=== PATIENT | male | born 1955 | race Hispanic/Latino ===

== ENCOUNTER 2018-01-11 09:45 | Inpatient (IN) | payer BC, OTHER ==
[2018-01-11] MEDS ORDERED: Levalbuterol 1.25 MG/3 ML Inhal Soln UD IH STA (10:12)
--- NOTE | 2018-01-11 10:17 | ED PDOC ---
Arrival/HPI - General Chief Complaint: Cough, Cold, Congestion Time Seen by Provider: 01/11/18 09:49 Historian: Patient - History of Present Illness Narrative History of Present Illness (Text): 01/11/18 10:13 62yo malw with pmhx of hypertension, hypercholestrol and COPD referred to ED by the PMD for 3weeks history of mild clear productive cough. The patient's by the bedside states patient was on biaxcin and Zpack and recently put back on biaxin without relieve. States that pt was also on prednisone an d then medro dose pack. He is on the second to the last tab of the medro dose. He reports SOB with exertion. Denies fever, chills, diaphoresis, abdominal pain, nausea, vomiting, chest pain, sick contact, recent travel, LE edema, calf pain. Past Medical History - Provider Review Nursing Documentation Reviewed: Yes - Infectious Disease Hx of Infectious Diseases: None - Tetanus Immunization Tetanus Immunization: Unknown - Cardiac Hx Hypertension: Yes Hx Pacemaker: No - Pulmonary Hx Asthma: Yes - Neurological Hx Paralysis: No - Hematological/Oncological Hx Blood Transfusions: No - Musculoskeletal/Rheumatological Hx Musculoskeletal Disorders: No - Psychiatric Hx Emotional Abuse: No Hx Physical Abuse: No Hx Substance Use: No - Surgical History Hx Orthopedic Surgery: Yes - Anesthesia Hx Anesthesia Reactions: No Hx Malignant Hyperthermia: No - Suicidal Assessment Feels Threatened In Home Enviroment: No Family/Social History - Physician Review Nursing Documentation Reviewed: Yes Family/Social History: Unknown Family HX Smoking Status: Unknown If Ever Smoked Hx Alcohol Use: No Hx Substance Use: No Allergies/Home Meds Allergies/Adverse Reactions: Allergies No Known Allergies Allergy (Verified 03/18/13 08:09) Home Medications: Home Meds Medication Instructions Recorded Confirmed Omeprazole [PrilOSEC] 20 mg PO DAILY 03/18/13 01/11/18 Montelukast [Singulair] 10 mg PO DAILY 10/18/14 01/11/18 Benzonatate [Tessalon Perles] 200 mg PO TID 01/11/18 01/11/18 Clarithromycin [Biaxin Filmtab] 500 mg PO BID 01/11/18 01/11/18 Glucosamn/Condroitn/C/Mn/Webb 1 each PO BID 01/11/18 01/11/18 [[facility] Glucosamine Chondroitin Tb] Methylprednisolone [Medrol Dose 4 mg PO DAILY 01/11/18 01/11/18 Pack (21 tabs)] [place] Xl 1 tab PO BID 01/11/18 01/11/18 Simvastatin [Zocor] 40 mg PO DAILY 01/11/18 01/11/18 Super Beta Prostate 1 tab PO DAILY 01/11/18 01/11/18 Valsartan [Diovan] 80 mg PO DAILY 01/11/18 01/11/18 Vit B Complex &C 1 tab PO DAILY 01/11/18 01/11/18 Vit B Dailycomplex 1 tab PO DAILY 01/11/18 01/11/18 Vit D3 1000 1 tab PO DAILY 01/11/18 01/11/18 Review of Systems - Physician Review All systems were reviewed & negative as marked: Yes - Review of Systems Constitutional: Normal Eyes: Normal ENT: Normal Respiratory: SOB, Cough, Sputum. absent: Wheezing Cardiovascular: Normal Gastrointestinal: Normal Genitourinary Male: Normal Musculoskeletal: Normal Skin: Normal Neurological: Normal Endocrine: Normal Hemo/Lymphatic: Normal Psychiatric: Normal Physical Exam Vital Signs Reviewed: Yes Vital Signs Temp Pulse Resp BP Pulse Ox 01/11/18 11:30 105 H 16 143/84 94 L 01/11/18 09:52 98.8 F 126 H 20 123/79 96 Temperature: Afebrile Blood Pressure: Normal Pulse: Tachycardic Respiratory Rate: Normal Appearance: Positive for: Well-Appearing, Non-Toxic, Comfortable Pain Distress: None Mental Status: Positive for: Alert and Oriented X 3 - Systems Exam Head: Present: Atraumatic, Normocephalic Pupils: Present: PERRL Extroacular Muscles: Present: EOMI Conjunctiva: Present: Normal Mouth: Present: Moist Mucous Membranes Neck: Present: Normal Range of Motion Respiratory/Chest: Present: Clear to Auscultation, Good Air Exchange, Other ( Coarse BS). No: Respiratory Distress, Accessory Muscle Use, Wheezes, Decreased Breath Sounds, Rales, Retracting, Rhonchi Cardiovascular: Present: Regular Rate and Rhythm, Normal S1, S2. No: Murmurs Abdomen: No: Tenderness, Distention, Peritoneal Signs Back: Present: Normal Inspection Upper Extremity: Present: Normal Inspection. No: Cyanosis, Edema Lower Extremity: Present: Normal Inspection. No: Edema Neurological: Present: GCS=15, CN II-XII Intact, Speech Normal Skin: Present: Warm, Dry, Normal Color. No: Rashes Psychiatric: Present: Alert, Oriented x 3, Normal Insight, Normal Concentration Medical Decision Making ED Course and Treatment: 01/11/18 20:17 62yo male who present with 3weeks history of clear productive cough. He was tachy on arrival but not in any respiratory distress. He had a coarse BS on exam. Otherwise he appeared comfortable in ED. His lactate was elevated, he had leukocytosis and was tachy, meeting the sepsis criteria and code sepsis was called. He was started on broad spectrum antibiotics. He was hydrated in ED. CXR ? RLL infiltrate, although it was read as pulmonary congestion EKG Sinus tachy with RBBB @108bpm Case was DW Dr. velazco and patient was admitted to his service. Case was also DW Dr. Lopez and he was placed on consult. - Lab Interpretations Lab Results: 01/11/18 10:15 01/11/18 10:15 Lab Results 01/11/18 10:15: Salicylates < 1 L, Acetaminophen < 10.0 L 01/11/18 10:15: Hepatitis A IgM Ab Negative, Hep Bs Antigen Negative, Hep B Core IgM Ab Negative, Hepatitis C Antibody Negative 01/11/18 10:15: Direct Bilirubin 2.1 H 01/11/18 10:15: Sodium 141, Chloride 105, Potassium 4.4, Carbon Dioxide 25, Anion Gap 16, BUN 25 H, Creatinine 1.0, Est GFR ( Amer) > 60, Est GFR ( Non-Af Amer) > 60, Random Glucose 93, Calcium 9.3, Magnesium 2.2, Total Bilirubin 3.0 H, AST 637 H, ALT 606 H, Alkaline Phosphatase 362 H, Lactate Dehydrogenase 98781 H, Total Creatine Kinase 796 H, CK-MB (CK-2) 2.7, CK-MB (CK- 2) % Cancelled, Troponin I < 0.01, NT-Pro-B Natriuret Pep 322, Total Protein 6.6 , Albumin 3.8, Globulin 2.8, Albumin/Globulin Ratio 1.3 01/11/18 10:15: pO2 93 H, VBG pH 7.40, VBG pCO2 41.0, VBG HCO3 25.4, VBG Total CO2 26.7, VBG O2 Sat (Calc) 99.4 H, VBG Base Excess 0.5, VBG Potassium 4.4, Sodium 139.0, Chloride 104.0, Glucose 93, Lactate 2.8 H, FiO2 21.0, Venous Blood Potassium 4.4 01/11/18 10:15: PT 12.2, INR 1.06, APTT 34.7 01/11/18 10:15: WBC 18.8 H, RBC 5.22, Hgb 14.8, Hct 43.3, MCV 83.0, MCH 28.4, MCHC 34.2, RDW 15.0 H, Plt Count 202, MPV 9.2, Gran % 78.4 H, Lymph % (Auto) 14.9 L, [place] % (Auto) 6.2 H, Eos % (Auto) 0.3 L, Baso % (Auto) 0.2, Gran # 14.77 H, Lymph # (Auto) 2.8, [place] # (Auto) 1.2 H, Eos # (Auto) 0.1, Baso # (Auto ) 0.04 - RAD Interpretation Radiology Orders: 01/11/18 10:08 CHEST TWO VIEWS (PA/LAT) [RAD] Stat - Medication Orders Current Medication Orders: Albuterol/Ipratropium (Duoneb 3 Mg/0.5 Mg (3 Ml) Ud) 3 ml IH [id number] [facility] Last Admin: 01/11/18 19:58 Dose: 3 ml Albuterol/Ipratropium (Duoneb 3 Mg/0.5 Mg (3 Ml) Ud) 3 ml IH Q2H PRN PRN Reason: Shortness of Breath Arformoterol Tartrate (Brovana) 15 mcg IH [id number] [facility] Last Admin: 01/11/18 20:06 Dose: 15 mcg Budesonide (Pulmicort Respules) 0.5 mg IH [id number] [facility] Last Admin: 01/11/18 20:06 Dose: 0.5 mg Guaifenesin/Codeine Phosphate (Robitussin W/Codeine) 5 ml PO Q6H PRN PRN Reason: Cough and congestion Losartan Potassium (Cozaar) 50 mg PO DAILY [facility] Montelukast Sodium (Singulair) 10 mg PO HS [facility] Pantoprazole Sodium (Protonix Inj) 40 mg IVP Q12 [facility] Discontinued Medications Arformoterol Tartrate (Brovana) 15 mcg IH [id number] STA Stop: 01/11/18 11:41 Last Admin: 01/11/18 12:05 Dose: 15 mcg Budesonide (Pulmicort Respules) 0.5 mg IH STAT STA Stop: 01/11/18 11:41 Last Admin: 01/11/18 12:05 Dose: 0.5 mg Sodium Chloride (Sodium Chloride 0.9%) 1,000 mls @ 999 mls/hr IV .Q1H1M STA Stop: 01/11/18 12:05 Last Admin: 01/11/18 11:22 Dose: 999 mls/hr eMAR Start Stop Document 01/11/18 11:22 LINDA (Rec: 01/11/18 11:23 LINDA [id number]) Intravenous Solution Start Date 01/11/18 Start Time 11:23 End Date 01/11/18 End time 12:23 Total Infusion Time 60 Vancomycin HCl (Vancomycin 1gm) 1 gm in 250 mls @ 167 mls/hr IVPB STAT STA PRN Reason: Protocol Stop: 01/11/18 12:34 Last Admin: 01/11/18 11:50 Dose: 167 mls/hr eMAR Start Stop Document 01/11/18 11:50 LINDA (Rec: 01/11/18 11:51 LINDA [id number]) Intravenous Solution Start Date 01/11/18 Start Time 11:51 End Date 01/11/18 End time 13:21 Total Infusion Time 90 Piperacillin Sod/Tazobactam Sod (Zosyn 3.375 In Ns 100ml) 100 mls @ 200 mls/hr IVPB STAT STA PRN Reason: Protocol Stop: 01/11/18 11:34 Last Admin: 01/11/18 11:20 Dose: 200 mls/hr eMAR Start Stop Document 01/11/18 11:20 LINDA (Rec: 01/11/18 11:21 LINDA [id number]) Intravenous Solution Start Date 01/11/18 Start Time 11:21 End Date 01/11/18 End time 11:51 Total Infusion Time 30 Levalbuterol HCl (Xopenex) 1.25 mg IH STAT STA Stop: 01/11/18 10:13 Last Admin: 01/11/18 10:26 Dose: 1.25 mg Lorazepam (Ativan) 2 mg IVP ONCE ONE PRN Reason: Protocol Stop: 01/11/18 17:15 Methylprednisolone (Solu-Medrol) 125 mg IVP STAT STA Stop: 01/11/18 10:13 Last Admin: 01/11/18 10:27 Dose: 125 mg IVP Administration Document 01/11/18 10:27 LINDA (Rec: 01/11/18 10:27 LINDA [id number]) Charges for Administration # of IVP Administrations 1 Pneumococcal Polyvalent Vaccine (Pneumovax 23 Vaccine) 0.5 ml IM .ONCE ONE Stop: 01/11/18 18:20 Tiotropium [place] (Spiriva) 18 mcg IH DAILY STA Stop: 01/11/18 11:41 Last Admin: 01/11/18 12:03 Dose: 18 mcg Disposition/Present on Arrival - Present on Arrival Any Indicators Present on Arrival: No History of DVT/PE: No History of Uncontrolled Diabetes: No Urinary Catheter: No History of Decub. Ulcer: No History Surgical Site Infection Following: None - Disposition Have Diagnosis and Disposition been Completed?: Yes Diagnosis: Sepsis, Pneumonia, Leukocytosis Disposition: HOSPITALIZED Disposition Time: 14:20 Patient Plan: Admission Condition: FAIR
[2018-01-11 10:33] LABS: BASO # 0.04 K/mm3 (0.0-2.0); BASO % 0.2 % (0.0-3.0); EOS # 0.1 (0.0-0.7); EOS % 0.3 % (1.5-5.0); GRAN # 14.77 (1.4-6.5); GRAN % 78.4 % (50.0-68.0); HEMOGLOBIN 14.8 g/dL (14.0-18.0); LYMPH # 2.8 (1.2-3.4); LYMPH % 14.9 % (22.0-35.0); MEAN CORPUSCULAR HEMOGLOBIN 28.4 pg (25.0-35.0); MEAN CORPUSCULAR HGB CONC 34.2 g/dl (31.0-37.0); MEAN PLATELET VOLUME 9.2 fl (7.0-11.0); MONO # 1.2 (0.1-0.6); MONO % 6.2 % (1.0-6.0); RBC 5.22 10^6/uL (3.5-6.1); VENOUS BLOOD GAS BASE EXCESS 0.5 mmol/L (0.0-2.0); VENOUS BLOOD GAS PO2 93 mm/Hg (30-55); WHITE BLOOD COUNT 18.8 10^3/ul (4.5-11.0)
[2018-01-11 10:44] LABS: ALB/GLOB RATIO 1.3 (1.1-1.8); ALBUMIN 3.8 g/dL (3.0-4.8); ALT/SGPT 606 U/L (7-56); AST/SGOT 637 U/L (17-59); BLOOD UREA NITROGEN 25 mg/dL (7-21); CALCIUM 9.3 mg/dL (8.4-10.5); GFR AFRICAN-AMERICAN > 60; GFR NON-AFRICAN AMERICAN > 60
[2018-01-11 10:56] LABS: B-TYPE NATRIURETIC PEPTIDE 322 pg/mL (0-450); TROPONIN I < 0.01 ng/mL
[2018-01-11 11:01] LABS: CK-MB 2.7 ng/mL (0.0-3.6)
[2018-01-11] MEDS ORDERED: Vancomycin 1gm in NS 250ml 1 GM/250 ML BAG IVPB STA (11:05)
[2018-01-11] MEDS ORDERED: Sodium Chloride 0.9% 1,000 ML IV STA (11:05)
[2018-01-11] MEDS ORDERED: Piperacillin/Tazobact 3.375 gm 100 ML IVPB STA (11:05)
[2018-01-11 11:11] LABS: INR 1.06 (0.93-1.08); PARTIAL THROMBOPLASTIN TIME 34.7 Seconds (25.1-36.5); PROTHROMBIN TIME 12.2 SECONDS (9.4-12.5)
--- NOTE | 2018-01-11 11:22 | RAD ---
Date of service: 01/11/2018 HISTORY: cough COMPARISON: 07/01/2017 TECHNIQUE: Chest PA and lateral FINDINGS: LUNGS: No active pulmonary disease. PLEURA: No significant pleural effusion identified. No pneumothorax apparent. CARDIOVASCULAR: Mild vascular congestion OSSEOUS STRUCTURES: No significant abnormalities. VISUALIZED UPPER ABDOMEN: Normal. OTHER FINDINGS: None. IMPRESSION: Mild vascular congestion
[2018-01-11] MEDS ORDERED: Tiotropium 18 mcg Cap For Inhalation IH STA (11:40)
[2018-01-11] MEDS ORDERED: Arformoterol 15 mcg/2 ml Inh Sol IH STA (11:40)
[2018-01-11] MEDS ORDERED: Budesonide 0.5 mg/2 ml Inhal Susp UD IH STA (11:40)
--- NOTE | 2018-01-11 12:00 | CP.PCM.HP ---
<RashidaZina - Last Filed: 01/11/18 13:58> History of Present Illness - History of Present Illness History of Present Illness: H&P for Lisandro Mckinney PGY3 This is a 62yo male with past medical history of HTN, dyslipidemia, asthma who came to ED for cough and shortness of breath for several weeks. Patient reports last month he was doing a lot of work in his attic and there was a lot of dust. He use a mask, but took it off at times. Since then, he has seen Dr. Churchill and Dr. Sanchez. They have given him antibiotics such as Clarithromycin and steroids, but the cough has not gotten better. He denies chest pain, fever/ chills, sick contacts or recent travel. He has never been intubated before for asthma exacerbation. He has been coughing up clear sputum, but has been having pain from coughing. In the ED, patient was noted to have transaminitis. He denies any change in diet, abdominal pain, nausea/vomiting/diarrhea, dysuria/ hematuria, changes in weight or weakness. Patient reports he has a liver cyst and fatty liver, but has not followed up in it in several years. He sees Dr. Churchill regularly has his liver enzymes have been OK. He denies taking any tylenol at home. Past medical history: HTN, dyslipidemia, asthma, fatty liver, liver cyst Past surgical history: R ankle surgery, L rotator cuff Home meds: Simvastatin, Valsartan, Singulair, Nebulizer Allergies: NKDA Social history: Denies EtOH, drug or tobacco use. 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 Independent in all ADLs Family history: Father: from possible lymphoma age 49 Present on Admission - Present on Admission Any Indicators Present on Admission: No Review of Systems - Review of Systems All systems: reviewed and no additional remarkable complaints except Review of Systems: 12 point ROS reviewed and is otherwise negative Past Patient History - Infectious Disease Hx of Infectious Diseases: None - Tetanus Immunizations Tetanus Immunization: Unknown - Past Social History Smoking Status: Unknown If Ever Smoked - CARDIAC Hx Hypertension: Yes Hx Pacemaker: No - PULMONARY Hx Asthma: Yes - NEUROLOGICAL Hx Paralysis: No - HEMATOLOGICAL/ONCOLOGICAL Hx Blood Transfusions: No - MUSCULOSKELETAL/RHEUMATOLOGICAL Hx Musculoskeletal Disorders: No - PSYCHIATRIC Hx Emotional Abuse: No Hx Physical Abuse: No Hx Substance Use: No - SURGICAL HISTORY Hx Orthopedic Surgery: Yes - ANESTHESIA Hx Anesthesia Reactions: No Hx Malignant Hyperthermia: No Meds Allergies/Adverse Reactions: Allergies Allergy/AdvReac Type Severity Reaction Status Date / Time No Known Allergies Allergy Verified 03/18/13 08:09 Physical Exam - Constitutional Appears: No Acute Distress - Head Exam Head Exam: ATRAUMATIC, NORMAL INSPECTION, NORMOCEPHALIC - Eye Exam Eye Exam: Normal appearance, PERRL Pupil Exam: NORMAL ACCOMODATION - ENT Exam ENT Exam: Mucous Membranes Moist - Respiratory Exam Respiratory Exam: Clear to Auscultation Bilateral, NORMAL BREATHING PATTERN. absent: Rales, Rhonchi, Wheezes, Respiratory Distress - Cardiovascular Exam Cardiovascular Exam: REGULAR RHYTHM, +S1, +S2. absent: Gallop, Rubs, Systolic Murmur - GI/Abdominal Exam GI & Abdominal Exam: Distended, Normal Bowel Sounds, Soft. absent: Mass, Rebound, Rigid, Tenderness - Extremities Exam Extremities exam: Positive for: normal inspection. Negative for: calf tenderness, pedal edema - Neurological Exam Neurological exam: Alert, CN II-XII Intact, Oriented x3 - Psychiatric Exam Psychiatric exam: Normal Affect, Normal Mood - Skin Skin Exam: Dry, Normal Color, Warm Results - Vital Signs Recent Vital Signs: Last Vital Signs Temp 98.8 F 01/11/18 09:52 Pulse 105 H 01/11/18 11:30 Resp 16 01/11/18 11:30 BP 143/84 01/11/18 11:30 Pulse Ox 94 L 01/11/18 11:30 - Labs Result Diagrams: 01/11/18 10:15 01/11/18 10:15 Assessment & Plan - Assessment and Plan (Free Text) Assessment: This is a 62yo male with past medical history of HTN, dyslipidemia, asthma who is admitted for 1. Shortness of breath - secondary to acute bronchitis from asthma exacerbation - leukocytosis can be secondary to steroids patient was on at home and was given solumedrol in ED - Patient is afebrile 2. Transaminitis - can be secondary to medication such as clarithromycin - will rule out choledocolithiasis v. autoimmune causes 3. HTN 4. Dyslipidemia Plan: Will place patient on nebulizer treatment as well as cough suppressant. Continue singulair. Pulm is consulted. For transaminitis, will obtain abdominal ultrasound. Hep panel pending as well as alpha 1 trypsin and autoimmune work up. Avoid hepatotoxic agents. GI is on consult. Patient will be on heart healthy diet. He is on his home BP medication and GI and DVT prophylaxis. Case seen, discussed and reviewed with Dr. Rubalcava. Lisandro Field PGY3 - Date & Time Date: 01/11/18 Time: 14:12 <Mack Rubalcava - Last Filed: 01/12/18 17:12> Results - Vital Signs Recent Vital Signs: Last Vital Signs Temp 98 F 01/12/18 14:26 Pulse 101 H 01/12/18 14:26 Resp 15 01/12/18 14:26 BP 129/73 01/12/18 14:26 Pulse Ox 93 L 01/12/18 14:26 - Labs Result Diagrams: 01/12/18 07:10 01/12/18 06:45 Labs: Laboratory Results - last 24 hr 01/12/18 01/12/18 01/12/18 06:45 06:45 06:45 WBC RBC Hgb Hct MCV MCH MCHC RDW Plt Count MPV Gran % Lymph % (Auto) [place] % (Auto) Eos % (Auto) Baso % (Auto) Gran # Lymph # (Auto) [place] # (Auto) Eos # (Auto) Baso # (Auto) Neutrophils % (Manual) Lymphocytes % (Manual) Atypical Lymphs % Monocytes % (Manual) Platelet Evaluation PT INR APTT Sodium 142 Potassium 4.5 Chloride 104 Carbon Dioxide 22 Anion Gap 21 H BUN 25 H Creatinine 0.9 Est GFR ( Amer) > 60 Est GFR (Non-Af Amer) > 60 Random Glucose 131 H Calcium 9.2 Total Bilirubin 2.4 H AST 530 H ALT 560 H Alkaline Phosphatase 343 H Total Protein 6.6 Albumin 3.8 Globulin 2.8 Albumin/Globulin Ratio 1.3 Alpha Fetoprotein 2.5 Carcinoembryonic Ag 20.6 H CA 19-9 Antigen 385 H 01/12/18 01/12/18 07:10 10:03 WBC 20.9 H RBC 5.11 Hgb 14.4 Hct 42.9 MCV 84.0 MCH 28.2 MCHC 33.6 RDW 15.3 H Plt Count 187 MPV 9.1 Gran % 86.5 H Lymph % (Auto) 4.2 L [place] % (Auto) 9.2 H Eos % (Auto) 0.0 L Baso % (Auto) 0.1 Gran # 18.04 H Lymph # (Auto) 0.9 L [place] # (Auto) 1.9 H Eos # (Auto) 0.0 Baso # (Auto) 0.03 Neutrophils % (Manual) 89 H Lymphocytes % (Manual) 2 L Atypical Lymphs % 2 H Monocytes % (Manual) 7 H Platelet Evaluation Normal PT 13.1 H INR 1.14 H APTT 27.8 Sodium Potassium Chloride Carbon Dioxide Anion Gap BUN Creatinine Est GFR ( Amer) Est GFR (Non-Af Amer) Random Glucose Calcium Total Bilirubin AST ALT Alkaline Phosphatase Total Protein Albumin Globulin Albumin/Globulin Ratio Alpha Fetoprotein Carcinoembryonic Ag CA 19-9 Antigen Assessment & Plan - Assessment and Plan (Free Text) Plan: Pt seen and examined. I have reviewed the note of the medical director and agree with it. I have discussed the assessment and plan with the resident. I have reviewed the patient's labs and medications. The pt was having cough and congestion and was not improving as an out-pt. He was sent to the ER by pulmonary. The pt was found to have high LFT's and an US was done showing multiple lesions that were concerned for cancer. Will need GI evaluation. 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
[2018-01-11 13:10] LABS: ACETAMINOPHEN < 10.0 ug/ml (10.0-20.0); SALICYLATE < 1 mg/dL (2.0-20.0)
--- NOTE | 2018-01-11 13:29 | CP.PCM.CON ---
<Johnny Freitas - Last Filed: 01/11/18 19:22> History of Present Illness - History of Present Illness History of Present Illness: GI Consult Note for Dr. Yolanda Freitas, PGY-3 IM This is a 62 yo M with PMH of HTN, hypercholesterolemia, COPD, and asthma (not tobacco user) who presented to [facility] with complaint of cough productive for clear sputum for 3 weeks. GI was consulted due to incidentally discovered elevated transaminases, concerning for transaminitis. 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 Adamantly denies any smoking hx, no clear etiology to his COPD as per pt. Has LFTs monitored every 3 months by PMD (Dr. Churchill) due to being on Zocor for cholesterol (dosing increased at last visit from 20mg to 40mg daily), was normal at last check as per pt and . Pt denies any symptoms consistent with rhabdomyolysis, including diffuse body aches, weakness, or darkened urine. Denies nausea, emesis, diarrhea, constipation, abdominal bloating/swelling/distension, melena, fevers, chills, hemoptysis, chest pain, shortness of breath at rest, unintentional weight loss, night sweats. All other ROS in 12-system review negative. PMH: as above PSH: R ankle surgery, L rotator cuff Soc Hx: sparse social EtOH (< 5 times yearly), denies drug or tobacco use. 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 Lives with family. Independent in all ADLs Fam Hx: Father from possible lymphoma age 49 PMD: Dr. Churchill Review of Systems - Review of Systems All systems: reviewed and no additional remarkable complaints except (as per HPI ) Past Patient History - Infectious Disease Hx of Infectious Diseases: None - Tetanus Immunizations Tetanus Immunization: Unknown - Past Social History Smoking Status: Unknown If Ever Smoked - CARDIAC Hx Hypertension: Yes Hx Pacemaker: No - PULMONARY Hx Asthma: Yes - NEUROLOGICAL Hx Paralysis: No - HEMATOLOGICAL/ONCOLOGICAL Hx Blood Transfusions: No - MUSCULOSKELETAL/RHEUMATOLOGICAL Hx Musculoskeletal Disorders: No - PSYCHIATRIC Hx Emotional Abuse: No Hx Physical Abuse: No Hx Substance Use: No - SURGICAL HISTORY Hx Orthopedic Surgery: Yes - ANESTHESIA Hx Anesthesia Reactions: No Hx Malignant Hyperthermia: No Meds Allergies/Adverse Reactions: Allergies Allergy/AdvReac Type Severity Reaction Status Date / Time No Known Allergies Allergy Verified 03/18/13 08:09 - Medications Medications: Current Medications Pantoprazole Sodium (Protonix Inj) 40 mg IVP Q12 [facility] Physical Exam - Constitutional Appears: Well, Non-toxic, No Acute Distress - Head Exam Head Exam: ATRAUMATIC, NORMAL INSPECTION, NORMOCEPHALIC - Eye Exam Eye Exam: EOMI, Normal appearance. absent: Conjunctival injection, Scleral icterus Pupil Exam: absent: Fixed, Irregular - ENT Exam ENT Exam: Mucous Membranes Moist. absent: Mucous Membranes Dry - Neck Exam Neck exam: Positive for: Normal Inspection. Negative for: Lymphadenopathy, Thyromegaly - Respiratory Exam Respiratory Exam: Clear to Auscultation Bilateral, NORMAL BREATHING PATTERN. absent: Accessory Muscle Use, Chest Wall Tenderness, Decreased Breath Sounds, Rales, Rhonchi, Wheezes - Cardiovascular Exam Cardiovascular Exam: REGULAR RHYTHM, RRR, +S1, +S2. absent: Bradycardia, Tachycardia, Irregular Rhythm, JVD, +S4 - GI/Abdominal Exam GI & Abdominal Exam: Firm (firm feeling abdomen that feels slightly distended, but this is baseline abd for months as per patient and , no acute changes), Normal Bowel Sounds. absent: Diminished Bowel Sounds, Guarding, Hyperactive Bowel Sounds, Hypoactive Bowel Sounds, Rigid, Soft, Tenderness - Extremities Exam Extremities exam: Positive for: normal capillary refill, normal inspection, pedal pulses present. Negative for: calf tenderness, pedal edema, tenderness - Neurological Exam Neurological exam: Alert, Oriented x3 Additional comments: awake and alert, following all commands appropriately, moving all extremities spontaneously, gait observed from bathroom to bed and appears normal - Psychiatric Exam Psychiatric exam: Normal Affect, Normal Mood - Skin Skin Exam: Dry, Intact, Normal Color, Warm Additional comments: no appreciable gross jaundice Results - Vital Signs Recent Vital Signs: Last Vital Signs Temp 98.8 F 01/11/18 09:52 Pulse 103 H 01/11/18 12:20 Resp 18 01/11/18 12:20 BP 148/89 01/11/18 12:20 Pulse Ox 94 L 01/11/18 11:30 - Labs Result Diagrams: 01/11/18 10:15 01/11/18 10:15 Assessment & Plan - Assessment and Plan (Free Text) Assessment: This is a 62 yo M with PMH of HTN, hypercholesterolemia, COPD, and asthma (not tobacco user) who presented to [facility] with complaint of cough productive for clear sputum for 3 weeks. GI was consulted due to incidentally discovered elevated transaminases, concerning for transaminitis. However, his abdominal ultrasound is acutely concerning for possible liver metastases (unknown primary). Plan: HTN Hypercholesterolemia COPD/Asthma of unclear etiology Acutely elevated transaminases, concerning for transaminitis Ddx: medication induced transaminitis vs autoimmune hepatitis vs viral hepatitis vs alpha-1 antitrypsin deficiency vs new onset liver metastases -Unlikely rhabdomyolysis given lack of characteristic symptoms, but will obtain UA to assess if positive for blood, if so will order urine microscopy -Abd US highly concerning for liver mets, primary unknown, no prior imaging for comparison -Acutely elevated LFTs not present on quarterly labs by PMD (last labs approx 2 months ago as per family), no obstruction of hepatic or pancreatic ducts observed on Abd US -Chest/Abd/Pelvis CT with IV and PO contrast ordered, given pt's reported claustrophobia and stable BP ordered Ativan 2mg IV x1 for [address] scan -want to confirm possibility of liver mets from Abd US and assess for possible primary; high suspicion for lung given unclear COPD etiology and chronic cough x3 weeks -Workup for autoimmune hepatitis and alpha-1 antitrypsin already ordered by primary team, but less likely given Abd US findings -Continue to trend LFTs and Coags daily -AFP, CA 19-9, and CEA ordered, f/u Discussed, reviewed, and seen with attending, Dr Guerrero. <Louis Guerrero V - Last Filed: 01/11/18 23:11> Meds - Medications Medications: Current Medications Albuterol/Ipratropium (Duoneb 3 Mg/0.5 Mg (3 Ml) Ud) 3 ml [id number] Last Admin: 01/11/18 19:58 Dose: 3 ml Albuterol/Ipratropium (Duoneb 3 Mg/0.5 Mg (3 Ml) Ud) 3 ml IH Q2H PRN PRN Reason: Shortness of Breath Arformoterol Tartrate (Brovana) 15 mcg IH [id number] [facility] Last Admin: 01/11/18 20:06 Dose: 15 mcg Budesonide (Pulmicort Respules) 0.5 mg IH [id number] [facility] Last Admin: 01/11/18 20:06 Dose: 0.5 mg Guaifenesin/Codeine Phosphate (Robitussin W/Codeine) 5 ml PO Q6H PRN PRN Reason: Cough and congestion Last Admin: 01/11/18 20:27 Dose: 5 ml Losartan Potassium (Cozaar) 50 mg PO DAILY [facility] Montelukast Sodium (Singulair) 10 mg PO HS [facility] Last Admin: 01/11/18 21:48 Dose: 10 mg Pantoprazole Sodium (Protonix Inj) 40 mg IVP Q12 [facility] Last Admin: 01/11/18 21:48 Dose: 40 mg Results - Vital Signs Recent Vital Signs: Last Vital Signs Temp 98.2 F 01/11/18 21:45 Pulse 104 H 01/11/18 21:45 Resp 18 01/11/18 21:45 BP 129/79 01/11/18 21:45 Pulse Ox 94 L 01/11/18 21:45 - Labs Result Diagrams: 01/11/18 10:15 01/11/18 10:15 Labs: Laboratory Results - last 24 hr 01/11/18 13:52 pO2 42 VBG pH 7.33 VBG pCO2 49.0 VBG HCO3 25.8 VBG Total CO2 27.3 VBG O2 Sat (Calc) 78.8 H VBG Base Excess -0.7 L VBG Potassium 4.8 Sodium 139.0 Chloride 105.0 Glucose 112 H Lactate 2.8 H FiO2 21.0 Venous Blood Potassium 4.8 Attending/Attestation - Attestation I have personally seen and examined this patient.: Yes I have fully participated in the care of the patient.: Yes I have reviewed all pertinent clinical information: Yes Notes (Text): This is an addendum to GI consult report dictated by the [employer].The patient was seen and examined earlier. Medical records, lab studies, imagings were reviewed. Last 24 hours events reviewed. Agreed with the above treatment plan as outlined in [employer] 's notes the with the addition of the following o/e patient is jaunced ,abdomen soft no mass Sono was reviewed and dw with DR Moss and patients and patients requested CT chest,abd and pelvis ,tumor markers 01/11/18 23:08
[2018-01-11 13:56] LABS: VENOUS BLOOD GAS BASE EXCESS -0.7 mmol/L (0.0-2.0); VENOUS BLOOD GAS PO2 42 mm/Hg (30-55); VENOUS BLOOD PH 7.33 (7.32-7.43)
[2018-01-11] MEDS ORDERED: Albuterol-Ipratrop 3 mg / 0.5 (3 ml) UD IH PRN (13:57)
[2018-01-11] MEDS: Albuterol-Ipratrop 3 mg / 0.5 (3 ml) UD IH SCH ×2 (14:30→19:58)
--- NOTE | 2018-01-11 14:35 | CP.PCM.PN ---
Subjective - Date & Time of Evaluation Date of Evaluation: 01/11/18 Time of Evaluation: 02:20 Objective - Vital Signs/Intake and Output Vital Signs (last 24 hours): Temp Pulse Resp BP Pulse Ox 98.8 F 103 H 18 148/89 94 L 01/11/18 09:52 01/11/18 12:20 01/11/18 12:20 01/11/18 12:20 01/11/18 11:30 - Medications Medications: Current Medications Albuterol/Ipratropium (Duoneb 3 Mg/0.5 Mg (3 Ml) Ud) 3 ml IH [id number] PACHECO Albuterol/Ipratropium (Duoneb 3 Mg/0.5 Mg (3 Ml) Ud) 3 ml IH Q2H PRN PRN Reason: Shortness of Breath Guaifenesin/Codeine Phosphate (Robitussin W/Codeine) 5 ml PO Q6H PRN PRN Reason: Cough and congestion Losartan Potassium (Cozaar) 50 mg PO DAILY [facility] Montelukast Sodium (Singulair) 10 mg PO HS [facility] Pantoprazole Sodium (Protonix Inj) 40 mg IVP Q12 PACHECO - Labs Labs: PT 12.2 SECONDS (9.4-12.5) 01/11/18 10:15 INR 1.06 (0.93-1.08) 01/11/18 10:15 APTT 34.7 Seconds (25.1-36.5) 01/11/18 10:15
--- NOTE | 2018-01-11 14:45 | PCM.SEPTIC ---
Sepsis Progress Note - Reassessment Type Date of Evaluation: 01/11/18 Time of Evaluation: 14:00 Reassessment Type: Non-invasive reassessment - Non Invasive Reassessment Were the most recent vital sign reviewed: Yes Vital Sign (Latest): Temp Pulse Resp BP Pulse Ox 98.8 F 103 H 18 148/89 94 L 01/11/18 09:52 01/11/18 12:20 01/11/18 12:20 01/11/18 12:20 01/11/18 11:30 Cardiovascular: Yes: Regular Rate, Rhythm, Chest Non Tender Respiratory: Yes: Normal Breath Sounds Capillary Refill: Normal (Less than 2 sec) Skin: Normal Color, Warm, Dry Addendum Addendum: 01/11/18 14:46 CODE SEPSIS NOTE Toni Echeverria DO, PGY-1, [place] Code Sepsis was called at time 11:10 to evaluate pt due to leukocytosis and tachycardia on initial presentation to ED. This is a 62 y o male PMHx of HTN, dyslipidemia, asthma who came to ED for cough and shortness of breath for several weeks. Patient reports last month he was doing a lot of work in his attic and there was a lot of dust. Pt had f/u with Dr. Churchill and Dr. Sanchez and received Clarithromycin and steroids, but the cough had not improved. Denied chest pain, fever/chills, sick contacts or recent travel. Denied intubation in past for asthma exacerbation. Had been coughing up clear sputum and had pleuritic chest pain. In the ED, patient was noted to have transaminitis. Pt denied any change in diet, abdominal pain, nausea/vomiting/ diarrhea, dysuria/hematuria, changes in weight or weakness. Patient reported that he has a liver cyst and fatty liver, but has not followed up in it in several years. Denied taking any tylenol at home. Pt had CXR done in ED which demonstrated no lung consolidation. Per ED, pt's shortness of breath was likely 2/2 to asthma exacerbation, and leukocytosis 2/2 to steroid administration at home and in the ED. Pt was placed on nebulizer tx and pulm was consulted. On reevaluation, pt overall improved. repeat VBG shows unchanged lactate, tachycardia improved, no changes in blood pressure.
--- NOTE | 2018-01-11 15:47 | US ---
Date of service: 01/11/2018 HISTORY: transaminitis COMPARISON: None. TECHNIQUE: Sonographic evaluation of the abdomen. FINDINGS: LIVER: Measures 25 cm. Increased echogenicity of the liver parenchyma. Multiple masses are seen throughout the liver consistent with metastatic disease GALLBLADDER: Unremarkable. No gallstones. COMMON BILE DUCT: Measures 3.5 mm. No stones. No dilatation. PANCREAS: Unremarkable as visualized. No mass. No ductal dilatation. RIGHT KIDNEY: Measures 11.86 x 4.91 x 4.17cm. Normal echogenicity. No calculus, mass, or hydronephrosis. LEFT KIDNEY: Measures 12.36 x 6.67 x 4.16cm. Normal echogenicity. No calculus, mass, or hydronephrosis. SPLEEN: Normal in size and contour. No mass. 10.08 x 4.53 x 5.98 cm AORTA: No aneurysmal dilatation. IVC: Unremarkable. OTHER FINDINGS: None. IMPRESSION: Diffuse hepatic metastatic disease
[2018-01-11 16:17] LABS: HEPATITIS B SURFACE AG Negative (NEGATIVE)
[2018-01-11 16:22] LABS: HEPATITIS A IGM NEGATIVE (NEGATIVE)
[2018-01-11 16:34] LABS: HEPATITIS C ANTIBODY NEGATIVE (NEGATIVE)
[2018-01-11 17:12] LABS: HEPATITIS B CORE AB NEGATIVE (NEGATIVE)
[2018-01-11 18:19] VITALS: BMI 33.0
[2018-01-11] MEDS ORDERED: Pneumococcal 23-Valent Vaccine IM ONE (18:19)
--- NOTE | 2018-01-11 19:08 | CARD ---
APPROVED REPORT Date of service: 01/11/2018 EKG Measurement Heart [id number] <Conclusion> Sinus tachycardia Right bundle branch block Abnormal ECG
[2018-01-11] MEDS: Budesonide 0.5 mg/2 ml Inhal Susp UD IH SCH (20:06)
[2018-01-11] MEDS: Arformoterol 15 mcg/2 ml Inh Sol IH SCH (20:06)
[2018-01-11] MEDS: guaiFENesin-Codeine 100-10mg/5ml Syrup (5 ml) UD PO PRN (20:27)
[2018-01-12] MEDS: Albuterol-Ipratrop 3 mg / 0.5 (3 ml) UD IH SCH ×2 (02:38→07:25)
[2018-01-12] MEDS: guaiFENesin-Codeine 100-10mg/5ml Syrup (5 ml) UD PO PRN ×3 (02:42→19:59)
[2018-01-12] MEDS ORDERED: Barium Sulfate Susp 2.1% w/v, 2.0% w/w 450 mL Bottle PO ONE (06:40)
[2018-01-12 07:20] LABS: BASO # 0.03 K/mm3 (0.0-2.0); BASO % 0.1 % (0.0-3.0); GRAN # 18.04 (1.4-6.5); GRAN % 86.5 % (50.0-68.0); HEMOGLOBIN 14.4 g/dL (14.0-18.0); LYMPH # 0.9 (1.2-3.4); LYMPH % 4.2 % (22.0-35.0); MEAN CORPUSCULAR HEMOGLOBIN 28.2 pg (25.0-35.0); MEAN CORPUSCULAR HGB CONC 33.6 g/dl (31.0-37.0); MEAN PLATELET VOLUME 9.1 fl (7.0-11.0); MONO # 1.9 (0.1-0.6); MONO % 9.2 % (1.0-6.0); PLATELET COUNT 187 10^3/uL (120.0-450.0); RBC 5.11 10^6/uL (3.5-6.1); RED CELL DISTRIBUTION WIDTH 15.3 % (11.5-14.5); WHITE BLOOD COUNT 20.9 10^3/ul (4.5-11.0)
[2018-01-12 07:25] LABS: ALB/GLOB RATIO 1.3 (1.1-1.8); ALBUMIN 3.8 g/dL (3.0-4.8); ALT/SGPT 560 U/L (7-56); AST/SGOT 530 U/L (17-59); BLOOD UREA NITROGEN 25 mg/dL (7-21); CALCIUM 9.2 mg/dL (8.4-10.5); GFR AFRICAN-AMERICAN > 60; GFR NON-AFRICAN AMERICAN > 60
[2018-01-12] MEDS: Budesonide 0.5 mg/2 ml Inhal Susp UD IH SCH ×2 (07:25→20:04)
[2018-01-12] MEDS: Arformoterol 15 mcg/2 ml Inh Sol IH SCH ×2 (07:25→20:04)
--- NOTE | 2018-01-12 07:47 | CP.PCM.PN ---
<Johnny Freitas - Last Filed: 01/12/18 12:56> Subjective - Date & Time of Evaluation Date of Evaluation: 01/12/18 Time of Evaluation: 08:00 - Subjective Subjective: GI Progress Note for Dr. Yolanda Freitas, PGY-3 IM Patient seen and examined at bedside, present during exam. Reports no acute events overnight, no acute complaints at time of exam, just persistence of his cough. Aware of results from the Ultrasound and what they may mean. Pending CT chest/abd/pelvis with IV and PO contrast to assess for possible malignancy and identify possibly primary. Objective - Vital Signs/Intake and Output Vital Signs (last 24 hours): Temp Pulse Resp BP Pulse Ox 98.2 F 104 H 18 129/79 94 L 01/11/18 21:45 01/11/18 21:45 01/11/18 21:45 01/11/18 21:45 01/11/18 21:45 Intake and Output: 01/12/18 01/12/18 06:59 18:59 Intake Total 660 Balance 660 - Medications Medications: Current Medications Albuterol/Ipratropium (Duoneb 3 Mg/0.5 Mg (3 Ml) Ud) 3 ml IH [id number] [facility] Last Admin: 01/12/18 07:25 Dose: 3 ml Albuterol/Ipratropium (Duoneb 3 Mg/0.5 Mg (3 Ml) Ud) 3 ml IH Q2H PRN PRN Reason: Shortness of Breath Arformoterol Tartrate (Brovana) 15 mcg IH [id number] [facility] Last Admin: 01/12/18 07:25 Dose: 15 mcg Budesonide (Pulmicort Respules) 0.5 mg IH [id number] [facility] Last Admin: 01/12/18 07:25 Dose: 0.5 mg Guaifenesin/Codeine Phosphate (Robitussin W/Codeine) 5 ml PO Q6H PRN PRN Reason: Cough and congestion Last Admin: 01/12/18 02:42 Dose: 5 ml Losartan Potassium (Cozaar) 50 mg PO DAILY [facility] Montelukast Sodium (Singulair) 10 mg PO HS [facility] Last Admin: 01/11/18 21:48 Dose: 10 mg Pantoprazole Sodium (Protonix Inj) 40 mg IVP Q12 [facility] Last Admin: 01/11/18 21:48 Dose: 40 mg - Labs Labs: 01/12/18 07:10 01/12/18 06:45 PT 12.2 SECONDS (9.4-12.5) 01/11/18 10:15 INR 1.06 (0.93-1.08) 01/11/18 10:15 APTT 34.7 Seconds (25.1-36.5) 01/11/18 10:15 - Eye Exam Pupil Exam: absent: Fixed, Irregular - Additional Findings Additional findings: - Constitutional Appears: Well, Non-toxic, No Acute Distress - Head Exam Head Exam: ATRAUMATIC, NORMAL INSPECTION, NORMOCEPHALIC - Eye Exam Eye Exam: EOMI, Normal appearance. absent: Conjunctival injection, Scleral icterus Pupil Exam: absent: Fixed, Irregular - ENT Exam ENT Exam: Mucous Membranes Moist. absent: Mucous Membranes Dry - Neck Exam Neck exam: Positive for: Normal Inspection. Negative for: Lymphadenopathy, Thyromegaly - Respiratory Exam Respiratory Exam: Clear to Auscultation Bilateral, NORMAL BREATHING PATTERN. absent: Accessory Muscle Use, Chest Wall Tenderness, Decreased Breath Sounds, Rales, Rhonchi, Wheezes - Cardiovascular Exam Cardiovascular Exam: REGULAR RHYTHM, RRR, +S1, +S2. absent: Bradycardia, Tachycardia, Irregular Rhythm, JVD, +S4 - GI/Abdominal Exam GI & Abdominal Exam: Firm (firm feeling abdomen that feels slightly distended, but this is baseline abd for months as per patient and , no acute changes), Normal Bowel Sounds. absent: Diminished Bowel Sounds, Guarding, Hyperactive Bowel Sounds, Hypoactive Bowel Sounds, Rigid, Soft, Tenderness - Extremities Exam Extremities exam: Positive for: normal capillary refill, normal inspection, pedal pulses present. Negative for: calf tenderness, pedal edema, tenderness - Neurological Exam awake and alert, following all commands appropriately, moving all extremities spontaneously - Psychiatric Exam Psychiatric exam: Normal Affect, Normal Mood - Skin Skin Exam: Dry, Intact, Normal Color, Warm, No appreciable gross jaundice Assessment and Plan - Assessment and Plan (Free Text) Assessment: This is a 62 yo M with PMH of HTN, hypercholesterolemia, COPD, and asthma (not tobacco user) who presented to [facility] with complaint of cough productive for clear sputum for 3 weeks. GI was consulted due to incidentally discovered elevated transaminases, concerning for transaminitis. However, his abdominal ultrasound is acutely concerning for possible liver metastases (unknown primary). Plan: HTN Hypercholesterolemia COPD/Asthma of unclear etiology Acutely elevated transaminases, concerning for transaminitis Ddx: new onset liver mets, unclear if transaminitis 2/2 mets or 2/2 medication use with mets discovery incidental -Abd US highly concerning for liver mets, primary unknown, no prior imaging for comparison -Acutely elevated LFTs on presentation, not present on quarterly labs by PMD ( last labs approx 2 months ago as per family), no obstruction of hepatic or pancreatic ducts observed on Abd US -Chest/Abd/Pelvis CT with IV and PO contrast obtained, highly concerning for extensive liver mets and multiple pulmonary nodules + hilar and mediastinal adenopathy consistent with lung metastatic disease -Pt to undergo IR biopsy of liver to assess mets, try to determine primary Ca -Workup for autoimmune hepatitis and alpha-1 antitrypsin already ordered by primary team, but much less likely given imaging findings -Continue to trend LFTs and Coags daily; LFTs slightly improved today, TBili down to 2.4 -AFP wnl, CA 19-9 elevated at 325, CEA elevated at 20.6 -Recommend Oncology consult, primary team agrees and consulted Dr. Cash, GI attending discussed case with Dr. Cash and Dr. Rubalcava -Pt's also made aware of CT findings and need for IR biopsy, agrees Discussed, reviewed, and seen with attending, Dr Guerrero. <Louis Guerrero V - Last Filed: 01/12/18 22:38> Objective - Vital Signs/Intake and Output Vital Signs (last 24 hours): Temp Pulse Resp BP Pulse Ox 98 F 101 H 15 129/73 93 L 01/12/18 14:26 01/12/18 14:26 01/12/18 14:26 01/12/18 14:26 01/12/18 14:26 Intake and Output: 01/12/18 01/13/18 18:59 06:59 Intake Total 150 660 Balance 150 660 - Medications Medications: Current Medications Acetaminophen (Tylenol 325mg Tab) 650 mg PO Q4 PRN PRN Reason: Pain, Mild (1-3) Arformoterol Tartrate (Brovana) 15 mcg IH [id number] [facility] Last Admin: 01/12/18 20:04 Dose: 15 mcg Budesonide (Pulmicort Respules) 0.5 mg IH [id number] [facility] Last Admin: 01/12/18 20:04 Dose: 0.5 mg Guaifenesin/Codeine Phosphate (Robitussin W/Codeine) 5 ml PO Q6H PRN PRN Reason: Cough and congestion Last Admin: 01/12/18 19:59 Dose: 5 ml Sodium Chloride (Sodium Chloride 0.45%) 1,000 mls @ 80 mls/hr IV .[id number] [facility] Stop: 01/13/18 08:00 Last Admin: 01/12/18 11:20 Dose: 80 mls/hr Sodium Chloride (Sodium Chloride 0.9%) 1,000 mls @ 100 mls/hr IV .Q10H [facility] Lorazepam (Ativan) 2 mg IVP ONCE ONE PRN Reason: Protocol Stop: 01/13/18 06:46 Losartan Potassium (Cozaar) 50 mg PO DAILY [facility] Last Admin: 01/12/18 11:19 Dose: 50 mg Montelukast Sodium (Singulair) 10 mg PO HS [facility] Last Admin: 01/12/18 21:03 Dose: 10 mg Ondansetron HCl (Zofran Inj) 4 mg IVP Q6H PRN PRN Reason: Nausea/Vomiting Oxycodone/Acetaminophen (Percocet 5/325 Mg Tab) 1 tab PO Q4H PRN PRN Reason: Pain, moderate (4-7) Stop: 01/15/18 14:04 Pantoprazole Sodium (Protonix Ec Tab) 40 mg PO Q12 [facility] Last Admin: 01/12/18 21:03 Dose: 40 mg Tiotropium [place] (Spiriva) 18 mcg IH DAILY [facility] Last Admin: 01/12/18 11:19 Dose: 18 mcg - Labs Labs: 01/12/18 07:10 01/12/18 06:45 PT 13.1 SECONDS (9.4-12.5) H 01/12/18 10:03 INR 1.14 (0.93-1.08) H 01/12/18 10:03 APTT 27.8 Seconds (25.1-36.5) 01/12/18 10:03 Attending/Attestation - Attestation I have personally seen and examined this patient.: Yes I have fully participated in the care of the patient.: Yes I have reviewed all pertinent clinical information, including history, physical exam and plan: Yes Notes (Text): This is an addendum to GI progrss report dictated by the [employer].The patient was seen and examined earlier. Medical records, lab studies, imagings were reviewed. Last 24 hours events reviewed. Agreed with the above treatment plan as outlined in [employer] 's notes the with the addition of the following discussed with the patient's and the patient CT scan was reviewed Discussed with the oncologist Status post liver biopsy Patient had IV contrast CT and also IV contrast for liver biopsy Scheduled to have a CT of brain with contrast patient was advised to discuss with Dr. Cash regarding rescheduling for IV contrast CT of brain in view of multiple coronary artery disease today PET scan was scheduled as an outpatient 01/12/18 22:34
[2018-01-12 08:09] LABS: LYMPHOCYTE 2 % (22.0-35.0); NEUTROPHIL 89 % (50.0-70.0)
[2018-01-12 08:10] LABS: ATYPICAL LYMPHOCYTE 2 % (0.0-0.0); MONOCYTE 7 % (1.0-6.0); PLATELET ESTIMATE NORMAL (NORMAL)
[2018-01-12] MEDS ORDERED: Iohexol 350 MG/100 ML VIAL ONE (09:28)
--- NOTE | 2018-01-12 09:46 | CP.PCM.PN ---
<Zina Field - Last Filed: 01/12/18 12:49> Subjective - Date & Time of Evaluation Date of Evaluation: 01/12/18 Time of Evaluation: 07:00 - Subjective Subjective: Medicine Progress Note for Lisandro Mckinney PGY 3 Patient seen and examined at bedside. There were no acute overnight events as per nursing staff. Patient reports having cough and pain with coughing. He denies chest pain, abdominal pain, nausea/vomiting/diarrhea, fever/chills, numbness/tingling, dysuria/hematuria, or shortness of breath. Objective - Vital Signs/Intake and Output Vital Signs (last 24 hours): Temp Pulse Resp BP Pulse Ox 98 F 77 20 134/79 96 01/12/18 06:00 01/12/18 06:00 01/12/18 06:00 01/12/18 06:00 01/12/18 06:00 Intake and Output: 01/12/18 01/12/18 06:59 18:59 Intake Total 660 Balance 660 - Medications Medications: Current Medications Arformoterol Tartrate (Brovana) 15 mcg IH [id number] [facility] Last Admin: 01/12/18 07:25 Dose: 15 mcg Budesonide (Pulmicort Respules) 0.5 mg IH [id number] [facility] Last Admin: 01/12/18 07:25 Dose: 0.5 mg Guaifenesin/Codeine Phosphate (Robitussin W/Codeine) 5 ml PO Q6H PRN PRN Reason: Cough and congestion Last Admin: 01/12/18 02:42 Dose: 5 ml Losartan Potassium (Cozaar) 50 mg PO DAILY [facility] Montelukast Sodium (Singulair) 10 mg PO HS [facility] Last Admin: 01/11/18 21:48 Dose: 10 mg Pantoprazole Sodium (Protonix Inj) 40 mg IVP Q12 [facility] Last Admin: 01/11/18 21:48 Dose: 40 mg Tiotropium [place] (Spiriva) 18 mcg IH DAILY [facility] - Labs Labs: 01/12/18 07:10 01/12/18 06:45 PT 12.2 SECONDS (9.4-12.5) 01/11/18 10:15 INR 1.06 (0.93-1.08) 07/16/18 10:15 APTT 34.7 Seconds (25.1-36.5) 01/11/18 10:15 - Constitutional Appears: No Acute Distress - Head Exam Head Exam: ATRAUMATIC, NORMAL INSPECTION, NORMOCEPHALIC - Eye Exam Eye Exam: Normal appearance, PERRL Pupil Exam: NORMAL ACCOMODATION, PERRL - ENT Exam ENT Exam: Mucous Membranes Moist - Neck Exam Neck Exam: Full ROM - Respiratory Exam Respiratory Exam: Decreased Breath Sounds (on LLL), NORMAL BREATHING PATTERN. absent: Rales, Rhonchi, Wheezes, Respiratory Distress - Cardiovascular Exam Cardiovascular Exam: REGULAR RHYTHM, +S1, +S2. absent: Gallop, Rubs, Murmur - GI/Abdominal Exam GI & Abdominal Exam: Distended, Soft, Normal Bowel Sounds, Organomegaly ( hepatomegaly). absent: Rigid, Tenderness, Rebound - Extremities Exam Extremities Exam: Normal Inspection. absent: Calf Tenderness, Pedal Edema - Neurological Exam Neurological Exam: Alert, Awake, CN II-XII Intact, Oriented x3 - Psychiatric Exam Psychiatric exam: Normal Affect, Normal Mood - Skin Skin Exam: Dry, Warm Assessment and Plan - Assessment and Plan (Free Text) Assessment: This is a 62yo male with past medical history of HTN, dyslipidemia, asthma who is admitted for 1. Shortness of breath - secondary to acute bronchitis failed antibiotic therapy v. pneumonitis - leukocytosis, afebrile - lung mass 12mm seen on CT as well hilar adenopathy 2. Transaminitis - secondary to liver metastasis seen on CT 3. HTN 4. Dyslipidemia 5. Hx of asthma Plan: CT chest/A/P reviewed. Labs reviewed. Discussed case with Dr. Guerrero. ID and Oncology on consult. Patient plan with liver biopsy tomorrow. Pulm on consult. Continue Spiriva, Pulmicort, Brovana and cough syrup. Countine IV fluids and home medications. Hold nephrotoxic agents. Discussed plan of care at length with family. Patient is on GI and DVT prophylaxis. Case seen, discussed and reviewed with Dr. Rubalcava. Lisandro Field PGY3 <Mack Rubalcava - Last Filed: 01/12/18 17:25> Objective - Vital Signs/Intake and Output Vital Signs (last 24 hours): Temp Pulse Resp BP Pulse Ox 98 F 101 H 15 129/73 93 L 01/12/18 14:26 01/12/18 14:26 01/12/18 14:26 01/12/18 14:26 01/12/18 14:26 Intake and Output: 01/12/18 01/12/18 06:59 18:59 Intake Total 660 150 Balance 660 150 - Medications Medications: Current Medications Acetaminophen (Tylenol 325mg Tab) 650 mg PO Q4 PRN PRN Reason: Pain, Mild (1-3) Arformoterol Tartrate (Brovana) 15 mcg IH [id number] [facility] Last Admin: 01/12/18 07:25 Dose: 15 mcg Budesonide (Pulmicort Respules) 0.5 mg IH [id number] [facility] Last Admin: 01/12/18 07:25 Dose: 0.5 mg Guaifenesin/Codeine Phosphate (Robitussin W/Codeine) 5 ml PO Q6H PRN PRN Reason: Cough and congestion Last Admin: 01/12/18 11:47 Dose: 5 ml Sodium Chloride (Sodium Chloride 0.45%) 1,000 mls @ 80 mls/hr IV .[id number] [facility] Stop: 01/13/18 08:00 Last Admin: 01/12/18 11:20 Dose: 80 mls/hr Sodium Chloride (Sodium Chloride 0.9%) 1,000 mls @ 100 mls/hr IV .Q10H [facility] Lorazepam (Ativan) 2 mg IVP ONCE ONE PRN Reason: Protocol Stop: 01/13/18 06:46 Losartan Potassium (Cozaar) 50 mg PO DAILY [facility] Last Admin: 01/12/18 11:19 Dose: 50 mg Montelukast Sodium (Singulair) 10 mg PO HS [facility] Last Admin: 01/11/18 21:48 Dose: 10 mg Ondansetron HCl (Zofran Inj) 4 mg IVP Q6H PRN PRN Reason: Nausea/Vomiting Oxycodone/Acetaminophen (Percocet 5/325 Mg Tab) 1 tab PO Q4H PRN PRN Reason: Pain, moderate (4-7) Stop: 01/15/18 14:04 Pantoprazole Sodium (Protonix Ec Tab) 40 mg PO Q12 [facility] Tiotropium [place] (Spiriva) 18 mcg IH DAILY [facility] Last Admin: 07/17/18 11:19 Dose: 18 mcg - Labs Labs: 01/12/18 07:10 01/12/18 06:45 PT 13.1 SECONDS (9.4-12.5) H 01/12/18 10:03 INR 1.14 (0.93-1.08) H 01/12/18 10:03 APTT 27.8 Seconds (25.1-36.5) 01/12/18 10:03 Assessment and Plan - Assessment and Plan (Free Text) Plan: Pt seen and examined. I have reviewed the note of the medical art therapist and agree with it. I have discussed the assessment and plan with the resident. I have reviewed the patient's labs and medications. Pt has a CT of the chest pending to looking for primary cancer. He has lesions on his lungs and may have lung ca. Spoke to IR about liver bx, as this is the easiest to bx. Spoke to at bedside. Oncology consult ordered. ID evaluation ordered.
--- NOTE | 2018-01-12 11:00 | CT ---
Date of service: 01/12/2018 PROCEDURE: CT Chest, Abdomen and Pelvis with intravenous contrast HISTORY: multiple liver mets on US, assess for primary COMPARISON: None. TECHNIQUE: IV dose administered: 100 cc of Omni 350 Radiation dose: Total exam DLP = 1603 mGy-cm. This CT exam was performed using one or more of the following dose reduction techniques: Automated exposure control, adjustment of the mA and/or kV according to patient size, and/or use of iterative reconstruction technique. FINDINGS: CT CHEST WITH CONTRAST: LUNGS: Multiple pulmonary nodules are seen the largest measuring 12 mm in the left lower lobe. There is extensive mediastinal and hilar adenopathy bilaterally. MEDIASTINUM: Unremarkable. Normal caliber aorta and pulmonary arterial trunk. No aortic dissection. Normal size heart. LYMPH NODES: Extensive mediastinal and hilar adenopathy. The largest node is seen in the anterior mediastinum measuring 2 x 3 cm PLEURA: Unremarkable. No pneumothorax. No pleural fluid. BONES: Unremarkable. OTHER FINDINGS: Diffusely enlarged thyroid CT ABDOMEN AND PELVIS: LIVER: Diffuse metastatic disease is seen in the liver. GALLBLADDER AND BILE DUCTS: Unremarkable. PANCREAS: Unremarkable. No gross lesion or ductal dilatation. SPLEEN: Unremarkable. ADRENALS: Unremarkable. No mass. KIDNEYS AND URETERS: Unremarkable. No hydronephrosis. No solid mass. VASCULATURE: Unremarkable. No aortic aneurysm. BOWEL: Unremarkable. No obstruction. No gross mural thickening. APPENDIX: Normal appendix. PERITONEUM: Unremarkable. No free fluid. No free air. LYMPH NODES: Unremarkable. No enlarged lymph nodes. BLADDER: Unremarkable. REPRODUCTIVE: Unremarkable. BONES: No acute fracture. OTHER FINDINGS: None. IMPRESSION: Multiple lung nodules. Extensive mediastinal and hilar adenopathy consistent with pulmonary malignancy. Diffuse metastatic disease to the liver
[2018-01-12] MEDS ORDERED: Sodium Chloride 0.45% 1,000 ML IV SCH (11:15)
[2018-01-12 11:18] LABS: INR 1.14 (0.93-1.08); PARTIAL THROMBOPLASTIN TIME 27.8 Seconds (25.1-36.5); PROTHROMBIN TIME 13.1 SECONDS (9.4-12.5)
[2018-01-12] MEDS: Tiotropium 18 mcg Cap For Inhalation IH SCH (11:19)
--- NOTE | 2018-01-12 11:19 | CP.PCM.CON ---
History of Present Illness - History of Present Illness History of Present Illness: 62-year-old male with past medical history of hypertension dyslipidemia and asthma who presents to the emergency room after failing outpatient therapy for an acute bronchitis. The patient reports that in June of this year he had a similar episode of a frequent cough with clear sputum production that resolved after 3 to 4 weeks of oral antibiotics and supportive measures. He denies any relieving factors in relation to his cough. He reports that [employer] used to to work for his cough in the past. 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 He reports that his cough seems to worsen with positional changes and with walking. His cough is with clear sputum production, associated with shortness of breath and, low-grade fever (99.1 F) noted in the past the week. He also reports having drenching sweats for the past week requiring him to change his garments three times a day. The patient denies any hemoptysis, nausea, vomiting, diarrhea, nausea, vomiting, chest pain, orthopnea, diarrhea, weight-loss, recent travel, exposure to tuberculosis. 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 He does report sun-bathing in good weather 2 times a week. He reports using sun-screen precautions. PMH: hypertension, dyslipidemia, asthma, fatty liver disease Past Surgical History: right and left rotator cuff repair, right ankle surgery Allergies: Denies Family History: mother had heart problems, father of lymphoma at age 49 Social: Worked as a police office for [employer] from [id number], currently works as a truancy officer, denies alcohol, tobacco, or illicit drug use. PMD: Dr. Churchill Review of Systems - Review of Systems All systems: reviewed and no additional remarkable complaints except (as per HPI ) Past Patient History - Infectious Disease Hx of Infectious Diseases: None - Tetanus Immunizations Tetanus Immunization: Unknown - Past Social History Smoking Status: Unknown If Ever Smoked - CARDIAC Hx Hypertension: Yes Hx Pacemaker: No - PULMONARY Hx Asthma: Yes - NEUROLOGICAL Hx Paralysis: No - HEENT Hx HEENT Problems: Yes (eyeglasses) - RENAL Hx Chronic Kidney Disease: No - ENDOCRINE/METABOLIC Hx Endocrine Disorders: No - HEMATOLOGICAL/ONCOLOGICAL Hx Blood Transfusions: No - INTEGUMENTARY Hx Dermatological Problems: Yes Other/Comment: healed surgical scar inner right foot from tendon repair to straighten foot sx 2011 - MUSCULOSKELETAL/RHEUMATOLOGICAL Hx Musculoskeletal Disorders: No - GASTROINTESTINAL Hx Gastrointestinal Disorders: Yes (fatty liver "yrs ago") Hx Gastroesophageal Reflux: Yes Other/Comment: hemorrhoids, gastritis, gastric polyps, polypectomy and bx - GENITOURINARY/GYNECOLOGICAL Hx Genitourinary Disorders: Yes (vasectomy) - PSYCHIATRIC Hx Emotional Abuse: No Hx Physical Abuse: No Hx Substance Use: No - SURGICAL HISTORY Hx Orthopedic Surgery: Yes - ANESTHESIA Hx Anesthesia Reactions: No Hx Malignant Hyperthermia: No Meds Allergies/Adverse Reactions: Allergies Allergy/AdvReac Type Severity Reaction Status Date / Time No Known Allergies Allergy Verified 03/18/13 08:09 - Medications Medications: Current Medications Arformoterol Tartrate (Brovana) 15 mcg IH [id number] [facility] Last Admin: 01/12/18 07:25 Dose: 15 mcg Budesonide (Pulmicort Respules) 0.5 mg IH [id number] [facility] Last Admin: 01/12/18 07:25 Dose: 0.5 mg Guaifenesin/Codeine Phosphate (Robitussin W/Codeine) 5 ml PO Q6H PRN PRN Reason: Cough and congestion Last Admin: 01/12/18 02:42 Dose: 5 ml Sodium Chloride (Sodium Chloride 0.45%) 1,000 mls @ 80 mls/hr IV .[id number] [facility] Stop: 01/13/18 08:00 Losartan Potassium (Cozaar) 50 mg PO DAILY [facility] Montelukast Sodium (Singulair) 10 mg PO HS [facility] Last Admin: 01/11/18 21:48 Dose: 10 mg Pantoprazole Sodium (Protonix Inj) 40 mg IVP Q12 [facility] Last Admin: 01/11/18 21:48 Dose: 40 mg Tiotropium [place] (Spiriva) 18 mcg IH DAILY [facility] Physical Exam - Constitutional Appears: No Acute Distress - Head Exam Head Exam: ATRAUMATIC, NORMOCEPHALIC - Eye Exam Eye Exam: EOMI, Normal appearance - ENT Exam ENT Exam: Mucous Membranes Moist, Normal Oropharynx - Neck Exam Neck exam: Positive for: Lymphadenopathy (submandibular) - Respiratory Exam Respiratory Exam: Rhonchi (right lung field), NORMAL BREATHING PATTERN. absent : Accessory Muscle Use - Cardiovascular Exam Cardiovascular Exam: Tachycardia, +S1, +S2 - GI/Abdominal Exam GI & Abdominal Exam: Normal Bowel Sounds, Soft. absent: Guarding, Rebound - Extremities Exam Extremities exam: Positive for: normal inspection. Negative for: calf tenderness - Back Exam Back exam: NORMAL INSPECTION - Neurological Exam Neurological exam: Alert, CN II-XII Intact, Oriented x3 - Psychiatric Exam Psychiatric exam: Normal Affect, Normal Mood - Skin Skin Exam: Dry, Intact Additional comments: tanned with multiple macules on chest, abdomen, and back - Additional Findings Additional findings: no axillary lymphadenopathy appreciated Results - Vital Signs Recent Vital Signs: Last Vital Signs Temp 98 F 01/12/18 06:00 Pulse 77 01/12/18 06:00 Resp 20 01/12/18 06:00 BP 134/79 01/12/18 06:00 Pulse Ox 96 01/12/18 06:00 - Labs Result Diagrams: 01/12/18 07:10 01/12/18 06:45 Labs: Laboratory Results - last 24 hr 01/11/18 01/12/18 01/12/18 13:52 06:45 06:45 WBC RBC Hgb Hct MCV MCH MCHC RDW Plt Count MPV Gran % Lymph % (Auto) Woodruff % (Auto) Eos % (Auto) Baso % (Auto) Gran # Lymph # (Auto) Woodruff # (Auto) Eos # (Auto) Baso # (Auto) Neutrophils % (Manual) Lymphocytes % (Manual) Atypical Lymphs % Monocytes % (Manual) Platelet Evaluation pO2 42 VBG pH 7.33 VBG pCO2 49.0 VBG HCO3 25.8 VBG Total CO2 27.3 VBG O2 Sat (Calc) 78.8 H VBG Base Excess -0.7 L VBG Potassium 4.8 Sodium 139.0 142 Chloride 105.0 104 Glucose 112 H Lactate 2.8 H FiO2 21.0 Potassium 4.5 Carbon Dioxide 22 Anion Gap 21 H BUN 25 H Creatinine 0.9 Est GFR ( Amer) > 60 Est GFR (Non-Af Amer) > 60 Random Glucose 131 H Calcium 9.2 Total Bilirubin 2.4 H AST 530 H ALT 560 H Alkaline Phosphatase 343 H Total Protein 6.6 Albumin 3.8 Globulin 2.8 Albumin/Globulin Ratio 1.3 Carcinoembryonic Ag 20.6 H Venous Blood Potassium 4.8 01/12/18 07:10 WBC 20.9 H RBC 5.11 Hgb 14.4 Hct 42.9 MCV 84.0 MCH 28.2 MCHC 33.6 RDW 15.3 H Plt Count 187 MPV 9.1 Gran % 86.5 H Lymph % (Auto) 4.2 L Woodruff % (Auto) 9.2 H Eos % (Auto) 0.0 L Baso % (Auto) 0.1 Gran # 18.04 H Lymph # (Auto) 0.9 L Woodruff # (Auto) 1.9 H Eos # (Auto) 0.0 Baso # (Auto) 0.03 Neutrophils % (Manual) 89 H Lymphocytes % (Manual) 2 L Atypical Lymphs % 2 H Monocytes % (Manual) 7 H Platelet Evaluation Normal pO2 VBG pH VBG pCO2 VBG HCO3 VBG Total CO2 VBG O2 Sat (Calc) VBG Base Excess VBG Potassium Sodium Chloride Glucose Lactate FiO2 Potassium Carbon Dioxide Anion Gap BUN Creatinine Est GFR ( Amer) Est GFR (Non-Af Amer) Random Glucose Calcium Total Bilirubin AST ALT Alkaline Phosphatase Total Protein Albumin Globulin Albumin/Globulin Ratio Carcinoembryonic Ag Venous Blood Potassium Assessment & Plan - Assessment and Plan (Free Text) Assessment: 62 year old male with a past medical history of hypertension, hyperlipidemia, asthma who was referred to [facility] by his PMD for 3 weeks of cough, clear sputum, not responding to oral steroids and antibiotics. On admission, the patient was found to have a elevated WBC and elevated liver function tests prompting and abdominal US that showed liver lesions, possibly consistent with metastatic disease. GI was consulted who ordered a computed tomography of the chest, abdomen, and pelvis that showed, multiple lung nodules, extensive mediastinal and hilar adenopathy along with diffuse (metastatic) disease to the liver. Hematology and ONcology was consulted as well for the imaging findings. We will perform a PPD to assess for anergy and serum protein electrophoresis to assess for possible lymphoma given the patient also has some B-cell symptoms and mediastinal disease. Current plan is to perform biopsy of the liver and/or lung lesion to determine the etiology of the patients signs and symptoms. Case reviewed and discussed at length with attending physician, Dr. Cash - Date & Time Date: 01/12/18 Time: 13:45
[2018-01-12] MEDS ORDERED: Tuberculin 5 Units/0.1 ml Inj ID ONE (13:17)
[2018-01-12] MEDS ORDERED: Lidocaine 1% Inj (20ml) ONE (13:42)
[2018-01-12] MEDS ORDERED: Midazolam 2 MG/2 ML VIAL ONE (13:43)
--- NOTE | 2018-01-12 14:27 | CON ---
DATE: 01/12/2018 PULMONARY CONSULTATION CHIEF COMPLAINT: The patient is a 62-year-old gentleman with no smoking history who has had asthma and emphysema for quite sometime. He had cough progressive over the last few weeks. He was given antibiotics, antitussives, corticosteroids to no avail. When his cough became worse, he was asked to go to the Emergency Room for further evaluation. PAST MEDICAL HISTORY: Includes hypertension, asthma, emphysema, dyslipidemia, fatty liver and a liver cyst. HOME MEDICATIONS: Include Brovana, budesonide, tiotropium, Singulair, valsartan, simvastatin. FAMILY HISTORY: CAD, HTN ALLERGIES: NONE. SOCIAL HISTORY Nonsmoker. No travel history. No previous history of smoking. No occupational exposure. REVIEW OF SYSTEMS: Other than as described above, negative. No signs of weight loss, night sweats or fever or fever or chills. There are no significant additional abnormalities. The patient is coughing, but not acutely short of breath. All other systems negative. PHYSICAL EXAMINATION: VITAL SIGNS: Show blood pressure of 120/80, heart rate 80, respiratory rate 16-18, afebrile. NECK: Supple. No jugular venous distention. No lymphadenopathy. No bruit. COR: Regular rhythm. S1, S2 without murmur, gallop or rub. CHEST: Coughing continuously, but normal breathing. No rales or rhonchi. Occasional wheezes are still heard. ABDOMEN: Soft. Bowel sounds normoactive without mass, guarding, rebound or organomegaly. EXTREMITIES: Reveal no clubbing, cyanosis or edema. There is no CVA tenderness. NEUROLOGIC: Exam intact. No focal findings noted. LYMPH NODES: No lymphadenopathy in the supraclavicular notch nor in the cervical, inguinal or axillary areas are palpated. SKIN: No rash or excoriation. NEUROLOGIC: Exam awake, alert, oriented. No focal findings. LABORATORY DATA: White count 18,800, hemoglobin 14, hematocrit 43, platelet count 202,000. Sodium 141, potassium 4.4, chloride 105, CO2 25, BUN 25, creatinine 1, glucose 93. EKG: Sinus rhythm, nonspecific ST-T wave changes. Chest x-ray: Questionable mid right hilar fullness, etiology unclear, pneumonia (?), mass (?). ASSESSMENT: 1. Chronic obstructive pulmonary disease. 2. Persistent cough. 3. Acute bronchospasm. 4. Underlying emphysema. 5. Air trapping. 6. Abnormal x-ray, rule out pneumonia. PLAN: CT scan of the chest is in order to look for additional etiology. The patient was already started on IV antibiotic. The case was discussed with the patient's primary attending who will continue antibiotic therapy. It has been noted that ultrasound of the liver was abnormal with questionable metastatic disease. GI workup is in progress. The patient is being evaluated by Dr. Guerrero. CT of the chest is pending and will be done later today. We will review as soon as possible. Case discussed with the patient's and the patient himself. He appears comfortable, but depressed over the findings in the liver. We will extubate this workup and see if further intervention is required. In the meantime, we will continue Brovana, budesonide, tiotropium. He is given corticosteroids and we will follow closely with you during the course of hospitalization. Thank you for the opportunity to follow Mr. Gallegos. We will follow closely with you. Michel Sanchez MD MTDAnt
[2018-01-12] MEDS ORDERED: Midazolam 2 MG/2 ML VIAL IVP ONE (14:35)
--- NOTE | 2018-01-12 20:25 | CT ---
PROCEDURE: CT guided liver biopsy. HISTORY: Bilateral liver metastasis. No history of CA. Needs liver biopsy. PHYSICIAN(S): Stefan Madison MD. TECHNIQUE: The relative risks and indications of the procedure were explained to the patient and consent obtained. The patient was placed supine on the CT scanner and preliminary images through the liver obtained. Conscious sedation and monitoring were provided throughout the procedure by a nurse. There are not numerous confluent low-attenuation lesions in both lobes liver.. A subxyphoid approach was selected and the area prepped and draped in the usual sterile fashion. 1% Xylocaine was used to anesthetize the skin and soft tissues. A 17-gauge guiding needle was advanced into the left lobe laterally.. Its position was confirmed with CT. Using coaxial technique, multiple core biopsies were obtained. The postprocedure images show no evidence of significant hemorrhage. IMPRESSION: 1. CT-guided liver biopsy as described above.
[2018-01-12] MEDS: Pantoprazole 40 mg EC Tab PO SCH (21:03)
[2018-01-13] MEDS: Oxycodone/Acetaminophen 5/325 mg Tab PO PRN ×4 (02:54→22:19)
[2018-01-13] MEDS: guaiFENesin-Codeine 100-10mg/5ml Syrup (5 ml) UD PO PRN ×2 (02:54→09:54)
[2018-01-13] MEDS: Sodium Chloride 0.9% 1,000 ML IV SCH ×2 (04:29→19:04)
--- NOTE | 2018-01-13 07:00 | CP.PCM.PN ---
Subjective - Date & Time of Evaluation Date of Evaluation: 01/13/18 Time of Evaluation: 06:57 - Subjective Subjective: Dave Miranda DO PGY-2: Hematology/Oncology Progress Note for Dr. Cash Patient was seen and examined at bedside. Patient reports some abdominal pain at the biopsy site. He reports his cough is the same. Nurse reports no events overnight. Objective - Vital Signs/Intake and Output Vital Signs (last 24 hours): Temp Pulse Resp BP Pulse Ox 97.5 F L 101 H 18 132/77 93 L 01/12/18 22:55 01/12/18 22:55 01/12/18 22:55 01/12/18 22:55 01/12/18 22:55 Intake and Output: 01/12/18 01/13/18 18:59 06:59 Intake Total 150 1020 Balance 150 1020 - Medications Medications: Current Medications Acetaminophen (Tylenol 325mg Tab) 650 mg PO Q4 PRN PRN Reason: Pain, Mild (1-3) Arformoterol Tartrate (Brovana) 15 mcg IH [id number] [facility] Last Admin: 01/12/18 20:04 Dose: 15 mcg Budesonide (Pulmicort Respules) 0.5 mg IH [id number] [facility] Last Admin: 01/12/18 20:04 Dose: 0.5 mg Guaifenesin/Codeine Phosphate (Robitussin W/Codeine) 5 ml PO Q6H PRN PRN Reason: Cough and congestion Last Admin: 01/13/18 02:54 Dose: 5 ml Sodium Chloride (Sodium Chloride 0.45%) 1,000 mls @ 80 mls/hr IV .[id number] [facility] Stop: 01/13/18 08:00 Last Admin: 01/12/18 11:20 Dose: 80 mls/hr Sodium Chloride (Sodium Chloride 0.9%) 1,000 mls @ 100 mls/hr IV .Q10H [facility] Last Admin: 01/13/18 04:29 Dose: Not Given Losartan Potassium (Cozaar) 50 mg PO DAILY [facility] Last Admin: 01/12/18 11:19 Dose: 50 mg Montelukast Sodium (Singulair) 10 mg PO HS [facility] Last Admin: 01/12/18 21:03 Dose: 10 mg Ondansetron HCl (Zofran Inj) 4 mg IVP Q6H PRN PRN Reason: Nausea/Vomiting Oxycodone/Acetaminophen (Percocet 5/325 Mg Tab) 1 tab PO Q4H PRN PRN Reason: Pain, moderate (4-7) Stop: 01/15/18 14:04 Last Admin: 01/13/18 06:38 Dose: 1 tab Pantoprazole Sodium (Protonix Ec Tab) 40 mg PO Q12 [facility] Last Admin: 01/12/18 21:03 Dose: 40 mg Tiotropium [place] (Spiriva) 18 mcg IH DAILY [facility] Last Admin: 01/12/18 11:19 Dose: 18 mcg - Labs Labs: 01/12/18 07:10 01/12/18 06:45 PT 13.1 SECONDS (9.4-12.5) H 01/12/18 10:03 INR 1.14 (0.93-1.08) H 01/12/18 10:03 APTT 27.8 Seconds (25.1-36.5) 01/12/18 10:03 - Constitutional Appears: Non-toxic - Head Exam Head Exam: ATRAUMATIC, NORMOCEPHALIC - Eye Exam Eye Exam: EOMI, Normal appearance - Respiratory Exam Respiratory Exam: Rhonchi (right side). absent: Accessory Muscle Use - Cardiovascular Exam Cardiovascular Exam: Tachycardia, +S1, +S2 - GI/Abdominal Exam GI & Abdominal Exam: Soft, Organomegaly (liver palpated 5 cm below right costal margin) - Extremities Exam Extremities Exam: Normal Inspection. absent: Calf Tenderness - Neurological Exam Neurological Exam: Alert, Awake, Oriented x3 - Psychiatric Exam Psychiatric exam: Normal Affect, Normal Mood - Skin Skin Exam: Dry, Intact, Normal Color, Warm Assessment and Plan - Assessment and Plan (Free Text) Assessment: 62 year old male with 3 weeks of cough that did not respond to oral antibiotics , steroids, or Tussinex. He presented to [facility] given that he failed outpatient treatment for bronchitis. Upon admission he was found to have elevated liver functions tests and abdominal US showed liver lesions consistent with metastatic disease. CT of the chest, abdomen, and pelvis with PO and IV contrast showed right pulmonary mass, mediastinal and hilar adenopathy, and redemonstrated metastatic lesions in the liver. The patient underwent CT guided core-biopsy of the liver lesion, pathology is pending. GI is consulted and following. Liver function tests are slowly trending down, as is the serum LDH. The patient will undergo CT of the head and neck with IV contrast tomorrow. The patient will need an outpatient PET CT and a prescription was provided to the of the patient. Case reviewed and discussed with attending physician, Dr. Cash
[2018-01-13] MEDS: Budesonide 0.5 mg/2 ml Inhal Susp UD IH SCH ×2 (07:11→20:17)
[2018-01-13] MEDS: Arformoterol 15 mcg/2 ml Inh Sol IH SCH ×2 (07:11→20:17)
[2018-01-13 07:39] LABS: BASO # 0.03 K/mm3 (0.0-2.0); BASO % 0.2 % (0.0-3.0); EOS % 0.1 % (1.5-5.0); GRAN # 14.54 (1.4-6.5); GRAN % 81.5 % (50.0-68.0); HEMOGLOBIN 13.4 g/dL (14.0-18.0); LYMPH % 5.8 % (22.0-35.0); MEAN CELL VOLUME 83.3 fl (80.0-105.0); MEAN CORPUSCULAR HGB CONC 33.7 g/dl (31.0-37.0); MEAN PLATELET VOLUME 9.2 fl (7.0-11.0); MONO # 2.2 (0.1-0.6); MONO % 12.4 % (1.0-6.0); RBC 4.78 10^6/uL (3.5-6.1); RED CELL DISTRIBUTION WIDTH 15.5 % (11.5-14.5); WHITE BLOOD COUNT 17.8 10^3/ul (4.5-11.0)
[2018-01-13 07:45] LABS: INR 1.13 (0.93-1.08)
[2018-01-13 08:06] LABS: ALB/GLOB RATIO 1.2 (1.1-1.8); ALBUMIN 3.3 g/dL (3.0-4.8); ALT/SGPT 460 U/L (7-56); AST/SGOT 497 U/L (17-59); BLOOD UREA NITROGEN 33 mg/dL (7-21); CALCIUM 8.7 mg/dL (8.4-10.5); GAMMA GLUTAMYL TRANSPEPTIDASE 2385 U/L (8-78); GFR AFRICAN-AMERICAN > 60; GFR NON-AFRICAN AMERICAN > 60
[2018-01-13] MEDS: Pantoprazole 40 mg EC Tab PO SCH ×2 (09:54→21:13)
--- NOTE | 2018-01-13 10:29 | CP.PCM.PN ---
<Zina Field - Last Filed: 01/13/18 11:42> Subjective - Date & Time of Evaluation Date of Evaluation: 01/13/18 Time of Evaluation: 07:00 - Subjective Subjective: Medicine Progress Note for Lisandro Mckinney PGY3 Patient seen and examined at bedside. There were no acute overnight events as per nursing staff. Patient reports having some abdominal pain at his liver biopsy site and dry cough. Otherwise he denies chest pain, shortness of breath, nausea/vomiting/diarrhea, fever/chills, numbness/tingling, dysuria/hematuria. Objective - Vital Signs/Intake and Output Vital Signs (last 24 hours): Temp Pulse Resp BP Pulse Ox 98.3 F 98 H 20 117/72 94 L 01/13/18 06:00 01/13/18 06:00 01/13/18 06:00 01/13/18 06:00 01/13/18 06:00 Intake and Output: 01/13/18 01/13/18 06:59 18:59 Intake Total 1020 Balance 1020 - Medications Medications: Current Medications Acetaminophen (Tylenol 325mg Tab) 650 mg PO Q4 PRN PRN Reason: Pain, Mild (1-3) Arformoterol Tartrate (Brovana) 15 mcg IH [id number] [facility] Last Admin: 01/13/18 07:11 Dose: 15 mcg Budesonide (Pulmicort Respules) 0.5 mg IH [id number] [facility] Last Admin: 01/13/18 07:11 Dose: 0.5 mg Guaifenesin/Codeine Phosphate (Robitussin W/Codeine) 5 ml PO Q6H PRN PRN Reason: Cough and congestion Last Admin: 01/13/18 09:54 Dose: 5 ml Sodium Chloride (Sodium Chloride 0.9%) 1,000 mls @ 100 mls/hr IV .Q10H [facility] Last Admin: 01/13/18 04:29 Dose: Not Given Losartan Potassium (Cozaar) 50 mg PO DAILY [facility] Last Admin: 01/13/18 09:54 Dose: 50 mg Montelukast Sodium (Singulair) 10 mg PO HS [facility] Last Admin: 01/12/18 21:03 Dose: 10 mg Ondansetron HCl (Zofran Inj) 4 mg IVP Q6H PRN PRN Reason: Nausea/Vomiting Oxycodone/Acetaminophen (Percocet 5/325 Mg Tab) 1 tab PO Q4H PRN PRN Reason: Pain, moderate (4-7) Stop: 01/15/18 14:04 Last Admin: 01/13/18 06:38 Dose: 1 tab Pantoprazole Sodium (Protonix Ec Tab) 40 mg PO Q12 [facility] Last Admin: 01/13/18 09:54 Dose: 40 mg Tiotropium [place] (Spiriva) 18 mcg IH DAILY [facility] Last Admin: 01/12/18 11:19 Dose: 18 mcg - Labs Labs: 01/13/18 07:00 01/13/18 07:00 PT 13.0 SECONDS (9.4-12.5) H 01/13/18 07:00 INR 1.13 (0.93-1.08) H 01/13/18 07:00 APTT 26.0 Seconds (25.1-36.5) 01/13/18 07:00 - Constitutional Appears: No Acute Distress - Head Exam Head Exam: ATRAUMATIC, NORMAL INSPECTION, NORMOCEPHALIC - Eye Exam Eye Exam: Normal appearance, PERRL Pupil Exam: NORMAL ACCOMODATION, PERRL - ENT Exam ENT Exam: Mucous Membranes Moist - Respiratory Exam Respiratory Exam: Clear to Ausculation Bilateral, NORMAL BREATHING PATTERN. absent: Decreased Breath Sounds, Rales, Rhonchi, Wheezes - Cardiovascular Exam Cardiovascular Exam: REGULAR RHYTHM, +S1, +S2. absent: Gallop, Rubs, Murmur - GI/Abdominal Exam GI & Abdominal Exam: Soft, Normal Bowel Sounds, Organomegaly (hepatomegaly ). absent: Tenderness Additional comments: dressing in place- clean and dry - Extremities Exam Extremities Exam: Normal Inspection. absent: Calf Tenderness, Pedal Edema - Neurological Exam Neurological Exam: Alert, Awake, CN II-XII Intact, Oriented x3 - Psychiatric Exam Psychiatric exam: Normal Affect, Normal Mood - Skin Skin Exam: Dry, Intact, Warm Assessment and Plan - Assessment and Plan (Free Text) Assessment: This is a 62yo male with past medical history of HTN, dyslipidemia, asthma who is admitted for 1. Shortness of breath - secondary to acute bronchitis failed antibiotic therapy v. pneumonitis with underlying suspected lung ca - leukocytosis, afebrile - lung mass 12mm seen on CT as well hilar adenopathy 2. Transaminitis - secondary to liver metastasis seen on CT as well as medications - s/p liver biopsy POD #1 3. HTN 4. Dyslipidemia 5. Hx of asthma Plan: Patient is s/p liver biopsy awaiting pathology results. Oncology on consult. Recommend CT head and neck with contrast tomorrow. Will complete tomorrow. Continue IV fluids since patient had IV contrast yesterday with liver biopsy and CT scan. Hold nephrotoxic agents. Continue pain control. PCT elevated. ID consulted. Continue respiratory treatments and cough syrup. Patient will need PET scan as outpatient. Discussed plan of care at length with family. Patient is on GI and DVT prophylaxis. Case seen, discussed and reviewed with Dr. Rubalcava. Lisandro Field PGY3 <Mack Rubalcava S - Last Filed: 01/13/18 21:35> Objective - Vital Signs/Intake and Output Vital Signs (last 24 hours): Temp Pulse Resp BP Pulse Ox 97.9 F 96 H 20 113/64 93 L 01/13/18 14:00 01/13/18 14:00 01/13/18 14:00 01/13/18 14:00 01/13/18 14:00 - Medications Medications: Current Medications Acetaminophen (Tylenol 325mg Tab) 650 mg PO Q4 PRN PRN Reason: Pain, Mild (1-3) Arformoterol Tartrate (Brovana) 15 mcg IH [id number] [facility] Last Admin: 01/13/18 20:17 Dose: 15 mcg Budesonide (Pulmicort Respules) 0.5 mg IH [id number] [facility] Last Admin: 01/13/18 20:17 Dose: 0.5 mg Guaifenesin/Codeine Phosphate (Robitussin W/Codeine) 5 ml PO Q6H PRN PRN Reason: Cough and congestion Last Admin: 01/13/18 09:54 Dose: 5 ml Sodium Chloride (Sodium Chloride 0.9%) 1,000 mls @ 100 mls/hr IV .Q10H [facility] Last Admin: 01/13/18 19:04 Dose: 100 mls/hr Lidocaine (Lidoderm) 1 ea TD DAILY [facility] Last Admin: 01/13/18 16:45 Dose: 1 ea Lorazepam (Ativan) 2 mg IVP ONCE ONE PRN Reason: Protocol Stop: 01/14/18 06:46 Losartan Potassium (Cozaar) 50 mg PO DAILY [facility] Last Admin: 01/13/18 09:54 Dose: 50 mg Montelukast Sodium (Singulair) 10 mg PO HS [facility] Last Admin: 01/13/18 21:13 Dose: 10 mg Morphine Sulfate (Morphine) 2 mg IVP Q6H PRN PRN Reason: Pain, severe (8-10) Last Admin: 01/13/18 20:27 Dose: 2 mg Ondansetron HCl (Zofran Inj) 4 mg IVP Q6H PRN PRN Reason: Nausea/Vomiting Oxycodone/Acetaminophen (Percocet 5/325 Mg Tab) 1 tab PO Q4H PRN PRN Reason: Pain, moderate (4-7) Stop: 01/15/18 14:04 Last Admin: 01/13/18 16:53 Dose: 1 tab Pantoprazole Sodium (Protonix Ec Tab) 40 mg PO Q12 [facility] Last Admin: 01/13/18 21:13 Dose: 40 mg Tiotropium [place] (Spiriva) 18 mcg IH DAILY [facility] Last Admin: 01/13/18 11:00 Dose: 18 mcg - Labs Labs: 01/13/18 07:00 01/13/18 07:00 PT 13.0 SECONDS (9.4-12.5) H 01/13/18 07:00 INR 1.13 (0.93-1.08) H 01/13/18 07:00 APTT 26.0 Seconds (25.1-36.5) 01/13/18 07:00 Assessment and Plan - Assessment and Plan (Free Text) Plan: Pt seen and examined. I have reviewed the note of the medical planner and agree with it. I have discussed the assessment and plan with the resident. I have reviewed the patient's labs and medications. Pt had a liver bx for multiple lesions. CT has been reviewed. Spoke to at the bedside. Spoke to Dr Maciel today. Pt is able to ambulate. Pain is controlled.
[2018-01-13] MEDS ORDERED: Morphine 2 mg/ml ISec IVP PRN (10:42)
[2018-01-13] MEDS: Tiotropium 18 mcg Cap For Inhalation IH SCH (11:00)
--- NOTE | 2018-01-13 12:33 | CP.PCM.PN ---
<Johnny Freitas - Last Filed: 01/13/18 16:19> Subjective - Date & Time of Evaluation Date of Evaluation: 01/13/18 Time of Evaluation: 08:50 - Subjective Subjective: GI Progress Note for Dr. Yolanda Freitas, PGY-3 IM Patient seen and examined at bedside, present during exam. Reports no acute events overnight, no acute complaints at time of exam, just persistence of his cough. CT chest/abd/pelvis concerning for hepatic and possible lung malignancy, CEA and Ca19-9 both elevated on labs. S/p IR guided Liver biopsy of lesion yesterday, pathology pending. Awaiting improvement in LFTs, pending outpatient PET CT and additional follow-up/workup by Heme-onc. Objective - Vital Signs/Intake and Output Vital Signs (last 24 hours): Temp Pulse Resp BP Pulse Ox 98.3 F 98 H 20 117/72 94 L 01/13/18 06:00 01/13/18 06:00 01/13/18 06:00 01/13/18 06:00 01/13/18 06:00 Intake and Output: 01/13/18 01/13/18 06:59 18:59 Intake Total 1020 Balance 1020 - Medications Medications: Current Medications Acetaminophen (Tylenol 325mg Tab) 650 mg PO Q4 PRN PRN Reason: Pain, Mild (1-3) Arformoterol Tartrate (Brovana) 15 mcg IH [id number] [facility] Last Admin: 01/13/18 07:11 Dose: 15 mcg Budesonide (Pulmicort Respules) 0.5 mg IH [id number] [facility] Last Admin: 01/13/18 07:11 Dose: 0.5 mg Guaifenesin/Codeine Phosphate (Robitussin W/Codeine) 5 ml PO Q6H PRN PRN Reason: Cough and congestion Last Admin: 01/13/18 09:54 Dose: 5 ml Sodium Chloride (Sodium Chloride 0.9%) 1,000 mls @ 100 mls/hr IV .Q10H [facility] Last Admin: 01/13/18 04:29 Dose: Not Given Losartan Potassium (Cozaar) 50 mg PO DAILY [facility] Last Admin: 01/13/18 09:54 Dose: 50 mg Montelukast Sodium (Singulair) 10 mg PO HS [facility] Last Admin: 01/12/18 21:03 Dose: 10 mg Morphine Sulfate (Morphine) 2 mg IVP Q6H PRN PRN Reason: Pain, severe (8-10) Last Admin: 01/13/18 12:09 Dose: 2 mg Ondansetron HCl (Zofran Inj) 4 mg IVP Q6H PRN PRN Reason: Nausea/Vomiting Oxycodone/Acetaminophen (Percocet 5/325 Mg Tab) 1 tab PO Q4H PRN PRN Reason: Pain, moderate (4-7) Stop: 01/15/18 14:04 Last Admin: 01/13/18 06:38 Dose: 1 tab Pantoprazole Sodium (Protonix Ec Tab) 40 mg PO Q12 [facility] Last Admin: 01/13/18 09:54 Dose: 40 mg Tiotropium [place] (Spiriva) 18 mcg IH DAILY [facility] Last Admin: 01/12/18 11:19 Dose: 18 mcg - Labs Labs: 01/13/18 07:00 01/13/18 07:00 PT 13.0 SECONDS (9.4-12.5) H 01/13/18 07:00 INR 1.13 (0.93-1.08) H 01/13/18 07:00 APTT 26.0 Seconds (25.1-36.5) 01/13/18 07:00 - Additional Findings Additional findings: - Constitutional Appears: Well, Non-toxic, No Acute Distress - Head Exam Head Exam: ATRAUMATIC, NORMAL INSPECTION, NORMOCEPHALIC - Eye Exam Eye Exam: EOMI, Normal appearance. absent: Conjunctival injection, Scleral icterus Pupil Exam: absent: Fixed, Irregular - ENT Exam ENT Exam: Mucous Membranes Moist. absent: Mucous Membranes Dry - Neck Exam Neck exam: Positive for: Normal Inspection. Negative for: Lymphadenopathy, Thyromegaly - Respiratory Exam Respiratory Exam: Clear to Auscultation Bilateral, NORMAL BREATHING PATTERN. absent: Accessory Muscle Use, Chest Wall Tenderness, Decreased Breath Sounds, Rales, Rhonchi, Wheezes - Cardiovascular Exam Cardiovascular Exam: REGULAR RHYTHM, RRR, +S1, +S2. absent: Bradycardia, Tachycardia, Irregular Rhythm, JVD, +S4 - GI/Abdominal Exam GI & Abdominal Exam: Normal Bowel Sounds. absent: Diminished Bowel Sounds, Guarding, Hyperactive Bowel Sounds, Hypoactive Bowel Sounds - Extremities Exam Extremities exam: Positive for: normal inspection. Negative for: calf tenderness, pedal edema, tenderness - Neurological Exam awake and alert, following all commands appropriately, moving all extremities spontaneously - Psychiatric Exam Psychiatric exam: Normal Affect, Normal Mood - Skin Skin Exam: Dry, Intact, Normal Color, Warm, No appreciable gross jaundice Assessment and Plan - Assessment and Plan (Free Text) Assessment: This is a 62 yo M with PMH of HTN, hypercholesterolemia, COPD, and asthma (not tobacco user) who presented to [facility] [place] [facility] with complaint of cough productive for clear sputum for 3 weeks. GI was consulted due to incidentally discovered elevated transaminases, concerning for transaminitis. However, his abdominal ultrasound and CT scans are concerning for liver and possible lung metastases (possibly lung primary). S/p IR guided biopsy, pending pathology and improvement of transaminases. Plan: HTN Hypercholesterolemia COPD/Asthma of unclear etiology Acutely elevated transaminases, concerning for transaminitis Ddx: new onset liver mets, unclear if transaminitis 2/2 mets or 2/2 medication use with mets discovery incidental -Abd US highly concerning for liver mets, primary unknown, no prior imaging for comparison -Acutely elevated LFTs on presentation, not present on quarterly labs by PMD ( last labs approx 2 months ago as per family), no obstruction of hepatic or pancreatic ducts observed on Abd US -Chest/Abd/Pelvis CT with IV and PO contrast obtained, highly concerning for extensive liver mets and multiple pulmonary nodules + hilar and mediastinal adenopathy consistent with lung metastatic disease -Pt to undergo IR biopsy of liver to assess mets, try to determine primary Ca -Workup for autoimmune hepatitis and alpha-1 antitrypsin already ordered by primary team, but much less likely given imaging findings -Continue to trend LFTs and Coags daily; LFTs improved today but TBili increased to 3.4; continue trending, continue hydration -AFP wnl, CA 19-9 elevated at 325, CEA elevated at 20.6 -S/p IR biopsy of liver lesion yesterday, pending pathology Discussed, reviewed, and seen with attending, Dr Guerrero. <Louis Guerrero V - Last Filed: 01/13/18 23:49> Objective - Vital Signs/Intake and Output Vital Signs (last 24 hours): Temp Pulse Resp BP Pulse Ox 97.8 F 87 20 117/59 L 92 L 01/13/18 22:00 01/13/18 22:00 07/18/18 22:00 01/13/18 22:00 01/13/18 22:00 Intake and Output: 01/13/18 01/14/18 18:59 06:59 Intake Total 980 Balance 980 - Medications Medications: Current Medications Acetaminophen (Tylenol 325mg Tab) 650 mg PO Q4 PRN PRN Reason: Pain, Mild (1-3) Arformoterol Tartrate (Brovana) 15 mcg IH [id number] [facility] Last Admin: 01/13/18 20:17 Dose: 15 mcg Budesonide (Pulmicort Respules) 0.5 mg IH [id number] [facility] Last Admin: 01/13/18 20:17 Dose: 0.5 mg Guaifenesin/Codeine Phosphate (Robitussin W/Codeine) 5 ml PO Q6H PRN PRN Reason: Cough and congestion Last Admin: 01/13/18 09:54 Dose: 5 ml Sodium Chloride (Sodium Chloride 0.9%) 1,000 mls @ 100 mls/hr IV .Q10H [facility] Last Admin: 01/13/18 19:04 Dose: 100 mls/hr Lidocaine (Lidoderm) 1 ea TD DAILY [facility] Last Admin: 01/13/18 16:45 Dose: 1 ea Lorazepam (Ativan) 2 mg IVP ONCE ONE PRN Reason: Protocol Stop: 01/14/18 06:46 Losartan Potassium (Cozaar) 50 mg PO DAILY [facility] Last Admin: 01/13/18 09:54 Dose: 50 mg Montelukast Sodium (Singulair) 10 mg PO HS [facility] Last Admin: 01/13/18 21:13 Dose: 10 mg Morphine Sulfate (Morphine) 2 mg IVP Q6H PRN PRN Reason: Pain, severe (8-10) Last Admin: 01/13/18 20:27 Dose: 2 mg Ondansetron HCl (Zofran Inj) 4 mg IVP Q6H PRN PRN Reason: Nausea/Vomiting Oxycodone/Acetaminophen (Percocet 5/325 Mg Tab) 1 tab PO Q4H PRN PRN Reason: Pain, moderate (4-7) Stop: 01/15/18 14:04 Last Admin: 01/13/18 22:19 Dose: 1 tab Pantoprazole Sodium (Protonix Ec Tab) 40 mg PO Q12 [facility] Last Admin: 01/13/18 21:13 Dose: 40 mg Tiotropium [place] (Spiriva) 18 mcg IH DAILY [facility] Last Admin: 01/13/18 11:00 Dose: 18 mcg - Labs Labs: 01/13/18 07:00 01/13/18 07:00 PT 13.0 SECONDS (9.4-12.5) H 01/13/18 07:00 INR 1.13 (0.93-1.08) H 01/13/18 07:00 APTT 26.0 Seconds (25.1-36.5) 01/13/18 07:00 Attending/Attestation - Attestation I have personally seen and examined this patient.: Yes I have fully participated in the care of the patient.: Yes I have reviewed all pertinent clinical information, including history, physical exam and plan: Yes Notes (Text): This is an addendum to GI progress report dictated by the [employer] Executive Director.The patient was seen and examined earlier. Medical records, lab studies, imagings were reviewed. Last 24 hours events reviewed. Agreed with the above treatment plan as outlined in [employer] 's notes the with the addition of the following 23:49
[2018-01-13 15:29] LABS: URINE APPEARANCE SLIGHT-CLOUDY (CLEAR); URINE BILIRUBIN SMALL (NEGATIVE); URINE BLOOD TRACE-LYSED (NEGATIVE); URINE COLOR DARK YELLOW (YELLOW); URINE GLUCOSE (UA) NEGATIVE (NEGATIVE); URINE LEUKOCYTE ESTERASE TRACE Leu/uL (NEGATIVE); URINE PROTEIN 30 mg/dL (<30 mg/dL); URINE UROBILINOGEN 0.2 E.U./dL (<1 E.U./dL)
[2018-01-13 15:34] LABS: URINE BACTERIA TRACE (NEG); URINE RBC 0 - 2 /hpf (0-2); URINE WBC 0 - 2 /hpf (0-6)
[2018-01-13] MEDS ORDERED: Lidocaine 5% Patch TD SCH (15:45)
--- NOTE | 2018-01-13 15:52 | PN ---
DATE: 01/13/2018 PULMONARY PROGRESS NOTE SUBJECTIVE: Patient was seen and examined at the bedside with his present at bedside. Patient is complaining of lower chest discomfort while coughing. He is status post liver biopsy. Pathology results are pending. PHYSICAL EXAMINATION: VITAL SIGNS: His temperature is 98, pulse 98, respirations 20, pulse oximetry is 94% on room air, blood pressure is 117/72. HEENT: Head normocephalic and atraumatic. NECK: Supple with no jugular vein distentions. CARDIOVASCULAR: S1, S2. No S3. Regular. PULMONARY: The lungs are actually clear. There are no rhonchi, rales or wheezing. GASTROINTESTINAL: Soft, diffusely tender. Bowel sounds are hyperactive. EXTREMITIES: No pedal edema. No cyanosis. SKIN: No acute skin rash. NEUROLOGIC: Limited at the present time. LABORATORY DATA: Review of blood work, his electrolytes are normal. Total bilirubin is 3.4, elevated. SGOT is markedly elevated to 2385. AST and ALT are also elevated and LDH is elevated at 8208. His WBC is 17.8 and hemoglobin of 13.4. His CEA is slightly elevated at 20.6 and CA 19-9 is markedly elevated at 385. ASSESSMENT: 1. Diffuse metastatic disease, unknown source. 2. Liver metastasis. 3. Markedly elevated liver enzymes. 4. Elevated cancer markers. 5. Bronchial asthma. PLAN: We will await results of liver biopsy; however, when reviewing radiology results, his chest x-ray still appears normal. The lesions in the lungs especially mediastinal and hilar adenopathy are visible on the CT scan. This is not a usual pattern for lung cancer unless it is a very aggressive small cell carcinoma. Other sources have to be excluded. We will await results of liver biopsy and discussed with Dr. Sanchez as well as Oncology and primary. Zac Haley MD MTDAnt
--- NOTE | 2018-01-13 16:21 | CP.PCM.CON ---
History of Present Illness - History of Present Illness History of Present Illness: 62 year old male with PMH of HTN, dyslipidemia, asthma, fatty liver disease, S/ P right ankle surgery, S/P left rotator cuff surgery came in to [facility] [place] because of cough and SOB which has been ongoing for the past month. He states he was exposed to dust while he was on the attic. He saw his PMD and Pulmonary doctor who prescribed him inhalers and Clarithromycin which did not improve his symptoms. He denies fever or chills, no nausea or vomiting, no chest pain, no headache or dizziness, no abdominal pain, no diarrhea, on dysuria, no bleeding. 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 CT C/A/P has been done showing multiple pulmonary nodules, hilar and mediastinal lymphadenopathy and liver lesions. CT-guided liver biopsy has been done. He is noted to have leukocytosis and Infectious Diseases consult is requested to further evaluate and manage. Review of Systems - Review of Systems All systems: reviewed and no additional remarkable complaints except (as per HPI ) Past Patient History - Infectious Disease Hx of Infectious Diseases: None - Tetanus Immunizations Tetanus Immunization: Unknown - Past Social History Smoking Status: Unknown If Ever Smoked - CARDIAC Hx Hypertension: Yes Hx Pacemaker: No - PULMONARY Hx Asthma: Yes - NEUROLOGICAL Hx Paralysis: No - HEENT Hx HEENT Problems: Yes (eyeglasses) - RENAL Hx Chronic Kidney Disease: No - ENDOCRINE/METABOLIC Hx Endocrine Disorders: No - HEMATOLOGICAL/ONCOLOGICAL Hx Blood Transfusions: No - INTEGUMENTARY Hx Dermatological Problems: Yes Other/Comment: healed surgical scar inner right foot from tendon repair to straighten foot sx 2010 - MUSCULOSKELETAL/RHEUMATOLOGICAL Hx Musculoskeletal Disorders: No - GASTROINTESTINAL Hx Gastrointestinal Disorders: Yes (fatty liver "yrs ago") Hx Gastroesophageal Reflux: Yes Other/Comment: hemorrhoids, gastritis, gastric polyps, polypectomy and bx - GENITOURINARY/GYNECOLOGICAL Hx Genitourinary Disorders: Yes (vasectomy) - PSYCHIATRIC Hx Emotional Abuse: No Hx Physical Abuse: No Hx Substance Use: No - SURGICAL HISTORY Hx Orthopedic Surgery: Yes - ANESTHESIA Hx Anesthesia Reactions: No Hx Malignant Hyperthermia: No Meds Allergies/Adverse Reactions: Allergies Allergy/AdvReac Type Severity Reaction Status Date / Time No Known Allergies Allergy Verified 03/18/13 08:09 - Medications Medications: Current Medications Acetaminophen (Tylenol 325mg Tab) 650 mg PO Q4 PRN PRN Reason: Pain, Mild (1-3) Arformoterol Tartrate (Brovana) 15 mcg IH [id number] [facility] Last Admin: 01/12/18 20:04 Dose: 15 mcg Budesonide (Pulmicort Respules) 0.5 mg IH [id number] [facility] Last Admin: 01/12/18 20:04 Dose: 0.5 mg Guaifenesin/Codeine Phosphate (Robitussin W/Codeine) 5 ml PO Q6H PRN PRN Reason: Cough and congestion Last Admin: 01/13/18 02:54 Dose: 5 ml Sodium Chloride (Sodium Chloride 0.45%) 1,000 mls @ 80 mls/hr IV .[id number] [facility] Stop: 01/13/18 08:00 Last Admin: 01/12/18 11:20 Dose: 80 mls/hr Sodium Chloride (Sodium Chloride 0.9%) 1,000 mls @ 100 mls/hr IV .Q10H [facility] Last Admin: 01/13/18 04:29 Dose: Not Given Lorazepam (Ativan) 2 mg IVP ONCE ONE PRN Reason: Protocol Stop: 01/13/18 06:46 Losartan Potassium (Cozaar) 50 mg PO DAILY [facility] Last Admin: 01/12/18 11:19 Dose: 50 mg Montelukast Sodium (Singulair) 10 mg PO HS [facility] Last Admin: 01/12/18 21:03 Dose: 10 mg Ondansetron HCl (Zofran Inj) 4 mg IVP Q6H PRN PRN Reason: Nausea/Vomiting Oxycodone/Acetaminophen (Percocet 5/325 Mg Tab) 1 tab PO Q4H PRN PRN Reason: Pain, moderate (4-7) Stop: 01/15/18 14:04 Last Admin: 01/13/18 02:54 Dose: 1 tab Pantoprazole Sodium (Protonix Ec Tab) 40 mg PO Q12 [facility] Last Admin: 01/12/18 21:03 Dose: 40 mg Tiotropium [place] (Spiriva) 18 mcg IH DAILY [facility] Last Admin: 01/12/18 11:19 Dose: 18 mcg Physical Exam - Constitutional Appears: Chronically Ill - Head Exam Head Exam: NORMAL INSPECTION - Respiratory Exam Respiratory Exam: Decreased Breath Sounds - Cardiovascular Exam Cardiovascular Exam: +S1, +S2 - GI/Abdominal Exam GI & Abdominal Exam: Soft. absent: Tenderness Results - Vital Signs Recent Vital Signs: Last Vital Signs Temp 97.5 F L 01/12/18 22:55 Pulse 101 H 01/12/18 22:55 Resp 18 01/12/18 22:55 BP 132/77 01/12/18 22:55 Pulse Ox 93 L 01/12/18 22:55 - Labs Result Diagrams: 01/13/18 07:00 01/13/18 07:00 Labs: Laboratory Results - last 24 hr 01/12/18 01/12/18 01/12/18 06:45 06:45 06:45 WBC RBC Hgb Hct MCV MCH MCHC RDW Plt Count MPV Gran % Lymph % (Auto) [place] % (Auto) Eos % (Auto) Baso % (Auto) Gran # Lymph # (Auto) [place] # (Auto) Eos # (Auto) Baso # (Auto) Neutrophils % (Manual) Lymphocytes % (Manual) Atypical Lymphs % Monocytes % (Manual) Platelet Evaluation PT INR APTT Sodium 142 Potassium 4.5 Chloride 104 Carbon Dioxide 22 Anion Gap 21 H BUN 25 H Creatinine 0.9 Est GFR ( Amer) > 60 Est GFR (Non-Af Amer) > 60 Random Glucose 131 H Calcium 9.2 Total Bilirubin 2.4 H AST 530 H ALT 560 H Alkaline Phosphatase 343 H Total Protein 6.6 Albumin 3.8 Globulin 2.8 Albumin/Globulin Ratio 1.3 Alpha Fetoprotein 2.5 Carcinoembryonic Ag 20.6 H CA 19-9 Antigen 385 H Procalcitonin 01/12/18 01/12/18 01/12/18 07:10 07:30 10:03 WBC 20.9 H RBC 5.11 Hgb 14.4 Hct 42.9 MCV 84.0 MCH 28.2 MCHC 33.6 RDW 15.3 H Plt Count 187 MPV 9.1 Gran % 86.5 H Lymph % (Auto) 4.2 L [place] % (Auto) 9.2 H Eos % (Auto) 0.0 L Baso % (Auto) 0.1 Gran # 18.04 H Lymph # (Auto) 0.9 L [place] # (Auto) 1.9 H Eos # (Auto) 0.0 Baso # (Auto) 0.03 Neutrophils % (Manual) 89 H Lymphocytes % (Manual) 2 L Atypical Lymphs % 2 H Monocytes % (Manual) 7 H Platelet Evaluation Normal PT 13.1 H INR 1.14 H APTT 27.8 Sodium Potassium Chloride Carbon Dioxide Anion Gap BUN Creatinine Est GFR ( Amer) Est GFR (Non-Af Amer) Random Glucose Calcium Total Bilirubin AST ALT Alkaline Phosphatase Total Protein Albumin Globulin Albumin/Globulin Ratio Alpha Fetoprotein Carcinoembryonic Ag CA 19-9 Antigen Procalcitonin 0.57 H Assessment & Plan - Assessment and Plan (Free Text) Plan: Assessment Leukocytosis probably due to malignancy associated with pulmonary nodules and liver lesions S/P CT-guided liver biopsy HTN dyslipidemia asthma fatty liver disease S/P right ankle surgery S/P left rotator cuff surgery Plan Will follow up final blood cx results; reviewed CT C/A/P - no pneumonia noted; PCT is mildly elevated, which may also be elevated with malignancy - will monitor off antibiotics follow up results of liver biopsy
[2018-01-13] MEDS: Lidocaine 5% Patch TD SCH (16:45)
[2018-01-13] MEDS: Morphine 2 mg/2 mL syringe IVP PRN (20:27)
[2018-01-14] MEDS: Morphine 2 mg/2 mL syringe IVP PRN (06:48)
[2018-01-14] MEDS ORDERED: HYDROmorphone 1 mg/ml ISec IVP STA (06:58)
[2018-01-14] MEDS ORDERED: HYDROmorphone 0.5 mg/0.5 ml ISec IVP STA (07:14)
[2018-01-14 07:18] LABS: BASO # 0.02 K/mm3 (0.0-2.0); BASO % 0.1 % (0.0-3.0); EOS % 0.1 % (1.5-5.0); GRAN # 15.05 (1.4-6.5); GRAN % 86.9 % (50.0-68.0); HEMOGLOBIN 13.9 g/dL (14.0-18.0); LYMPH # 0.8 (1.2-3.4); LYMPH % 4.4 % (22.0-35.0); MEAN CORPUSCULAR HEMOGLOBIN 28.1 pg (25.0-35.0); MEAN CORPUSCULAR HGB CONC 33.9 g/dl (31.0-37.0); MEAN PLATELET VOLUME 9.4 fl (7.0-11.0); MONO # 1.5 (0.1-0.6); MONO % 8.5 % (1.0-6.0); RBC 4.94 10^6/uL (3.5-6.1); RED CELL DISTRIBUTION WIDTH 15.7 % (11.5-14.5); WHITE BLOOD COUNT 17.3 10^3/ul (4.5-11.0)
[2018-01-14 07:34] LABS: PROTHROMBIN TIME 13.7 SECONDS (9.4-12.5)
[2018-01-14 07:35] LABS: INR 1.19 (0.93-1.08); PARTIAL THROMBOPLASTIN TIME 36.9 Seconds (25.1-36.5)
[2018-01-14 07:44] LABS: ALB/GLOB RATIO 1.2 (1.1-1.8); ALBUMIN 3.7 g/dL (3.0-4.8); CALCIUM 8.6 mg/dL (8.4-10.5)
[2018-01-14] MEDS ORDERED: oxyCODONE 10 mg Immediate Release Tab PO PRN (07:58)
--- NOTE | 2018-01-14 08:05 | CON ---
DATE: 01/13/2018 This is an Oncology note LOCATION: The patient is in room 573, bed 3. HISTORY OF PRESENT ILLNESS: The patient was seen by me yesterday with my resident Dr. Davila, who has also dictated a note on dated 01/11/2018. We have gone over the films, reviewed preliminarily with the pathologist regarding the availability of the path slides, and I spoke to the family in great detail today, and this dictation is of those discussion. This is a 62-year-old male with a past medical history of hypertension, dyslipidemia and asthma, who had presented to the emergency room after obtaining maximal outpatient therapy for what appeared to be acute on chronic bronchitis. The patient says that since 06/2017, he has had episodic frequent coughing with clear phlegm production that resolved after 3 to 4 weeks of oral antibiotics and supportive measures. He denies any relieving factors in relation to his cough. The patient tells me that the best cough medicine that helps him of late is Tussionex, which has helped him in the past as well. He does report that he has a lifetime history of bronchitis since childhood, and he reports that the cough seems to get worse with positional changes and with walking. His cough is clear and is not associated with any significant hemoptysis. The patient has been complaining of shortness of breath as well, and has been having low grade temperature, especially in the last 10 days, and he and his have been noticing gentle sweats for the last week requiring him to change his garments 2 to 3 times a day. As mentioned, he denies any hemoptysis, nausea, vomiting, diarrhea, any intestinal complaints. The patient has been complaining of increasing pain in the upper quadrant of the abdomen, probably related to coughing involving the abdomen muscles. The patient denies any orthopnea, diarrhea or weight loss. The patient has no recent history of any travel abroad. No history of exposure to TB. 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 The patient also reports that he does go for sunbathing in good weather 2 times a week, but uses adequate sunscreen precaution. PAST MEDICAL HISTORY: Significant for hypertension, dyslipidemia, asthma, fatty liver disease. The patient recently has seen his PMD and then seen his bending press operator Dr. Sanchez. The patient has been on about 14 days of antibiotics with Biaxin, and he had continued his Lipitor during the same time and stopped just prior to admission. PAST SURGICAL HISTORY: Significant for right and left rotator cuff repair, right ankle injury, all traumatic. ALLERGIES: THE PATIENT HAS NO KNOWN ALLERGIES. FAMILY HISTORY: Significant for the fact that his mother had heart problems, father at the age of 49 of lymphoma. He has one sister who smokes, but alive. 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 He denies any alcohol, tobacco or other illicit drug abuse. The patient has no history of prior transfusions or any other major surgical procedures besides what is mentioned. Family medical doctor is Dr. Churchill, who I spoke with as well, and apparently the patient has been seeing him every 3 months to monitor his blood work and his prior blood works have been normal. Last chest x-ray was also reported as normal. REVIEW OF SYSTEMS: A 12-system review of system was done and they were all negative except for what is mentioned in the HPI. The patient does not have any history of blood transfusions in the past. The patient has had no significant anesthesia reactions, and yes, he has had a history of orthopedic surgery on the ankle and both the shoulders. The patient, as I mentioned, was on Biaxin and Lipitor prior to the this admission to the hospital. He was also taking Diovan for his blood pressure and he was taking inhalers for his pulmonary issues from his bending press operator Dr. Sanchez. MEDICATIONS: Past medications are reviewed. He is on Brovana 15 mcg every 12 hours and Pulmicort 0.5 mg inhaled every 12 hours. He is on Robitussin with Codeine 5 mL every 6 hours p.r.n. He is on IV fluids at 80 mL an hour. He is on Cozaar 50 mg daily. He is on Singular 10 mg p.o. at bedtime, Protonix 40 mg IV daily, and Spiriva 18 mcg inhaled daily. PHYSICAL EXAMINATION VITAL SIGNS: The patient's vital signs are stable. T-max is 98.4, pulse is 77, respirations 20, blood pressure is 134/79, pulse ox is 96%. GENERAL: The patient is awake, alert and oriented. The patient is on the overweight side. HEENT: Head is normocephalic and atraumatic. Examination of the eyes reveals conjunctivae are slightly icteric. Pupils are equally reactive to light and accommodation. Examination of the oropharynx reveals no oropharyngeal lesions. Tongue is moist. No ulcerations are noted. NECK: Supple, there is no adenopathy, jugular venous distention noted. LUNGS: Reveals breath sounds on the right side posteriorly. Expiratory phase is prolonged. No other adventitious sounds are heard. Air entry is noted on both sides of the lungs. There is absence of any accessory muscle use. CARDIOVASCULAR: Reveals PMI to be in the fifth intercostal space, inside the midclavicular line. S1 and S2 are normal. No gallop or murmur is heard. ABDOMEN: Soft. Recent biopsy site is noted over the epigastric area at the site of left lobe of the liver. The patient's liver is enlarged and mildly tender, measured at least 8 to 10 cm below the right costal margin; both the right and the left lobe of the liver appeared to be enlarged. The patient's abdomen is protuberant. No other masses are felt. Bowel sounds are present. No rebound, rigidity or guarding is noted. EXTREMITIES: Reveal no cyanosis, clubbing or edema. Negative for Homans sign. BACK: Exam of the back reveals it to be normal to inspection. NEUROLOGIC: Revealed his higher functions to be normal. No focal deficits are noted. SKIN: Patient is tanned and multiple macules in the chest, abdomen and back. The patient appears to be slightly icteric at least to my naked eye. Skin is dry. No other skin disease are noted. LYMPH NODES: There is no evidence of adenopathy in the neck, axilla or groin. GENITOURINARY AND RECTAL: Deferred. LABORATORY DATA: Reviewed, white count of 20.9, with a hemoglobin of 14.4, hematocrit 42.9, platelet count 187,000. Sodium is 142, potassium is 4.4, chloride is 104, CO2 is 22, BUN is 25, creatinine 0.9, blood sugar of 131. Please make a note that his AST and ALT were very high, they are tending down. AST is 530, ALT is 560. Alkaline phosphatase is 343. Total protein is 6.6, with a normal albumin of 3.8. His total bilirubin is elevated at 3.4, most of it appears to be direct at this time, was 2.4 yesterday. The patient's x-rays were reviewed, both the CAT scan of the chest, abdomen and pelvis, along with the ultrasound of the abdomen; the CAT scan of the chest, abdomen and pelvis reveals multiple areas of abnormalities. The patient has significant mediastinal adenopathy. In addition to the multiple pulmonary nodules that are seen, the largest measuring 12 mm in the left lower lobe, as I mentioned there is extensive mediastinal hilar adenopathy bilaterally. The largest node in the mediastinum measures 2 x 3 cm, which may be a causative factor unremarkable without any pneumothorax or any pleural fluid. CAT scan of the abdomen and pelvis reveals diffuse metastatic lesion in the liver, up to 3 lesions are easily discernable. Pancreas is normal. Gallbladder and bile duct appeared to be unremarkable. Kidneys are unremarkable without any hydronephrosis or any solid masses. Spleen is unremarkable as well. Examination of the bowels reveals no evidence of any obstruction or gross mural thickening at this time. Examination of the peritoneum reveals no peritoneal thickening or any omental caking at this time. There is no free air under the diaphragm. The bladder appears to be unremarkable. X-rays and the CAT scan involving the bones shows no evidence of any sclerotic lesions in the bone. Ultrasound confirms the liver lesions, there are several of them, at least I could count up to 20. ASSESSMENT, NOTES AND PLAN: This is a 62-year-old male who presents with a new onset of intractable cough and associated with that patient has been having drenching sweats, low-grade temperature, with the findings on CAT scan of bilateral lung nodules with significant mediastinal adenopathy; along with this, the patient has also had liver multiple lesions noted. Fortunately in the a CAT of the abdomen, there is no extrahepatic disease that is discernable at this point in time, nor is there any evidence of significant bone involvement as well. My clinical impression after reviewing the scans and examining the patient, is that differential diagnosis would be a primary neoplastic process of the lung itself. Even though he is not a smoker, the patient has a long history of having chronic bronchitis, so in a patient like him would be of concern to me, presenting in this fashion even without a smoking history. The patient does have a history passive exposure to smoking and that is also of concern to me. The second differential would be de alda presentation with probably a high grade lymphoma. As the symptoms appears to be of a very short time, this tells me that the disease might be a biologically aggressive. Small cell carcinoma of lung origin is another possibility and has to be included in the differential diagnosis. We will await for the CT guided biopsy which was done yesterday to further delineate the management of this patient. I tried to reassure the patient and his , who knows me very well for the last 30 years, she is a prior Oncology nurse. I tried to reassure her that whatever it is, we will try to help him, that we have to get the histology first before I can steer them in the right direction. The patient and the family are eager to get an another opinion as well once the diagnosis is established. I told them I will be happy to do so, and would try to set up the appointments with any of the tertiary centers depending on what the histology shows. Time spent with the patient is greater than 90 minutes in coordinating all the information, talking with various consultants including the primary doctors, and discussing with the radiologist as well. Please make a note this is a complex patient with multiple comorbid issues. I have tried to set up a PET CT scan as an outpatient to expedite the whole process for treatment management. This may be crucial, as the patient is quite symptomatic from at this point in time. I told the patient that we have to monitor his liver function, they seems to be trending down at this time, and the concern is that the liver function is a combination of interaction with medications of his own such as Biaxin and Lipitor or it is intrahepatic cholestatic disease that is manifesting itself in this way. Fortunately his coags do not show very much significant abnormalities at this time. Urine is dark and that is of concern too. We will follow the patient very closely and make appropriate recommendations for the patient. I have spoken with Dr. Rubalcava, BULMARO, in great detail as well. Rochelle Cash MD [facility] # [id number]
[2018-01-14 08:06] LABS: AMYLASE 70 U/L (35-125); LIPASE 130 U/L (23-300)
--- NOTE | 2018-01-14 08:43 | CP.PCM.PN ---
<Zina Field - Last Filed: 01/14/18 12:06> Subjective - Date & Time of Evaluation Date of Evaluation: 01/14/18 Time of Evaluation: 07:00 - Subjective Subjective: Medicine Progress Note for Lisandro Mckinney PGY3 Patient seen and examined at bedside. There were no acute overnight events as per nursing staff. This morning patient is complaining of RUQ pain that radiates to this R side and back that is constant and not relieved by Morphine. He had a liver biopsy yesterday and his liver enzymes were notes to have tripled this AM. He denies chest pain, shortness of breath, nausea/vomiting/ diarrhea, numbness/tingling, fever/chills, dysuria/hematuria. Objective - Vital Signs/Intake and Output Vital Signs (last 24 hours): Temp Pulse Resp BP Pulse Ox 97.8 F 87 20 117/59 L 92 L 01/13/18 22:00 01/13/18 22:00 01/13/18 22:00 01/13/18 22:00 01/13/18 22:00 Intake and Output: 01/14/18 01/14/18 06:59 18:59 Intake Total 1460 Balance 1460 - Medications Medications: Current Medications Arformoterol Tartrate (Brovana) 15 mcg IH [id number] [facility] Last Admin: 01/13/18 20:17 Dose: 15 mcg Budesonide (Pulmicort Respules) 0.5 mg IH [id number] [facility] Last Admin: 01/13/18 20:17 Dose: 0.5 mg Guaifenesin/Codeine Phosphate (Robitussin W/Codeine) 5 ml PO Q6H PRN PRN Reason: Cough and congestion Last Admin: 01/13/18 09:54 Dose: 5 ml Hydromorphone HCl (Dilaudid) 1 mg IVP Q4H PRN PRN Reason: Pain, severe (8-10) Sodium Chloride (Sodium Chloride 0.9%) 1,000 mls @ 100 mls/hr IV .Q10H [facility] Last Admin: 01/13/18 19:04 Dose: 100 mls/hr Lidocaine (Lidoderm) 1 ea TD DAILY [facility] Last Admin: 01/13/18 16:45 Dose: 1 ea Losartan Potassium (Cozaar) 50 mg PO DAILY [facility] Last Admin: 01/13/18 09:54 Dose: 50 mg Montelukast Sodium (Singulair) 10 mg PO HS [facility] Last Admin: 01/13/18 21:13 Dose: 10 mg Morphine Sulfate (Morphine) 2 mg IVP Q6H PRN PRN Reason: Pain, severe (8-10) Last Admin: 01/14/18 06:48 Dose: 2 mg Ondansetron HCl (Zofran Inj) 4 mg IVP Q6H PRN PRN Reason: Nausea/Vomiting Last Admin: 01/14/18 06:43 Dose: 4 mg Oxycodone HCl (Oxycodone Immediate Release Tab) 10 mg PO Q6H PRN PRN Reason: Pain, moderate (4-7) Pantoprazole Sodium (Protonix Ec Tab) 40 mg PO Q12 [facility] Last Admin: 01/13/18 21:13 Dose: 40 mg Tiotropium [place] (Spiriva) 18 mcg IH DAILY [facility] Last Admin: 01/13/18 11:00 Dose: 18 mcg - Labs Labs: 01/14/18 06:30 01/14/18 06:30 PT 13.7 SECONDS (9.4-12.5) H 01/14/18 06:30 INR 1.19 (0.93-1.08) H 01/14/18 06:30 APTT 36.9 Seconds (25.1-36.5) H 01/14/18 06:30 - Constitutional Appears: No Acute Distress - Head Exam Head Exam: ATRAUMATIC, NORMAL INSPECTION, NORMOCEPHALIC - Eye Exam Eye Exam: EOMI, Normal appearance, PERRL Pupil Exam: NORMAL ACCOMODATION, PERRL - ENT Exam ENT Exam: Mucous Membranes Moist - Neck Exam Neck Exam: Full ROM - Respiratory Exam Respiratory Exam: Clear to Ausculation Bilateral, NORMAL BREATHING PATTERN. absent: Rales, Rhonchi, Wheezes - Cardiovascular Exam Cardiovascular Exam: REGULAR RHYTHM, +S1, +S2. absent: Gallop, Rubs, Murmur - GI/Abdominal Exam GI & Abdominal Exam: Distended, Soft, Tenderness (RUQ ), Normal Bowel Sounds, Organomegaly (hepatomegaly ). absent: Rigid, Rebound - Extremities Exam Extremities Exam: Normal Inspection. absent: Calf Tenderness, Pedal Edema - Neurological Exam Neurological Exam: Alert, Awake, CN II-XII Intact, Oriented x3 - Psychiatric Exam Psychiatric exam: Normal Affect, Normal Mood - Skin Skin Exam: Dry, Normal Color, Warm Assessment and Plan - Assessment and Plan (Free Text) Assessment: This is a 62yo male with past medical history of HTN, dyslipidemia, asthma who is admitted for 1. Transaminitis (worsening) - secondary to liver metastasis s/p liver biopsy - Repeat abd US did not show thrombus (prelim) or acute changes 2. Shortness of breath - secondary to acute on chronic bronchitis with history of asthma - underlying suspected lung ca and possible lymphoma (hilar adenopathy) 3. FRAN - most likely secondary to IV contrast 4. HTN 5. Dyslipidemia 6. Hx of asthma Plan: GI and Oncology on consult. Recommendations appreciated. Labs and imaging reviewed. Continue IV hydration. CT A/P without contrast ordered. Head CT ordered without contrast to rule out metastasis. Continue to monitor LFTs. Coags are increasing. Continue pain control. Patient is tolerating diet. Patient was offered MRCP, but it clausterphobic. Will hold off at this time. Will await CT results. Patient encouraged to ambulate. Continue nebulizer treatment and cough suppressant. As per ID, leukocytosis and PCT can be elevated due to inflammatory state. Will monitor off of antibiotics. Discussed case at length with family and patient. Case seen, discussed and reviewed with Dr. Rubalcava. Lisandro Field PGY3 <Mack Rubalcava S - Last Filed: 01/14/18 21:47> Objective - Vital Signs/Intake and Output Vital Signs (last 24 hours): Temp Pulse Resp BP Pulse Ox 97.6 F 111 H 16 116/72 97 01/14/18 14:00 01/14/18 14:00 01/14/18 14:00 01/14/18 14:00 01/14/18 14:00 - Medications Medications: Current Medications Arformoterol Tartrate (Brovana) 15 mcg IH [id number] [facility] Last Admin: 01/14/18 19:38 Dose: 15 mcg Budesonide (Pulmicort Respules) 0.5 mg IH [id number] [facility] Last Admin: 01/14/18 19:38 Dose: 0.5 mg Docusate Sodium (Colace) 100 mg PO DAILY [facility] Guaifenesin/Codeine Phosphate (Robitussin W/Codeine) 5 ml PO Q6H PRN PRN Reason: Cough and congestion Last Admin: 01/13/18 09:54 Dose: 5 ml Hydromorphone HCl (Dilaudid) 1 mg IVP Q4H PRN PRN Reason: Pain, severe (8-10) Last Admin: 01/14/18 20:40 Dose: 1 mg Sodium Chloride (Sodium Chloride 0.9%) 1,000 mls @ 100 mls/hr IV .Q10H [facility] Last Admin: 01/13/18 19:04 Dose: 100 mls/hr Lidocaine (Lidoderm) 1 ea TD DAILY [facility] Last Admin: 01/14/18 17:22 Dose: Not Given Losartan Potassium (Cozaar) 50 mg PO DAILY [facility] Last Admin: 01/14/18 09:10 Dose: Not Given Montelukast Sodium (Singulair) 10 mg PO HS [facility] Last Admin: 01/13/18 21:13 Dose: 10 mg Ondansetron HCl (Zofran Inj) 4 mg IVP Q6H PRN PRN Reason: Nausea/Vomiting Last Admin: 01/14/18 16:31 Dose: 4 mg Oxycodone HCl (Oxycodone Immediate Release Tab) 10 mg PO Q6H PRN PRN Reason: Pain, moderate (4-7) Pantoprazole Sodium (Protonix Ec Tab) 40 mg PO Q12 [facility] Last Admin: 01/14/18 09:10 Dose: Not Given Polyethylene Glycol (Miralax) 17 gm PO BID [facility] Last Admin: 01/14/18 17:22 Dose: Not Given Tiotropium [place] (Spiriva) 18 mcg IH DAILY [facility] Last Admin: 01/14/18 09:10 Dose: Not Given - Labs Labs: 01/14/18 06:30 01/14/18 06:30 PT 13.7 SECONDS (9.4-12.5) H 01/14/18 06:30 INR 1.19 (0.93-1.08) H 01/14/18 06:30 APTT 36.9 Seconds (25.1-36.5) H 01/14/18 06:30 Assessment and Plan - Assessment and Plan (Free Text) Plan: Pt seen and examined. I have reviewed the note of the medical photographer and agree with it. I have discussed the assessment and plan with the resident. I have reviewed the patient's labs and medications. Pt with elevated LFTs and FRAN. CT of Abd ordered due to pain after his bx. Concern for possible bleeding. FRAN may be from contrast vs hepatorenal. Spoke to Dr Maciel. Prognosis is guarded. Spoke to at bedside. Pt placed on Dilaudid for pain.
--- NOTE | 2018-01-14 08:55 | CP.PCM.PN ---
<Yolanda,Kovil V - Last Filed: 01/14/18 23:46> Objective - Vital Signs/Intake and Output Vital Signs (last 24 hours): Temp Pulse Resp BP Pulse Ox 99.5 F 117 H 18 117/74 92 L 01/14/18 21:55 01/14/18 21:55 01/14/18 21:55 01/14/18 21:55 01/14/18 21:55 Intake and Output: 01/14/18 01/15/18 18:59 06:59 Intake Total 480 Balance 480 - Medications Medications: Current Medications Arformoterol Tartrate (Brovana) 15 mcg IH [id number] [facility] Last Admin: 01/14/18 19:38 Dose: 15 mcg Budesonide (Pulmicort Respules) 0.5 mg IH [id number] [facility] Last Admin: 01/14/18 19:38 Dose: 0.5 mg Docusate Sodium (Colace) 100 mg PO DAILY [facility] Guaifenesin/Codeine Phosphate (Robitussin W/Codeine) 5 ml PO Q6H PRN PRN Reason: Cough and congestion Last Admin: 01/13/18 09:54 Dose: 5 ml Hydromorphone HCl (Dilaudid) 1 mg IVP Q4H PRN PRN Reason: Pain, severe (8-10) Last Admin: 01/14/18 20:40 Dose: 1 mg Sodium Chloride (Sodium Chloride 0.9%) 1,000 mls @ 100 mls/hr IV .Q10H [facility] Last Admin: 01/13/18 19:04 Dose: 100 mls/hr Lidocaine (Lidoderm) 1 ea TD DAILY [facility] Last Admin: 01/14/18 17:22 Dose: Not Given Losartan Potassium (Cozaar) 50 mg PO DAILY [facility] Last Admin: 01/14/18 09:10 Dose: Not Given Montelukast Sodium (Singulair) 10 mg PO HS [facility] Last Admin: 01/13/18 21:13 Dose: 10 mg Ondansetron HCl (Zofran Inj) 4 mg IVP Q6H PRN PRN Reason: Nausea/Vomiting Last Admin: 01/14/18 16:31 Dose: 4 mg Oxycodone HCl (Oxycodone Immediate Release Tab) 10 mg PO Q6H PRN PRN Reason: Pain, moderate (4-7) Pantoprazole Sodium (Protonix Ec Tab) 40 mg PO Q12 [facility] Last Admin: 01/14/18 09:10 Dose: Not Given Polyethylene Glycol (Miralax) 17 gm PO BID [facility] Last Admin: 01/14/18 17:22 Dose: Not Given Tiotropium [place] (Spiriva) 18 mcg IH DAILY [facility] Last Admin: 01/14/18 09:10 Dose: Not Given - Labs Labs: 01/14/18 06:30 01/14/18 06:30 PT 13.7 SECONDS (9.4-12.5) H 01/14/18 06:30 INR 1.19 (0.93-1.08) H 01/14/18 06:30 APTT 36.9 Seconds (25.1-36.5) H 01/14/18 06:30 Attending/Attestation - Attestation I have personally seen and examined this patient.: Yes I have fully participated in the care of the patient.: Yes I have reviewed all pertinent clinical information, including history, physical exam and plan: Yes Notes (Text): This is an addendum to GI progress report dictated by the Time Study Engineer.The patient was seen and examined earlier. Medical records, lab studies, imagings were reviewed. Last 24 hours events reviewed. Agreed with the above treatment plan as outlined in Time Study Engineer 's notes the with the addition of the following 01/14/18 23:46 <Johnny Freitas - Last Filed: 01/15/18 12:51> Subjective - Date & Time of Evaluation Date of Evaluation: 01/14/18 Time of Evaluation: 07:30 - Subjective Subjective: GI Progress Note for Dr. Guerrero Service Johnny Freitas, PGY-3 IM Patient seen and examined at outside of Ultrasound suite. Was originally pending CTA head and neck, but scan cancelled due to acute elevation in creatinine from 1.0 yesterday to 1.6 today. AST/ALT also abruptly increased from 497/460 to 1412/1053, Tbili increased to 4.7 and primary team resident reports patient complaining of acute RUQ pain/tenderness (not present on exam yesterday). Abd US and duplex ordered stat to r/o acute ductal obstruction ( biliary or pancreatic) and/or thrombosis. Objective - Vital Signs/Intake and Output Vital Signs (last 24 hours): Temp Pulse Resp BP Pulse Ox 97.8 F 87 20 117/59 L 92 L 01/13/18 22:00 01/13/18 22:00 01/13/18 22:00 01/13/18 22:00 01/13/18 22:00 Intake and Output: 01/14/18 01/14/18 06:59 18:59 Intake Total 1460 Balance 1460 - Medications Medications: Current Medications Arformoterol Tartrate (Brovana) 15 mcg IH [id number] [facility] Last Admin: 01/13/18 20:17 Dose: 15 mcg Budesonide (Pulmicort Respules) 0.5 mg IH [id number] [facility] Last Admin: 01/13/18 20:17 Dose: 0.5 mg Guaifenesin/Codeine Phosphate (Robitussin W/Codeine) 5 ml PO Q6H PRN PRN Reason: Cough and congestion Last Admin: 01/13/18 09:54 Dose: 5 ml Hydromorphone HCl (Dilaudid) 1 mg IVP Q4H PRN PRN Reason: Pain, severe (8-10) Sodium Chloride (Sodium Chloride 0.9%) 1,000 mls @ 100 mls/hr IV .Q10H [facility] Last Admin: 01/13/18 19:04 Dose: 100 mls/hr Lidocaine (Lidoderm) 1 ea TD DAILY [facility] Last Admin: 01/13/18 16:45 Dose: 1 ea Losartan Potassium (Cozaar) 50 mg PO DAILY [facility] Last Admin: 01/13/18 09:54 Dose: 50 mg Montelukast Sodium (Singulair) 10 mg PO HS [facility] Last Admin: 01/13/18 21:13 Dose: 10 mg Morphine Sulfate (Morphine) 2 mg IVP Q6H PRN PRN Reason: Pain, severe (8-10) Last Admin: 01/14/18 06:48 Dose: 2 mg Ondansetron HCl (Zofran Inj) 4 mg IVP Q6H PRN PRN Reason: Nausea/Vomiting Last Admin: 01/14/18 06:43 Dose: 4 mg Oxycodone HCl (Oxycodone Immediate Release Tab) 10 mg PO Q6H PRN PRN Reason: Pain, moderate (4-7) Pantoprazole Sodium (Protonix Ec Tab) 40 mg PO Q12 [facility] Last Admin: 01/13/18 21:13 Dose: 40 mg Tiotropium [place] (Spiriva) 18 mcg IH DAILY [facility] Last Admin: 01/13/18 11:00 Dose: 18 mcg - Labs Labs: 01/14/18 06:30 01/14/18 06:30 PT 13.7 SECONDS (9.4-12.5) H 01/14/18 06:30 INR 1.19 (0.93-1.08) H 01/14/18 06:30 APTT 36.9 Seconds (25.1-36.5) H 01/14/18 06:30 - Additional Findings Additional findings: - Constitutional Appears: Well, Non-toxic, No Acute Distress - Head Exam Head Exam: ATRAUMATIC, NORMAL INSPECTION, NORMOCEPHALIC - Eye Exam Eye Exam: EOMI, Normal appearance. absent: Conjunctival injection, Scleral icterus Pupil Exam: absent: Fixed, Irregular - ENT Exam ENT Exam: Mucous Membranes Moist. absent: Mucous Membranes Dry - Neck Exam Neck exam: Positive for: Normal Inspection. Negative for: Lymphadenopathy, Thyromegaly - Respiratory Exam Respiratory Exam: Clear to Auscultation Bilateral, NORMAL BREATHING PATTERN. absent: Accessory Muscle Use, Chest Wall Tenderness, Decreased Breath Sounds, Rales, Rhonchi, Wheezes - Cardiovascular Exam Cardiovascular Exam: REGULAR RHYTHM, RRR, +S1, +S2. absent: Bradycardia, Tachycardia, Irregular Rhythm, JVD, +S4 - GI/Abdominal Exam GI & Abdominal Exam: Normal Bowel Sounds. absent: Diminished Bowel Sounds, Guarding, Hyperactive Bowel Sounds, Hypoactive Bowel Sounds - Extremities Exam Extremities exam: Positive for: normal inspection. Negative for: calf tenderness, pedal edema, tenderness - Neurological Exam awake and alert, following all commands appropriately, moving all extremities spontaneously - Psychiatric Exam Psychiatric exam: Normal Affect, Normal Mood - Skin Skin Exam: Dry, Intact, Normal Color, Warm, No appreciable gross jaundice Assessment and Plan - Assessment and Plan (Free Text) Assessment: This is a 62 yo M with PMH of HTN, hypercholesterolemia, COPD, and asthma (not tobacco user) who [place] [facility] [place] of [place] productive for clear sputum for 3 weeks. GI was consulted due to incidentally discovered elevated transaminases, concerning for transaminitis. However, his abdominal ultrasound and CT scans are concerning for liver and possible lung metastases (possibly lung primary). S/p IR guided biopsy, pending pathology. Now with acute onset of abdominal pain and increased LFTs and creatinine, pending Abd US and Duplex to rule out acute ductal obstruction/dilation and/or portal vein thrombosis. Plan: HTN Hypercholesterolemia COPD/Asthma of unclear etiology Elevated transaminases; acutely worsened today and co-presenting with acutely elevated Cr FRAN with acute Cr increase from 1.0 to 1.6 Ddx: new onset liver mets, unclear if transaminitis 2/2 mets or 2/2 medication use with mets discovery incidental -Abd US highly concerning for liver mets, primary unknown, no prior imaging for comparison -Stat US abd with duplex to assess for new onset obstruction, possible thrombosis; f/u -Acutely elevated LFTs on presentation, not present on quarterly labs by PMD ( last labs approx 2 months ago as per family), no obstruction of hepatic or pancreatic ducts observed on Abd US; with acutely elevated LFTs and Cr today, concern for new onset obstruction vs hematoma -Chest/Abd/Pelvis CT with IV and PO contrast obtained, highly concerning for extensive liver mets and multiple pulmonary nodules + hilar and mediastinal adenopathy consistent with lung metastatic disease -CT abd/pelvis w/o contrast also ordered to assess for possible hematoma at biospy site -Pt s/p IR bx of liver lesion, pending path -Workup for autoimmune hepatitis and alpha-1 antitrypsin already ordered by primary team, but much less likely given imaging findings -Continue to trend LFTs and Coags daily; AST/ALT, TBili, and Cr acutely worsening today -Degree of elevation of LFTs concerning for ischemic insult vs 2/2 drugs vs acute viral heptatitis; viral panel negative, acetaminophen level < 10, and current drug regimen unlikely to be causative, so primary concern is ischemic insult -AFP wnl, CA 19-9 elevated at 325, CEA elevated at 20.6 -Given new onset of abdominal pain in setting of acutely worsening LFTs and creatinine, concern for new obstructive process (mass vs hematoma 2/2 bx) vs portal vein thrombosis; STAT Abd US and Duplex ordered to assess, Lipase/ Amylase ordered, f/u -Pt's CTA head and neck canceled due to acutely elevated Cr (1.0 yesterday, 1.6 today), Heme-onc resident informed Discussed, reviewed, and seen with attending, Dr Guerrero.
[2018-01-14] MEDS: Pantoprazole 40 mg EC Tab PO SCH ×2 (09:10→21:00)
[2018-01-14] MEDS: Tiotropium 18 mcg Cap For Inhalation IH SCH (09:10)
--- NOTE | 2018-01-14 10:33 | US ---
Date of service: 01/14/2018 HISTORY: acute incr LFTs, mets, r/o acute ductal dilation COMPARISON: None. TECHNIQUE: Sonographic evaluation of the abdomen. FINDINGS: LIVER: Measures 25.4 cm. Hepatopedal blood flow. Fatty infiltration manifest ultrasonographically as increased echogenicity of the liver parenchyma. Stable appearance multiple masses within the liver consistent with metastatic disease GALLBLADDER: Unremarkable. No gallstones. COMMON BILE DUCT: Measures 2.6 mm. No stones. No dilatation. PANCREAS: Unremarkable as visualized. No mass. No ductal dilatation. RIGHT KIDNEY: Measures 5 x 11.9cm. Normal echogenicity. No calculus, mass, or hydronephrosis. LEFT KIDNEY: Measures 6.7 x 12.4cm. Normal echogenicity. No calculus, mass, or hydronephrosis. SPLEEN: Normal in size and contour. No mass. AORTA: No aneurysmal dilatation. IVC: Unremarkable. OTHER FINDINGS: None. IMPRESSION: No acute findings related to/accounting for the clinical presentation. Hepatomegaly, hepatic metastatic disease again identified. No significant interval change compared to the prior examination(s).
[2018-01-14] MEDS: Budesonide 0.5 mg/2 ml Inhal Susp UD IH SCH ×2 (11:03→19:38)
[2018-01-14] MEDS: Arformoterol 15 mcg/2 ml Inh Sol IH SCH ×2 (11:03→19:38)
[2018-01-14] MEDS ORDERED: Midazolam 2 MG/2 ML VIAL ONE (11:56)
--- NOTE | 2018-01-14 13:03 | CT ---
Date of service: 01/14/2018 PROCEDURE: CT HEAD WITHOUT CONTRAST. HISTORY: assess for brain mass COMPARISON: 03/26/2013 TECHNIQUE: Axial computed tomography images were obtained through the head/brain without intravenous contrast. Coronal and sagittal reconstructed images. Radiation dose: Total exam DLP = 1014.17. MGy-cm. This CT exam was performed using one or more of the following dose reduction techniques: Automated exposure control, adjustment of the mA and/or kV according to patient size, and/or use of iterative reconstruction technique. FINDINGS: HEMORRHAGE: No intracranial hemorrhage. BRAIN: No mass effect or edema. No atrophy or chronic microvascular ischemic changes. VENTRICLES: Unremarkable. No hydrocephalus. CALVARIUM: Unremarkable. PARANASAL SINUSES: Unremarkable as visualized. No significant inflammatory changes. MASTOID AIR CELLS: Unremarkable as visualized. No inflammatory changes. OTHER FINDINGS: None. IMPRESSION: No acute intracranial abnormalities. No significant findings to account for the clinical presentation. No significant interval change compared to the prior examination(s).
--- NOTE | 2018-01-14 13:17 | PN ---
DATE: 01/14/2018 PULMONARY PROGRESS NOTE SUBJECTIVE: The patient has had exceptional abdominal pain since having his liver biopsy, the results of which are not yet available. The patient has no acute respiratory distress at this time focusing mainly on his abdominal pain. I have had a long talk with the patient's who is desirous of having her transferred to a larger oncologic facility after the results of the biopsy are obtained. We will discuss this with primary medical doctor and Oncology. PHYSICAL EXAMINATION: GENERAL: Kirit is complaining of abdominal pain, undergoing an ultrasound of the abdomen at this time. He complains of significant abdominal distress, but respiratory status remains somewhat stable on medication. VITAL SIGNS: Stable. Vital signs have been reviewed. He is afebrile at 98.6, pulse of 90, respiratory rate of 18, pulse ox 94% on room air and 98% on supplemental oxygen, blood pressure 130/70. HEENT: Head normocephalic, atraumatic. NECK: Supple. No JVD. No lymphadenopathy. HEART: Regular rhythm. S1, S2. No gallop. CHEST: Global decrease in breath sounds throughout. No wheezing or rales noted today. No rhonchi are appreciated as well. ABDOMEN: Soft. Bowel sounds normoactive without mass, guarding, rebound or organomegaly. EXTREMITIES: Reveal no clubbing, cyanosis or edema. SKIN: No rash or excoriation. NEUROLOGIC: Awake and alert, oriented. No focal findings. LYMPH NOTES: No lymphadenopathy is noted in the supraclavicular notch nor in the cervical, inguinal or axillary areas. LABORATORY DATA: Liver enzymes and laboratory data shows elevation in both liver functions and kidney function. CA 19-9 is very high. Ultrasound of the liver is pending at this time. ASSESSMENT: 1. Diffuse abdominal pain secondary to liver biopsy, etiology unclear. 2. Diffuse metastatic disease, abnormalities in the lung and liver. 3. Elevated liver enzymes and CA 19-9. 4. Bronchial asthma, chronic with cough, bronchospasm, relatively stable at this time. PLAN: Continue inhaled bronchodilators and corticosteroids. Await liver biopsy. We will need to manage this metastatic disease based on tissue biopsy pending. Thank you for the opportunity to continue to follow Kirit Gallegos. We will follow closely with you. In my absence, Dr. Ulysses Haley will be following along from a pulmonary point of view. Michel Sanchez MD [facility] # [id number] JESSENIA
--- NOTE | 2018-01-14 14:26 | CT ---
Date of service: 01/14/2018 PROCEDURE: CT Abdomen and Pelvis without intravenous contrast HISTORY: acutely worsening LFTs, s/p bx, assess for hematom COMPARISON: CT 01/12/2018. The study shows the biopsy needle in the left lobe of the liver. TECHNIQUE: Without contrast.. Contrast dose: Radiation dose: Total exam DLP = 1507 mGy-cm. This CT exam was performed using one or more of the following dose reduction techniques: Automated exposure control, adjustment of the mA and/or kV according to patient size, and/or use of iterative reconstruction technique. FINDINGS: LOWER THORAX: Unremarkable. LIVER: There is no evidence of subcapsular or intraparenchymal hemorrhage related to the recent biopsy. Diffuse metastatic disease is seen. GALLBLADDER AND BILE DUCTS: Unremarkable. PANCREAS: Unremarkable. No gross lesion or ductal dilatation. SPLEEN: Unremarkable. ADRENALS: Unremarkable. No mass. KIDNEYS AND URETERS: Unremarkable. No hydronephrosis. No solid mass. VASCULATURE: Unremarkable. No aortic aneurysm. BOWEL: Unremarkable. No obstruction. No gross mural thickening. APPENDIX: Unremarkable. Normal appendix. PERITONEUM: Unremarkable. No free fluid. No free air. LYMPH NODES: Unremarkable. No enlarged lymph nodes. BLADDER: Unremarkable. REPRODUCTIVE: Unremarkable. BONES: No acute fracture. OTHER FINDINGS: None. IMPRESSION: There is no evidence of subcapsular or intraparenchymal hemorrhage related to the recent biopsy. Diffuse metastatic disease is seen.
[2018-01-14] MEDS: HYDROmorphone 1 mg/ml ISec IVP PRN ×2 (16:27→20:40)
--- NOTE | 2018-01-14 16:48 | US ---
PROCEDURE: Portal vein duplex ultrasound. CLINICAL HISTORY: Liver metastasis. Deteriorating liver function. Evaluate for portal vein thrombosis. PHYSICIAN(S): Stefan Madison M.D. FINDINGS: There are numerous confluent masses noted in both lobes of the liver. Hepatomegaly is present The extrahepatic portal vein is patent with hepatopetal flow. Limited imaging of the central patent veins is patent. The spleen is not enlarged. No ascites is appreciated in the upper abdomen. IMPRESSION: 1. Patent portal vein with hepatopetal flow.
--- NOTE | 2018-01-14 16:48 | CP.PCM.PN ---
Subjective - Date & Time of Evaluation Date of Evaluation: 01/14/18 Time of Evaluation: 12:15 - Subjective Subjective: Still with cough but no fevers, no SOB at rest but feels a little weak. Objective - Vital Signs/Intake and Output Vital Signs (last 24 hours): Temp Pulse Resp BP Pulse Ox 97.6 F 111 H 16 116/72 97 01/14/18 14:00 01/14/18 14:00 01/14/18 14:00 01/14/18 14:00 01/14/18 14:00 Intake and Output: 01/14/18 01/14/18 06:59 18:59 Intake Total 1460 Balance 1460 - Medications Medications: Current Medications Arformoterol Tartrate (Brovana) 15 mcg IH [id number] [facility] Last Admin: 01/14/18 11:03 Dose: 15 mcg Budesonide (Pulmicort Respules) 0.5 mg IH [id number] [facility] Last Admin: 01/14/18 11:03 Dose: 0.5 mg Docusate Sodium (Colace) 100 mg PO DAILY [facility] Guaifenesin/Codeine Phosphate (Robitussin W/Codeine) 5 ml PO Q6H PRN PRN Reason: Cough and congestion Last Admin: 01/13/18 09:54 Dose: 5 ml Hydromorphone HCl (Dilaudid) 1 mg IVP Q4H PRN PRN Reason: Pain, severe (8-10) Last Admin: 01/14/18 16:27 Dose: 1 mg Sodium Chloride (Sodium Chloride 0.9%) 1,000 mls @ 100 mls/hr IV .Q10H [facility] Last Admin: 01/13/18 19:04 Dose: 100 mls/hr Lidocaine (Lidoderm) 1 ea TD DAILY [facility] Last Admin: 01/13/18 16:45 Dose: 1 ea Losartan Potassium (Cozaar) 50 mg PO DAILY [facility] Last Admin: 01/14/18 09:10 Dose: Not Given Montelukast Sodium (Singulair) 10 mg PO HS [facility] Last Admin: 01/13/18 21:13 Dose: 10 mg Ondansetron HCl (Zofran Inj) 4 mg IVP Q6H PRN PRN Reason: Nausea/Vomiting Last Admin: 01/14/18 16:31 Dose: 4 mg Oxycodone HCl (Oxycodone Immediate Release Tab) 10 mg PO Q6H PRN PRN Reason: Pain, moderate (4-7) Pantoprazole Sodium (Protonix Ec Tab) 40 mg PO Q12 [facility] Last Admin: 01/14/18 09:10 Dose: Not Given Polyethylene Glycol (Miralax) 17 gm PO BID [facility] Tiotropium Murray (Spiriva) 18 mcg IH DAILY [facility] Last Admin: 01/13/18 11:00 Dose: 18 mcg - Labs Labs: 01/14/18 06:30 01/14/18 06:30 PT 13.7 SECONDS (9.4-12.5) H 01/14/18 06:30 INR 1.19 (0.93-1.08) H 01/14/18 06:30 APTT 36.9 Seconds (25.1-36.5) H 01/14/18 06:30 - Constitutional Appears: Chronically Ill - Head Exam Head Exam: NORMAL INSPECTION - Neck Exam Neck Exam: absent: Meningismus - Respiratory Exam Respiratory Exam: Decreased Breath Sounds - Cardiovascular Exam Cardiovascular Exam: +S1, +S2 - GI/Abdominal Exam GI & Abdominal Exam: Soft. absent: Tenderness Assessment and Plan - Assessment and Plan (Free Text) Plan: Assessment Leukocytosis probably due to malignancy associated with pulmonary nodules and liver lesions S/P CT-guided liver biopsy HTN dyslipidemia asthma fatty liver disease S/P right ankle surgery S/P left rotator cuff surgery Plan blood cx are negative; reviewed CT C/A/P - no pneumonia noted; PCT is mildly elevated, which may also be elevated with malignancy - will continue to monitor off antibiotics follow up results of liver biopsy
[2018-01-14] MEDS: POLYETHYLENE GLYCOL 3350 17 GM/Dose PACKET PO SCH (17:22)
[2018-01-14] MEDS: Lidocaine 5% Patch TD SCH (17:22)
[2018-01-15] MEDS: HYDROmorphone 1 mg/ml ISec IVP PRN ×3 (01:37→22:23)
[2018-01-15 07:12] LABS: BASO # 0.02 K/mm3 (0.0-2.0); BASO % 0.1 % (0.0-3.0); EOS % 0.1 % (1.5-5.0); GRAN # 14.44 (1.4-6.5); GRAN % 83.3 % (50.0-68.0); HEMOGLOBIN 12.8 g/dL (14.0-18.0); LYMPH # 1.4 (1.2-3.4); LYMPH % 7.8 % (22.0-35.0); MEAN CELL VOLUME 82.6 fl (80.0-105.0); MEAN CORPUSCULAR HEMOGLOBIN 28.1 pg (25.0-35.0); MEAN PLATELET VOLUME 9.3 fl (7.0-11.0); MONO # 1.5 (0.1-0.6); MONO % 8.7 % (1.0-6.0); RBC 4.55 10^6/uL (3.5-6.1); RED CELL DISTRIBUTION WIDTH 15.8 % (11.5-14.5); WHITE BLOOD COUNT 17.3 10^3/ul (4.5-11.0)
[2018-01-15 07:29] LABS: INR 1.22 (0.93-1.08); PARTIAL THROMBOPLASTIN TIME 32.5 Seconds (25.1-36.5); PROTHROMBIN TIME 14.1 SECONDS (9.4-12.5)
[2018-01-15] MEDS: Budesonide 0.5 mg/2 ml Inhal Susp UD IH SCH ×2 (07:40→20:47)
[2018-01-15] MEDS: Arformoterol 15 mcg/2 ml Inh Sol IH SCH ×2 (07:40→20:47)
[2018-01-15 07:56] LABS: ALB/GLOB RATIO 1.1 (1.1-1.8); ALBUMIN 3.3 g/dL (3.0-4.8); CALCIUM 8.2 mg/dL (8.4-10.5)
[2018-01-15] MEDS ORDERED: Sod Polystyrene Sulf 15 gm/60 ml Susp PO ONE (07:57)
[2018-01-15] MEDS ORDERED: Morphine 2 mg/ml ISec IVP PRN (08:10)
[2018-01-15] MEDS: POLYETHYLENE GLYCOL 3350 17 GM/Dose PACKET PO SCH ×2 (09:08→17:54)
[2018-01-15] MEDS: Lidocaine 5% Patch TD SCH (09:08)
[2018-01-15] MEDS: Pantoprazole 40 mg EC Tab PO SCH ×2 (09:12→22:25)
--- NOTE | 2018-01-15 09:55 | PN ---
DATE: 01/15/2018 PULMONARY PROGRESS NOTE SUBJECTIVE: The patient was seen and examined at the bedside. The is present at the bedside. He is uncomfortable with abdominal pain and he is not in respiratory distress. PHYSICAL EXAMINATION: VITAL SIGNS: His temperature is 97.8, pulse 86, respirations 20, pulse oximetry is 95% on room air, blood pressure is 101/65. NECK: Supple. There is no jugular vein distention. CARDIOVASCULAR: Symmetrical. S1, S2. No S3, regular. PULMONARY: Diminished breath sounds bilaterally. There is no rhonchi, rales or wheezing. ABDOMEN: Deferred due to current abdominal pain. EXTREMITIES: No pedal edema. No cyanosis. NEUROLOGIC: No focal deficits. SKIN: Dry; intact LABORATORY DATA: Today's laboratory data was reviewed. His sodium is 136, potassium elevated at 5.9, BUN is 74, creatinine is markedly up to 3.3 from 1.6, suspect large prerenal component. His liver function test doubled from yesterday. WBC is 17.3, hemoglobin of 12.8. ASSESSMENT AND PLAN: 1. Small cell lung cancer by liver biopsy. 2. Diffuse metastatic disease to liver. 3. Lung adenopathy. 4. Abdominal pain following liver biopsy, results of repeat CT is pending. According to the , there are plans to transfer the patient to [facility]. We will follow closely. Continue with Pulmonary medications. Zac Haley MD MTDD
--- NOTE | 2018-01-15 10:04 | CP.PCM.DIS ---
Addendum entered and electronically signed by Zina Field DO 01/15/18 11: 07: Patient signed a POLST and is DNR/DNI Original Note: <Zina Field - Last Filed: 01/15/18 10:21> Provider - Provider Date of Admission: 01/11/18 11:36 Attending physician: Mack Rubalcava MD Primary care physician: Vince Churchill MD Consults: GI: Yolanda Oncology: Shreya IR: Los ID: [email or web address] Time Spent in preparation of Discharge (in minutes): 55 Hospital Course - Lab Results Lab Results: Most Recent Lab Values WBC 17.3 10^3/ul (4.5-11.0) H 01/15/18 06:45 RBC 4.55 10^6/uL (3.5-6.1) 01/15/18 06:45 Hgb 12.8 g/dL (14.0-18.0) L 01/15/18 06:45 Hct 37.6 % (42.0-52.0) L 01/15/18 06:45 MCV 82.6 fl (80.0-105.0) 01/15/18 06:45 MCH 28.1 pg (25.0-35.0) 01/15/18 06:45 MCHC 34.0 g/dl (31.0-37.0) 01/15/18 06:45 RDW 15.8 % (11.5-14.5) H 01/15/18 06:45 Plt Count 115 10^3/uL (120.0-450.0) L 01/15/18 06:45 MPV 9.3 fl (7.0-11.0) 01/15/18 06:45 Gran % 83.3 % (50.0-68.0) H 01/15/18 06:45 Lymph % (Auto) 7.8 % (22.0-35.0) L 01/15/18 06:45 [place] % (Auto) 8.7 % (1.0-6.0) H 01/15/18 06:45 Eos % (Auto) 0.1 % (1.5-5.0) L 01/15/18 06:45 Baso % (Auto) 0.1 % (0.0-3.0) 01/15/18 06:45 Gran # 14.44 (1.4-6.5) H 01/15/18 06:45 Lymph # (Auto) 1.4 (1.2-3.4) 01/15/18 06:45 [place] # (Auto) 1.5 (0.1-0.6) H 01/15/18 06:45 Eos # (Auto) 0.0 (0.0-0.7) 01/15/18 06:45 Baso # (Auto) 0.02 K/mm3 (0.0-2.0) 01/15/18 06:45 Neutrophils % (Manual) 89 % (50.0-70.0) H 01/12/18 07:10 Lymphocytes % (Manual) 2 % (22.0-35.0) L 01/12/18 07:10 Atypical Lymphs % 2 % (0.0-0.0) H 01/12/18 07:10 Monocytes % (Manual) 7 % (1.0-6.0) H 01/12/18 07:10 Platelet Evaluation Normal (NORMAL) 01/12/18 07:10 PT 14.1 SECONDS (9.4-12.5) H 01/15/18 06:45 INR 1.22 (0.93-1.08) H 01/15/18 06:45 APTT 32.5 Seconds (25.1-36.5) 01/15/18 06:45 pO2 42 mm/Hg (30-55) 01/11/18 13:52 VBG pH 7.33 (7.32-7.43) 01/11/18 13:52 VBG pCO2 49.0 (40-60) 01/11/18 13:52 VBG HCO3 25.8 mmol/l (21-28) 01/11/18 13:52 VBG Total CO2 27.3 mmol.L (22-28) 01/11/18 13:52 VBG O2 Sat (Calc) 78.8 % (40-65) H 01/11/18 13:52 VBG Base Excess -0.7 mmol/L (0.0-2.0) L 01/11/18 13:52 VBG Potassium 4.8 mmol/L (3.6-5.2) 01/11/18 13:52 Sodium 139.0 mmol/L (132-148) 01/11/18 13:52 Chloride 105.0 mmol/L (98-107) 01/11/18 13:52 Glucose 112 mg/dl (75-110) H 01/11/18 13:52 Lactate 2.8 mmol/L (0.7-2.1) H 01/11/18 13:52 FiO2 21.0 % 01/11/18 13:52 Sodium 136 mmol/L (132-148) 01/15/18 06:45 Potassium 5.9 mmol/L (3.6-5.0) H* 01/15/18 06:45 Chloride 102 mmol/L (98-107) 01/15/18 06:45 Carbon Dioxide 20 mmol/L (21-33) L 01/15/18 06:45 Anion Gap 19 (10-20) 01/15/18 06:45 BUN 74 mg/dL (7-21) H 01/15/18 06:45 Creatinine 3.3 mg/dl (0.8-1.5) H 01/15/18 06:45 Est GFR ( Amer) 23 01/15/18 06:45 Est GFR (Non-Af Amer) 19 01/15/18 06:45 Random Glucose 124 mg/dL (70-110) H 01/15/18 06:45 Calcium 8.2 mg/dL (8.4-10.5) L 01/15/18 06:45 Magnesium 2.2 mg/dL (1.7-2.2) 01/11/18 10:15 Total Bilirubin 5.6 mg/dL (0.2-1.3) H 01/15/18 06:45 Direct Bilirubin 2.1 mg/dL (0.0-0.4) H 01/11/18 10:15 GGT 1893 U/L (8-78) H 01/15/18 06:45 AST 2201 U/L (17-59) H 01/15/18 06:45 ALT 1799 U/L (7-56) H 01/15/18 06:45 Alkaline Phosphatase 428 U/L (38-126) H D 01/15/18 06:45 Lactate Dehydrogenase 8208 U/L (333-699) H 01/13/18 07:00 Total Creatine Kinase 796 U/L (35-230) H 01/11/18 10:15 CK-MB (CK-2) 2.7 ng/mL (0.0-3.6) 01/11/18 10:15 CK-MB (CK-2) % Cancelled 01/11/18 10:15 Troponin I < 0.01 ng/mL 01/11/18 10:15 NT-Pro-B Natriuret Pep 322 pg/mL (0-450) 01/11/18 10:15 Total Protein 6.3 g/dL (5.8-8.3) 01/15/18 06:45 Total Protein (PEP) 5.2 g/dL (6.1-8.1) L 01/13/18 07:00 Albumin 3.3 g/dL (3.0-4.8) 01/15/18 06:45 Globulin 3.0 gm/dL 01/15/18 06:45 Albumin/Globulin Ratio 1.1 (1.1-1.8) 01/15/18 06:45 Etabs-6-Qvhbcpowqck 225 mg/dL (83-199) H 01/11/18 13:55 Amylase 70 U/L (35-125) 01/14/18 07:56 Lipase 130 U/L (23-300) 01/14/18 07:56 Alpha Fetoprotein 2.5 ng/mL (0.0-7.5) 01/12/18 06:45 Carcinoembryonic Ag 20.6 ng/mL (0.0-3.0) H 01/12/18 06:45 CA 19-9 Antigen 385 U/mL (0-37) H 01/12/18 06:45 Procalcitonin 0.57 NG/ML (0.19-0.49) H 01/12/18 07:30 Venous Blood Potassium 4.8 mmol/L (3.6-5.2) 01/11/18 13:52 Urine Color Dark yellow (YELLOW) 01/13/18 15:15 Urine Appearance Slight-cloudy (CLEAR) 01/13/18 15:15 Urine pH 6.0 (4.7-8.0) 01/13/18 15:15 Ur Specific [place] 1.015 (1.005-1.035) 01/13/18 15:15 Urine Protein 30 mg/dL (<30 mg/dL) H 01/13/18 15:15 Urine Glucose (UA) Negative mg/dL (NEGATIVE) 01/13/18 15:15 Urine Ketones Negative mg/dL (NEGATIVE) 01/13/18 15:15 Urine Blood Trace-lysed (NEGATIVE) H 01/13/18 15:15 Urine Nitrate Negative (NEGATIVE) 01/13/18 15:15 Urine Bilirubin Small (NEGATIVE) H 01/13/18 15:15 Urine Urobilinogen 0.2 E.U./dL (<1 E.U./dL) 01/13/18 15:15 Ur Leukocyte Esterase Trace Mary Kate/uL (NEGATIVE) H 01/13/18 15:15 Urine RBC 0 - 2 /hpf (0-2) 01/13/18 15:15 Urine WBC 0 - 2 /hpf (0-6) 01/13/18 15:15 Ur Epithelial Cells None /hpf (0-5) 01/13/18 15:15 Urine Bacteria Trace (NEG) 01/13/18 15:15 Salicylates < 1 mg/dL (2.0-20.0) L 01/11/18 10:15 Acetaminophen < 10.0 ug/ml (10.0-20.0) L 01/11/18 10:15 Serum Immunofixation Not detected (Not Detected) 01/13/18 07:00 CLARE Screen Negative (Negative) 01/11/18 13:55 CLARE Titer TEST NOT PERFORMED 01/11/18 13:55 CLARE Titer 2 TEST NOT PERFORMED 01/11/18 13:55 CLARE Pattern TEST NOT PERFORMED 01/11/18 13:55 CLARE Pattern 2 TEST NOT PERFORMED 01/11/18 13:55 Anti-Mitochondrial Ab Negative (Negative) 01/11/18 13:55 Anti-Smooth Muscle Ab Negative (Negative) 01/11/18 13:55 Hepatitis A IgM Ab Negative (NEGATIVE) 01/11/18 10:15 Hep Bs Antigen Negative (NEGATIVE) 01/11/18 10:15 Hep B Core IgM Ab Negative (NEGATIVE) 01/11/18 10:15 Hepatitis C Antibody Negative (NEGATIVE) 01/11/18 10:15 HIV 1&2 Ag/Ab, 4th Gen Nonreactive (Nonreactive) 01/13/18 07:00 - Hospital Course Hospital Course: This is a 62yo male with past medical history of HTN, dyslipidemia, asthma who is admitted for shortness of breath thought to be secondary to acute on chronic bronchitis that failed outpatient steroids and antibiotic therapy. CT of chest showed suspected lung ca with hilar adenopathy. ID was consulted and did not recommend to place patient on antibiotics at this time and believe the cough and leukocytosis is due to acute inflammation from cancer. He was placed on nebulizer treatment and cough suppressants. Patient was found to have transaminitis. Labs and imaging were reviewed. Patient's transaminitis found to be secondary to liver metastasis. He is s/p liver biopsy. Preliminary pathology showed high grade metastasis suspicious for neuroendocrine tumor- final pathology is pending. Patient was having increased pain after biopsy. He had more imaging done which did not show any hematoma or acute thrombus. Patient's LFTs are worsening and going into hepatic failure. GI is on consult and recommendations were appreciated. Patient has worsening kidney function which can be multifactorial secondary to IV contrast and hepatorenal syndrome. Patient may need hemodialysis in the future. I spoke with Dr. Dos Santos, executor of estate from [facility] who will accept the patient into his care. Dr. Dos Santos phone number: [phone] Fax number: [phone] - Date & Time of H&P Date of H&P: 01/11/18 Time of H&P: 15:00 Discharge Exam - Head Exam Head Exam: NORMAL INSPECTION - Eye Exam Eye Exam: Normal appearance, PERRL, Scleral icterus Pupil Exam: NORMAL ACCOMODATION - ENT Exam ENT Exam: Mucous Membranes Moist - Respiratory Exam Respiratory Exam: Clear to PA & Lateral, NORMAL BREATHING PATTERN, UNREMARKABLE. absent: Rales, Rhonchi - Cardiovascular Exam Cardiovascular Exam: REGULAR RHYTHM, +S1, +S2. absent: Gallop, Rubs, Systolic Murmur - GI/Abdominal Exam GI & Abdominal Exam: Distended, Normal Bowel Sounds, Organomegaly (hepatomegaly ), Tenderness (RUQ ). absent: Rebound, Rigid - Neurological Exam Neurological exam: Alert, CN II-XII Intact, Oriented x3 - Psychiatric Exam Psychiatric exam: Normal Affect, Normal Mood - Skin Skin Exam: Dry, Intact, Warm Discharge Plan - Follow Up Plan Condition: FAIR Disposition: OTHER INSTITUTION Referrals: Vince Churchill MD [Primary Care Provider] - <Mack Rubalcava - Last Filed: 01/17/18 15:49> Provider - Provider Date of Admission: 01/11/18 11:36 Attending physician: Mack Rubalcava MD Primary care physician: Vince Churchill MD Hospital Course - Lab Results Lab Results: Micro Results 01/15/18 18:00 Naris MRSA Culture (Admit) - Final MRSA NOT DETECTED 01/13/18 15:15 Urine,Clean Catch Urine Culture - Final No Growth (<1,000 CFU/ML) Most Recent Lab Values WBC 10.2 10^3/ul (4.5-11.0) 01/17/18 06:45 RBC 4.03 10^6/uL (3.5-6.1) 01/17/18 06:45 Hgb 11.1 g/dL (14.0-18.0) L 01/17/18 06:45 Hct 32.2 % (42.0-52.0) L 01/17/18 06:45 MCV 79.9 fl (80.0-105.0) L 01/17/18 06:45 MCH 27.5 pg (25.0-35.0) 01/17/18 06:45 MCHC 34.5 g/dl (31.0-37.0) 01/17/18 06:45 RDW 16.1 % (11.5-14.5) H 01/17/18 06:45 Plt Count 140 10^3/uL (120.0-450.0) 01/17/18 06:45 MPV 9.9 fl (7.0-11.0) 01/17/18 06:45 Gran % 95.1 % (50.0-68.0) H 01/17/18 06:45 Lymph % (Auto) 1.8 % (22.0-35.0) L 01/17/18 06:45 [place] % (Auto) 3.1 % (1.0-6.0) 01/17/18 06:45 Eos % (Auto) 0.0 % (1.5-5.0) L 01/17/18 06:45 Baso % (Auto) 0.0 % (0.0-3.0) 01/17/18 06:45 Gran # 9.68 (1.4-6.5) H 01/17/18 06:45 Lymph # (Auto) 0.2 (1.2-3.4) L 01/17/18 06:45 [place] # (Auto) 0.3 (0.1-0.6) 01/17/18 06:45 Eos # (Auto) 0.0 (0.0-0.7) 01/17/18 06:45 Baso # (Auto) 0.00 K/mm3 (0.0-2.0) 01/17/18 06:45 Neutrophils % (Manual) 89 % (50.0-70.0) H 01/17/18 06:45 Band Neutrophils % 2 % (0-2) 01/17/18 06:45 Lymphocytes % (Manual) 4 % (22.0-35.0) L 01/17/18 06:45 Atypical Lymphs % 2 % (0.0-0.0) H 01/12/18 07:10 Monocytes % (Manual) 5 % (1.0-6.0) 01/17/18 06:45 Platelet Evaluation Normal (NORMAL) 01/17/18 06:45 PT 15.1 SECONDS (9.4-12.5) H 01/17/18 06:45 INR 1.31 (0.93-1.08) H 01/17/18 06:45 APTT 34.2 Seconds (25.1-36.5) 01/17/18 06:45 pO2 42 mm/Hg (30-55) 01/11/18 13:52 VBG pH 7.33 (7.32-7.43) 01/11/18 13:52 VBG pCO2 49.0 (40-60) 01/11/18 13:52 VBG HCO3 25.8 mmol/l (21-28) 01/11/18 13:52 VBG Total CO2 27.3 mmol.L (22-28) 01/11/18 13:52 VBG O2 Sat (Calc) 78.8 % (40-65) H 01/11/18 13:52 VBG Base Excess -0.7 mmol/L (0.0-2.0) L 01/11/18 13:52 VBG Potassium 4.8 mmol/L (3.6-5.2) 01/11/18 13:52 Sodium 139.0 mmol/L (132-148) 01/11/18 13:52 Chloride 105.0 mmol/L (98-107) 01/11/18 13:52 Glucose 112 mg/dl (75-110) H 01/11/18 13:52 Lactate 2.8 mmol/L (0.7-2.1) H 01/11/18 13:52 FiO2 21.0 % 01/11/18 13:52 Sodium 135 mmol/L (132-148) 01/17/18 06:45 Potassium 5.6 mmol/L (3.6-5.0) H* 01/17/18 06:45 Chloride 106 mmol/L (98-107) 01/17/18 06:45 Carbon Dioxide 15 mmol/L (21-33) L 01/17/18 06:45 Anion Gap 20 (10-20) 01/17/18 06:45 BUN 113 mg/dL (7-21) H 01/17/18 06:45 Creatinine 3.8 mg/dl (0.8-1.5) H 01/17/18 06:45 Est GFR ( Amer) 20 01/17/18 06:45 Est GFR (Non-Af Amer) 16 01/17/18 06:45 Random Glucose 109 mg/dL (70-110) 01/17/18 06:45 Calcium 7.3 mg/dL (8.4-10.5) L 01/17/18 06:45 Phosphorus 10.6 mg/dL (2.5-4.5) H 01/17/18 06:45 Magnesium 2.8 mg/dL (1.7-2.2) H 01/17/18 06:45 Total Bilirubin 5.5 mg/dL (0.2-1.3) H 01/17/18 06:45 Direct Bilirubin 2.1 mg/dL (0.0-0.4) H 01/11/18 10:15 GGT 1171 U/L (8-78) H 01/17/18 06:45 AST 693 U/L (17-59) H D 01/17/18 06:45 ALT 893 U/L (7-56) H 01/17/18 06:45 Alkaline Phosphatase 383 U/L (38-126) H 01/17/18 06:45 Lactate Dehydrogenase 8208 U/L (333-699) H 01/13/18 07:00 LD Isoenzymes 2483 U/L (120-250) H 01/13/18 07:00 Fraction LD 1 6 % (19-38) L 01/13/18 07:00 Fraction LD 2 20 % (30-43) L 01/13/18 07:00 Fraction LD 3 25 % (16-26) 01/13/18 07:00 Fraction LD 4 24 % (3-12) H 01/13/18 07:00 Fraction LD 5 26 % (3-14) H 01/13/18 07:00 Total Creatine Kinase 796 U/L (35-230) H 01/11/18 10:15 CK-MB (CK-2) 2.7 ng/mL (0.0-3.6) 01/11/18 10:15 CK-MB (CK-2) % Cancelled 01/11/18 10:15 Troponin I < 0.01 ng/mL 01/11/18 10:15 NT-Pro-B Natriuret Pep 322 pg/mL (0-450) 01/11/18 10:15 Total Protein 5.6 g/dL (5.8-8.3) L 01/17/18 06:45 Total Protein (PEP) 5.2 g/dL (6.1-8.1) L 01/13/18 07:00 Albumin 2.7 g/dL (3.0-4.8) L 01/17/18 06:45 Albumin (PEP) 3.1 g/dL (3.8-4.8) L 01/13/18 07:00 Globulin 2.9 gm/dL 01/17/18 06:45 Albumin/Globulin Ratio 0.9 (1.1-1.8) L 01/17/18 06:45 Rtcyp-4-Ugnpypfoh 0.3 g/dL (0.2-0.3) 01/13/18 07:00 Urkwv-3-Wtuhhfoqv 0.9 g/dL (0.5-0.9) 01/13/18 07:00 Gxmg-7-Rdheyvqt 0.3 g/dL (0.4-0.6) L 01/13/18 07:00 Ynty-1-Ypwqwbsc 0.2 g/dL (0.2-0.5) 01/13/18 07:00 Gamma Globulins 0.3 g/dL (0.8-1.7) L 01/13/18 07:00 Abnorm Protein Band 1 TEST NOT PERFORMED 01/13/18 07:00 Abnorm Protein Band 2 TEST NOT PERFORMED 01/13/18 07:00 Abnorm Protein Band 3 TEST NOT PERFORMED 01/13/18 07:00 Mubco-3-Yrxtopytolp 225 mg/dL (83-199) H 01/11/18 13:55 Amylase 70 U/L (35-125) 01/14/18 07:56 Lipase 130 U/L (23-300) 01/14/18 07:56 Alpha Fetoprotein 2.5 ng/mL (0.0-7.5) 01/12/18 06:45 Carcinoembryonic Ag 20.6 ng/mL (0.0-3.0) H 01/12/18 06:45 CA 19-9 Antigen 385 U/mL (0-37) H 01/12/18 06:45 Procalcitonin 0.57 NG/ML (0.19-0.49) H 01/12/18 07:30 Venous Blood Potassium 4.8 mmol/L (3.6-5.2) 01/11/18 13:52 Urine Color Dark yellow (YELLOW) 01/13/18 15:15 Urine Appearance Slight-cloudy (CLEAR) 01/13/18 15:15 Urine pH 6.0 (4.7-8.0) 01/13/18 15:15 Ur Specific [place] 1.015 (1.005-1.035) 01/13/18 15:15 Urine Protein 30 mg/dL (<30 mg/dL) H 01/13/18 15:15 Urine Glucose (UA) Negative mg/dL (NEGATIVE) 01/13/18 15:15 Urine Ketones Negative mg/dL (NEGATIVE) 01/13/18 15:15 Urine Blood Trace-lysed (NEGATIVE) H 01/13/18 15:15 Urine Nitrate Negative (NEGATIVE) 01/13/18 15:15 Urine Bilirubin Small (NEGATIVE) H 01/13/18 15:15 Urine Urobilinogen 0.2 E.U./dL (<1 E.U./dL) 01/13/18 15:15 Ur Leukocyte Esterase Trace Mary Kate/uL (NEGATIVE) H 01/13/18 15:15 Urine RBC 0 - 2 /hpf (0-2) 01/13/18 15:15 Urine WBC 0 - 2 /hpf (0-6) 01/13/18 15:15 Ur Epithelial Cells None /hpf (0-5) 01/13/18 15:15 Urine Bacteria Trace (NEG) 01/13/18 15:15 Salicylates < 1 mg/dL (2.0-20.0) L 01/11/18 10:15 Acetaminophen < 10.0 ug/ml (10.0-20.0) L 01/11/18 10:15 GONSALO & SPEP Interp See note 01/13/18 07:00 Serum Immunofixation Not detected (Not Detected) 01/13/18 07:00 CLARE Screen Negative (Negative) 01/11/18 13:55 CLARE Titer TEST NOT PERFORMED 01/11/18 13:55 CLARE Titer 2 TEST NOT PERFORMED 01/11/18 13:55 CLARE Pattern TEST NOT PERFORMED 01/11/18 13:55 CLARE Pattern 2 TEST NOT PERFORMED 01/11/18 13:55 Anti-Mitochondrial Ab Negative (Negative) 01/11/18 13:55 Anti-Smooth Muscle Ab Negative (Negative) 01/11/18 13:55 Liver/Kid Microsomes Ab <=20.0 U (<=20.0) 01/11/18 13:55 Hepatitis A IgM Ab Negative (NEGATIVE) 01/11/18 10:15 Hep Bs Antigen Negative (NEGATIVE) 01/11/18 10:15 Hep B Core IgM Ab Negative (NEGATIVE) 01/11/18 10:15 Hepatitis C Antibody Negative (NEGATIVE) 01/11/18 10:15 HIV 1&2 Ag/Ab, 4th Gen Nonreactive (Nonreactive) 01/13/18 07:00 - Hospital Course Hospital Course: Pt seen and examined. This is a late entry. I have reviewed the note of the medical unit secretary and agree with it. I have discussed the assessment and plan with the resident. I have reviewed the patient's labs and medications. Pt will be sent to the ICU for emergent palliative chemo. He is going into hepatorenal syndrome. He does not require HD but given the rise of his Cr and hyperkalemia, I am afraid that he may need HD very soon. He is going to be getting chemo that may also be nephrotoxic. A HD catheter was placed in anticipation of HD. He has an elevation of his INR and it may become difficult to place a catheter. He need treatment for his cancer to allow for his kidney function to improve.
--- NOTE | 2018-01-15 10:08 | CP.PCM.PN ---
Subjective - Date & Time of Evaluation Date of Evaluation: 01/14/18 Time of Evaluation: 14:00 - Subjective Subjective: Samuel Schaefer DO IM Resident PGY-1: Hematology/Oncology Progress Note for Dr. Cash Patient was seen and examined at bedside. Reports some abdominal pain at the biopsy site. Objective - Vital Signs/Intake and Output Vital Signs (last 24 hours): Temp Pulse Resp BP Pulse Ox 97.8 F 86 21 101/65 95 01/15/18 06:00 01/15/18 06:00 01/15/18 06:00 01/15/18 06:00 01/15/18 06:00 Intake and Output: 01/15/18 01/15/18 06:59 18:59 Intake Total 840 Balance 840 - Medications Medications: Current Medications Arformoterol Tartrate (Brovana) 15 mcg IH [id number] [facility] Last Admin: 01/15/18 07:40 Dose: 15 mcg Budesonide (Pulmicort Respules) 0.5 mg IH [id number] [facility] Last Admin: 01/15/18 07:40 Dose: 0.5 mg Docusate Sodium (Colace) 100 mg PO DAILY [facility] Last Admin: 01/15/18 09:06 Dose: 100 mg Guaifenesin/Codeine Phosphate (Robitussin W/Codeine) 5 ml PO Q6H PRN PRN Reason: Cough and congestion Last Admin: 01/13/18 09:54 Dose: 5 ml Sodium Chloride (Sodium Chloride 0.9%) 1,000 mls @ 100 mls/hr IV .Q10H [facility] Last Admin: 01/13/18 19:04 Dose: 100 mls/hr Lidocaine (Lidoderm) 1 ea TD DAILY [facility] Last Admin: 01/15/18 09:08 Dose: Not Given Losartan Potassium (Cozaar) 50 mg PO DAILY [facility] Last Admin: 01/14/18 09:10 Dose: Not Given Montelukast Sodium (Singulair) 10 mg PO HS [facility] Last Admin: 01/14/18 21:00 Dose: 10 mg Morphine Sulfate (Morphine) 2 mg IVP Q4H PRN PRN Reason: Pain, severe (8-10) Ondansetron HCl (Zofran Inj) 4 mg IVP Q6H PRN PRN Reason: Nausea/Vomiting Last Admin: 01/15/18 09:13 Dose: 4 mg Oxycodone HCl (Oxycodone Immediate Release Tab) 10 mg PO Q6H PRN PRN Reason: Pain, moderate (4-7) Last Admin: 01/15/18 09:05 Dose: 10 mg Pantoprazole Sodium (Protonix Ec Tab) 40 mg PO Q12 [facility] Last Admin: 01/15/18 09:12 Dose: 40 mg Polyethylene Glycol (Miralax) 17 gm PO BID [facility] Last Admin: 01/15/18 09:08 Dose: Not Given Tiotropium [place] (Spiriva) 18 mcg IH DAILY [facility] Last Admin: 01/14/18 09:10 Dose: Not Given - Labs Labs: 01/15/18 06:45 01/15/18 06:45 PT 14.1 SECONDS (9.4-12.5) H 01/15/18 06:45 INR 1.22 (0.93-1.08) H 01/15/18 06:45 APTT 32.5 Seconds (25.1-36.5) 01/15/18 06:45 - Constitutional Appears: No Acute Distress - Head Exam Head Exam: ATRAUMATIC, NORMAL INSPECTION, NORMOCEPHALIC - Eye Exam Eye Exam: Normal appearance, PERRL - ENT Exam ENT Exam: Mucous Membranes Moist - Respiratory Exam Respiratory Exam: Clear to Ausculation Bilateral - Cardiovascular Exam Cardiovascular Exam: REGULAR RHYTHM. absent: Gallop, Rubs, Murmur - GI/Abdominal Exam GI & Abdominal Exam: Distended. absent: Organomegaly - Extremities Exam Extremities Exam: Normal Inspection. absent: Calf Tenderness, Pedal Edema - Neurological Exam Neurological Exam: Alert, Awake, Oriented x3 - Skin Skin Exam: Dry, Intact, Warm Assessment and Plan - Assessment and Plan (Free Text) Assessment: 62 year old male with 3 weeks of cough that did not respond to oral antibiotics , steroids, or Tussinex. He presented [place] [facility] [place] that he failed outpatient treatment for bronchitis. Upon admission he was found to have elevated liver functions tests and abdominal US showed liver lesions consistent with metastatic disease. CT of the chest, abdomen, and pelvis with PO and IV contrast showed right pulmonary mass, mediastinal and hilar adenopathy, and redemonstrated metastatic lesions in the liver. The patient underwent CT guided core-biopsy of the liver lesion, pathology is pending. LFTs are rising. GI is consulted. Case reviewed and discussed with attending physician, Dr. Cash
[2018-01-15] MEDS ORDERED: Dextrose 5%/0.9% NS 1,000 ML IV SCH (10:15)
--- NOTE | 2018-01-15 10:17 | CARD ---
APPROVED REPORT Date of service: 01/15/2018 EKG Measurement Heart [id number] <Conclusion> Normal sinus rhythm Right bundle branch block Abnormal ECG
--- NOTE | 2018-01-15 12:06 | CP.PCM.PN ---
<Johnny Freitas - Last Filed: 01/15/18 18:12> Subjective - Date & Time of Evaluation Date of Evaluation: 01/15/18 Time of Evaluation: 08:10 - Subjective Subjective: GI Progress Note for Dr. Yolanda Freitas, PGY-3 IM Patient seen and examined at bedside. Reports worsening of abdominal pain, and overall feels poorly. LFTs this morning acutely worsening, AST 2201 and ALT 1799 (from 1412/1053 yesterday), TBili increased to 5.6, and Cr acutely worsening from 1.6 to 3.1 with new hyperkalemia of 5.9. now requesting transfer, and has reached out to [facility] for possible transfer. Kayexelate ordered by PMD for hyperkalemia. Objective - Vital Signs/Intake and Output Vital Signs (last 24 hours): Temp Pulse Resp BP Pulse Ox 97.8 F 86 21 100/62 95 01/15/18 06:00 01/15/18 06:00 01/15/18 06:00 01/15/18 10:43 01/15/18 06:00 Intake and Output: 01/15/18 01/15/18 06:59 18:59 Intake Total 840 Balance 840 - Medications Medications: Current Medications Arformoterol Tartrate (Brovana) 15 mcg IH [id number] [facility] Last Admin: 01/15/18 07:40 Dose: 15 mcg Budesonide (Pulmicort Respules) 0.5 mg IH [id number] [facility] Last Admin: 01/15/18 07:40 Dose: 0.5 mg Docusate Sodium (Colace) 100 mg PO DAILY [facility] Last Admin: 01/15/18 09:06 Dose: 100 mg Guaifenesin/Codeine Phosphate (Robitussin W/Codeine) 5 ml PO Q6H PRN PRN Reason: Cough and congestion Last Admin: 01/13/18 09:54 Dose: 5 ml Heparin Sodium (Porcine) (Heparin) 5,000 units SC Q8 [facility] PRN Reason: Protocol Hydromorphone HCl (Dilaudid) 1 mg IVP Q4H PRN PRN Reason: Pain, severe (8-10) Dextrose/Sodium Chloride (Dextrose 5%/0.9% Ns 1000 Ml) 1,000 mls @ 100 mls/hr IV .Q10H [facility] Last Admin: 01/15/18 10:30 Dose: 100 mls/hr Lidocaine (Lidoderm) 1 ea TD DAILY [facility] Last Admin: 01/15/18 09:08 Dose: Not Given Losartan Potassium (Cozaar) 50 mg PO DAILY [facility] Last Admin: 01/15/18 10:43 Dose: Not Given Montelukast Sodium (Singulair) 10 mg PO HS [facility] Last Admin: 01/14/18 21:00 Dose: 10 mg Ondansetron HCl (Zofran Inj) 4 mg IVP Q6H PRN PRN Reason: Nausea/Vomiting Last Admin: 01/15/18 09:13 Dose: 4 mg Oxycodone HCl (Oxycodone Immediate Release Tab) 10 mg PO Q6H PRN PRN Reason: Pain, moderate (4-7) Last Admin: 01/15/18 09:05 Dose: 10 mg Pantoprazole Sodium (Protonix Ec Tab) 40 mg PO Q12 [facility] Last Admin: 01/15/18 09:12 Dose: 40 mg Polyethylene Glycol (Miralax) 17 gm PO BID [facility] Last Admin: 01/15/18 09:08 Dose: Not Given Tiotropium [place] (Spiriva) 18 mcg IH DAILY [facility] Last Admin: 01/14/18 09:10 Dose: Not Given - Labs Labs: 01/15/18 06:45 01/15/18 06:45 PT 14.1 SECONDS (9.4-12.5) H 01/15/18 06:45 INR 1.22 (0.93-1.08) H 01/15/18 06:45 APTT 32.5 Seconds (25.1-36.5) 01/15/18 06:45 - Additional Findings Additional findings: - Constitutional Appears: No acute distress but appears unwell, uncomfortable, ill-appearing - Head Exam Head Exam: ATRAUMATIC, NORMAL INSPECTION, NORMOCEPHALIC - Eye Exam Eye Exam: Mild scleral icterus appreciated. absent: Conjunctival injection Pupil Exam: absent: Fixed, Irregular - ENT Exam ENT Exam: Mucous Membranes Moist. absent: Mucous Membranes Dry - Neck Exam Neck exam: Positive for: Normal Inspection - Respiratory Exam Respiratory Exam: Clear to Auscultation Bilateral, NORMAL BREATHING PATTERN, Mild intermittent dry coughing during exam. absent: Accessory Muscle Use, Chest Wall Tenderness, Decreased Breath Sounds, Rales, Rhonchi, Wheezes - Cardiovascular Exam Cardiovascular Exam: REGULAR RHYTHM, RRR, +S1, +S2. absent: Bradycardia, Tachycardia, Irregular Rhythm, JVD, +S4 - GI/Abdominal Exam GI & Abdominal Exam: Worsening distension, Firm and almost rigid to palpation, unable to compress more than 2-3cm with firm palpation in non-tender regions, acutely tender to all palpation at RUQ/R flank region, distant-sounding bowel sounds, unable to palpate discrete loops of bowel due to distension/firmness of abdomen - Extremities Exam Extremities exam: Positive for: trace pedal edema from ankles to mid-eaton. Negative for: calf tenderness, tenderness - Neurological Exam awake and alert, following all commands appropriately, some spontaneous extremity movement but minimal due to reported fatigue, unable to elicit asterixis - Psychiatric Exam Psychiatric exam: Normal Affect, Normal Mood - Skin Skin Exam: Dry, Intact, Normal Color, Warm, Mild gross jaundice Assessment and Plan - Assessment and Plan (Free Text) Assessment: This is a 62 yo M with PMH of HTN, hypercholesterolemia, COPD, and asthma (not tobacco user) who presented to [facility] [place] with complaint of cough productive for clear sputum for 3 weeks. GI was consulted due to incidentally discovered elevated transaminases, concerning for transaminitis. However, his abdominal ultrasound and CT scans are concerning for liver and possible lung metastases (possibly lung primary). S/p IR guided biopsy, pending pathology. Now with acutely worsening LFTs and Cr x2 days, acutely concerning for ischemic hepatic event, possible fulminant hepatic failure. Plan: HTN Hypercholesterolemia COPD/Asthma of unclear etiology Acutely worsening LFTs and Cr, concerning for hepatorenal syndrome, likely to soon require hemodialysis Severely worsening LFTs concerning for fulminant hepatic failure -Abd US highly concerning for liver mets, primary unknown, no prior imaging for comparison -Repeat Abd US: no obstruction of hepatic or pancreatic ducts observed, no acute changes from prior Abd US -Chest/Abd/Pelvis CT with IV and PO contrast obtained, highly concerning for extensive liver mets and multiple pulmonary nodules + hilar and mediastinal adenopathy consistent with lung metastatic disease -Repeat CT abd/pelvis w/o contrast negative for subcapsular or intraparenchymal hemorrage from biopsy site -Pending bx pathology -AFP wnl, CA 19-9 elevated at 325, CEA elevated at 20.6 -AST 2201, ALT 1799, Alk Phos 428, Tbili 5.6, Cr 3.3, BUN 74, LDH (from 01/13) 8208 Pt and requesting transfer; as per Primary team, patient has been accepted for transfer to [place] under Dr. Dos Santos. Discussion held between GI attending (Dr. Guerrero) and IR attending (Dr. Stefan Madison) regarding possible hepatic vein obstruction, given GI concern for possible acute ischemic process causing rapid/severe LFT elevations. On review of CT scan with contrast obtained to confirm presence of metastatic disease, IR attending showed areas where hepatic veins run adjacent or through tumor- burdened areas, likely causing extra-luminal compression, likely congestive hepatopathy etiology. No acute thrombus in IVC or hepatic veins appreciated, patent hepatic artery visualized. As per IR, not a good candidate for stenting of the hepatic veins, as the compromise is extra-luminal in nature, and treatment of the cancer with shrinkage in tumor size could result in mobilization of the stents. IR and GI in agreement that patient may benefit from aggressively starting chemotherapy now to attempt to relieve hepatic congestion 2/2 tumor burden. In discussion between IR and Oncology (Dr. Cash ), Oncologist reports patient may be able to receive treatment with single agent , likely plantinum agent at this time, will discuss with patient's . IR reports able to place chest port to allow for chemotherapy admission today prior to transfer. Patient seen, reviewed, and discussed with attending, Dr. Guerrero. Addendum 1700 01/15/18: and patient consented, port placed by IR, to be started on chemotherapy, pending transfer to [place] for further management and care. As per Oncologist, another chemo agent selected after discussion with accepting physician at [place], to be administered starting today. <Louis Guerrero V - Last Filed: 01/16/18 02:27> Objective - Vital Signs/Intake and Output Vital Signs (last 24 hours): Temp Pulse Resp BP Pulse Ox 98.3 F 83 20 112/67 90 L 01/15/18 19:10 01/16/18 01:50 01/16/18 01:50 01/16/18 01:00 01/16/18 01:50 - Medications Medications: Current Medications Arformoterol Tartrate (Brovana) 15 mcg IH [id number] [facility] Last Admin: 01/15/18 20:47 Dose: 15 mcg Budesonide (Pulmicort Respules) 0.5 mg IH [id number] [facility] Last Admin: 01/15/18 20:47 Dose: 0.5 mg Docusate Sodium (Colace) 100 mg PO DAILY [facility] Last Admin: 01/15/18 09:06 Dose: 100 mg Guaifenesin/Codeine Phosphate (Robitussin W/Codeine) 5 ml PO Q6H PRN PRN Reason: Cough and congestion Last Admin: 01/13/18 09:54 Dose: 5 ml Heparin Sodium (Porcine) (Heparin) 5,000 units SC Q8 [facility] PRN Reason: Protocol Last Admin: 01/15/18 22:22 Dose: 5,000 units Hydromorphone HCl (Dilaudid) 1 mg IVP Q4H PRN PRN Reason: Pain, severe (8-10) Last Admin: 01/15/18 22:23 Dose: 1 mg Sodium Chloride (Sodium Chloride 0.9%) 1,000 mls @ 100 mls/hr IV .Q10H [facility] Lidocaine (Lidoderm) 1 ea TD DAILY [facility] Last Admin: 01/15/18 09:08 Dose: Not Given Losartan Potassium (Cozaar) 50 mg PO DAILY [facility] Last Admin: 01/15/18 10:43 Dose: Not Given Montelukast Sodium (Singulair) 10 mg PO HS [facility] Last Admin: 01/15/18 22:25 Dose: Not Given Ondansetron HCl (Zofran Inj) 4 mg IVP Q6H PRN PRN Reason: Nausea/Vomiting Last Admin: 01/15/18 09:13 Dose: 4 mg Oxycodone HCl (Oxycodone Immediate Release Tab) 10 mg PO Q6H PRN PRN Reason: Pain, moderate (4-7) Last Admin: 01/15/18 09:05 Dose: 10 mg Pantoprazole Sodium (Protonix Ec Tab) 40 mg PO Q12 [facility] Last Admin: 01/15/18 22:25 Dose: Not Given Polyethylene Glycol (Miralax) 17 gm PO BID [facility] Last Admin: 01/15/18 17:54 Dose: 17 gm Tiotropium [place] (Spiriva) 18 mcg IH DAILY [facility] Last Admin: 01/14/18 09:10 Dose: Not Given - Labs Labs: 01/15/18 06:45 01/15/18 12:40 PT 14.1 SECONDS (9.4-12.5) H 01/15/18 06:45 INR 1.22 (0.93-1.08) H 01/15/18 06:45 APTT 32.5 Seconds (25.1-36.5) 01/15/18 06:45 Attending/Attestation - Attestation I have personally seen and examined this patient.: Yes I have fully participated in the care of the patient.: Yes I have reviewed all pertinent clinical information, including history, physical exam and plan: Yes Notes (Text): This is an addendum to GI progress report dictated by the Residential Aide.The patient was seen and examined earlier. Medical records, lab studies, imagings were reviewed. Last 24 hours events reviewed. Agreed with the above treatment plan as outlined in Residential Aide 's notes the with the addition of the following 01/16/18 02:27
[2018-01-15 12:55] LABS: ALB/GLOB RATIO 1.1 (1.1-1.8); ALBUMIN 3.3 g/dL (3.0-4.8); CALCIUM 8.2 mg/dL (8.4-10.5)
[2018-01-15] MEDS ORDERED: Lidocaine PF 2% (5 ml) Inj (For Cardiac Arrhy) IV ONE ×3 (13:04→16:18)
[2018-01-15] MEDS ORDERED: Heparin 0 ML IV ONE (13:04)
[2018-01-15] MEDS ORDERED: Sodium Chloride 0.9% 1,000 ML IV SCH ×2 (13:15→14:30)
[2018-01-15] MEDS ORDERED: Dexamethasone 20 MG, DiphenhydrAMINE 25 MG, Famotidine 20 MG in Sodium Chloride 0.9% 50 ML IVPB ONE (14:30)
[2018-01-15] MEDS ORDERED: Palonosetron 0.25 mg/5 mL Inj IVP ONE (14:30)
[2018-01-15] MEDS ORDERED: OXALIPLATIN IV ONE ×2 (14:45)
[2018-01-15] MEDS ORDERED: DEXTROSE 5% IV ONE (14:45)
[2018-01-15] MEDS ORDERED: WATER IV ONE (14:45)
[2018-01-15] MEDS ORDERED: SODIUM CHLORIDE 0.9% IV ONE (14:45)
[2018-01-15] MEDS ORDERED: Midazolam 2 MG/2 ML VIAL ONE (15:50)
--- NOTE | 2018-01-15 16:06 | CP.CCUPN ---
<Zaid Jean - Last Filed: 01/15/18 15:23> CCU Subjective - Physician Review Subjective (Free Text): Zaid Jean, PGY1 Critical Care Consult Note for Dr. De Luna Patient is a 62 y/o M with PMHx of newly diagnosed diffuse liver and lung metastatic disease, HTN, HLD, COPD, and asthma (non-smoker) who presented to [facility] with cough productive of clear sputum for several weeks. During hospital course, patient was found to have acutely elevated transaminitis (AST 2000+/ALT 1798), GI consulted. Patient's CT scan was concerning for diffuse metastatic disease with extensive liver mets and multiple pulmonary nodules with hilar and mediastinal adenopathy, consistent with lung metastatic disease. Patient is s/p guided biopsy with pending pathology. In addition to fulminant hepatic failure, patient has worsening acute renal function. Patient may be a candidate for dialysis. Overall, patient prognosis is very poor. Patient is being followed by GI, Oncology, IR, and ID. As per oncology, patient has worsening of hepatic/ renal function and requires chemotherapy. ICU was consulted for management. Patient was examined at bedside. Patient was complaining of shortness of breath and mod-severe abdominal pain, particularly worse on the RUQ and radiating to the lower back. Denied chest pain, lightheadedness, dizziness, hemoptysis, melena, hematemesis, nausea, vomiting, and pain in the extremities. During interview, patient was hemodynamically stable and in no respiratory distress ( on nasal cannula). A Full 12 point ROS was conducted and unremarkable except as stated above. PMD: Dr. Churchill Code Status: DNR/DNI PMHx: Diffuse Liver and Lung Metastatic Disease, HTN, HLD, COPD, Asthma (non- smoker) PSHx: rotator cuff surgery, ankle surgery Allergies: NKDA SocialHx: non smoker, social drinker FamilyHx: lymphoma (father) CCU Objective - Vital Signs / Intake & Output Vital Signs (Last 4 hours): Vital Signs Temp Pulse Resp BP Pulse Ox 01/15/18 14:00 98.6 F 110 H 22 116/64 93 L Intake and Output (Last 8hrs): Intake & Output 01/15/18 01/15/18 01/15/18 06:59 14:59 22:59 Intake Total 360 Balance 360 Intake: Oral 360 - Physical Exam Head: Positive for: Atraumatic, Normocephalic Pupils: Positive for: PERRL Extroacular Muscles: Positive for: EOMI Conjunctiva: Positive for: Normal Mouth: Positive for: Moist Mucous Membranes Neck: Positive for: Normal Range of Motion Respiratory/Chest: Positive for: Other (Coarse breath sounds bilaterally). Negative for: Respiratory Distress, Accessory Muscle Use, Wheezes, Decreased Breath Sounds, Rales, Retracting, Rhonchi, Tender to Palpation Cardiovascular: Positive for: Regular Rate and Rhythm, Normal S1, S2. Negative for: Murmurs Abdomen: Positive for: Tenderness (RUQ tenderness with radiation to low back), Distention, Normal Bowel Sounds, Mass/Organomegaly. Negative for: Peritoneal Signs Back: Positive for: Normal Inspection Upper Extremity: Positive for: Normal Inspection, NORMAL PULSES. Negative for: Cyanosis, Edema Lower Extremity: Positive for: Normal Inspection, NORMAL PULSES. Negative for: Edema, Cyanosis Neurological: Positive for: GCS=15 Skin: Positive for: Warm, Normal Color, Diaphoretic. Negative for: Rashes Psychiatric: Positive for: Alert, Oriented x 3, Normal Insight, Normal Concentration - Medications Active Medications: Active Medications Generic Name Dose Route Start Last Admin Trade Name Freq PRN Reason Stop Dose Admin Arformoterol Tartrate 15 mcg 01/11/18 20:00 01/15/18 07:40 Brovana IH 15 mcg [id number] APCHECO Administration Budesonide 0.5 mg 01/11/18 20:00 01/15/18 07:40 Pulmicort Respules IH 0.5 mg [id number] PACHECO Administration Docusate Sodium 100 mg 01/15/18 10:00 01/15/18 09:06 Colace PO 100 mg DAILY PACHECO Administration Guaifenesin/Codeine Phosphate 5 ml 01/11/18 13:57 01/13/18 09:54 Robitussin W/Codeine PO 5 ml Q6H PRN Administration Cough and congestion Heparin Sodium (Porcine) 5,000 units 01/15/18 14:00 Heparin SC Q8 [facility] Protocol Hydromorphone HCl 1 mg 01/15/18 11:39 Dilaudid IVP Q4H PRN Pain, severe (8-10) Sodium Chloride 1,000 mls @ 100 mls/hr 01/15/18 13:15 Sodium Chloride 0.9% IV .Q10H PACHECO Sodium Chloride 1,000 mls @ 166.667 mls/hr 01/15/18 14:30 Sodium Chloride 0.9% IV 01/15/18 20:29 .Q6H PACHECO Oxaliplatin 150 mg/ Dextrose 530 mls @ 132.5 mls/hr 01/15/18 14:45 IV 01/15/18 18:44 ONCE ONE Lidocaine 1 ea 01/13/18 15:45 01/15/18 09:08 Lidoderm TD Not Given DAILY PACHECO Losartan Potassium 50 mg 01/12/18 10:00 01/15/18 10:43 Cozaar PO Not Given DAILY PACHECO Montelukast Sodium 10 mg 01/11/18 22:00 01/14/18 21:00 Singulair PO 10 mg HS PACHECO Administration Ondansetron HCl 4 mg 01/12/18 14:03 01/15/18 09:13 Zofran Inj IVP 4 mg Q6H PRN Administration Nausea/Vomiting Oxycodone HCl 10 mg 01/14/18 07:58 01/15/18 09:05 Oxycodone Immediate Release Tab PO 10 mg Q6H PRN Administration Pain, moderate (4-7) Pantoprazole Sodium 40 mg 01/12/18 22:00 01/15/18 09:12 Protonix Ec Tab PO 40 mg Q12 PACHECO Administration Polyethylene Glycol 17 gm 01/14/18 18:00 01/15/18 09:08 Miralax PO Not Given BID PACHECO Tiotropium Pritchett 18 mcg 01/12/18 10:00 01/14/18 09:10 Spiriva IH Not Given DAILY PACHECO - Patient Studies Lab Studies: Microbiology Studies 01/13/18 15:15 Urine Culture - Final Urine,Clean Catch No Growth (<1,000 CFU/ML) Lab Studies 01/15/18 01/15/18 01/15/18 Range/Units 12:40 06:45 06:45 WBC 17.3 H (4.5-11.0) 10^3/ul RBC 4.55 (3.5-6.1) 10^6/uL Hgb 12.8 L (14.0-18.0) g/dL Hct 37.6 L (42.0-52.0) % MCV 82.6 (80.0-105.0) fl MCH 28.1 (25.0-35.0) pg MCHC 34.0 (31.0-37.0) g/dl RDW 15.8 H (11.5-14.5) % Plt Count 115 L (120.0-450.0) 10^3/uL MPV 9.3 (7.0-11.0) fl Gran % 83.3 H (50.0-68.0) % Lymph % (Auto) 7.8 L (22.0-35.0) % [place] % (Auto) 8.7 H (1.0-6.0) % Eos % (Auto) 0.1 L (1.5-5.0) % Baso % (Auto) 0.1 (0.0-3.0) % Gran # 14.44 H (1.4-6.5) Lymph # (Auto) 1.4 (1.2-3.4) [place] # (Auto) 1.5 H (0.1-0.6) Eos # (Auto) 0.0 (0.0-0.7) Baso # (Auto) 0.02 (0.0-2.0) K/mm3 PT (9.4-12.5) SECONDS INR (0.93-1.08) APTT (25.1-36.5) Seconds Sodium 135 136 (132-148) mmol/L Potassium 5.5 H 5.9 H* (3.6-5.0) mmol/L Chloride 100 102 (98-107) mmol/L Carbon Dioxide 19 L 20 L (21-33) mmol/L Anion Gap 21 H 19 (10-20) BUN 78 H 74 H (7-21) mg/dL Creatinine 3.5 H 3.3 H (0.8-1.5) mg/dl Est GFR ( Amer) 22 23 Est GFR (Non-Af Amer) 18 19 Random Glucose 129 H 124 H (70-110) mg/dL Calcium 8.2 L 8.2 L (8.4-10.5) mg/dL Total Bilirubin 6.1 H 5.6 H (0.2-1.3) mg/dL GGT 1893 H (8-78) U/L AST 2128 H 2201 H (17-59) U/L ALT 1798 H 1799 H (7-56) U/L Alkaline Phosphatase 446 H 428 H D (38-126) U/L Total Protein 6.2 6.3 (5.8-8.3) g/dL Albumin 3.3 3.3 (3.0-4.8) g/dL Globulin 2.9 3.0 gm/dL Albumin/Globulin Ratio 1.1 1.1 (1.1-1.8) Serum Immunofixation (Not Detected) 01/15/18 01/13/18 Range/Units 06:45 07:00 WBC (4.5-11.0) 10^3/ul RBC (3.5-6.1) 10^6/uL Hgb (14.0-18.0) g/dL Hct (42.0-52.0) % MCV (80.0-105.0) fl MCH (25.0-35.0) pg MCHC (31.0-37.0) g/dl RDW (11.5-14.5) % Plt Count (120.0-450.0) 10^3/uL MPV (7.0-11.0) fl Gran % (50.0-68.0) % Lymph % (Auto) (22.0-35.0) % [place] % (Auto) (1.0-6.0) % Eos % (Auto) (1.5-5.0) % Baso % (Auto) (0.0-3.0) % Gran # (1.4-6.5) Lymph # (Auto) (1.2-3.4) [place] # (Auto) (0.1-0.6) Eos # (Auto) (0.0-0.7) Baso # (Auto) (0.0-2.0) K/mm3 PT 14.1 H (9.4-12.5) SECONDS INR 1.22 H (0.93-1.08) APTT 32.5 (25.1-36.5) Seconds Sodium (132-148) mmol/L Potassium (3.6-5.0) mmol/L Chloride (98-107) mmol/L Carbon Dioxide (21-33) mmol/L Anion Gap (10-20) BUN (7-21) mg/dL Creatinine (0.8-1.5) mg/dl Est GFR ( Amer) Est GFR (Non-Af Amer) Random Glucose (70-110) mg/dL Calcium (8.4-10.5) mg/dL Total Bilirubin (0.2-1.3) mg/dL GGT (8-78) U/L AST (17-59) U/L ALT (7-56) U/L Alkaline Phosphatase (38-126) U/L Total Protein (5.8-8.3) g/dL Albumin (3.0-4.8) g/dL Globulin gm/dL Albumin/Globulin Ratio (1.1-1.8) Serum Immunofixation Not detected (Not Detected) Laboratory Results - last 24 hr 01/13/18 01/15/18 01/15/18 07:00 06:45 06:45 WBC 17.3 H RBC 4.55 Hgb 12.8 L Hct 37.6 L MCV 82.6 MCH 28.1 MCHC 34.0 RDW 15.8 H Plt Count 115 L MPV 9.3 Gran % 83.3 H Lymph % (Auto) 7.8 L [place] % (Auto) 8.7 H Eos % (Auto) 0.1 L Baso % (Auto) 0.1 Gran # 14.44 H Lymph # (Auto) 1.4 [place] # (Auto) 1.5 H Eos # (Auto) 0.0 Baso # (Auto) 0.02 PT 14.1 H INR 1.22 H APTT 32.5 Sodium Potassium Chloride Carbon Dioxide Anion Gap BUN Creatinine Est GFR ( Amer) Est GFR (Non-Af Amer) Random Glucose Calcium Total Bilirubin GGT AST ALT Alkaline Phosphatase Total Protein Albumin Globulin Albumin/Globulin Ratio Serum Immunofixation Not detected 01/15/18 01/15/18 06:45 12:40 WBC RBC Hgb Hct MCV MCH MCHC RDW Plt Count MPV Gran % Lymph % (Auto) [place] % (Auto) Eos % (Auto) Baso % (Auto) Gran # Lymph # (Auto) [place] # (Auto) Eos # (Auto) Baso # (Auto) PT INR APTT Sodium 136 135 Potassium 5.9 H* 5.5 H Chloride 102 100 Carbon Dioxide 20 L 19 L Anion Gap 19 21 H BUN 74 H 78 H Creatinine 3.3 H 3.5 H Est GFR ( Amer) 23 22 Est GFR (Non-Af Amer) 19 18 Random Glucose 124 H 129 H Calcium 8.2 L 8.2 L Total Bilirubin 5.6 H 6.1 H GGT 1893 H AST 2201 H 2128 H ALT 1799 H 1798 H Alkaline Phosphatase 428 H D 446 H Total Protein 6.3 6.2 Albumin 3.3 3.3 Globulin 3.0 2.9 Albumin/Globulin Ratio 1.1 1.1 Serum Immunofixation EKG/Cardiology Studies: Cardiology / EKG Studies 01/15/18 08:09 EKG [ELECTROCARDIOGRAM] Stat Comment: Reason For Exam: hyperkalemia Review of Systems - Review of Systems All systems: reviewed and no additional remarkable complaints except (as per HPI.) Critical Care Progress Note - Extremities/Vascular Does the Patient have a Central Venous Catheter?: No Does the Patient need a Central Venous Catheter?: No Does the Patient have a Bills Catheter?: No Does the Patient need a Bills Catheter?: No - Prophylaxis GI Prophylaxis GI: PPI - Prophylaxis DVT Prophylaxis DVT: Heparin SQ - Nutrition Nutrition: Nutrition Category Date Time Status Heart Healthy Diet [DIET] Diets 01/11/18 Dinner Active Assessment/Plan - Assessment and Plan (Free Text) Assessment: Patient is a 62 y/o M with PMHx of newly diagnosed diffuse liver and lung metastatic disease, HTN, HLD, COPD, and asthma (non-smoker) who presented to [facility] with cough productive of clear sputum for several weeks. CT scan was concerning for diffuse metastatic disease with extensive liver mets and multiple pulmonary nodules with hilar and mediastinal adenopathy, consistent with lung metastatic disease. During hospital course, patient has worsening transaminitis with worsening renal function, likely hepatorenal syndrome. Overall, patient prognosis is very poor. ICU was consulted for care of the patient. Patient currently hemodynamically stable and in no respiratory distress. Plan: Diffuse Liver and Lung Metastatic Disease (newly diagnosed) - Patient requires chemotherapy - c/w pain control - Hepatorenal syndrome: worsening transaminitis/renal function - Heme/onc is following the case (Dr. Cash) - GI is following the case (Dr. Guerrero) - Possible dialysis - Chest CT: extensive liver mets and multiple pulmonary nodules and hilar and mediastinal adenopathy consistent with lung metastatic disease - Abdomen/Pelvis CT: diffuse metastatic disease. No evidence of hemorrhage. HTN - currently normotensive with MAP > 65 - Rec holding Losartan due to worsening renal function - maintain MAP > 65 COPD/Asthma (non-smoker) - c/w Budesonide, Brovana, Singulair, Tiotropium - maintain SaO2 > 92% HLD: - c/w home meds DVT ppx: Heparin SC GI ppx: PTX Code status: DNR/DNI Dispo: Patient has very poor prognoses. Will receive care in the ICU. Case was discussed and reviewed with Attending Physician Dr. De Luna. <Josse De Luna - Last Filed: 01/15/18 17:06> CCU Objective - Vital Signs / Intake & Output Vital Signs (Last 4 hours): Vital Signs Temp Pulse Resp BP Pulse Ox 01/15/18 14:00 98.6 F 110 H 22 116/64 93 L Intake and Output (Last 8hrs): Intake & Output 01/15/18 01/15/18 01/15/18 06:59 14:59 22:59 Intake Total 360 Balance 360 Intake: Oral 360 - Medications Active Medications: Active Medications Generic Name Dose Route Start Last Admin Trade Name Freq PRN Reason Stop Dose Admin Arformoterol Tartrate 15 mcg 01/11/18 20:00 01/15/18 07:40 Brovana IH 15 mcg [id number] PACHECO Administration Budesonide 0.5 mg 01/11/18 20:00 01/15/18 07:40 Pulmicort Respules IH 0.5 mg [id number] PACHECO Administration Docusate Sodium 100 mg 01/15/18 10:00 01/15/18 09:06 Colace PO 100 mg DAILY PACHECO Administration Guaifenesin/Codeine Phosphate 5 ml 01/11/18 13:57 01/13/18 09:54 Robitussin W/Codeine PO 5 ml Q6H PRN Administration Cough and congestion Heparin Sodium (Porcine) 5,000 units 01/15/18 14:00 Heparin SC Q8 [facility] Protocol Hydromorphone HCl 1 mg 01/15/18 11:39 Dilaudid IVP Q4H PRN Pain, severe (8-10) Sodium Chloride 1,000 mls @ 100 mls/hr 01/15/18 13:15 Sodium Chloride 0.9% IV .Q10H PACHECO Sodium Chloride 1,000 mls @ 166.667 mls/hr 01/15/18 14:30 Sodium Chloride 0.9% IV 01/15/18 20:29 .Q6H PACHECO Carboplatin 150 mg/ Sodium 265 mls @ 530 mls/hr 01/15/18 16:45 Chloride IV 01/15/18 17:14 ONCE ONE Etoposide 100 mg/ Sodium 505 mls @ 168.333 mls/hr 01/15/18 17:00 Chloride IV 01/15/18 19:59 ONCE ONE Lidocaine 1 ea 01/13/18 15:45 01/15/18 09:08 Lidoderm TD Not Given DAILY PACHECO Losartan Potassium 50 mg 01/12/18 10:00 01/15/18 10:43 Cozaar PO Not Given DAILY PACHECO Montelukast Sodium 10 mg 01/11/18 22:00 01/14/18 21:00 Singulair PO 10 mg HS PACHECO Administration Ondansetron HCl 4 mg 01/12/18 14:03 01/15/18 09:13 Zofran Inj IVP 4 mg Q6H PRN Administration Nausea/Vomiting Oxycodone HCl 10 mg 01/14/18 07:58 01/15/18 09:05 Oxycodone Immediate Release Tab PO 10 mg Q6H PRN Administration Pain, moderate (4-7) Pantoprazole Sodium 40 mg 01/12/18 22:00 01/15/18 09:12 Protonix Ec Tab PO 40 mg Q12 PACHECO Administration Polyethylene Glycol 17 gm 01/14/18 18:00 01/15/18 09:08 Miralax PO Not Given BID [facility] Tiotropium Pritchett 18 mcg 01/12/18 10:00 01/14/18 09:10 Spiriva IH Not Given DAILY PACHECO - Patient Studies Lab Studies: Microbiology Studies 01/13/18 15:15 Urine Culture - Final Urine,Clean Catch No Growth (<1,000 CFU/ML) Lab Studies 01/15/18 01/15/18 01/15/18 Range/Units 12:40 06:45 06:45 WBC 17.3 H (4.5-11.0) 10^3/ul RBC 4.55 (3.5-6.1) 10^6/uL Hgb 12.8 L (14.0-18.0) g/dL Hct 37.6 L (42.0-52.0) % MCV 82.6 (80.0-105.0) fl MCH 28.1 (25.0-35.0) pg MCHC 34.0 (31.0-37.0) g/dl RDW 15.8 H (11.5-14.5) % Plt Count 115 L (120.0-450.0) 10^3/uL MPV 9.3 (7.0-11.0) fl Gran % 83.3 H (50.0-68.0) % Lymph % (Auto) 7.8 L (22.0-35.0) % [place] % (Auto) 8.7 H (1.0-6.0) % Eos % (Auto) 0.1 L (1.5-5.0) % Baso % (Auto) 0.1 (0.0-3.0) % Gran # 14.44 H (1.4-6.5) Lymph # (Auto) 1.4 (1.2-3.4) [place] # (Auto) 1.5 H (0.1-0.6) Eos # (Auto) 0.0 (0.0-0.7) Baso # (Auto) 0.02 (0.0-2.0) K/mm3 PT (9.4-12.5) SECONDS INR (0.93-1.08) APTT (25.1-36.5) Seconds Sodium 135 136 (132-148) mmol/L Potassium 5.5 H 5.9 H* (3.6-5.0) mmol/L Chloride 100 102 (98-107) mmol/L Carbon Dioxide 19 L 20 L (21-33) mmol/L Anion Gap 21 H 19 (10-20) BUN 78 H 74 H (7-21) mg/dL Creatinine 3.5 H 3.3 H (0.8-1.5) mg/dl Est GFR ( Amer) 22 23 Est GFR (Non-Af Amer) 18 19 Random Glucose 129 H 124 H (70-110) mg/dL Calcium 8.2 L 8.2 L (8.4-10.5) mg/dL Total Bilirubin 6.1 H 5.6 H (0.2-1.3) mg/dL GGT 1893 H (8-78) U/L AST 2128 H 2201 H (17-59) U/L ALT 1798 H 1799 H (7-56) U/L Alkaline Phosphatase 446 H 428 H D (38-126) U/L Total Protein 6.2 6.3 (5.8-8.3) g/dL Albumin 3.3 3.3 (3.0-4.8) g/dL Globulin 2.9 3.0 gm/dL Albumin/Globulin Ratio 1.1 1.1 (1.1-1.8) Serum Immunofixation (Not Detected) 01/15/18 01/13/18 Range/Units 06:45 07:00 WBC (4.5-11.0) 10^3/ul RBC (3.5-6.1) 10^6/uL Hgb (14.0-18.0) g/dL Hct (42.0-52.0) % MCV (80.0-105.0) fl MCH (25.0-35.0) pg MCHC (31.0-37.0) g/dl RDW (11.5-14.5) % Plt Count (120.0-450.0) 10^3/uL MPV (7.0-11.0) fl Gran % (50.0-68.0) % Lymph % (Auto) (22.0-35.0) % [place] % (Auto) (1.0-6.0) % Eos % (Auto) (1.5-5.0) % Baso % (Auto) (0.0-3.0) % Gran # (1.4-6.5) Lymph # (Auto) (1.2-3.4) [place] # (Auto) (0.1-0.6) Eos # (Auto) (0.0-0.7) Baso # (Auto) (0.0-2.0) K/mm3 PT 14.1 H (9.4-12.5) SECONDS INR 1.22 H (0.93-1.08) APTT 32.5 (25.1-36.5) Seconds Sodium (132-148) mmol/L Potassium (3.6-5.0) mmol/L Chloride (98-107) mmol/L Carbon Dioxide (21-33) mmol/L Anion Gap (10-20) BUN (7-21) mg/dL Creatinine (0.8-1.5) mg/dl Est GFR ( Amer) Est GFR (Non-Af Amer) Random Glucose (70-110) mg/dL Calcium (8.4-10.5) mg/dL Total Bilirubin (0.2-1.3) mg/dL GGT (8-78) U/L AST (17-59) U/L ALT (7-56) U/L Alkaline Phosphatase (38-126) U/L Total Protein (5.8-8.3) g/dL Albumin (3.0-4.8) g/dL Globulin gm/dL Albumin/Globulin Ratio (1.1-1.8) Serum Immunofixation Not detected (Not Detected) Laboratory Results - last 24 hr 01/13/18 01/15/18 01/15/18 07:00 06:45 06:45 WBC 17.3 H RBC 4.55 Hgb 12.8 L Hct 37.6 L MCV 82.6 MCH 28.1 MCHC 34.0 RDW 15.8 H Plt Count 115 L MPV 9.3 Gran % 83.3 H Lymph % (Auto) 7.8 L [place] % (Auto) 8.7 H Eos % (Auto) 0.1 L Baso % (Auto) 0.1 Gran # 14.44 H Lymph # (Auto) 1.4 [place] # (Auto) 1.5 H Eos # (Auto) 0.0 Baso # (Auto) 0.02 PT 14.1 H INR 1.22 H APTT 32.5 Sodium Potassium Chloride Carbon Dioxide Anion Gap BUN Creatinine Est GFR ( Amer) Est GFR (Non-Af Amer) Random Glucose Calcium Total Bilirubin GGT AST ALT Alkaline Phosphatase Total Protein Albumin Globulin Albumin/Globulin Ratio Serum Immunofixation Not detected 01/15/18 01/15/18 06:45 12:40 WBC RBC Hgb Hct MCV MCH MCHC RDW Plt Count MPV Gran % Lymph % (Auto) [place] % (Auto) Eos % (Auto) Baso % (Auto) Gran # Lymph # (Auto) [place] # (Auto) Eos # (Auto) Baso # (Auto) PT INR APTT Sodium 136 135 Potassium 5.9 H* 5.5 H Chloride 102 100 Carbon Dioxide 20 L 19 L Anion Gap 19 21 H BUN 74 H 78 H Creatinine 3.3 H 3.5 H Est GFR ( Amer) 23 22 Est GFR (Non-Af Amer) 19 18 Random Glucose 124 H 129 H Calcium 8.2 L 8.2 L Total Bilirubin 5.6 H 6.1 H GGT 1893 H AST 2201 H 2128 H ALT 1799 H 1798 H Alkaline Phosphatase 428 H D 446 H Total Protein 6.3 6.2 Albumin 3.3 3.3 Globulin 3.0 2.9 Albumin/Globulin Ratio 1.1 1.1 Serum Immunofixation EKG/Cardiology Studies: Cardiology / EKG Studies 01/15/18 08:09 EKG [ELECTROCARDIOGRAM] Stat Comment: Reason For Exam: hyperkalemia Critical Care Progress Note - Nutrition Nutrition: Nutrition Category Date Time Status Heart Healthy Diet [DIET] Diets 01/11/18 Dinner Active Attending/Attestation - Attestation I have personally seen and examined this patient.: Yes I have fully participated in the care of the patient.: Yes I have reviewed all pertinent clinical information: Yes Notes (Text): 01/15/18 17:05 . The patient was seen and examined at the bedside. Patient care was discussed with resident Medical records, lab studies, and imaging were reviewed and management issues were discussed and formulated. Agree with above treatment plans as outlined in 's note with addition of the following: Metastatic Smal Cell CA \ Liver and Lung nodules \ COPD \ RFAN \ Elevated LFT -hemodynamic monitoring to maintain MAP>65 -o2 supplementation to maintain Spo2 >90 Pao2>60; comfortable on NC -continue nebs, pulmonary team f\u -continue to f\u cultures and fever curve; ID team following -f\u Bun\Cr and U\o; renal team considering initiation of renal replacement therapy if does not improve -hold losartan; continue hydration with IVF; repeat U\A -PO diet and aspiration precautions -f\u serial LFT; GI team f\u -IR team f\u -as per Heme\Onc team, pt is to start chemotherapy and will possibly be transferred to another facility -DVT \ PUD prophylaxis -Pt remains hemodynamically stable in no distress , speaking full sentences and able to protect his airway.
--- NOTE | 2018-01-15 17:28 | VASCULAR ---
PROCEDURE: Ultrasound and fluoroscopic tunneled right IJ dialysis catheter. CLINICAL HISTORY: Acute renal failure. Needs dialysis catheter. Recently diagnosed metastatic liver disease PHYSICIAN(S): Stefan Madison M.D. TECHNIQUE: The relative risks and indications for the procedure were explained to the patient and his and informed written consent obtained. The patient was placed supine on the arteriography table and the right neck/chest was prepped and draped in the usual sterile fashion. 1% Xylocaine was used to anesthetize the skin and soft tissues at the puncture site. Conscious sedation and monitoring were provided throughout the procedure by a nurse. Under direct ultrasound guidance, the rightinternal jugular vein was punctured with a micropuncture set. A 0.035 Glidewire was advanced into the IVC. Sequential dilatation was performed with subsequent placement of a 28cm Bazzi II catheter with its tip in the right atrium. A retrograde tunnel below the right clavicle was performed. The catheter was trimmed and the hub attached. Both ports aspirate and inject easily. The catheter was secured and a dressing applied. The patient tolerated the procedure well. IMPRESSION: 1. Ultrasound and fluoroscopically placed right IJ tunneled dialysis catheter.
--- NOTE | 2018-01-15 17:29 | VASCULAR ---
PROCEDURE: Ultrasound and fluoroscopic right subclavian venous access port. CLINICAL HISTORY: Metastatic liver disease. Budd-Chiari syndrome with acute hepatic failure. Venous port for chemotherapy. PHYSICIAN(S): Stefan Madison M.D. TECHNIQUE: The relative risks and indications of the procedure were explained to the patient and his and consent obtained. The patient was placed supine on the arteriogram table and the right chest prepped and draped in the usual sterile fashion. Conscious sedation monitoring was provided throughout the procedure by a nurse. Antibiotics were given prior to the procedure. Under direct ultrasound guidance, the right subclavian vein was punctured with a micro-puncture set. A 0.035 angled Glidewire was advanced into the IVC. A 4 cm incision was made on the right chest and the pocket blunted dissected. A 6 [place] single-lumen catheter, 22 cm long, was advanced to the SVC/RA junction. The catheter was trimmed and attached to the port. The port aspirates and injects easily. The port was placed in the pocket and closed in 2 layers. An access needle was placed. The patient tolerated the procedure well. IMPRESSION: Ultrasound and fluoroscopically placed right subclavian venous access port.
--- NOTE | 2018-01-15 18:08 | CP.PCM.PN ---
Subjective - Date & Time of Evaluation Date of Evaluation: 01/15/18 Time of Evaluation: 18:06 - Subjective Subjective: Dave Miranda DO, PGY-2: Hematology and Oncology Progress Note for Dr. Cash Patient was seen and examined at bedside. Patient was initially to be transferred to [facility]; however, due to his worsening condition he [place] [facility] [place]. He underwent port-a- cath placement and was transferred to the ICU and started on Carboplatinum and Etoposide, with dosing considerations. Objective - Vital Signs/Intake and Output Vital Signs (last 24 hours): Temp Pulse Resp BP Pulse Ox 98.6 F 110 H 22 116/64 93 L 01/15/18 14:00 01/15/18 14:00 01/15/18 14:00 01/15/18 14:00 01/15/18 14:00 Intake and Output: 01/15/18 01/15/18 06:59 18:59 Intake Total 840 Balance 840 - Medications Medications: Current Medications Arformoterol Tartrate (Brovana) 15 mcg IH [id number] [facility] Last Admin: 01/15/18 07:40 Dose: 15 mcg Budesonide (Pulmicort Respules) 0.5 mg IH [id number] [facility] Last Admin: 01/15/18 07:40 Dose: 0.5 mg Docusate Sodium (Colace) 100 mg PO DAILY [facility] Last Admin: 01/15/18 09:06 Dose: 100 mg Guaifenesin/Codeine Phosphate (Robitussin W/Codeine) 5 ml PO Q6H PRN PRN Reason: Cough and congestion Last Admin: 01/13/18 09:54 Dose: 5 ml Heparin Sodium (Porcine) (Heparin) 5,000 units SC Q8 [place] PRN Reason: Protocol Hydromorphone HCl (Dilaudid) 1 mg IVP Q4H PRN PRN Reason: Pain, severe (8-10) Sodium Chloride (Sodium Chloride 0.9%) 1,000 mls @ 100 mls/hr IV .Q10H [place] Sodium Chloride (Sodium Chloride 0.9%) 1,000 mls @ 166.667 mls/hr IV .Q6H [facility] Stop: 01/15/18 20:29 Last Admin: 01/15/18 17:39 Dose: 166.667 mls/hr Etoposide 100 mg/ Sodium (Chloride) 505 mls @ 168.333 mls/hr IV ONCE ONE Stop: 01/15/18 19:59 Lidocaine (Lidoderm) 1 ea TD DAILY [facility] Last Admin: 01/15/18 09:08 Dose: Not Given Losartan Potassium (Cozaar) 50 mg PO DAILY [facility] Last Admin: 01/15/18 10:43 Dose: Not Given Montelukast Sodium (Singulair) 10 mg PO HS [facility] Last Admin: 01/14/18 21:00 Dose: 10 mg Ondansetron HCl (Zofran Inj) 4 mg IVP Q6H PRN PRN Reason: Nausea/Vomiting Last Admin: 01/15/18 09:13 Dose: 4 mg Oxycodone HCl (Oxycodone Immediate Release Tab) 10 mg PO Q6H PRN PRN Reason: Pain, moderate (4-7) Last Admin: 01/15/18 09:05 Dose: 10 mg Pantoprazole Sodium (Protonix Ec Tab) 40 mg PO Q12 [facility] Last Admin: 01/15/18 09:12 Dose: 40 mg Polyethylene Glycol (Miralax) 17 gm PO BID [facility] Last Admin: 01/15/18 17:54 Dose: 17 gm Tiotropium [place] (Spiriva) 18 mcg IH DAILY [facility] Last Admin: 01/14/18 09:10 Dose: Not Given - Labs Labs: 01/15/18 06:45 01/15/18 12:40 PT 14.1 SECONDS (9.4-12.5) H 01/15/18 06:45 INR 1.22 (0.93-1.08) H 01/15/18 06:45 APTT 32.5 Seconds (25.1-36.5) 01/15/18 06:45 - Constitutional Appears: Toxic - Head Exam Head Exam: ATRAUMATIC, NORMOCEPHALIC - Eye Exam Eye Exam: Scleral icterus - ENT Exam ENT Exam: Mucous Membranes Dry - Neck Exam Neck Exam: Normal Inspection - Respiratory Exam Respiratory Exam: Clear to Ausculation Bilateral. absent: Accessory Muscle Use - Cardiovascular Exam Cardiovascular Exam: RRR, +S1, +S2 - GI/Abdominal Exam GI & Abdominal Exam: Organomegaly. absent: Rebound - Extremities Exam Extremities Exam: Normal Inspection. absent: Calf Tenderness - Back Exam Back Exam: NORMAL INSPECTION. absent: CVA tenderness (L), CVA tenderness (R) - Neurological Exam Neurological Exam: Alert, Awake, Oriented x3 - Psychiatric Exam Psychiatric exam: Normal Affect, Normal Mood - Skin Skin Exam: Dry, Intact, Normal Color, Warm Assessment and Plan - Assessment and Plan (Free Text) Assessment: 62 year old male with 3 weeks of cough that did not respond to oral antibiotics , steroids, or Tussinex. He [place] [facility] [place] given that he failed outpatient treatment for bronchitis. Upon admission he was found to have elevated liver functions tests and abdominal US showed liver lesions consistent with metastatic disease. CT of the chest, abdomen, and pelvis with PO and IV contrast showed right pulmonary mass, mediastinal and hilar adenopathy, and redemonstrated metastatic lesions in the liver. The patient underwent CT guided core-biopsy of the liver lesion with preliminary pathology showing a metastatic , high grade malignant tumor with the possibility of small cell neuroendocrine carcinoma being favored based on histomorphologically; however, the immunohistochemical studies are pending, and final diagnosis will be issued after confirmation by the immunohistochemical results. The patient's transaminitis worsened, with his bilirubin increasing, and his Creatinine rising. A repeat CT of the abdomen and pelvis (without contrast) showed no interval changes ordered. Initially, it was thought the patient may benefit from transfer to a tertiary care center; however, after a lengthy discussion with two different oncologist, it was determined, with the family's input, to treat the patient in [facility] [place] with carboplatinum and etoposide, with dosing based on his creatinine clearance and Body Surface Area. He underwent placement of a port-a-cath and was subsequently transferred to the ICU from the medical surgical floor. Dialysis may be initiated , depending on Nephrology's recommendation (Dr. Rubalcava). We will continue to treat the patient aggresively and monitor him closely. We remain optimistic in regards to the patient's prognosis. He is POLST: DNR/DNI. Case was reviewed and discussed with the attending physician, Dr. Cash.
[2018-01-15 19:30] LABS: ALBUMIN (PEP) 3.1 g/dL (3.8-4.8); ALPHA-1-GLOBULIN (PEP) 0.3 g/dL (0.2-0.3)
[2018-01-16 06:14] LABS: HEMOGLOBIN 11.3 g/dL (14.0-18.0); MEAN CELL VOLUME 80.5 fl (80.0-105.0); MEAN CORPUSCULAR HEMOGLOBIN 27.9 pg (25.0-35.0); MEAN CORPUSCULAR HGB CONC 34.7 g/dl (31.0-37.0); RBC 4.05 10^6/uL (3.5-6.1); RED CELL DISTRIBUTION WIDTH 15.7 % (11.5-14.5); WHITE BLOOD COUNT 10.2 10^3/ul (4.5-11.0)
[2018-01-16] MEDS: Budesonide 0.5 mg/2 ml Inhal Susp UD IH SCH ×2 (07:00→19:00)
[2018-01-16] MEDS: Arformoterol 15 mcg/2 ml Inh Sol IH SCH ×2 (07:00→19:00)
[2018-01-16 07:21] LABS: ALBUMIN 2.8 g/dL (3.0-4.8); CALCIUM 7.5 mg/dL (8.4-10.5)
[2018-01-16] MEDS: HYDROmorphone 1 mg/ml ISec IVP PRN ×2 (07:55→12:27)
[2018-01-16] MEDS: Sodium Chloride 0.9% 1,000 ML IV SCH (08:08)
--- NOTE | 2018-01-16 08:28 | PN ---
DATE: 01/16/2018 FINANCE EXECUTIVE NOTE LOCATION: [facility]. SUBJECTIVE: The patient is resting comfortably in bed, O2 via nasal cannula. No significant cough or congestion. The patient states that he has some right upper quadrant discomfort, but no chest pain. No wheezing. No fever, chills, nausea or vomiting. No diarrhea. He is on O2 via nasal cannula with O2 saturation of about 94%. PHYSICAL EXAMINATION: VITAL SIGNS: Physical exam note that his temperature is 98.1, pulse is 87, respirations of 14 and BP is 122/62. SKIN: Warm and dry. HEENT: Head atraumatic, normocephalic. Eyes reactive to light. Ears, nose and throat seemed to be within normal limits. NECK: Supple. No JVD. No thyroid enlargement. No lymph nodes. HEART: Has regular rate and rhythm. Normal S1, S2. LUNGS: Reveal bilateral rhonchi. ABDOMEN: Soft, but slightly tender in the right upper quadrant region. Decreased bowel sounds. GENITALIA AND RECTAL: Deferred. MUSCULOSKELETAL: No joint deformities. EXTREMITIES: Reveal 1+ lower extremity edema. NEUROLOGICAL: He seemed to be grossly intact. LABORATORY DATA: As far as his laboratories are concerned, the patient has a white count of 10.2, hemoglobin is 11.3, hematocrit 32.6 with platelets of 111,000. Sodium is 136, potassium 5.1, chloride 105, CO2 of with a BUN of 88, creatinine of 3.5 and glucose of 121. The patient has increased LFTs with an AST of 1452 and ALT is 398. 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 The patient carries a diagnosis of hypertension, hyperlipidemia, chronic obstructive pulmonary disease and renal failure. As far as other known diagnosis, the patient does have some respiratory insufficiency with hypoxia on room air. PLAN: As far as our plan, note that the patient is a DNR/DNI and we will continue with O2 via nasal cannula and aggressive pulmonary toilet. The patient is getting Brovana as well as Cozaar and Dilaudid for pain. He is getting subcu heparin and OxyContin p.r.n. We will continue with Spiriva, IV fluids of normal saline, Singulair, Robitussin with Codeine, Pulmicort via nebulizer and Protonix. We will continue with an aggressive treatment along with the other consultants and the primary care doctor. Alex Hernandez MD
[2018-01-16] MEDS: Pantoprazole 40 mg EC Tab PO SCH ×2 (09:37→22:06)
[2018-01-16] MEDS: POLYETHYLENE GLYCOL 3350 17 GM/Dose PACKET PO SCH (09:38)
[2018-01-16] MEDS: Tiotropium 18 mcg Cap For Inhalation IH SCH (09:42)
[2018-01-16] MEDS: Lidocaine 5% Patch TD SCH (12:47)
--- NOTE | 2018-01-16 14:05 | PN ---
DATE: 01/16/2018 PULMONARY PROGRESS NOTE SUBJECTIVE: Patient was seen and examined in the Intensive Care Unit. He is much less distressed. There is still some right upper quadrant pain; however, he is breathing comfortably. There is no shortness of breath at rest and oxygen saturation is stable. Patient is receiving inhalation with Brovana and budesonide. He is also on Singulair. He is also on Spiriva. PHYSICAL EXAMINATION: VITAL SIGNS: His temperature is 98, pulse 90, respirations 20, pulse oximetry is 94% on nasal cannula, blood pressure 115/66. HEENT: Head normocephalic and atraumatic. NECK: Supple with no jugular venous congestion. CARDIOVASCULAR: S1, S2. No S3, regular. PULMONARY: Good bilateral breath sounds. No wheezing. GASTROINTESTINAL: Abdomen is still distended and tender in the right upper quadrant. EXTREMITIES: 1+ pedal edema. No cyanosis. SKIN: No acute skin rash. NEUROLOGIC: Limited at present time. ASSESSMENT: 1. Small cell lung carcinoma. 2. Diffuse pulmonary metastasis. 3. Liver metastasis. 4. Acute renal failure. PLAN: I have reviewed today's blood workup. His sodium is 136, potassium 5.1, his BUN is 88, creatinine is 3.5. His total bilirubin is 5.7. His liver function tests have improved slightly. His kidney functions have improved slightly as well. His WBC is 10.2, hemoglobin of 11.3. Patient has received his first dose of chemotherapy yesterday with small cell carcinoma and rapid response can be expected. Patient will have to be followed very closely in the Intensive Care Unit. Most of his renal failure is prerenal because of intravascular depletion. He should continue with increased amount of intravenous fluids. His pulmonary status is stable on current medications. We will follow closely with private investigator surveillance and ICU team. Zac Haley MD
[2018-01-16] MEDS: Dexamethasone 20 MG, DiphenhydrAMINE 25 MG, Famotidine 20 MG in Sodium Chloride 0.9% 50 ML IVPB SCH (17:31)
--- NOTE | 2018-01-16 17:35 | PN ---
DATE: 01/16/2018 This is [facility]'s hospital visit in the Intensive Care Unit. For Dr. Cash. 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 The patient is now seen lying awake in bed in the Intensive Care Unit status post emergency treatment with chemotherapy as per Dr. 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 Guerrero, gastrointestinal collection systems consultant, causing compression of his hepatic vein with congestion and severe pain which has now been relieved by treatment began yesterday on the emergency basis, with carboplatin and Aloxi as per Dr. Cash's protocols, with dramatic improvement in the patient's symptoms and his lab testing. At the bedside, the patient and his are informed of the findings as per the testing done this morning. The patient appears to be in no acute distress this visit. The patient has newly diagnosed metastatic lung and diffuse liver disease with extensive liver metastasis with pulmonary nodules with hepatorenal syndrome developing with a suddenness in the past few days, now with improvement with treatment done as above. PHYSICAL EXAMINATION: VITAL SIGNS: Temperature 98.1, pulse 81, respirations 12, blood pressure 112/67 with a pulse ox of 94%. HEENT: Tongue is dry. NECK: Supple. HEART: Regular rate. LUNGS: Occasional rhonchi. ABDOMEN: Obese, soft. Minimal tenderness to the right upper quadrant. EXTREMITIES: No significant edema with coolness of the feet bilaterally. NEUROLOGIC: Awake, alert, and oriented. SKIN: Mild icteric tinge with his sclerae also have mild icteric tinge. LABORATORY DATA: The patient's labs were done. White blood cell count of 10.7, down from 17.3 yesterday; hemoglobin of 11.3; hematocrit 32.6; platelet count of 111,000. Chem metabolic panel showing a potassium today of 5.1, down from 5.9 yesterday with a BUN today of 88 increased from yesterday's BUN of 78, his creatinine remains at 3.5, no change from yesterday's. Calcium is now 7.5, down from 8.2 yesterday. Total bilirubin is down to 5.7 from a 6.1 value yesterday. His AST today is 1453, yesterday's was 2128. ALT of 1338 down from 1798 yesterday. Alkaline phosphatase down to 398 from 446. His other testing also included a CEA value of 20.6 from prior testing and a CA 19-9 of 385 from testing a few days prior. His INR was 1.22 today with a PTT of 32.5. The patient did have a dialysis catheter placed along with a port placed by Dr. Stefan Madison recently. A CT scan of the head was done two days prior, it was read as no acute intracranial abnormalities, no significant findings accounting for clinical presentation. His CT scan of the abdomen and pelvis done two days prior showed no evidence of subcapsular intraparenchymal hemorrhage related to recent biopsy, diffuse metastatic disease seen. Ultrasound of the abdomen done two days prior showing patent portal vein with hepatopetal flow. 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 with hypertension, hyperlipidemia, and chronic obstructive pulmonary disease. PLAN: The plan for this patient after conversation with Dr. Cash is to continue present medical regimen. We will monitor clinically with labs with renal issues addressed by Dr. Rubalcava, with gastrointestinal issues as per Dr. Guerrero, with further recommendations including consideration for transfer to a different facility to be considered. At present, the patient has showed significant improvement from yesterday's actions with continuation of present care. This is a complex patient with a comprehensive medically necessary and appropriate visit carried out in excess of 60 minutes in active participation of the patient's care with his records reviewed, discussion with his family members and nursing staff in addition to consultants including Dr. Guerrero. Prognosis for this patient is guarded. Elsi Jamison MD [facility] # [id number]
--- NOTE | 2018-01-17 00:33 | PN ---
DATE: 01/15/2018 The patient currently in room 574, has been transferred to ICU bed 4. This is for dictation dated 01/15/2018, dictation has already done by Dr. Davila. This dictation is in addition to his dictation for the same day, which is 01/15/2018. PROBLEM: A 62-year-old male was admitted with progressively worsening cough, increasing and worsening right upper quadrant pain, increasing and worsening transaminases, and abnormal LFTs, increasing and worsening azotemia with elevated BUN and creatinine, elevated LDH, warranting rapid decision making as far as treatment management is concerned. 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 The issue is here is path is still pending the immunohistochemistry studies that will be available to us by Thursday, specifically the further testing from [facility]. In the interim, the patient's CAT scan was reviewed and the concern that we had was patient's worsening liver function could be related to progressive permeation of tumor tissue throughout the liver; in addition to that, the hepatic vein at least on the CAT scan that was done with noncontrast, appeared to be compressed behaving in a fashion that this could almost like Budd-Chiari syndrome that have increasing chronic passive venous congestion in the liver making the transaminases go up into the thousands. After reviewing the films with Dr. Stefan Madison, Dr. Louis Guerrero and amongst ourselves, we discussed the case with Dr. Jameel Cutler, who is an oncologist at [facility]. We also discussed the case with Dr. Victor Hugo Florentino, the chief of Thoracic Oncology at [facility] The patient was initially slated to be transferred to [place] early in the morning, but as this condition worsened and we were concerned about the worsening renal dysfunction as well, our feeling was that by the time he got transferred, the patient could go into permanent hepatic failure, hepatorenal syndrome, and could succumb to the disease. Two articles were also produced by the GI service, both pointing to the fact that both the cases that were described in those articles were talking about postmortem analysis of patients with permanent liver failure with increasing hepatomegaly without any signs of any involvement of the vasculature, suggestive of based on the postmortem pathology that there was extensive permeation of tumor into the liver and both those cases were descriptive of small cell type of tumor, which this patient also is exhibiting. Based on these facts and after discussing with Dr. Dos Santos, he recommended that we start the patient on dose modified treatment with carboplatin and etoposide. Dr. Cutler thought that we could even give him trial with oxaliplatin as well. We decided to go with carboplatin and etoposide as this has a superior value at least as frontline therapy for neuroendocrine tumor, especially small cell variant of those tumors. The patient is currently in the unit status post placement of a port and U[place]all catheter in case the patient may need dialysis through the weekend. The patients T-max is 98.6, pulse is 110, respirations 22, blood pressure is 116/64, pulse ox is 93%. The patient's medications were reviewed as on the chart. The patients INR was 1.22, still not coagulopathic which is a positive sign. PHYSICAL EXAMINATION GENERAL: The patient is examined in bed, appears toxic. HEENT: Head is normocephalic and atraumatic. The patient's sclerae is icteric. Examination of the oropharynx reveals mouth to be dry. No oropharyngeal lesions are noted. No evidence of fungal infection. No ulceration. NECK: Supple. There is no adenopathy. LUNGS: Reveals it to be clear of percussion and auscultation, with decreased breath sounds at the bases. CARDIOVASCULAR: Reveals tachycardia. S1 and S2 are normal. No gallop or murmur is heard. ABDOMEN: Protuberant with the liver distended at least 7 to 8 fingerbreadths below the right costal margin. The patient is complaining of pain in the epigastric area that he has a biopsy and that is where the left lobe of the liver is enlarged as well. Bowel sounds are present. No significant evidence of rebound, rigidity or guarding is noted. EXTREMITIES: Reveals no cyanosis, clubbing or edema. BACK: Reveals no CVA tenderness. NEUROLOGIC: The patient appears to be little bit groggy post sedation with Ativan for the procedure, but otherwise is awake, alert and oriented, was asking me critical questions. SKIN: Dry. No skin lesions are noted at this time. GENITOURINARY AND RECTAL: Deferred. ASSESSMENT AND PLAN: A 62-year-old male with rapidly progressively worsening functions as far as both hepatic and kidney functions are concerned, in the background history of newly discovered extensive permeation of the liver with path is still pending but highly suggestive of small cell carcinoma of the lung or small neuroendocrine tumor that is high-grade that is probably coming either from the lung or from the gastrointestinal tract. CAT scan of the chest, abdomen and pelvis clearly shows the patient has significant mediastinal adenopathy. He has lesions in both lobes of the lung and he also has extensive metastatic disease in the liver, at least 20 lesions can be counted on the CAT scan of the abdomen and pelvis, and now there is evidence of mechanical compression on the hepatic veins that is causing a Budd-Chiari like syndrome. In view of all these, after discussion with primary attending Dr. Rubalcava as well, we had a detailed discussion with the patient's family, specifically his who is also an oncology nurse. We decided to proceed with the chemotherapy and orders were written, consent was obtained. The patient is going to start chemotherapy with carboplatin on dose modified based on his creatinine going up and creatinine clearance rapidly declining. We are going to give the carboplatin at AUC of 3 and carboplatin is going to be given with etoposide, given the mg daily for 3 days. Hopefully with this treatment, he should have a significant response, and the only way we will know that, we will see if the enzymes are coming down. The patient has posed that he is a do not resuscitate/do not intubate. He is still cautiously optimistic that he is going to respond to these treatments based on the histology that we have on hand. Family is aware of our plans and they are in sync with our treatment plan and we are hoping for the best at this time. Time spent with the patient was more than 2 hours, correlating all the information, talking to the various physicians, writing the orders, talking to the family and the , and then finally the patient himself. Please make a note this was a medically necessary appropriate visit. It took this long because of the complexity of the problems. Rochelle Cash MD [facility] # [id number]
--- NOTE | 2018-01-17 01:01 | PN ---
DATE: 01/16/2018 SUBJECTIVE: This patient was seen and evaluated earlier. Patient's was at bedside. Also discussed with drug counselor and nursing staff. Patient is feeling much better. The abdominal discomfort has significantly improved. Overall better day than yesterday. Patient did receive the Kayexalate for hyperkalemia. No bowel movements at the time of exam, so the patient did receive a dose of MiraLax. PHYSICAL EXAMINATION: VITAL SIGNS: Temperature afebrile, blood pressure 115/66, heart rate 85, respirations 19, O2 saturation 94%. HEENT: Jaundiced. NECK: Supple. HEART: S1 and S2 heard. LUNGS: Bilateral air entry present. ABDOMEN: Softly distended. Bowel sounds present. Mild tenderness present in the right upper quadrant on deep palpation. EXTREMITIES: Bilateral edema present, pneumatic compressions in place. NEUROLOGICAL: Alert, oriented. Moves all the extremities. LABORATORY DATA: Hemoglobin 11.3, hematocrit 32.6, WBC 10.2, platelets 111. Chemistry shows the AST has come down to 1453, ALT has also come down to 1338, alkaline phosphatase 398, total bilirubin 5.7, BUN 88, creatinine 3.5, potassium was 5.1. IMPRESSION AND PLAN: A 62-year-old patient with small cell carcinoma of the lung with extensive liver metastasis and possible compression of the hepatic veins due to the tumor burden causing Budd-Chiari like effect. Patient possibly had a hepatic congestion with capsular distension causing into significant abdominal pain. Patient did receive yesterday chemotherapy with carboplatin and Aloxi protocol. 1. The LFTs now shows slightly downward trend. 2. Patient has acute kidney injury, possibly hepatorenal. Patient has been also followed by Dr. Rubalcava for Renal. 3. Patient does have worsening of the liver function most likely related to the hepatic congestion, it should improve with the improvement of the tumor burden causing the extensive pressure on the hepatic veins. We will continue to closely follow up the patient and recommend further management based on the clinical course. Patient's INR remains 1.22. Thank you very much for allowing us to participate in the care of the patient. Louis Guerrero MD [facility] # [id number]
[2018-01-17] MEDS: HYDROmorphone 1 mg/ml ISec IVP PRN ×2 (01:03→10:19)
[2018-01-17] MEDS: guaiFENesin-Codeine 100-10mg/5ml Syrup (5 ml) UD PO PRN (01:40)
[2018-01-17] MEDS: Sodium Chloride 0.9% 1,000 ML IV SCH (04:00)
[2018-01-17] MEDS: Budesonide 0.5 mg/2 ml Inhal Susp UD IH SCH ×2 (07:05→19:55)
[2018-01-17] MEDS: Arformoterol 15 mcg/2 ml Inh Sol IH SCH ×2 (07:05→19:55)
[2018-01-17 07:11] LABS: GRAN # 9.68 (1.4-6.5); GRAN % 95.1 % (50.0-68.0); HEMOGLOBIN 11.1 g/dL (14.0-18.0); LYMPH # 0.2 (1.2-3.4); LYMPH % 1.8 % (22.0-35.0); MEAN CELL VOLUME 79.9 fl (80.0-105.0); MEAN CORPUSCULAR HEMOGLOBIN 27.5 pg (25.0-35.0); MEAN CORPUSCULAR HGB CONC 34.5 g/dl (31.0-37.0); MEAN PLATELET VOLUME 9.9 fl (7.0-11.0); MONO # 0.3 (0.1-0.6); MONO % 3.1 % (1.0-6.0); PLATELET COUNT 140 10^3/uL (120.0-450.0); RBC 4.03 10^6/uL (3.5-6.1); RED CELL DISTRIBUTION WIDTH 16.1 % (11.5-14.5); WHITE BLOOD COUNT 10.2 10^3/ul (4.5-11.0)
[2018-01-17 07:31] LABS: INR 1.31 (0.93-1.08); PARTIAL THROMBOPLASTIN TIME 34.2 Seconds (25.1-36.5); PROTHROMBIN TIME 15.1 SECONDS (9.4-12.5)
[2018-01-17 07:35] LABS: ALB/GLOB RATIO 0.9 (1.1-1.8); ALBUMIN 2.7 g/dL (3.0-4.8); CALCIUM 7.3 mg/dL (8.4-10.5)
[2018-01-17 07:50] LABS: LD-1 6 % (19-38); LD-2 20 % (30-43); LD-3 25 % (16-26); LD-4 24 % (3-12); LD-5 26 % (3-14)
[2018-01-17 08:19] LABS: BAND 2 % (0-2); LYMPHOCYTE 4 % (22.0-35.0); MONOCYTE 5 % (1.0-6.0); NEUTROPHIL 89 % (50.0-70.0)
[2018-01-17 08:20] LABS: PLATELET ESTIMATE NORMAL (NORMAL)
[2018-01-17] MEDS: Tiotropium 18 mcg Cap For Inhalation IH SCH (09:37)
[2018-01-17] MEDS: Pantoprazole 40 mg EC Tab PO SCH (09:37)
[2018-01-17] MEDS: Lidocaine 5% Patch TD SCH (09:37)
--- NOTE | 2018-01-17 10:21 | PN ---
DATE: 01/17/2018 PULMONARY PROGRESS NOTE SUBJECTIVE: Patient was seen and examined in Intensive Care Unit. He states he feels better overall. He is regaining his appetite. He still has right upper quadrant pain on deep inspiration and cough. PHYSICAL EXAMINATION: VITAL SIGNS: His temperature is 97.9, pulse 100, respirations 20, blood pressure is 110/70. HEAD: Normocephalic and atraumatic. NECK: Supple. There is no jugular vein distention. CARDIOVASCULAR: S1, S2. No S3, regular. PULMONARY: Diminished breath sounds at both bases. There is no rhonchi, rales or wheezing. GI: Soft, nontender. No organomegaly. EXTREMITIES: No pedal edema. No cyanosis. SKIN: No acute skin rash. NEUROLOGIC: No focal deficits. ASSESSMENT: 1. Small cell carcinoma of the lung. 2. Pulmonary metastasis. 3. Liver metastasis. 4. Abnormal liver function tests. 5. Acute renal failure. 6. Hyperphosphatemia. 7. Mild anemia. PLAN: I have reviewed today's laboratory data. His sodium is 135, potassium elevated at 5.6. His BUN increased to 113 and creatinine to 3.8. His phosphorus is markedly elevated at 10.6. Liver function tests have improved compared to yesterday. WBC is 10.2, hemoglobin is 11.1. I have discussed his laboratory data with ICU team as well as patient's . His liver functions are improving and kidney functions have worsened, probably as a result of tumor destruction from chemotherapy, temporary dialysis treatments will be necessary to clear that and keep him moving in right direction. His condition is extremely guarded to critical. We will follow closely. Zac Haley MD MTDD
[2018-01-17] MEDS: Morphine 15 mg SR Tab PO SCH (11:20)
--- NOTE | 2018-01-17 11:21 | PN ---
DATE: 01/17/2018 MEAT SERVICE TEAM MEMBER NOTE SUBJECTIVE: The patient is resting in the chair. Family at bedside. Very ease, very comfortable this morning. The patient had breakfast. His appetite seems to be coming back. No complaints of cough or congestion. No severe chest pain. No nausea, vomiting, fever, chills or diarrhea. The patient is getting nasal cannula and O2 saturation is 95%. PHYSICAL EXAMINATION: VITAL SIGNS: Temperature is 97.9, pulse is 96, respirations of 15 and BP is 97/51. SKIN: Warm and dry. HEENT: Head: Atraumatic, normocephalic. Eyes: Reactive to light. Ear, nose and throat: Seemed to be within normal limits. NECK: Supple. No JVD. No thyroid enlargement or lymph nodes. HEART: Regular rate and rhythm. Normal S1, S2. LUNGS: Reveal rare rhonchi at the bases. ABDOMEN: Soft. Decreased bowel sounds. GENITALIA: Deferred. RECTAL: Deferred. MUSCULOSKELETAL: No joint deformities. EXTREMITIES: Reveal trace lower extremity edema. NEUROLOGICAL: Seemed to be grossly intact. LABORATORY DATA: As far as his laboratories are concerned, his white count is 10.2, hemoglobin is 11.1, hematocrit 32.2 with platelets of 140,000. The patient's sodium is 135, potassium 5.6, chloride is 106, CO2 of 15 with a BUN of 113, creatinine of 3.8 and glucose of 109. The patient's liver enzymes are elevated as well. IMPRESSION: The patient has small cell cancer of the lung with metastatic lesions to the liver. He also carries a diagnosis of hypertension, hyperlipidemia, chronic obstructive pulmonary disease as well as renal failure. The patient carries a diagnosis of respiratory failure with hypoxia on room air. PLAN: We will continue with O2 via nasal cannula and aggressive pulmonary toilet. The patient is on Brovana as well as Cozaar and Dilaudid for pain. He is also on OxyContin p.r.n. and is on subcu heparin. We will continue with Spiriva, Singulair, Robitussin with codeine, Pulmicort and Protonix. The patient is a DNR/DNI. Alex Hernandez MD
[2018-01-17] MEDS: Nystatin 100,000 Units/ml Oral Susp 5 ml UD PO SCH ×2 (14:26→18:21)
[2018-01-17] MEDS ORDERED: Sod Polystyrene Sulf 15 gm/60 ml Susp PO ONE (14:47)
--- NOTE | 2018-01-17 15:30 | CP.PCM.PN ---
<Lucila Heredia - Last Filed: 01/17/18 15:26> Subjective - Date & Time of Evaluation Date of Evaluation: 01/17/18 Time of Evaluation: 12:00 - Subjective Subjective: GI Fellow PGY5 Progress Note Pt seen and evaluated at bedside, pts at bedside. Pt with worse abdominal pain today, getting pain medication. No BM on Miralax, plan for lactulose by primary team. Complaining of hiccups. ROS: A 12pt ROS was negative except as above Objective - Vital Signs/Intake and Output Vital Signs (last 24 hours): Temp Pulse Resp BP Pulse Ox 97.6 F 93 H 15 109/60 95 01/17/18 08:00 01/17/18 14:00 01/17/18 14:00 01/17/18 14:00 01/17/18 14:00 Intake and Output: 01/17/18 01/17/18 06:59 18:59 Intake Total 1765 Output Total 1100 Balance 665 - Medications Medications: Current Medications Arformoterol Tartrate (Brovana) 15 mcg IH [id number] [facility] Last Admin: 01/17/18 07:05 Dose: 15 mcg Budesonide (Pulmicort Respules) 0.5 mg IH [id number] [facility] Last Admin: 01/17/18 07:05 Dose: 0.5 mg Docusate Sodium (Colace) 100 mg PO DAILY [facility] Last Admin: 01/17/18 09:37 Dose: 100 mg Guaifenesin/Codeine Phosphate (Robitussin W/Codeine) 5 ml PO Q6H PRN PRN Reason: Cough and congestion Last Admin: 01/17/18 01:40 Dose: 5 ml Heparin Sodium (Porcine) (Heparin) 5,000 units SC Q8 [facility] PRN Reason: Protocol Last Admin: 01/17/18 14:26 Dose: 5,000 units Hydromorphone HCl (Dilaudid) 1 mg IVP Q4H PRN PRN Reason: Pain, severe (8-10) Last Admin: 01/17/18 10:19 Dose: 1 mg Sodium Chloride (Sodium Chloride 0.9%) 1,000 mls @ 50 mls/hr IV .Q20H [facility] Last Admin: 01/17/18 04:00 Dose: 50 mls/hr Etoposide 100 mg/ Sodium (Chloride) 505 mls @ 167 mls/hr IV 1700 [facility] Stop: 01/18/18 20:02 Last Admin: 01/16/18 18:14 Dose: 167 mls/hr Dexamethasone 20 mg/Diphenhydramine HCl 25 mg/Famotidine 20 mg/ Sodium Chloride 57.5 mls @ 156 mls/hr IVPB 1700 [facility] Stop: 01/17/18 17:23 Last Admin: 01/16/18 17:31 Dose: 156 mls/hr Lidocaine (Lidoderm) 1 ea TD DAILY [facility] Last Admin: 01/17/18 09:37 Dose: Not Given Montelukast Sodium (Singulair) 10 mg PO HS [facility] Last Admin: 01/16/18 22:05 Dose: 10 mg Morphine Sulfate (Morphine Extended Release Tab) 15 mg PO Q12 [facility] Last Admin: 01/17/18 11:20 Dose: 15 mg Nystatin (Nystatin Oral Susp) 5 ml PO QID [facility] Last Admin: 01/17/18 14:26 Dose: 5 ml Ondansetron HCl (Zofran Inj) 4 mg IVP Q6H [facility] Last Admin: 01/17/18 14:26 Dose: 4 mg Oxycodone HCl (Oxycodone Immediate Release Tab) 10 mg PO Q6H PRN PRN Reason: Pain, moderate (4-7) Last Admin: 01/15/18 09:05 Dose: 10 mg Pantoprazole Sodium (Protonix Ec Tab) 40 mg PO Q12 [facility] Last Admin: 01/17/18 09:37 Dose: 40 mg Sevelamer HCl (Renagel) 1,600 mg PO AC [facility] Last Admin: 01/17/18 11:29 Dose: 1,600 mg Tiotropium Thornton (Spiriva) 18 mcg IH DAILY [facility] Last Admin: 01/17/18 09:37 Dose: 18 mcg - Labs Labs: 01/17/18 06:45 01/17/18 06:45 PT 15.1 SECONDS (9.4-12.5) H 01/17/18 06:45 INR 1.31 (0.93-1.08) H 01/17/18 06:45 APTT 34.2 Seconds (25.1-36.5) 01/17/18 06:45 - Constitutional Appears: Non-toxic, No Acute Distress, Chronically Ill - Head Exam Head Exam: ATRAUMATIC, NORMAL INSPECTION, NORMOCEPHALIC - Eye Exam Eye Exam: EOMI, Normal appearance, PERRL Pupil Exam: PERRL - ENT Exam ENT Exam: Mucous Membranes Moist, Normal Exam - Neck Exam Neck Exam: Full ROM, Normal Inspection - Respiratory Exam Respiratory Exam: Clear to Ausculation Bilateral, NORMAL BREATHING PATTERN - Cardiovascular Exam Cardiovascular Exam: REGULAR RHYTHM, RRR, +S1, +S2 - GI/Abdominal Exam GI & Abdominal Exam: Distended, Soft, Tenderness, Normal Bowel Sounds. absent: Organomegaly - Rectal Exam Rectal Exam: Deferred - Extremities Exam Extremities Exam: Full ROM, Normal Inspection - Back Exam Back Exam: NORMAL INSPECTION - Neurological Exam Neurological Exam: Alert, Awake, Oriented x3 - Psychiatric Exam Psychiatric exam: Normal Affect, Normal Mood - Skin Skin Exam: Dry, Intact, Normal Color, Warm Assessment and Plan - Assessment and Plan (Free Text) Assessment: This is a 62yM with small cell carcinoma of lungs with metastatic disease to liver causing compression of hepatic veins due to tumor burden. This caused pt to have elevated LFTs and had a Budd Chiari like effect. The hepatic congestion led to caspuslar distention and abdominal pain Pt was started on chemotherapy with carboplatin and Aloxi protocol. 1. Elevated LFTs-trending down 2. SCC with liver mets 3. FRAN likely hepatorenal 4. Liver tumor burden with compression of hepatic veins causing a Budd Chiari like effect 5. Constipation Plan: -Continue supportive care -Pain control -Anti-emetics -Monitor LFTs and INR daily, trending down -Chemotherapy per Oncology -Bowel regimen with miralax, one time dose of lactulose -Monitor for ileus formation -Possible plan for transfer to [facility] -Will continue to follow pt closely <Louis Guerrero V - Last Filed: 01/17/18 23:02> Objective - Vital Signs/Intake and Output Vital Signs (last 24 hours): Temp Pulse Resp BP Pulse Ox 98.1 F 100 H 14 124/70 92 L 01/17/18 20:00 01/17/18 21:00 01/17/18 21:00 01/17/18 21:00 01/17/18 21:00 Intake and Output: 01/17/18 01/18/18 18:59 06:59 Intake Total 1990 Output Total 990 Balance 1000 - Medications Medications: Current Medications Arformoterol Tartrate (Brovana) 15 mcg IH [id number] [facility] Last Admin: 01/17/18 19:55 Dose: 15 mcg Budesonide (Pulmicort Respules) 0.5 mg IH [id number] [facility] Last Admin: 01/17/18 19:55 Dose: 0.5 mg Docusate Sodium (Colace) 100 mg PO DAILY [facility] Last Admin: 01/17/18 09:37 Dose: 100 mg Guaifenesin/Codeine Phosphate (Robitussin W/Codeine) 5 ml PO Q6H PRN PRN Reason: Cough and congestion Last Admin: 01/17/18 01:40 Dose: 5 ml Heparin Sodium (Porcine) (Heparin) 5,000 units SC Q8 [facility] PRN Reason: Protocol Last Admin: 01/17/18 14:26 Dose: 5,000 units Hydromorphone HCl (Dilaudid) 1 mg IVP Q4H PRN PRN Reason: Pain, severe (8-10) Last Admin: 01/17/18 10:19 Dose: 1 mg Sodium Chloride (Sodium Chloride 0.9%) 1,000 mls @ 50 mls/hr IV .Q20H [facility] Last Admin: 01/17/18 04:00 Dose: 50 mls/hr Etoposide 100 mg/ Sodium (Chloride) 505 mls @ 167 mls/hr IV 1700 [facility] Stop: 01/18/18 20:02 Last Admin: 01/16/18 18:14 Dose: 167 mls/hr Lidocaine (Lidoderm) 1 ea TD DAILY [facility] Last Admin: 01/17/18 09:37 Dose: Not Given Montelukast Sodium (Singulair) 10 mg PO HS [facility] Last Admin: 01/16/18 22:05 Dose: 10 mg Morphine Sulfate (Morphine Extended Release Tab) 15 mg PO Q12 [facility] Last Admin: 01/17/18 11:20 Dose: 15 mg Nystatin (Nystatin Oral Susp) 5 ml PO QID [facility] Last Admin: 01/17/18 18:21 Dose: 5 ml Ondansetron HCl (Zofran Inj) 4 mg IVP Q6H [facility] Last Admin: 01/17/18 20:03 Dose: 4 mg Oxycodone HCl (Oxycodone Immediate Release Tab) 10 mg PO Q6H PRN PRN Reason: Pain, moderate (4-7) Last Admin: 01/15/18 09:05 Dose: 10 mg Pantoprazole Sodium (Protonix Ec Tab) 40 mg PO Q12 [facility] Last Admin: 01/17/18 09:37 Dose: 40 mg Sevelamer HCl (Renagel) 1,600 mg PO AC [facility] Last Admin: 01/17/18 16:37 Dose: 1,600 mg Tiotropium Thornton (Spiriva) 18 mcg IH DAILY [facility] Last Admin: 01/17/18 09:37 Dose: 18 mcg - Labs Labs: 01/17/18 06:45 01/17/18 06:45 PT 15.1 SECONDS (9.4-12.5) H 01/17/18 06:45 INR 1.31 (0.93-1.08) H 01/17/18 06:45 APTT 34.2 Seconds (25.1-36.5) 01/17/18 06:45 Attending/Attestation - Attestation I have personally seen and examined this patient.: Yes I have fully participated in the care of the patient.: Yes I have reviewed all pertinent clinical information, including history, physical exam and plan: Yes Notes (Text): This is an addendum to GI progress report dictated by the GI Fellow.The patient was seen and examined earlier. Medical records, lab studies, imagings were reviewed. Last 24 hours events reviewed. Agreed with the above treatment plan as outlined in GI Fellow 's notes the with the addition of the following overall patient was feeling better Transaminases probably related rhabdomylysis Follow-up LFT 01/17/18 23:00
--- NOTE | 2018-01-17 18:07 | PN ---
DATE: 01/17/2018 SUBJECTIVE: The patient was seen early this morning in the CCU 129, bed 4. No fevers. No chills. Uneventful night. PHYSICAL EXAMINATION: VITAL SIGNS: Temperature is 97, blood pressure is 104/50, respiratory rate 21, and heart rate of 95. HEENT: Unremarkable. NECK: Supple. LUNGS: Decreased breath sounds. HEART: Normal S1, S2. ABDOMEN: Soft, nontender. LABORATORY EXAMINATION: Reveals a white count of 10,000, hemoglobin of 11. BUN of 113, creatinine of 3.8. LFTs are elevated. Microbiology is noted. Cultures are negative. MRSA is negative. Urine cultures are no growth. Blood cultures are no growth. Urinalysis is noted and HIV is negative. Dr. Hernandez's progress note is reviewed. 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 The histochemical studies are pending with lung and liver involvement. Currently afebrile, normal white count, off antibiotics. The patient is at risk for developing nosocomial infections. We will follow with you. Victor Manuel Rocha MD
[2018-01-17] MEDS: Dexamethasone 20 MG, DiphenhydrAMINE 25 MG, Famotidine 20 MG in Sodium Chloride 0.9% 50 ML IVPB SCH (20:01)
--- NOTE | 2018-01-17 20:19 | PN ---
DATE: 01/17/[address] [facility]'s [facility] visit in the Intensive Care Unit. For Dr. Cash. SUBJECTIVE: The patient is a 62-year-old male, seen lying, awake in bed with his at the bedside, feeling modestly improved, status post emergency chemotherapy begun yesterday with a chemo to continue later on this afternoon. 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 Guerrero causing a pressure on his hepatic vein with severe congestion and pain in the liver. He was treated with carboplatin and Aloxi with recommendation to continue the protocol with etoposide as per Dr. Cash's protocol later on this afternoon. He is also now on heparin 5000 units subcutaneously every 8 hours; however, a Doppler ultrasound will be done of his right lower extremity to rule out DVT. The patient is also recently diagnosed with a neuroendocrine tumor, high-grade anaplastic lesion, but with probably a small cell lung origin with immunohistochemical stain still pending. His kidney function has been followed by Dr. Rubalcava, renal specialist and his attending with his liver functions being monitored by Dr. Guerrero, which had modestly improved with the original treatment being given. The patient is otherwise resting comfortably in no acute distress this visit. OBJECTIVE/PHYSICAL EXAMINATION: VITAL SIGNS: Temperature of 97.6, pulse 93, respirations 15, blood pressure 109/60, pulse ox 95%. HEENT: Tongue is moist. NECK: Supple. HEART: Regular rate. LUNGS: Decreased breath sound at the bases. ABDOMEN: Soft. Minimal tenderness to right upper quadrant. EXTREMITIES: No edema. Negative Homans sign. SKIN: Warm and dry. Minimal icteric tinge. NEUROLOGIC: Awake, alert, and oriented with an icteric tinge also to his sclerae. LABORATORY DATA: The patient's labs were done. White blood cell count of 10.2, hemoglobin 11.1, hematocrit of 32.2, platelet count of 140,000. Chem metabolic panel done earlier today showing a potassium of 5.6. BUN of 113, creatinine of 3.8. Magnesium of 2.8. Total bilirubin of 5.5 down from 5.7 yesterday, AST of 693 down from 1453 yesterday, ALT of 893 down from 1338 yesterday. His GGT is 1171 down from 1893 two days prior. The patient also had an INR done today. It was read as 1.3 up from 1.2 yesterday. We will repeat this in the morning. The patient did have a Doppler ultrasound of the lower extremities done earlier today has not been read yet. 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 PLAN: The plan for this patient after conversation with Dr. Cash is to get Kayexalate 15 g to correct his potassium. We will repeat labs in the morning. Continue with his chemotherapy protocol as per Dr. Cash's recommendation. We will ask Dr. Rubalcava to monitor his clinical function with consideration for dialysis as indicated with monitoring also of his PT, PTT, INR, and liver function testing with eventual treatment of his underlying disease process once the patient is stable. This is a complex patient with a comprehensive medically necessary and appropriate visit carried out in excess of 60 minutes [id number] time and also conversations held with the Intensive Care Unit nurses, the patient's family members and Dr. Guerrero. Prognosis for this patient is guarded. We will also do a serum and plasma potassium in the morning. Félix Jamison MD
--- NOTE | 2018-01-17 20:23 | CP.PCM.PN ---
Subjective - Date & Time of Evaluation Date of Evaluation: 01/16/18 Time of Evaluation: 10:00 - Subjective Subjective: He is mild respiratory distress. he is recently diagnosed with small cell lung cancer with metastatic lesions in liver. he received chemotherapy yesterday with carboplatin Etoposide. renal functions deteriorated. creatinine elevated to 3.3. mild hyperkalemia. he has 600 ml of urine out put. Pain not controlled with dilaudid. Objective - Vital Signs/Intake and Output Vital Signs (last 24 hours): Temp Pulse Resp BP Pulse Ox 97.6 F 102 H 19 131/71 93 L 01/17/18 08:00 01/17/18 18:06 01/17/18 18:06 01/17/18 18:06 01/17/18 18:06 Intake and Output: 01/17/18 01/18/18 18:59 06:59 Intake Total 1990 Output Total 990 Balance 1000 - Medications Medications: Current Medications Arformoterol Tartrate (Brovana) 15 mcg IH [id number] [facility] Last Admin: 01/17/18 19:55 Dose: 15 mcg Budesonide (Pulmicort Respules) 0.5 mg IH [id number] [facility] Last Admin: 01/17/18 19:55 Dose: 0.5 mg Docusate Sodium (Colace) 100 mg PO DAILY [facility] Last Admin: 01/17/18 09:37 Dose: 100 mg Guaifenesin/Codeine Phosphate (Robitussin W/Codeine) 5 ml PO Q6H PRN PRN Reason: Cough and congestion Last Admin: 01/17/18 01:40 Dose: 5 ml Heparin Sodium (Porcine) (Heparin) 5,000 units SC Q8 [facility] PRN Reason: Protocol Last Admin: 01/17/18 14:26 Dose: 5,000 units Hydromorphone HCl (Dilaudid) 1 mg IVP Q4H PRN PRN Reason: Pain, severe (8-10) Last Admin: 01/17/18 10:19 Dose: 1 mg Sodium Chloride (Sodium Chloride 0.9%) 1,000 mls @ 50 mls/hr IV .Q20H [facility] Last Admin: 01/17/18 04:00 Dose: 50 mls/hr Etoposide 100 mg/ Sodium (Chloride) 505 mls @ 167 mls/hr IV 1700 [facility] Stop: 01/18/18 20:02 Last Admin: 01/16/18 18:14 Dose: 167 mls/hr Lidocaine (Lidoderm) 1 ea TD DAILY [facility] Last Admin: 01/17/18 09:37 Dose: Not Given Montelukast Sodium (Singulair) 10 mg PO HS [facility] Last Admin: 01/16/18 22:05 Dose: 10 mg Morphine Sulfate (Morphine Extended Release Tab) 15 mg PO Q12 [facility] Last Admin: 01/17/18 11:20 Dose: 15 mg Nystatin (Nystatin Oral Susp) 5 ml PO QID [facility] Last Admin: 01/17/18 18:21 Dose: 5 ml Ondansetron HCl (Zofran Inj) 4 mg IVP Q6H [facility] Last Admin: 01/17/18 20:03 Dose: 4 mg Oxycodone HCl (Oxycodone Immediate Release Tab) 10 mg PO Q6H PRN PRN Reason: Pain, moderate (4-7) Last Admin: 01/15/18 09:05 Dose: 10 mg Pantoprazole Sodium (Protonix Ec Tab) 40 mg PO Q12 [facility] Last Admin: 01/17/18 09:37 Dose: 40 mg Sevelamer HCl (Renagel) 1,600 mg PO AC [facility] Last Admin: 01/17/18 16:37 Dose: 1,600 mg Tiotropium Fults (Spiriva) 18 mcg IH DAILY [facility] Last Admin: 01/17/18 09:37 Dose: 18 mcg - Labs Labs: 01/17/18 06:45 01/17/18 06:45 PT 15.1 SECONDS (9.4-12.5) H 01/17/18 06:45 INR 1.31 (0.93-1.08) H 01/17/18 06:45 APTT 34.2 Seconds (25.1-36.5) 01/17/18 06:45 - Constitutional Appears: Chronically Ill - Head Exam Head Exam: ATRAUMATIC, NORMAL INSPECTION, NORMOCEPHALIC - Eye Exam Eye Exam: Normal appearance - ENT Exam ENT Exam: Mucous Membranes Moist - Neck Exam Neck Exam: Normal Inspection - Respiratory Exam Respiratory Exam: Accessory Muscle Use, NORMAL BREATHING PATTERN - Cardiovascular Exam Cardiovascular Exam: REGULAR RHYTHM, +S1, +S2 - GI/Abdominal Exam GI & Abdominal Exam: Soft, Normal Bowel Sounds - Back Exam Back Exam: NORMAL INSPECTION - Neurological Exam Neurological Exam: Alert, Awake, Oriented x3 - Skin Skin Exam: Normal Color, Warm Assessment and Plan - Assessment and Plan (Free Text) Assessment: 1. stage IV lung cancer, small cell type. mets in liver. chemotherapy started yesterday with carbo/etoposide. 2. Renal functions deteriorated. Discussed with Dr. Rubalcava. he will hold dialysis for now as he has adequate urine output. will closely monitor renal functions. Slight hyperkalemia, kayexalate given today. No BM yet. 3. On dialudid prn for pain . 4. Blood counts stable. 5. nutrition ; poor PO intake.
--- NOTE | 2018-01-17 20:37 | CP.PCM.PN ---
Subjective - Date & Time of Evaluation Date of Evaluation: 01/17/18 Time of Evaluation: 11:00 - Subjective Subjective: he is in mild respiratory distress. complaining of constipation. NO BM for past few days. renal functions worse, creatinine elevated at 3.8. Complaining of leg edema B/ L. No mouth sores. poor PO intake. Objective - Vital Signs/Intake and Output Vital Signs (last 24 hours): Temp Pulse Resp BP Pulse Ox 97.6 F 102 H 19 131/71 93 L 01/17/18 08:00 01/17/18 18:06 01/17/18 18:06 01/17/18 18:06 01/17/18 18:06 Intake and Output: 01/17/18 01/18/18 18:59 06:59 Intake Total 1990 Output Total 990 Balance 1000 - Medications Medications: Current Medications Arformoterol Tartrate (Brovana) 15 mcg IH [id number] [facility] Last Admin: 01/17/18 19:55 Dose: 15 mcg Budesonide (Pulmicort Respules) 0.5 mg IH [id number] [facility] Last Admin: 01/17/18 19:55 Dose: 0.5 mg Docusate Sodium (Colace) 100 mg PO DAILY [facility] Last Admin: 01/17/18 09:37 Dose: 100 mg Guaifenesin/Codeine Phosphate (Robitussin W/Codeine) 5 ml PO Q6H PRN PRN Reason: Cough and congestion Last Admin: 01/17/18 01:40 Dose: 5 ml Heparin Sodium (Porcine) (Heparin) 5,000 units SC Q8 [facility] PRN Reason: Protocol Last Admin: 01/17/18 14:26 Dose: 5,000 units Hydromorphone HCl (Dilaudid) 1 mg IVP Q4H PRN PRN Reason: Pain, severe (8-10) Last Admin: 01/17/18 10:19 Dose: 1 mg Sodium Chloride (Sodium Chloride 0.9%) 1,000 mls @ 50 mls/hr IV .Q20H [facility] Last Admin: 01/17/18 04:00 Dose: 50 mls/hr Etoposide 100 mg/ Sodium (Chloride) 505 mls @ 167 mls/hr IV 1700 [facility] Stop: 01/18/18 20:02 Last Admin: 01/16/18 18:14 Dose: 167 mls/hr Lidocaine (Lidoderm) 1 ea TD DAILY [facility] Last Admin: 01/17/18 09:37 Dose: Not Given Montelukast Sodium (Singulair) 10 mg PO HS [facility] Last Admin: 01/16/18 22:05 Dose: 10 mg Morphine Sulfate (Morphine Extended Release Tab) 15 mg PO Q12 [facility] Last Admin: 01/17/18 11:20 Dose: 15 mg Nystatin (Nystatin Oral Susp) 5 ml PO QID [facility] Last Admin: 01/17/18 18:21 Dose: 5 ml Ondansetron HCl (Zofran Inj) 4 mg IVP Q6H [facility] Last Admin: 01/17/18 20:03 Dose: 4 mg Oxycodone HCl (Oxycodone Immediate Release Tab) 10 mg PO Q6H PRN PRN Reason: Pain, moderate (4-7) Last Admin: 01/15/18 09:05 Dose: 10 mg Pantoprazole Sodium (Protonix Ec Tab) 40 mg PO Q12 [facility] Last Admin: 01/17/18 09:37 Dose: 40 mg Sevelamer HCl (Renagel) 1,600 mg PO AC [facility] Last Admin: 01/17/18 16:37 Dose: 1,600 mg Tiotropium [place] (Spiriva) 18 mcg IH DAILY [facility] Last Admin: 01/17/18 09:37 Dose: 18 mcg - Labs Labs: 01/17/18 06:45 01/17/18 06:45 PT 15.1 SECONDS (9.4-12.5) H 01/17/18 06:45 INR 1.31 (0.93-1.08) H 01/17/18 06:45 APTT 34.2 Seconds (25.1-36.5) 01/17/18 06:45 - Constitutional Appears: Chronically Ill - Head Exam Head Exam: ATRAUMATIC, NORMAL INSPECTION - Eye Exam Eye Exam: Normal appearance Pupil Exam: NORMAL ACCOMODATION - ENT Exam ENT Exam: Mucous Membranes Moist, Normal Exam - Neck Exam Neck Exam: Normal Inspection - Respiratory Exam Respiratory Exam: Rales, Respiratory Distress, NORMAL BREATHING PATTERN - Cardiovascular Exam Cardiovascular Exam: Tachycardia, REGULAR RHYTHM, +S1, +S2 - GI/Abdominal Exam GI & Abdominal Exam: Soft, Normal Bowel Sounds - Extremities Exam Extremities Exam: Pedal Edema - Back Exam Back Exam: NORMAL INSPECTION - Neurological Exam Neurological Exam: Alert, Awake, CN II-XII Intact, Oriented x3 - Skin Skin Exam: Normal Color, Warm Assessment and Plan - Assessment and Plan (Free Text) Assessment: 1. Stage IV small cell lung cancer, neuroendocrine type. S/P carbo/etoposide. 2. renal : worsening of renal functions. Discussed with Dr. Rubalcava. No dialysis today. 3. Mouth care : nystatin swish and swallow mouth washes QID. 4. Pain not controlled with dialudid . will add MS contin 15 mg PO BID, continue prn dialudid. 5. ID : Dr. Case following. at risk for nosocomial infections. 7. lactulose 30 ml today. 8. dopplers lower ext. ordered. on heparin for DVT prophylaxis. discussed with bedside Marcelina . Discussed with the staff Nurse.
[2018-01-18] MEDS: Morphine 15 mg SR Tab PO SCH (00:04)
[2018-01-18] MEDS: Pantoprazole 40 mg EC Tab PO SCH ×3 (00:06→21:53)
[2018-01-18] MEDS: Nystatin 100,000 Units/ml Oral Susp 5 ml UD PO SCH ×2 (00:07→09:56)
[2018-01-18] MEDS ORDERED: Metoprolol 1 mg/ml Inj IVP ONE ×2 (02:36→03:38)
[2018-01-18 03:35] LABS: VENOUS BLOOD GAS BASE EXCESS -8.6 mmol/L (0.0-2.0); VENOUS BLOOD GAS PO2 49 mm/Hg (30-55); VENOUS BLOOD PH 7.31 (7.32-7.43)
[2018-01-18 03:51] LABS: ALB/GLOB RATIO 0.9 (1.1-1.8); ALBUMIN 2.7 g/dL (3.0-4.8); ALT/SGPT 697 U/L (7-56); AST/SGOT 555 U/L (17-59); BLOOD UREA NITROGEN > 120 mg/dL (7-21); CALCIUM 7.7 mg/dL (8.4-10.5); GAMMA GLUTAMYL TRANSPEPTIDASE 1146 U/L (8-78); GFR AFRICAN-AMERICAN 26; GFR NON-AFRICAN AMERICAN 21
[2018-01-18 03:53] LABS: BASO # 0.01 K/mm3 (0.0-2.0); BASO % 0.1 % (0.0-3.0); GRAN # 10.48 (1.4-6.5); GRAN % 97.6 % (50.0-68.0); HEMOGLOBIN 11.8 g/dL (14.0-18.0); LYMPH # 0.2 (1.2-3.4); LYMPH % 1.5 % (22.0-35.0); MEAN CELL VOLUME 80.6 fl (80.0-105.0); MEAN CORPUSCULAR HEMOGLOBIN 28.3 pg (25.0-35.0); MEAN CORPUSCULAR HGB CONC 35.1 g/dl (31.0-37.0); MEAN PLATELET VOLUME 9.8 fl (7.0-11.0); MONO # 0.1 (0.1-0.6); MONO % 0.8 % (1.0-6.0); RBC 4.17 10^6/uL (3.5-6.1); RED CELL DISTRIBUTION WIDTH 16.5 % (11.5-14.5); WHITE BLOOD COUNT 10.7 10^3/ul (4.5-11.0)
[2018-01-18 04:00] LABS: INR 1.32 (0.93-1.08); PARTIAL THROMBOPLASTIN TIME 30.8 Seconds (25.1-36.5); PROTHROMBIN TIME 15.1 SECONDS (9.4-12.5)
[2018-01-18] MEDS: guaiFENesin-Codeine 100-10mg/5ml Syrup (5 ml) UD PO PRN ×2 (04:47→12:47)
--- NOTE | 2018-01-18 06:45 | CP.PCM.PN ---
Subjective - Date & Time of Evaluation Date of Evaluation: 01/18/18 Time of Evaluation: 06:45 - Subjective Subjective: Dave Miranda DO, PGY-2, Hematology and Oncology Progress Note for Dr. Cash Patient was seen and examined at bedside with present. Patient reports abdominal pain is controlled. requests that his Oxycodone be changed to PRN. Patient had a good 12 bowel movements yesterday after being given Kayexelate. Over the weekend, reports patient has been getting fluid overloaded and accurate I/O cannot be assessed given he is voiding in the toilet each time he went to pass a bowel movement. Patient's cough is subdued. Overall, patient feels much better after chemotherapy. He denies any nausea, vomiting, but admits to diarrhea, likely secondary to kayexelate. Chart review indicates patient went into atrial fibrillation overnight. is curious if we should have a senior case manager look at him and what exactly can we do for his elevated BUN. Objective - Vital Signs/Intake and Output Vital Signs (last 24 hours): Temp Pulse Resp BP Pulse Ox 98.3 F 140 H 18 117/84 93 L 01/18/18 04:00 01/18/18 04:02 01/18/18 04:02 01/18/18 04:02 01/18/18 03:00 Intake and Output: 01/17/18 01/18/18 18:59 06:59 Intake Total 1990 Output Total 990 Balance 1000 - Medications Medications: Current Medications Arformoterol Tartrate (Brovana) 15 mcg IH [id number] [facility] Last Admin: 01/17/18 19:55 Dose: 15 mcg Budesonide (Pulmicort Respules) 0.5 mg IH [id number] [facility] Last Admin: 01/17/18 19:55 Dose: 0.5 mg Docusate Sodium (Colace) 100 mg PO DAILY [facility] Last Admin: 01/17/18 09:37 Dose: 100 mg Guaifenesin/Codeine Phosphate (Robitussin W/Codeine) 5 ml PO Q6H PRN PRN Reason: Cough and congestion Last Admin: 01/18/18 04:47 Dose: 5 ml Heparin Sodium (Porcine) (Heparin) 5,000 units SC Q8 [facility] PRN Reason: Protocol Last Admin: 01/18/18 05:16 Dose: 5,000 units Hydromorphone HCl (Dilaudid) 1 mg IVP Q4H PRN PRN Reason: Pain, severe (8-10) Last Admin: 01/17/18 10:19 Dose: 1 mg Sodium Chloride (Sodium Chloride 0.9%) 1,000 mls @ 50 mls/hr IV .Q20H [facility] Last Admin: 01/17/18 04:00 Dose: 50 mls/hr Etoposide 100 mg/ Sodium (Chloride) 505 mls @ 167 mls/hr IV 1700 [facility] Stop: 01/18/18 20:02 Last Admin: 01/17/18 20:30 Dose: 167 mls/hr Lidocaine (Lidoderm) 1 ea TD DAILY [facility] Last Admin: 01/17/18 09:37 Dose: Not Given Montelukast Sodium (Singulair) 10 mg PO HS [facility] Last Admin: 01/18/18 00:07 Dose: Not Given Morphine Sulfate (Morphine Extended Release Tab) 15 mg PO Q12 [facility] Last Admin: 01/18/18 00:04 Dose: Not Given Nystatin (Nystatin Oral Susp) 5 ml PO QID [facility] Last Admin: 01/18/18 00:07 Dose: Not Given Ondansetron HCl (Zofran Inj) 4 mg IVP Q6H [facility] Last Admin: 01/18/18 02:00 Dose: Not Given Oxycodone HCl (Oxycodone Immediate Release Tab) 10 mg PO Q6H PRN PRN Reason: Pain, moderate (4-7) Last Admin: 01/15/18 09:05 Dose: 10 mg Pantoprazole Sodium (Protonix Ec Tab) 40 mg PO Q12 [facility] Last Admin: 01/18/18 00:06 Dose: Not Given Sevelamer HCl (Renagel) 1,600 mg PO AC [facility] Last Admin: 01/17/18 16:37 Dose: 1,600 mg Tiotropium [place] (Spiriva) 18 mcg IH DAILY [facility] Last Admin: 01/17/18 09:37 Dose: 18 mcg - Labs Labs: 01/18/18 03:25 01/18/18 03:25 PT 15.1 SECONDS (9.4-12.5) H 01/18/18 03:25 INR 1.32 (0.93-1.08) H 01/18/18 03:25 APTT 30.8 Seconds (25.1-36.5) 01/18/18 03:25 - Constitutional Appears: No Acute Distress - Head Exam Head Exam: ATRAUMATIC, NORMOCEPHALIC - Eye Exam Eye Exam: EOMI, Normal appearance - ENT Exam ENT Exam: Mucous Membranes Dry, Normal Oropharynx - Neck Exam Neck Exam: Normal Inspection - Respiratory Exam Respiratory Exam: absent: Accessory Muscle Use Additional comments: RR 24 - Cardiovascular Exam Cardiovascular Exam: Tachycardia Additional comments: ditant heart sounds (possible secondary to large thoracic cavity - GI/Abdominal Exam GI & Abdominal Exam: Soft, Normal Bowel Sounds. absent: Guarding, Rebound - Extremities Exam Extremities Exam: absent: Calf Tenderness Additional comments: 2/4 pitting edema in bilateral lower extremities - Back Exam Back Exam: NORMAL INSPECTION. absent: CVA tenderness (L), CVA tenderness (R) - Neurological Exam Neurological Exam: Awake - Psychiatric Exam Psychiatric exam: Normal Affect, Normal Mood - Skin Skin Exam: Dry, Intact, Normal Color Assessment and Plan - Assessment and Plan (Free Text) Assessment: 62 year old male with 3 weeks of cough that did not respond to oral antibiotics , steroids, or Tussinex. He presented to [facility] given that he failed outpatient treatment for a bronchitis. Upon admission he was found to have elevated liver functions tests which prompted an abdominal ultrasound that showed liver lesions consistent with metastatic disease. Subsequent, CT of the chest, abdomen , and pelvis with PO and IV contrast showed right pulmonary mass, mediastinal and hilar adenopathy, and metastatic lesions in the liver. The patient underwent CT guided core-biopsy of the liver lesion with the preliminary pathology interpreted as a diagnosis of metastatic small cell neuroendocrine carcinoma, with immunohistochemistry stains pending. During the patient's hospital course he developed RUQ pain in addition to his cough with a concurrent rise his in LFTS and serum Creatinine. This phenomena was thought to be due to the tumor burden in the liver compressing the hepatic veins and causing hepatic congestion and subsequent capsular distention leading to the pain with a Budd-Chairi life effect. Initially, it was thought the patient may benefit from transfer to a tertiary care center; however, after a lengthy discussion with two different oncologist, it was decided to treat the patient in [facility] in the ICU with carboplatinum and etoposide, with dosing based on his creatinine clearance and Body Surface Area. He underwent placement of a port-a- cath and was subsequently transferred to the ICU from the medical surgical floor. The patient has completed 3 doses of the carboplatinum and etoposide with Granix starting tomorrow at 02:00 (most efficacious when started immediately after the 24th hour following the completion of chemo- administration. Patient went into atrial fibrillation overnight. ICU team started patient on Dilitiazem drip, low-dose of heparin, and consulted Dr. Chase for his atrial fibrillation. We ordered an echocardiogram as well as an LDH, plasma K, and uric acid to assess for tumor-lysis syndrome. The patient is POLST: DNR/DNI. We will treat aggressively with the primary team and other consultants. Case was reviewed and discussed with the attending physician, Dr. Cash
--- NOTE | 2018-01-18 06:51 | CP.PCM.PN ---
<Zina Field - Last Filed: 01/18/18 09:56> Subjective - Date & Time of Evaluation Date of Evaluation: 01/18/18 Time of Evaluation: 07:00 - Subjective Subjective: Medicine Progress Note for Lisandro Mckinney PGY3 Patient seen and examined at bedside. Overnight patient had an episode of a.fib with HR in the 160s. He was asymptomatic at the time. He received Metoprolol overnight. Patient reports feeling OK. He states he has some pain in his lower back, but denies chest pain, shortness of breath, nausea/vomiting/diarrhea, fever/chills, dysuria or hematuria. Objective - Vital Signs/Intake and Output Vital Signs (last 24 hours): Temp Pulse Resp BP Pulse Ox 98.3 F 140 H 18 117/84 93 L 01/18/18 04:00 01/18/18 04:02 01/18/18 04:02 01/18/18 04:02 01/18/18 03:00 Intake and Output: 01/17/18 01/18/18 18:59 06:59 Intake Total 1990 Output Total 990 Balance 1000 - Medications Medications: Current Medications Arformoterol Tartrate (Brovana) 15 mcg IH [id number] [facility] Last Admin: 01/17/18 19:55 Dose: 15 mcg Budesonide (Pulmicort Respules) 0.5 mg IH [id number] [facility] Last Admin: 01/17/18 19:55 Dose: 0.5 mg Docusate Sodium (Colace) 100 mg PO DAILY [facility] Last Admin: 01/17/18 09:37 Dose: 100 mg Guaifenesin/Codeine Phosphate (Robitussin W/Codeine) 5 ml PO Q6H PRN PRN Reason: Cough and congestion Last Admin: 01/18/18 04:47 Dose: 5 ml Heparin Sodium (Porcine) (Heparin) 5,000 units SC Q8 [facility] PRN Reason: Protocol Last Admin: 01/18/18 05:16 Dose: 5,000 units Hydromorphone HCl (Dilaudid) 1 mg IVP Q4H PRN PRN Reason: Pain, severe (8-10) Last Admin: 01/17/18 10:19 Dose: 1 mg Sodium Chloride (Sodium Chloride 0.9%) 1,000 mls @ 50 mls/hr IV .Q20H [facility] Last Admin: 01/17/18 04:00 Dose: 50 mls/hr Etoposide 100 mg/ Sodium (Chloride) 505 mls @ 167 mls/hr IV 1700 [facility] Stop: 01/18/18 20:02 Last Admin: 01/17/18 20:30 Dose: 167 mls/hr Lidocaine (Lidoderm) 1 ea TD DAILY [facility] Last Admin: 01/17/18 09:37 Dose: Not Given Montelukast Sodium (Singulair) 10 mg PO HS [facility] Last Admin: 01/18/18 00:07 Dose: Not Given Morphine Sulfate (Morphine Extended Release Tab) 15 mg PO Q12 [facility] Last Admin: 01/18/18 00:04 Dose: Not Given Nystatin (Nystatin Oral Susp) 5 ml PO QID [facility] Last Admin: 01/18/18 00:07 Dose: Not Given Ondansetron HCl (Zofran Inj) 4 mg IVP Q6H [facility] Last Admin: 01/18/18 02:00 Dose: Not Given Oxycodone HCl (Oxycodone Immediate Release Tab) 10 mg PO Q6H PRN PRN Reason: Pain, moderate (4-7) Last Admin: 01/15/18 09:05 Dose: 10 mg Pantoprazole Sodium (Protonix Ec Tab) 40 mg PO Q12 [facility] Last Admin: 01/18/18 00:06 Dose: Not Given Sevelamer HCl (Renagel) 1,600 mg PO AC [facility] Last Admin: 01/17/18 16:37 Dose: 1,600 mg Tiotropium [place] (Spiriva) 18 mcg IH DAILY [facility] Last Admin: 01/17/18 09:37 Dose: 18 mcg - Labs Labs: 01/18/18 03:25 01/18/18 03:25 PT 15.1 SECONDS (9.4-12.5) H 01/18/18 03:25 INR 1.32 (0.93-1.08) H 01/18/18 03:25 APTT 30.8 Seconds (25.1-36.5) 01/18/18 03:25 - Head Exam Head Exam: ATRAUMATIC, NORMAL INSPECTION, NORMOCEPHALIC - Eye Exam Eye Exam: PERRL, Scleral icterus Pupil Exam: PERRL - ENT Exam ENT Exam: Mucous Membranes Moist - Respiratory Exam Respiratory Exam: Clear to Ausculation Bilateral, NORMAL BREATHING PATTERN. absent: Rales, Rhonchi, Wheezes - Cardiovascular Exam Cardiovascular Exam: Tachycardia, Irregular Rhythm, +S1, +S2. absent: Gallop, Rubs, Murmur - GI/Abdominal Exam GI & Abdominal Exam: Distended, Soft, Tenderness (RUQ), Normal Bowel Sounds, Organomegaly. absent: Rigid, Mass, Rebound - Extremities Exam Extremities Exam: Pedal Edema. absent: Calf Tenderness - Neurological Exam Neurological Exam: Alert, Awake, CN II-XII Intact, Oriented x3 - Skin Skin Exam: Dry, Warm Additional comments: jaundice Assessment and Plan - Assessment and Plan (Free Text) Assessment: This is a 62yo male with past medical history of HTN, dyslipidemia, asthma who is admitted for 1. Liver failure - secondary to liver metastasis s/p palliative chemotherapy with etopiside and carboplatin - INR increasing, LFTs trending down 2. Renal failure (improving) - Secondary to hepatorenal syndrome with IV contrast and chemotherapy - HD catheter in place - No need for HD at this time 3. Tumor Lysis Syndome (improving) - Secondary to chemotherapy - phos decreasing, BUN elevated- works as diuretic- Urine output increasing - continue to monitor electrolytes 4. A.fib (new onset) 5. Chronic bronchitis 6. HTN 7. Dyslipidemia 8. Hx of asthma Plan: Patient is on Cardizem drip. We will start Heparin drip. No need for HD at this time since kidney function improving. Continue IV hydration. Oncology recommendations appreciated. Continue pain control. Patient is tolerating diet. Continue nebulizer treatment as per pulm for bronchitis. GI recommendations appreciated. Will continue to monitor patient closely in ICU. Case seen, discussed and reviewed with Dr. Rubalcava. Lisandro Field PGY3 <Mack Rubalcava - Last Filed: 01/18/18 21:58> Objective - Vital Signs/Intake and Output Vital Signs (last 24 hours): Temp Pulse Resp BP Pulse Ox 98.3 F 120 H 16 92/55 L 94 L 01/18/18 04:00 01/18/18 21:30 01/18/18 21:30 01/18/18 21:30 01/18/18 21:30 Intake and Output: 07/23/18 07/24/18 18:59 06:59 Intake Total 1606 96 Output Total 1740 Balance -134 96 - Medications Medications: Current Medications Arformoterol Tartrate (Brovana) 15 mcg IH [id number] [facility] Last Admin: 01/18/18 20:00 Dose: 15 mcg Budesonide (Pulmicort Respules) 0.5 mg IH [id number] [facility] Last Admin: 01/18/18 20:00 Dose: 0.5 mg Guaifenesin/Codeine Phosphate (Robitussin W/Codeine) 5 ml PO Q6H PRN PRN Reason: Cough and congestion Last Admin: 01/18/18 12:47 Dose: 5 ml Hydromorphone HCl (Dilaudid) 1 mg IVP Q4H PRN PRN Reason: Pain, severe (8-10) Last Admin: 01/17/18 10:19 Dose: 1 mg Sodium Chloride (Sodium Chloride 0.9%) 1,000 mls @ 50 mls/hr IV .Q20H [facility] Last Admin: 01/17/18 04:00 Dose: 50 mls/hr diltiaZEM IVPB 100mg in NS (Cardizem 100mg In Ns) 100 mls @ 5 mls/hr IV .Q20H PRN; Protocol; 5 MG/HR PRN Reason: TITRATE PER MD ORDER Last Titration: 01/18/18 18:45 Dose: 10 mg/hr, 10 mls/hr Heparin Sodium/Sodium Chloride (Heparin 42628 Units/250ml 1/2 Normal Saline) 25 ,000 units in 250 mls @ 14.261 mls/hr IV .[id number] PRN; Protocol; 12 UNITS/KG/HR PRN Reason: ADJUST RATE PER PROTOCOL Last Titration: 01/18/18 20:40 Dose: 14 units/kg/hr, 16.638 mls/hr Montelukast Sodium (Singulair) 10 mg PO HS [facility] Last Admin: 01/18/18 00:07 Dose: Not Given Ondansetron HCl (Zofran Inj) 4 mg IVP Q6H [facility] Last Admin: 01/18/18 20:48 Dose: Not Given Oxycodone HCl (Oxycodone Immediate Release Tab) 10 mg PO Q6H PRN PRN Reason: Pain, moderate (4-7) Last Admin: 01/15/18 09:05 Dose: 10 mg Pantoprazole Sodium (Protonix Ec Tab) 40 mg PO Q12 [facility] Last Admin: 01/18/18 09:56 Dose: 40 mg Sevelamer HCl (Renagel) 1,600 mg PO AC [facility] Last Admin: 01/18/18 18:07 Dose: 1,600 mg Tiotropium [place] (Spiriva) 18 mcg IH DAILY [facility] Last Admin: 01/18/18 09:56 Dose: 18 mcg - Labs Labs: 01/18/18 03:25 01/18/18 16:15 PT 15.1 SECONDS (9.4-12.5) H 01/18/18 03:25 INR 1.32 (0.93-1.08) H 01/18/18 03:25 APTT 48.5 Seconds (25.1-36.5) H 01/18/18 18:53 Assessment and Plan - Assessment and Plan (Free Text) Plan: Pt seen and examined. I have reviewed the note of the medical lab scientist and agree with it. I have discussed the assessment and plan with the resident. I have reviewed the patient's labs and medications. Pt with improving Cr and good urine output. The pt has FRAN from probable hepatorenal syndrome. He has LE edema. His high urea will act as a osmotic diuretic and will hold off on any diuretics. Cr is improving. Spoke to at the bedside to update her. Pt is DNR. He as new onset A fib will place on Cardizem and get cardiology consult. He has been placed on heparin drip. His RUQ abd pain is improving.
[2018-01-18] MEDS: Budesonide 0.5 mg/2 ml Inhal Susp UD IH SCH ×2 (07:17→20:00)
[2018-01-18] MEDS: Arformoterol 15 mcg/2 ml Inh Sol IH SCH ×2 (07:17→20:00)
[2018-01-18 07:58] LABS: VENOUS BLOOD GAS PO2 56 mm/Hg (30-55); VENOUS BLOOD PH 7.28 (7.32-7.43)
--- NOTE | 2018-01-18 08:14 | PN ---
DATE: 01/18/2018(650am-740am) PULMONARY NOTE SUBJECTIVE: The patient appears comfortable this morning. He is not short of breath at rest. PHYSICAL EXAMINATION: VITAL SIGNS: Temperature is 98.3, pulse is 140, respirations 18, blood pressure 117/84. Oxygen saturation on nasal cannula is 93%. HEENT: Normocephalic, atraumatic. No JVD. CARDIOVASCULAR: Positive S1, S2. No S3 gallop. LUNGS: Decreased breath sounds at the bases. No rhonchi. No wheezing. EXTREMITIES: No clubbing, cyanosis or edema. Calves are nontender to palpation. GI: Abdomen is soft, mildly tender(right) and nondistended. Bowel sounds are positive. SKIN: No acute rash. NEUROLOGIC: Limited at the present time. IMPRESSION: 1. Advanced metastatic small cell cancer of the lung. 2. Chronic obstructive pulmonary disease. 3. Mild anemia. 4. Renal insufficiency. 5. Increased liver function enzymes. PLAN: The patient appears comfortable this morning. He is not short of breath at rest. I did discuss the case with the night nurse at length. The night nurse stated that the patient had a pretty good night. However, the patient is now in rapid atrial fibrillation. The Medical team has been notified. On physical exam, there is no significant bronchospasm noted. In addition, there is no significant alveolar-arterial gradient. I will continue with the current pulmonary medications for now. Inputs by Infectious Disease, GI and Oncology are noted. Repeat a.m. labs are pending. Clinical status of the patient is certainly improved - compared to last week. However, unfortunately, the overall status/prognosis for this patient appears poor. I will discuss the above with the entire ICU team in the next few moments. I will also discuss the above with the attending physician later this morning. Lucio Ho MD JESSENIA
[2018-01-18] MEDS: diltiaZEM IVPB 100mg in NS 100 ML IV PRN ×3 (08:54→23:35)
--- NOTE | 2018-01-18 09:17 | PN ---
DATE: 01/16/2018 SUBJECTIVE: The patient is seen earlier this morning in the ICU 129, CCU bed 4. The patient states that he is feeling weak. No fevers and no chills. PHYSICAL EXAMINATION: VITAL SIGNS: Temperature is 98, blood pressure is 114/50, respiratory rate of 20, heart rate of 90. HEENT: Examination of HEENT is unremarkable. NECK: Supple. LUNGS: Have decreased breath sounds. HEART: Normal S1, S2 ABDOMEN: Soft, nontender. LABORATORY DATA: Laboratory examination reveals a white count of 10,000, hemoglobin 11, platelets of 111. The chemistries reveals the patient has a BUN of 88, creatinine of 3.5. The LFTs are elevated. Urinalysis is noted. Laboratory examination is noted. Microbiology reveals the blood cultures are negative. Urine cultures are negative. MEDICATIONS: Review of medications reveals the patient to be off of antibiotics. ASSESSMENT AND PLAN: A 62-year-old male who was admitted with pulmonary symptoms. No fevers. #1 is systemic inflammatory response syndrome. Cultures negative. Found to have numerous liver lesions and mediastinal adenopathy and with metastatic high-grade malignant tumor, small cell neuroendocrine carcinoma is favored histomorphologically; however, immuno histochemical studies are pending with lung lesion with metastases to the liver. Final pathological diagnosis is pending. Currently off of antibiotics. Afebrile this morning. The white count is normal. The patient is at risk for developing nosocomial infection. This patient with a history of Victor Manuel Rocha MD
[2018-01-18] MEDS: Lidocaine 5% Patch TD SCH (09:49)
[2018-01-18] MEDS ORDERED: Heparin25000 units/250ml 1/2NS 25,000 UNITS/250 ML BAG IV PRN (09:55)
[2018-01-18] MEDS: Tiotropium 18 mcg Cap For Inhalation IH SCH (09:56)
--- NOTE | 2018-01-18 10:11 | US ---
HISTORY: Leg pain and swelling. Evaluate for DVT PHYSICIAN(S): Stefan Madison MD. TECHNIQUE: Duplex sonography and color-flow Doppler with graded compression were used to evaluate the deep venous systems of both lower extremities. The exam is somewhat limited by edema. FINDINGS: The visualized deep venous systems of both lower extremities are sonographically normal and compressible. Normal wave forms and augmentation are seen. There is no sonographic evidence for deep venous thrombosis in the visualized segments of both lower extremities. IMPRESSION: No sonographic evidence for deep venous thrombosis in the visualized segments of both lower extremities.
--- NOTE | 2018-01-18 11:09 | CP.PCM.PN ---
<Johnny Freitas - Last Filed: 01/18/18 11:15> Subjective - Date & Time of Evaluation Date of Evaluation: 01/18/18 Time of Evaluation: 07:00 - Subjective Subjective: GI Progress Note for Dr. Yolanda Freitas, PGY-3 IM Patient seen and examined at bedside. Overnight, developed rapid AFib, but remains hemodynamically stable. Cr and LFTs improved today, although bilirubin and BUN increased. Patient reports pain mildly improved, doesn't want any further MS Contin. Continues on current chemo regimen. Objective - Vital Signs/Intake and Output Vital Signs (last 24 hours): Temp Pulse Resp BP Pulse Ox 98.3 F 154 H 12 106/46 L 95 01/18/18 04:00 01/18/18 08:49 01/18/18 08:00 01/18/18 08:49 01/18/18 08:00 Intake and Output: 01/18/18 01/18/18 06:59 18:59 Intake Total 620 Output Total 1250 Balance -630 - Medications Medications: Current Medications Arformoterol Tartrate (Brovana) 15 mcg IH [id number] [facility] Last Admin: 01/18/18 07:17 Dose: 15 mcg Budesonide (Pulmicort Respules) 0.5 mg IH [id number] [facility] Last Admin: 01/18/18 07:17 Dose: 0.5 mg Guaifenesin/Codeine Phosphate (Robitussin W/Codeine) 5 ml PO Q6H PRN PRN Reason: Cough and congestion Last Admin: 01/18/18 04:47 Dose: 5 ml Hydromorphone HCl (Dilaudid) 1 mg IVP Q4H PRN PRN Reason: Pain, severe (8-10) Last Admin: 01/17/18 10:19 Dose: 1 mg Sodium Chloride (Sodium Chloride 0.9%) 1,000 mls @ 50 mls/hr IV .Q20H [facility] Last Admin: 01/17/18 04:00 Dose: 50 mls/hr Etoposide 100 mg/ Sodium (Chloride) 505 mls @ 167 mls/hr IV 1700 [facility] Stop: 01/18/18 20:02 Last Admin: 01/17/18 20:30 Dose: 167 mls/hr diltiaZEM IVPB 100mg in NS (Cardizem 100mg In Ns) 100 mls @ 5 mls/hr IV .Q20H PRN; Protocol; 5 MG/HR PRN Reason: TITRATE PER MD ORDER Last Admin: 01/18/18 08:54 Dose: 5 mg/hr, 5 mls/hr Heparin Sodium/Sodium Chloride (Heparin 50399 Units/250ml 1/2 Normal Saline) 25 ,000 units in 250 mls @ 14.261 mls/hr IV .[id number] PRN; Protocol; 12 UNITS/KG/HR PRN Reason: ADJUST RATE PER PROTOCOL Montelukast Sodium (Singulair) 10 mg PO HS [facility] Last Admin: 01/18/18 00:07 Dose: Not Given Nystatin (Nystatin Oral Susp) 5 ml PO QID [facility] Last Admin: 01/18/18 09:56 Dose: 5 ml Ondansetron HCl (Zofran Inj) 4 mg IVP Q6H [facility] Last Admin: 01/18/18 07:46 Dose: Not Given Oxycodone HCl (Oxycodone Immediate Release Tab) 10 mg PO Q6H PRN PRN Reason: Pain, moderate (4-7) Last Admin: 01/15/18 09:05 Dose: 10 mg Pantoprazole Sodium (Protonix Ec Tab) 40 mg PO Q12 [facility] Last Admin: 01/18/18 09:56 Dose: 40 mg Sevelamer HCl (Renagel) 1,600 mg PO AC [facility] Last Admin: 01/18/18 08:55 Dose: 1,600 mg Tiotropium Munith (Spiriva) 18 mcg IH DAILY [facility] Last Admin: 01/18/18 09:56 Dose: 18 mcg - Labs Labs: 01/18/18 03:25 01/18/18 03:25 PT 15.1 SECONDS (9.4-12.5) H 01/18/18 03:25 INR 1.32 (0.93-1.08) H 01/18/18 03:25 APTT 30.8 Seconds (25.1-36.5) 01/18/18 03:25 - Additional Findings Additional findings: - Constitutional Appears: No acute distress, Ill-appearing (but improved compared to prior exam) - Head Exam Head Exam: ATRAUMATIC, NORMAL INSPECTION, NORMOCEPHALIC - Eye Exam Eye Exam: Mild scleral icterus appreciated. absent: Conjunctival injection Pupil Exam: absent: Fixed, Irregular - ENT Exam ENT Exam: Mucous Membranes Moist. - Neck Exam Neck exam: Positive for: Normal Inspection - Respiratory Exam Respiratory Exam: Clear to Auscultation Bilateral, NORMAL BREATHING PATTERN. absent: Accessory Muscle Use, Chest Wall Tenderness, Decreased Breath Sounds, Rales, Rhonchi, Wheezes - Cardiovascular Exam Cardiovascular Exam: Tachycardic (HR 130's-150's on bedside monitor), Irregular rate and rhythm (Afib), +S1, +S2. absent: Bradycardia, JVD, +S4 - GI/Abdominal Exam GI & Abdominal Exam: Unchanged to mildly improved distension, Firm to palpation , mild-moderate tenderness to deep palpation at RUQ, distant-sounding bowel sounds, unable to palpate discrete loops of bowel due to distension/firmness of abdomen - Extremities Exam Extremities exam: Positive for: +1 pedal edema from ankles to mid-eaton. Negative for: calf tenderness, tenderness - Neurological Exam awake and alert, following all commands appropriately, moving all extremities spontaneously - Psychiatric Exam Psychiatric exam: Normal Affect, Normal Mood - Skin Skin Exam: Dry, Intact, Normal Color, Warm, Mild gross jaundice Assessment and Plan - Assessment and Plan (Free Text) Assessment: This is a 62 yo M with PMH of HTN, hypercholesterolemia, COPD, and asthma (not tobacco user) who presented to [facility] with complaint of cough productive for clear sputum for 3 weeks. GI was consulted due to incidentally discovered elevated transaminases, concerning for transaminitis. However, his abdominal ultrasound and CT scans are concerning for liver and possible lung metastases (possibly lung primary). 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 Improving LFTs after acutely elevating x2 days, likely due to Budd Chiari-like effect from tumor compression of hepatic vasculature. Plan: HTN Hypercholesterolemia COPD/Asthma of unclear etiology Acutely worsening LFTs and Cr, concerning for hepatorenal syndrome; both improving, no HD at this time Severely worsening LFTs, like Budd Chiari-like effect from tumor burden causing compression of hepatic veins; improving New Onset Afib -Abd US highly concerning for liver mets, primary unknown, no prior imaging for comparison -Repeat Abd US: no obstruction of hepatic or pancreatic ducts observed, no acute changes from prior Abd US -Chest/Abd/Pelvis CT with IV and PO contrast obtained, highly concerning for extensive liver mets and multiple pulmonary nodules + hilar and mediastinal adenopathy consistent with lung metastatic disease -Repeat CT abd/pelvis w/o contrast negative for subcapsular or intraparenchymal hemorrage from biopsy site -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, pending immunohistochemical analysis -AFP wnl, CA 19-9 elevated at 325, CEA elevated at 20.6 -AST 555, ALT 697, Alk Phos 405, Tbili 6.3, Cr 3, BUN > 120, LDH (from 01/13) 8208 Improved LFTs and renal function on carboplatin and etoposide, likely decreased tumor size resolving Budd Chiari-like effect Continue PRN pain control and anti-emetics Primary team to start on heparin drip for afib, due to liver condition recommend using low-dose instead of standard weight-based regimen (due to increased bleeding risk from liver disease) Trend LFTs and Coags daily Avoid hepatotoxic drugs as feasible Will continue to monitor closely Patient seen, reviewed, and discussed with attending, Dr. Guerrero <Louis Guerrero V - Last Filed: 01/18/18 23:49> Objective - Vital Signs/Intake and Output Vital Signs (last 24 hours): Temp Pulse Resp BP Pulse Ox 98 F 115 H 14 99/55 L 94 L 01/18/18 21:00 01/18/18 22:30 01/18/18 22:30 01/18/18 22:30 01/18/18 22:30 Intake and Output: 01/18/18 01/19/18 18:59 06:59 Intake Total 1606 166 Output Total 1740 Balance -134 166 - Medications Medications: Current Medications Arformoterol Tartrate (Brovana) 15 mcg IH [id number] [facility] Last Admin: 01/18/18 20:00 Dose: 15 mcg Budesonide (Pulmicort Respules) 0.5 mg IH [id number] [facility] Last Admin: 01/18/18 20:00 Dose: 0.5 mg Guaifenesin/Codeine Phosphate (Robitussin W/Codeine) 5 ml PO Q6H PRN PRN Reason: Cough and congestion Last Admin: 01/18/18 12:47 Dose: 5 ml Hydromorphone HCl (Dilaudid) 1 mg IVP Q4H PRN PRN Reason: Pain, severe (8-10) Last Admin: 01/17/18 10:19 Dose: 1 mg Sodium Chloride (Sodium Chloride 0.9%) 1,000 mls @ 50 mls/hr IV .Q20H [facility] Last Admin: 01/17/18 04:00 Dose: 50 mls/hr diltiaZEM IVPB 100mg in NS (Cardizem 100mg In Ns) 100 mls @ 5 mls/hr IV .Q20H PRN; Protocol; 5 MG/HR PRN Reason: TITRATE PER MD ORDER Last Admin: 01/18/18 23:35 Dose: 15 mg/hr, 15 mls/hr Heparin Sodium/Sodium Chloride (Heparin 04725 Units/250ml 1/2 Normal Saline) 25 ,000 units in 250 mls @ 14.261 mls/hr IV .[id number] PRN; Protocol; 12 UNITS/KG/HR PRN Reason: ADJUST RATE PER PROTOCOL Last Titration: 01/18/18 20:40 Dose: 14 units/kg/hr, 16.638 mls/hr Montelukast Sodium (Singulair) 10 mg PO HS [facility] Last Admin: 01/18/18 21:52 Dose: Not Given Ondansetron HCl (Zofran Inj) 4 mg IVP Q6H [facility] Last Admin: 01/18/18 20:48 Dose: Not Given Oxycodone HCl (Oxycodone Immediate Release Tab) 10 mg PO Q6H PRN PRN Reason: Pain, moderate (4-7) Last Admin: 01/15/18 09:05 Dose: 10 mg Pantoprazole Sodium (Protonix Ec Tab) 40 mg PO Q12 [facility] Last Admin: 01/18/18 21:53 Dose: Not Given Sevelamer HCl (Renagel) 1,600 mg PO AC [facility] Last Admin: 01/18/18 18:07 Dose: 1,600 mg Tiotropium Munith (Spiriva) 18 mcg IH DAILY [facility] Last Admin: 01/18/18 09:56 Dose: 18 mcg - Labs Labs: 01/18/18 03:25 01/18/18 16:15 PT 15.1 SECONDS (9.4-12.5) H 01/18/18 03:25 INR 1.32 (0.93-1.08) H 01/18/18 03:25 APTT 48.5 Seconds (25.1-36.5) H 01/18/18 18:53 Attending/Attestation - Attestation I have personally seen and examined this patient.: Yes I have fully participated in the care of the patient.: Yes I have reviewed all pertinent clinical information, including history, physical exam and plan: Yes Notes (Text): This is an addendum to GI followup report dictated by the Screen Making Supervisor.The patient was seen and examined earlier. Medical records, lab studies, imagings were reviewed. Last 24 hours events reviewed. Agreed with the above treatment plan as outlined in Screen Making Supervisor 's notes the with the addition of the following 23:47
[2018-01-18] MEDS: Heparin25000 units/250ml 1/2NS 25,000 UNITS/250 ML BAG IV PRN (12:47)
--- NOTE | 2018-01-18 13:09 | CP.CCUPN ---
<Zaid Jean - Last Filed: 01/18/18 13:39> CCU Subjective - Physician Review Subjective (Free Text): Zaid Jean, PGY1 Critical Care Progress Note for Dr. De Luna Patient was examined at bedside this morning. Patient currently on chemotherapy treatment. Patient was noted to have new atrial fibrillation overnight with HR in the 130-140s. Patient had many bowel movements last night (given kayexelate) . At the moment, patient denies chest pain, shortness of breath, abdominal pain , nausea, vomiting, and diarrhea. As per nurse, patient is a difficult stick and will receive a mid-line today. A Full 12 point ROS was conducted and unremarkable except as stated above. CCU Objective - Vital Signs / Intake & Output Intake and Output (Last 8hrs): Intake & Output 01/17/18 01/18/18 01/18/18 22:59 06:59 14:59 Intake Total 1990 620 Output Total 990 1250 Balance 1000 -630 Weight 118.841 kg Intake: IV 500 Right Subclavian 500 Oral 1490 120 Other 500 Output: Urine 740 1250 Urine, Voided 740 1250 Urine/Stool Mix 250 Other: # Voids Urine, Voided 4 # Bowel Movements 4 4 - Physical Exam Head: Positive for: Atraumatic, Normocephalic Pupils: Positive for: PERRL Extroacular Muscles: Positive for: EOMI Conjunctiva: Positive for: Normal Mouth: Positive for: Moist Mucous Membranes Neck: Positive for: Normal Range of Motion Respiratory/Chest: Positive for: Clear to Auscultation. Negative for: Respiratory Distress, Accessory Muscle Use, Wheezes, Decreased Breath Sounds, Rales, Retracting, Rhonchi, Tender to Palpation Cardiovascular: Positive for: Normal S1, S2, Tachycardic (130s-140s. Afib noted on monitor.), Other (chemoport and temporary dialysis catheter (double lumen) noted on chest wall). Negative for: Murmurs Abdomen: Positive for: Distention, Normal Bowel Sounds, Mass/Organomegaly. Negative for: Tenderness, Peritoneal Signs, Rebound, Guarding Back: Positive for: Normal Inspection Upper Extremity: Positive for: Normal Inspection, NORMAL PULSES. Negative for: Cyanosis, Edema Lower Extremity: Positive for: Normal Inspection, NORMAL PULSES, Swelling (mild swelling bilaterally, but no pitting edema). Negative for: Edema, Cyanosis Neurological: Positive for: GCS=15, Speech Normal Skin: Positive for: Warm, Dry, Normal Color. Negative for: Rashes, Diaphoretic Psychiatric: Positive for: Alert, Oriented x 3, Normal Insight, Normal Concentration - Medications Active Medications: Active Medications Generic Name Dose Route Start Last Admin Trade Name Freq PRN Reason Stop Dose Admin Arformoterol Tartrate 15 mcg 01/11/18 20:00 01/18/18 07:17 Brovana IH 15 mcg [id number] PACHECO Administration Budesonide 0.5 mg 01/11/18 20:00 01/18/18 07:17 Pulmicort Respules IH 0.5 mg [id number] PACHECO Administration Guaifenesin/Codeine Phosphate 5 ml 01/11/18 13:57 01/18/18 12:47 Robitussin W/Codeine PO 5 ml Q6H PRN Administration Cough and congestion Hydromorphone HCl 1 mg 01/15/18 11:39 01/17/18 10:19 Dilaudid IVP 1 mg Q4H PRN Administration Pain, severe (8-10) Sodium Chloride 1,000 mls @ 50 mls/hr 01/16/18 07:41 01/17/18 04:00 Sodium Chloride 0.9% IV 50 mls/hr .Q20H PACHECO Administration Etoposide 100 mg/ Sodium 505 mls @ 167 mls/hr 01/16/18 17:00 01/17/18 20:30 Chloride IV 01/18/18 20:02 167 mls/hr 1700 PACHECO Administration diltiaZEM IVPB 100mg in NS 100 mls @ 5 mls/hr 01/18/18 08:21 01/18/18 08:54 Cardizem 100mg In Ns IV 5 mg/hr .Q20H PRN 5 mls/hr TITRATE PER MD ORDER Administration Protocol 5 MG/HR Heparin Sodium/Sodium Chloride 25,000 units in 250 mls @ 14.261 mls/hr 10:30 01/18/18 12:47 Heparin 11701 Units/250ml 1/2 Normal Saline IV 12 units/kg/hr .[id number] PRN 14.261 mls/hr ADJUST RATE PER PROTOCOL Administration Protocol 12 UNITS/KG/HR Montelukast Sodium 10 mg 01/11/18 22:00 01/18/18 00:07 Singulair PO Not Given HS PACHECO Nystatin 5 ml 01/17/18 14:00 01/18/18 09:56 Nystatin Oral Susp PO 5 ml QID PACHECO Administration Ondansetron HCl 4 mg 01/16/18 19:45 01/18/18 07:46 Zofran Inj IVP Not Given Q6H PACHECO Oxycodone HCl 10 mg 01/14/18 07:58 01/15/18 09:05 Oxycodone Immediate Release Tab PO 10 mg Q6H PRN Administration Pain, moderate (4-7) Pantoprazole Sodium 40 mg 01/12/18 22:00 01/18/18 09:56 Protonix Ec Tab PO 40 mg Q12 PACHECO Administration Sevelamer HCl 1,600 mg 01/16/18 16:30 01/18/18 12:21 Renagel PO 1,600 mg AC PACHECO Administration Tiotropium Swayzee 18 mcg 01/12/18 10:00 01/18/18 09:56 Spiriva IH 18 mcg DAILY PACHECO Administration - Patient Studies Lab Studies: Lab Studies 01/18/18 01/18/18 01/18/18 Range/Units 07:54 03:32 03:25 WBC (4.5-11.0) 10^3/ul RBC (3.5-6.1) 10^6/uL Hgb (14.0-18.0) g/dL Hct (42.0-52.0) % MCV (80.0-105.0) fl MCH (25.0-35.0) pg MCHC (31.0-37.0) g/dl RDW (11.5-14.5) % Plt Count (120.0-450.0) 10^3/uL MPV (7.0-11.0) fl Gran % (50.0-68.0) % Lymph % (Auto) (22.0-35.0) % Lawrence % (Auto) (1.0-6.0) % Eos % (Auto) (1.5-5.0) % Baso % (Auto) (0.0-3.0) % Gran # (1.4-6.5) Lymph # (Auto) (1.2-3.4) Lawrence # (Auto) (0.1-0.6) Eos # (Auto) (0.0-0.7) Baso # (Auto) (0.0-2.0) K/mm3 PT 15.1 H (9.4-12.5) SECONDS INR 1.32 H (0.93-1.08) APTT 30.8 (25.1-36.5) Seconds pO2 56 H 49 (30-55) mm/Hg VBG pH 7.28 L 7.31 L (7.32-7.43) VBG pCO2 36.0 L 33.0 L (40-60) VBG HCO3 16.9 L 16.6 L (21-28) mmol/l VBG Total CO2 18.0 L 17.6 L (22-28) mmol.L VBG O2 Sat (Calc) 89.7 H 85.8 H (40-65) % VBG Base Excess -9.0 L -8.6 L (0.0-2.0) mmol/L VBG Potassium 5.2 5.1 (3.6-5.2) mmol/L Glucose 113 H 121 H (75-110) mg/dl Lactate 2.5 H 2.4 H (0.7-2.1) mmol/L FiO2 21.0 21.0 % Sodium 137.0 136.0 (132-148) mmol/L Potassium (3.6-5.0) mmol/L Chloride 109.0 H 109.0 H (98-107) mmol/L Carbon Dioxide (21-33) mmol/L Anion Gap (10-20) BUN (7-21) mg/dL Creatinine (0.8-1.5) mg/dl Est GFR ( Amer) Est GFR (Non-Af Amer) Random Glucose (70-110) mg/dL Calcium (8.4-10.5) mg/dL Phosphorus (2.5-4.5) mg/dL Magnesium (1.7-2.2) mg/dL Total Bilirubin (0.2-1.3) mg/dL GGT (8-78) U/L AST (17-59) U/L ALT (7-56) U/L Alkaline Phosphatase (38-126) U/L Total Protein (5.8-8.3) g/dL Albumin (3.0-4.8) g/dL Globulin gm/dL Albumin/Globulin Ratio (1.1-1.8) Venous Blood Potassium 5.2 5.1 (3.6-5.2) mmol/L Serum Immunofixation 01/18/18 01/18/18 01/13/18 Range/Units 03:25 03:25 07:00 WBC 10.7 (4.5-11.0) 10^3/ul RBC 4.17 (3.5-6.1) 10^6/uL Hgb 11.8 L (14.0-18.0) g/dL Hct 33.6 L (42.0-52.0) % MCV 80.6 (80.0-105.0) fl MCH 28.3 (25.0-35.0) pg MCHC 35.1 (31.0-37.0) g/dl RDW 16.5 H (11.5-14.5) % Plt Count 135 (120.0-450.0) 10^3/uL MPV 9.8 (7.0-11.0) fl Gran % 97.6 H (50.0-68.0) % Lymph % (Auto) 1.5 L (22.0-35.0) % Lawrence % (Auto) 0.8 L (1.0-6.0) % Eos % (Auto) 0.0 L (1.5-5.0) % Baso % (Auto) 0.1 (0.0-3.0) % Gran # 10.48 H (1.4-6.5) Lymph # (Auto) 0.2 L (1.2-3.4) Lawrence # (Auto) 0.1 (0.1-0.6) Eos # (Auto) 0.0 (0.0-0.7) Baso # (Auto) 0.01 (0.0-2.0) K/mm3 PT (9.4-12.5) SECONDS INR (0.93-1.08) APTT (25.1-36.5) Seconds pO2 (30-55) mm/Hg VBG pH (7.32-7.43) VBG pCO2 (40-60) VBG HCO3 (21-28) mmol/l VBG Total CO2 (22-28) mmol.L VBG O2 Sat (Calc) (40-65) % VBG Base Excess (0.0-2.0) mmol/L VBG Potassium (3.6-5.2) mmol/L Glucose (75-110) mg/dl Lactate (0.7-2.1) mmol/L FiO2 % Sodium 139 (132-148) mmol/L Potassium 5.1 H (3.6-5.0) mmol/L Chloride 109 H (98-107) mmol/L Carbon Dioxide 17 L (21-33) mmol/L Anion Gap 18 (10-20) BUN > 120 H* (7-21) mg/dL Creatinine 3.0 H (0.8-1.5) mg/dl Est GFR ( Amer) 26 Est GFR (Non-Af Amer) 21 Random Glucose 118 H (70-110) mg/dL Calcium 7.7 L (8.4-10.5) mg/dL Phosphorus 7.7 H (2.5-4.5) mg/dL Magnesium 3.0 H (1.7-2.2) mg/dL Total Bilirubin 6.3 H (0.2-1.3) mg/dL GGT 1146 H (8-78) U/L AST 555 H (17-59) U/L ALT 697 H (7-56) U/L Alkaline Phosphatase 405 H (38-126) U/L Total Protein 5.6 L (5.8-8.3) g/dL Albumin 2.7 L (3.0-4.8) g/dL Globulin 2.9 gm/dL Albumin/Globulin Ratio 0.9 L (1.1-1.8) Venous Blood Potassium (3.6-5.2) mmol/L Serum Immunofixation Not detected Laboratory Results - last 24 hr 01/13/18 01/18/18 01/18/18 07:00 03:25 03:25 WBC 10.7 RBC 4.17 Hgb 11.8 L Hct 33.6 L MCV 80.6 MCH 28.3 MCHC 35.1 RDW 16.5 H Plt Count 135 MPV 9.8 Gran % 97.6 H Lymph % (Auto) 1.5 L Lawrence % (Auto) 0.8 L Eos % (Auto) 0.0 L Baso % (Auto) 0.1 Gran # 10.48 H Lymph # (Auto) 0.2 L Lawrence # (Auto) 0.1 Eos # (Auto) 0.0 Baso # (Auto) 0.01 PT INR APTT pO2 VBG pH VBG pCO2 VBG HCO3 VBG Total CO2 VBG O2 Sat (Calc) VBG Base Excess VBG Potassium Glucose Lactate FiO2 Sodium 139 Potassium 5.1 H Chloride 109 H Carbon Dioxide 17 L Anion Gap 18 BUN > 120 H* Creatinine 3.0 H Est GFR ( Amer) 26 Est GFR (Non-Af Amer) 21 Random Glucose 118 H Calcium 7.7 L Phosphorus 7.7 H Magnesium 3.0 H Total Bilirubin 6.3 H GGT 1146 H AST 555 H ALT 697 H Alkaline Phosphatase 405 H Total Protein 5.6 L Albumin 2.7 L Globulin 2.9 Albumin/Globulin Ratio 0.9 L Venous Blood Potassium Serum Immunofixation Not detected 01/18/18 01/18/18 01/18/18 03:25 03:32 07:54 WBC RBC Hgb Hct MCV MCH MCHC RDW Plt Count MPV Gran % Lymph % (Auto) Lawrence % (Auto) Eos % (Auto) Baso % (Auto) Gran # Lymph # (Auto) Lawrence # (Auto) Eos # (Auto) Baso # (Auto) PT 15.1 H INR 1.32 H APTT 30.8 pO2 49 56 H VBG pH 7.31 L 7.28 L VBG pCO2 33.0 L 36.0 L VBG HCO3 16.6 L 16.9 L VBG Total CO2 17.6 L 18.0 L VBG O2 Sat (Calc) 85.8 H 89.7 H VBG Base Excess -8.6 L -9.0 L VBG Potassium 5.1 5.2 Glucose 121 H 113 H Lactate 2.4 H 2.5 H FiO2 21.0 21.0 Sodium 136.0 137.0 Potassium Chloride 109.0 H 109.0 H Carbon Dioxide Anion Gap BUN Creatinine Est GFR ( Amer) Est GFR (Non-Af Amer) Random Glucose Calcium Phosphorus Magnesium Total Bilirubin GGT AST ALT Alkaline Phosphatase Total Protein Albumin Globulin Albumin/Globulin Ratio Venous Blood Potassium 5.1 5.2 Serum Immunofixation EKG/Cardiology Studies: Cardiology / EKG Studies 01/18/18 EKG [ELECTROCARDIOGRAM] Routine Comment: Reason For Exam: a-fib Review of Systems - Review of Systems All systems: reviewed and no additional remarkable complaints except (as per HPI.) Critical Care Progress Note - Extremities/Vascular Does the Patient have a Central Venous Catheter?: No Does the Patient need a Central Venous Catheter?: No Does the Patient have a Bills Catheter?: No Does the Patient need a Bills Catheter?: No - Prophylaxis GI Prophylaxis GI: PPI - Prophylaxis DVT Prophylaxis DVT: SCDs - Nutrition Nutrition: Nutrition Category Date Time Status Renal Diet [DIET] Diets 01/16/18 Breakfast Ordered Assessment/Plan - Assessment and Plan (Free Text) Assessment: Patient is a 62 y/o M with PMHx of newly diagnosed diffuse liver and lung metastatic disease, HTN, HLD, COPD, and asthma (non-smoker) who presented to [facility] with cough productive of clear sputum for several weeks. CT scan was concerning for diffuse metastatic disease with extensive liver mets and multiple pulmonary nodules with hilar and mediastinal adenopathy, consistent with lung metastatic disease. During hospital course, patient has worsening transaminitis with worsening renal function, likely hepatorenal syndrome. Patient is being followed by GI, heme/onc, IR, ID, pulm, and cardiology. Overall , patient prognosis is very poor. ICU was consulted for care of the patient. Patient currently getting chemotherapy via port and has a temporary dialysis catheter in place. Patient has new onset afib. Plan: Neuro: - Maintain normothermia Pulm: - Maintain SaO2 > 92% - Pulm consulted, f/u recs - Chest CT: extensive liver mets and multiple pulmonary nodules and hilar and mediastinal adenopathy consistent with lung metastatic disease Cardio: - EKG (01/18): new onset afib with HR 140s. - Will manage afib with heparin gtt - given cardizem gtt - Cardio consulted, f/u recs - Maintain MAP > 65 GI: - GI ppx - GI consulted, f/u recs - Abdomen/Pelvis CT: diffuse metastatic disease. No evidence of hemorrhage. 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 Code status DNR/DNI. Patient is currently being managed in the ICU. Case was reviewed and discussed with Attending Physician Dr. De Luna. <Josse De Luna - Last Filed: 01/18/18 14:01> CCU Objective - Vital Signs / Intake & Output Intake and Output (Last 8hrs): Intake & Output 01/17/18 01/18/18 01/18/18 22:59 06:59 14:59 Intake Total 1990 620 Output Total 990 1250 Balance 1000 -630 Weight 262 lb Intake: IV 500 Right Subclavian 500 Oral 1490 120 Other 500 Output: Urine 740 1250 Urine, Voided 740 1250 Urine/Stool Mix 250 Other: # Voids Urine, Voided 4 # Bowel Movements 4 4 - Medications Active Medications: Active Medications Generic Name Dose Route Start Last Admin Trade Name Freq PRN Reason Stop Dose Admin Arformoterol Tartrate 15 mcg 01/11/18 20:00 01/18/18 07:17 Brovana IH 15 mcg [id number] PACHECO Administration Budesonide 0.5 mg 01/11/18 20:00 01/18/18 07:17 Pulmicort Respules IH 0.5 mg [id number] PACHECO Administration Guaifenesin/Codeine Phosphate 5 ml 01/11/18 13:57 01/18/18 12:47 Robitussin W/Codeine PO 5 ml Q6H PRN Administration Cough and congestion Hydromorphone HCl 1 mg 01/15/18 11:39 01/17/18 10:19 Dilaudid IVP 1 mg Q4H PRN Administration Pain, severe (8-10) Sodium Chloride 1,000 mls @ 50 mls/hr 01/16/18 07:41 01/17/18 04:00 Sodium Chloride 0.9% IV 50 mls/hr .Q20H PACHECO Administration Etoposide 100 mg/ Sodium 505 mls @ 167 mls/hr 01/16/18 17:00 01/17/18 20:30 Chloride IV 01/18/18 20:02 167 mls/hr 1700 PACHECO Administration diltiaZEM IVPB 100mg in NS 100 mls @ 5 mls/hr 01/18/18 08:21 01/18/18 08:54 Cardizem 100mg In Ns IV 5 mg/hr .Q20H PRN 5 mls/hr TITRATE PER MD ORDER Administration Protocol 5 MG/HR Heparin Sodium/Sodium Chloride 25,000 units in 250 mls @ 14.261 mls/hr 10:30 01/18/18 12:47 Heparin 35959 Units/250ml 1/2 Normal Saline IV 12 units/kg/hr .[id number] PRN 14.261 mls/hr ADJUST RATE PER PROTOCOL Administration Protocol 12 UNITS/KG/HR Montelukast Sodium 10 mg 01/11/18 22:00 01/18/18 00:07 Singulair PO Not Given HS PACHECO Nystatin 5 ml 01/17/18 14:00 01/18/18 09:56 Nystatin Oral Susp PO 5 ml QID PACHECO Administration Ondansetron HCl 4 mg 01/16/18 19:45 01/18/18 07:46 Zofran Inj IVP Not Given Q6H PACHECO Oxycodone HCl 10 mg 01/14/18 07:58 01/15/18 09:05 Oxycodone Immediate Release Tab PO 10 mg Q6H PRN Administration Pain, moderate (4-7) Pantoprazole Sodium 40 mg 01/12/18 22:00 01/18/18 09:56 Protonix Ec Tab PO 40 mg Q12 PACHECO Administration Sevelamer HCl 1,600 mg 01/16/18 16:30 01/18/18 12:21 Renagel PO 1,600 mg AC PACHECO Administration Tiotropium Swayzee 18 mcg 01/12/18 10:00 01/18/18 09:56 Spiriva IH 18 mcg DAILY PACHECO Administration - Patient Studies Lab Studies: Lab Studies 01/18/18 01/18/18 01/18/18 Range/Units 07:54 03:32 03:25 WBC (4.5-11.0) 10^3/ul RBC (3.5-6.1) 10^6/uL Hgb (14.0-18.0) g/dL Hct (42.0-52.0) % MCV (80.0-105.0) fl MCH (25.0-35.0) pg MCHC (31.0-37.0) g/dl RDW (11.5-14.5) % Plt Count (120.0-450.0) 10^3/uL MPV (7.0-11.0) fl Gran % (50.0-68.0) % Lymph % (Auto) (22.0-35.0) % Lawrence % (Auto) (1.0-6.0) % Eos % (Auto) (1.5-5.0) % Baso % (Auto) (0.0-3.0) % Gran # (1.4-6.5) Lymph # (Auto) (1.2-3.4) Lawrence # (Auto) (0.1-0.6) Eos # (Auto) (0.0-0.7) Baso # (Auto) (0.0-2.0) K/mm3 PT 15.1 H (9.4-12.5) SECONDS INR 1.32 H (0.93-1.08) APTT 30.8 (25.1-36.5) Seconds pO2 56 H 49 (30-55) mm/Hg VBG pH 7.28 L 7.31 L (7.32-7.43) VBG pCO2 36.0 L 33.0 L (40-60) VBG HCO3 16.9 L 16.6 L (21-28) mmol/l VBG Total CO2 18.0 L 17.6 L (22-28) mmol.L VBG O2 Sat (Calc) 89.7 H 85.8 H (40-65) % VBG Base Excess -9.0 L -8.6 L (0.0-2.0) mmol/L VBG Potassium 5.2 5.1 (3.6-5.2) mmol/L Glucose 113 H 121 H (75-110) mg/dl Lactate 2.5 H 2.4 H (0.7-2.1) mmol/L FiO2 21.0 21.0 % Sodium 137.0 136.0 (132-148) mmol/L Potassium (3.6-5.0) mmol/L Chloride 109.0 H 109.0 H (98-107) mmol/L Carbon Dioxide (21-33) mmol/L Anion Gap (10-20) BUN (7-21) mg/dL Creatinine (0.8-1.5) mg/dl Est GFR ( Amer) Est GFR (Non-Af Amer) Random Glucose (70-110) mg/dL Calcium (8.4-10.5) mg/dL Phosphorus (2.5-4.5) mg/dL Magnesium (1.7-2.2) mg/dL Total Bilirubin (0.2-1.3) mg/dL GGT (8-78) U/L AST (17-59) U/L ALT (7-56) U/L Alkaline Phosphatase (38-126) U/L Total Protein (5.8-8.3) g/dL Albumin (3.0-4.8) g/dL Globulin gm/dL Albumin/Globulin Ratio (1.1-1.8) Venous Blood Potassium 5.2 5.1 (3.6-5.2) mmol/L Serum Immunofixation 01/18/18 01/18/18 01/13/18 Range/Units 03:25 03:25 07:00 WBC 10.7 (4.5-11.0) 10^3/ul RBC 4.17 (3.5-6.1) 10^6/uL Hgb 11.8 L (14.0-18.0) g/dL Hct 33.6 L (42.0-52.0) % MCV 80.6 (80.0-105.0) fl MCH 28.3 (25.0-35.0) pg MCHC 35.1 (31.0-37.0) g/dl RDW 16.5 H (11.5-14.5) % Plt Count 135 (120.0-450.0) 10^3/uL MPV 9.8 (7.0-11.0) fl Gran % 97.6 H (50.0-68.0) % Lymph % (Auto) 1.5 L (22.0-35.0) % Lawrence % (Auto) 0.8 L (1.0-6.0) % Eos % (Auto) 0.0 L (1.5-5.0) % Baso % (Auto) 0.1 (0.0-3.0) % Gran # 10.48 H (1.4-6.5) Lymph # (Auto) 0.2 L (1.2-3.4) Lawrence # (Auto) 0.1 (0.1-0.6) Eos # (Auto) 0.0 (0.0-0.7) Baso # (Auto) 0.01 (0.0-2.0) K/mm3 PT (9.4-12.5) SECONDS INR (0.93-1.08) APTT (25.1-36.5) Seconds pO2 (30-55) mm/Hg VBG pH (7.32-7.43) VBG pCO2 (40-60) VBG HCO3 (21-28) mmol/l VBG Total CO2 (22-28) mmol.L VBG O2 Sat (Calc) (40-65) % VBG Base Excess (0.0-2.0) mmol/L VBG Potassium (3.6-5.2) mmol/L Glucose (75-110) mg/dl Lactate (0.7-2.1) mmol/L FiO2 % Sodium 139 (132-148) mmol/L Potassium 5.1 H (3.6-5.0) mmol/L Chloride 109 H (98-107) mmol/L Carbon Dioxide 17 L (21-33) mmol/L Anion Gap 18 (10-20) BUN > 120 H* (7-21) mg/dL Creatinine 3.0 H (0.8-1.5) mg/dl Est GFR ( Amer) 26 Est GFR (Non-Af Amer) 21 Random Glucose 118 H (70-110) mg/dL Calcium 7.7 L (8.4-10.5) mg/dL Phosphorus 7.7 H (2.5-4.5) mg/dL Magnesium 3.0 H (1.7-2.2) mg/dL Total Bilirubin 6.3 H (0.2-1.3) mg/dL GGT 1146 H (8-78) U/L AST 555 H (17-59) U/L ALT 697 H (7-56) U/L Alkaline Phosphatase 405 H (38-126) U/L Total Protein 5.6 L (5.8-8.3) g/dL Albumin 2.7 L (3.0-4.8) g/dL Globulin 2.9 gm/dL Albumin/Globulin Ratio 0.9 L (1.1-1.8) Venous Blood Potassium (3.6-5.2) mmol/L Serum Immunofixation Not detected Laboratory Results - last 24 hr 01/13/18 01/18/18 01/18/18 07:00 03:25 03:25 WBC 10.7 RBC 4.17 Hgb 11.8 L Hct 33.6 L MCV 80.6 MCH 28.3 MCHC 35.1 RDW 16.5 H Plt Count 135 MPV 9.8 Gran % 97.6 H Lymph % (Auto) 1.5 L Lawrence % (Auto) 0.8 L Eos % (Auto) 0.0 L Baso % (Auto) 0.1 Gran # 10.48 H Lymph # (Auto) 0.2 L Lawrence # (Auto) 0.1 Eos # (Auto) 0.0 Baso # (Auto) 0.01 PT INR APTT pO2 VBG pH VBG pCO2 VBG HCO3 VBG Total CO2 VBG O2 Sat (Calc) VBG Base Excess VBG Potassium Glucose Lactate FiO2 Sodium 139 Potassium 5.1 H Chloride 109 H Carbon Dioxide 17 L Anion Gap 18 BUN > 120 H* Creatinine 3.0 H Est GFR ( Amer) 26 Est GFR (Non-Af Amer) 21 Random Glucose 118 H Calcium 7.7 L Phosphorus 7.7 H Magnesium 3.0 H Total Bilirubin 6.3 H GGT 1146 H AST 555 H ALT 697 H Alkaline Phosphatase 405 H Total Protein 5.6 L Albumin 2.7 L Globulin 2.9 Albumin/Globulin Ratio 0.9 L Venous Blood Potassium Serum Immunofixation Not detected 01/18/18 01/18/18 01/18/18 03:25 03:32 07:54 WBC RBC Hgb Hct MCV MCH MCHC RDW Plt Count MPV Gran % Lymph % (Auto) Lawrence % (Auto) Eos % (Auto) Baso % (Auto) Gran # Lymph # (Auto) Lawrence # (Auto) Eos # (Auto) Baso # (Auto) PT 15.1 H INR 1.32 H APTT 30.8 pO2 49 56 H VBG pH 7.31 L 7.28 L VBG pCO2 33.0 L 36.0 L VBG HCO3 16.6 L 16.9 L VBG Total CO2 17.6 L 18.0 L VBG O2 Sat (Calc) 85.8 H 89.7 H VBG Base Excess -8.6 L -9.0 L VBG Potassium 5.1 5.2 Glucose 121 H 113 H Lactate 2.4 H 2.5 H FiO2 21.0 21.0 Sodium 136.0 137.0 Potassium Chloride 109.0 H 109.0 H Carbon Dioxide Anion Gap BUN Creatinine Est GFR ( Amer) Est GFR (Non-Af Amer) Random Glucose Calcium Phosphorus Magnesium Total Bilirubin GGT AST ALT Alkaline Phosphatase Total Protein Albumin Globulin Albumin/Globulin Ratio Venous Blood Potassium 5.1 5.2 Serum Immunofixation EKG/Cardiology Studies: Cardiology / EKG Studies 01/18/18 EKG [ELECTROCARDIOGRAM] Routine Comment: Reason For Exam: a-fib Critical Care Progress Note - Nutrition Nutrition: Nutrition Category Date Time Status Renal Diet [DIET] Diets 01/16/18 Breakfast Ordered Attending/Attestation - Attestation I have personally seen and examined this patient.: Yes I have fully participated in the care of the patient.: Yes I have reviewed all pertinent clinical information: Yes Notes (Text): 01/18/18 13:59 The patient was seen and examined at the bedside. Patient care was discussed with resident Medical records, lab studies, and imaging were reviewed and management issues were discussed and formulated. Agree with above treatment plans as outlined in 's note with addition of the following: Metastatic Smal Cell CA \ Liver and Lung nodules \ COPD \ FRAN \ Elevated LFT \ Afib with RVR -hemodynamic monitoring to maintain MAP>65 -pt developed new Afib with RVR; continue cardizem drip; cardiology team eval called -o2 supplementation to maintain Spo2 >90 Pao2>60; comfortable on NC -continue nebs, pulmonary team f\u -continue to f\u cultures and fever curve; ID team following -f\u Bun\Cr and U\o; renal team f\u -PO diet and aspiration precautions -f\u serial LFT; GI team f\u -IR team f\u -chemotherapy initiated by Heme\Onc team -DVT \ PUD prophylaxis -DNR\DNI as per his request CCM time 27min
[2018-01-18] MEDS ORDERED: Digoxin 500 mcg/2ml (0.5 mg/2ml) Inj IVP ONE (13:16)
--- NOTE | 2018-01-18 13:43 | CP.PCM.PN ---
Subjective - Date & Time of Evaluation Date of Evaluation: 01/18/18 Time of Evaluation: 09:30 - Subjective Subjective: Has occasional palpitations, feels weak, no fevers overnight. Objective - Vital Signs/Intake and Output Vital Signs (last 24 hours): Temp Pulse Resp BP Pulse Ox 98.3 F 154 H 12 106/46 L 95 01/18/18 04:00 01/18/18 08:49 01/18/18 08:00 01/18/18 08:49 01/18/18 08:00 Intake and Output: 01/18/18 01/18/18 06:59 18:59 Intake Total 620 Output Total 1250 Balance -630 - Medications Medications: Current Medications Arformoterol Tartrate (Brovana) 15 mcg IH [id number] [facility] Last Admin: 01/18/18 07:17 Dose: 15 mcg Budesonide (Pulmicort Respules) 0.5 mg IH [id number] [facility] Last Admin: 01/18/18 07:17 Dose: 0.5 mg Guaifenesin/Codeine Phosphate (Robitussin W/Codeine) 5 ml PO Q6H PRN PRN Reason: Cough and congestion Last Admin: 01/18/18 04:47 Dose: 5 ml Hydromorphone HCl (Dilaudid) 1 mg IVP Q4H PRN PRN Reason: Pain, severe (8-10) Last Admin: 01/17/18 10:19 Dose: 1 mg Sodium Chloride (Sodium Chloride 0.9%) 1,000 mls @ 50 mls/hr IV .Q20H [facility] Last Admin: 01/17/18 04:00 Dose: 50 mls/hr Etoposide 100 mg/ Sodium (Chloride) 505 mls @ 167 mls/hr IV 1700 [facility] Stop: 01/18/18 20:02 Last Admin: 01/17/18 20:30 Dose: 167 mls/hr diltiaZEM IVPB 100mg in NS (Cardizem 100mg In Ns) 100 mls @ 5 mls/hr IV .Q20H PRN; Protocol; 5 MG/HR PRN Reason: TITRATE PER MD ORDER Last Admin: 01/18/18 08:54 Dose: 5 mg/hr, 5 mls/hr Heparin Sodium/Sodium Chloride (Heparin 06916 Units/250ml 1/2 Normal Saline) 25 ,000 units in 250 mls @ 21.391 mls/hr IV .[id number] PRN; Protocol; 18 UNITS/KG/HR PRN Reason: ADJUST RATE PER PROTOCOL Lidocaine (Lidoderm) 1 ea TD DAILY [facility] Last Admin: 01/18/18 09:49 Dose: Not Given Montelukast Sodium (Singulair) 10 mg PO HS [facility] Last Admin: 01/18/18 00:07 Dose: Not Given Nystatin (Nystatin Oral Susp) 5 ml PO QID [facility] Last Admin: 01/18/18 09:56 Dose: 5 ml Ondansetron HCl (Zofran Inj) 4 mg IVP Q6H [facility] Last Admin: 01/18/18 07:46 Dose: Not Given Oxycodone HCl (Oxycodone Immediate Release Tab) 10 mg PO Q6H PRN PRN Reason: Pain, moderate (4-7) Last Admin: 01/15/18 09:05 Dose: 10 mg Pantoprazole Sodium (Protonix Ec Tab) 40 mg PO Q12 [facility] Last Admin: 01/18/18 09:56 Dose: 40 mg Sevelamer HCl (Renagel) 1,600 mg PO AC [facility] Last Admin: 01/18/18 08:55 Dose: 1,600 mg Tiotropium [place] (Spiriva) 18 mcg IH DAILY [facility] Last Admin: 01/18/18 09:56 Dose: 18 mcg - Labs Labs: 01/18/18 03:25 01/18/18 03:25 PT 15.1 SECONDS (9.4-12.5) H 01/18/18 03:25 INR 1.32 (0.93-1.08) H 01/18/18 03:25 APTT 30.8 Seconds (25.1-36.5) 01/18/18 03:25 - Constitutional Appears: Chronically Ill - Head Exam Head Exam: NORMAL INSPECTION - Respiratory Exam Respiratory Exam: Decreased Breath Sounds - Cardiovascular Exam Cardiovascular Exam: +S1, +S2 - GI/Abdominal Exam GI & Abdominal Exam: Soft. 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
[2018-01-18 16:19] LABS: VENOUS BLOOD GAS BASE EXCESS -10.8 mmol/L (0.0-2.0); VENOUS BLOOD GAS PO2 55 mm/Hg (30-55); VENOUS BLOOD PH 7.26 (7.32-7.43)
[2018-01-18 16:33] LABS: URIC ACID 16.4 mg/dL (3.5-8.5)
--- NOTE | 2018-01-18 18:11 | CARD ---
APPROVED REPORT Date of service: 01/18/2018 EXAM: Two-dimensional and M-mode echocardiogram with Doppler and color Doppler. INDICATION 2D DIMENSIONS IVSd1.3 (0.7-1.1cm)LVDd4.7 (3.9-5.9cm) PWd1.4 (0.7-1.1cm)LVDs3.4 (2.5-4.0cm) FS (%) 27.0 %LVEF (%)52.6 (>50%) M-Mode DIMENSIONS Left Atrium (MM)3.90 (2.5-4.0cm)Aortic Root4.20 (2.2-3.7cm) Aortic Cusp Exc.2.30 (1.5-2.0cm) Aortic Valve AoV Peak Xswhzmgp202.0cm/Krystian Peak GR.21mmHg Mitral Valve MV E Zzoquohc40.9cm/s TDI Lateral E' Peak V20.20cm/sMedial E' Peak V14.30cm/sE/Lateral E'4.0 E/Medial E'5.7 Tricuspid Valve TR Peak [id number]/sRAP [id number] Peak Gr.33mmHg [id number] LEFT VENTRICLE The left ventricle is normal size. There is mild concentric left ventricular hypertrophy. The left ventricular function is normal. The left ventricular ejection fraction is within the normal range. There is normal LV segmental wall motion. RIGHT VENTRICLE The right ventricle is normal size. There is normal right ventricular wall thickness. The right ventricular systolic function is normal. ATRIA The left atrium size is normal. The right atrium size is normal. AORTIC VALVE The aortic valve is probably bicuspid. There is mild aortic regurgitation. MITRAL VALVE The mitral valve is normal in structure. There is no mitral valve regurgitation noted. There is no mitral valve stenosis. TRICUSPID VALVE There is mild pulmonary hypertension. GREAT VESSELS The aortic root is mildly to moderately enlarged. The IVC collapses <50% with inspiration. PERICARDIAL EFFUSION There is a trace loculated anterior pericardial effusion. <Conclusion> The left ventricle is normal size. There is mild concentric left ventricular hypertrophy. The left ventricular function is normal. The left ventricular ejection fraction is within the normal range. There is normal LV segmental wall motion. The aortic valve is probably bicuspid. The aortic root is mildly to moderately enlarged. There is mild aortic regurgitation. There is mild pulmonary hypertension.
--- NOTE | 2018-01-18 19:28 | CARD ---
APPROVED REPORT Date of service: 01/18/2018 EKG Measurement Heart [id number] <Conclusion> Atrial fibrillation with rapid ventricular response Right bundle branch block Abnormal ECG
[2018-01-19 03:41] LABS: BASO # 0.02 K/mm3 (0.0-2.0); BASO % 0.2 % (0.0-3.0); GRAN # 11.47 (1.4-6.5); HEMOGLOBIN 11.8 g/dL (14.0-18.0); LYMPH # 0.2 (1.2-3.4); LYMPH % 1.5 % (22.0-35.0); MEAN CELL VOLUME 78.7 fl (80.0-105.0); MEAN CORPUSCULAR HEMOGLOBIN 28.3 pg (25.0-35.0); MEAN PLATELET VOLUME 9.9 fl (7.0-11.0); MONO % 0.3 % (1.0-6.0); RBC 4.17 10^6/uL (3.5-6.1); WHITE BLOOD COUNT 11.7 10^3/ul (4.5-11.0)
[2018-01-19 03:59] LABS: ALB/GLOB RATIO 0.9 (1.1-1.8); ALBUMIN 2.6 g/dL (3.0-4.8); CALCIUM 7.7 mg/dL (8.4-10.5); URIC ACID 16.8 mg/dL (3.5-8.5)
--- NOTE | 2018-01-19 05:25 | CP.PCM.PN ---
<Zina Field - Last Filed: 01/19/18 14:43> Subjective - Date & Time of Evaluation Date of Evaluation: 01/19/18 Time of Evaluation: 07:00 - Subjective Subjective: Medicine Progress Note for Lisandro Mckinney PGY3 Patient seen and examined at bedside. There were no acute overnight events as per nursing staff. Patient reports feeling tired today. He reports some back pain. He denies chest pain, shortness of breath, nausea, vomiting, diarrhea, fever/chills, numbness/tingling, palpitations, dysuria, hematuria, or vision changes. He is complaining of urinary frequency. Objective - Vital Signs/Intake and Output Vital Signs (last 24 hours): Temp Pulse Resp BP Pulse Ox 98.1 F 121 H 17 104/59 L 94 L 01/19/18 00:00 01/19/18 04:06 01/19/18 04:06 01/19/18 04:00 01/18/18 22:30 Intake and Output: 01/18/18 01/19/18 18:59 06:59 Intake Total 1606 166 Output Total 1740 Balance -134 166 - Medications Medications: Current Medications Arformoterol Tartrate (Brovana) 15 mcg IH [id number] [facility] Last Admin: 01/18/18 20:00 Dose: 15 mcg Budesonide (Pulmicort Respules) 0.5 mg IH [id number] [facility] Last Admin: 01/18/18 20:00 Dose: 0.5 mg Guaifenesin/Codeine Phosphate (Robitussin W/Codeine) 5 ml PO Q6H PRN PRN Reason: Cough and congestion Last Admin: 01/18/18 12:47 Dose: 5 ml Hydromorphone HCl (Dilaudid) 1 mg IVP Q4H PRN PRN Reason: Pain, severe (8-10) Last Admin: 01/17/18 10:19 Dose: 1 mg Sodium Chloride (Sodium Chloride 0.9%) 1,000 mls @ 50 mls/hr IV .Q20H [facility] Last Admin: 01/17/18 04:00 Dose: 50 mls/hr diltiaZEM IVPB 100mg in NS (Cardizem 100mg In Ns) 100 mls @ 5 mls/hr IV .Q20H PRN; Protocol; 5 MG/HR PRN Reason: TITRATE PER MD ORDER Last Admin: 01/18/18 23:35 Dose: 15 mg/hr, 15 mls/hr Heparin Sodium/Sodium Chloride (Heparin 49807 Units/250ml 1/2 Normal Saline) 25 ,000 units in 250 mls @ 14.261 mls/hr IV .[id number] PRN; Protocol; 12 UNITS/KG/HR PRN Reason: ADJUST RATE PER PROTOCOL Last Titration: 01/18/18 20:40 Dose: 14 units/kg/hr, 16.638 mls/hr Montelukast Sodium (Singulair) 10 mg PO HS [facility] Last Admin: 01/18/18 21:52 Dose: Not Given Ondansetron HCl (Zofran Inj) 4 mg IVP Q6H [facility] Last Admin: 01/18/18 20:48 Dose: Not Given Oxycodone HCl (Oxycodone Immediate Release Tab) 10 mg PO Q6H PRN PRN Reason: Pain, moderate (4-7) Last Admin: 01/15/18 09:05 Dose: 10 mg Pantoprazole Sodium (Protonix Ec Tab) 40 mg PO Q12 [facility] Last Admin: 01/18/18 21:53 Dose: Not Given Sevelamer HCl (Renagel) 1,600 mg PO AC [facility] Last Admin: 01/18/18 18:07 Dose: 1,600 mg Tiotropium [place] (Spiriva) 18 mcg IH DAILY [facility] Last Admin: 01/18/18 09:56 Dose: 18 mcg - Labs Labs: 01/19/18 03:00 01/19/18 03:00 PT 15.1 SECONDS (9.4-12.5) H 01/18/18 03:25 INR 1.32 (0.93-1.08) H 01/18/18 03:25 APTT 72.5 Seconds (25.1-36.5) H 01/19/18 03:00 - Constitutional Appears: No Acute Distress, Chronically Ill - Head Exam Head Exam: ATRAUMATIC, NORMAL INSPECTION, NORMOCEPHALIC - Eye Exam Eye Exam: PERRL, Scleral icterus Pupil Exam: NORMAL ACCOMODATION, PERRL - ENT Exam ENT Exam: Mucous Membranes Moist - Respiratory Exam Respiratory Exam: Clear to Ausculation Bilateral, NORMAL BREATHING PATTERN. absent: Rales, Rhonchi, Wheezes - Cardiovascular Exam Cardiovascular Exam: Tachycardia, Irregular Rhythm, +S1, +S2. absent: Gallop, Rubs, Murmur - GI/Abdominal Exam GI & Abdominal Exam: Distended, Soft, Normal Bowel Sounds, Organomegaly. absent : Rigid, Tenderness, Rebound - Extremities Exam Extremities Exam: absent: Calf Tenderness - Neurological Exam Neurological Exam: Alert, Awake, CN II-XII Intact - Skin Skin Exam: Dry, Warm Assessment and Plan - Assessment and Plan (Free Text) Assessment: This is a 62yo male with past medical history of HTN, dyslipidemia, asthma who is admitted for 1. Liver failure (improving) - secondary to liver metastasis s/p palliative chemotherapy with etopiside and carboplatin x 3 - INR increasing, LFTs trending down 2. Renal failure (improving) - Secondary to hepatorenal syndrome with IV contrast and chemotherapy - HD catheter in place - No need for HD at this time 3. Tumor Lysis Syndome (improving) - Secondary to chemotherapy - phos decreasing, BUN elevated- works as diuretic- Urine output increasing - continue to monitor electrolytes 4. A.fib (new onset) - Echo EF 52%. Biscupid AV valve. Normal LV function 5. Chronic bronchitis 6. HTN 7. Dyslipidemia 8. Hx of asthma Plan: Patient given one dose Lasix this AM. He was evaluated by cardiology. Labs and imaging reviewed. He is on Digoxin, Cardizem drip as well as Cardizem PO- to be weaned off of the drip. He is on Heparin drip. Pain is controlled. Continue nebulizer treatments. GI and pulm recommendations appreciated. Continue Allopurinol for hyperuricemia. Kidney function is improving. No need for HD. Will continue to monitor urine output. Case seen, discussed and reviewed with Dr. Rubalcava. Lisandro Field PGY3 <Mack Rubalcava - Last Filed: 01/19/18 17:45> Objective - Vital Signs/Intake and Output Vital Signs (last 24 hours): Temp Pulse Resp BP Pulse Ox 98.1 F 102 H 17 102/56 L 94 L 01/19/18 00:00 01/19/18 15:14 01/19/18 04:06 01/19/18 09:59 01/18/18 22:30 Intake and Output: 01/19/18 01/19/18 06:59 18:59 Intake Total 1455 0 Output Total 1000 Balance 455 0 - Medications Medications: Current Medications Allopurinol (Zyloprim) 100 mg PO DAILY [facility] Last Admin: 01/19/18 09:59 Dose: 100 mg Arformoterol Tartrate (Brovana) 15 mcg IH [id number] [facility] Last Admin: 01/19/18 07:31 Dose: 15 mcg Budesonide (Pulmicort Respules) 0.5 mg IH [id number] [facility] Last Admin: 01/19/18 07:31 Dose: 0.5 mg Digoxin (Lanoxin) 0.25 mg IV DAILY [facility] Last Admin: 01/19/18 10:00 Dose: 0.25 mg Diltiazem HCl (Cardizem) 30 mg PO Q6H [facility] Last Admin: 01/19/18 15:14 Dose: 30 mg Guaifenesin/Codeine Phosphate (Robitussin W/Codeine) 5 ml PO Q6H PRN PRN Reason: Cough and congestion Last Admin: 01/18/18 12:47 Dose: 5 ml Hydromorphone HCl (Dilaudid) 1 mg IVP Q4H PRN PRN Reason: Pain, severe (8-10) Last Admin: 01/17/18 10:19 Dose: 1 mg diltiaZEM IVPB 100mg in NS (Cardizem 100mg In Ns) 100 mls @ 5 mls/hr IV .Q20H PRN; Protocol; 5 MG/HR PRN Reason: TITRATE PER MD ORDER Last Titration: 01/19/18 13:59 Dose: 0 mg/hr, 0 mls/hr Heparin Sodium/Sodium Chloride (Heparin 74683 Units/250ml 1/2 Normal Saline) 25 ,000 units in 250 mls @ 14.261 mls/hr IV .[id number] PRN; Protocol; 12 UNITS/KG/HR PRN Reason: ADJUST RATE PER PROTOCOL Last Admin: 01/19/18 06:06 Dose: 14 units/kg/hr, 16.638 mls/hr Montelukast Sodium (Singulair) 10 mg PO HS [facility] Last Admin: 01/18/18 21:52 Dose: Not Given Ondansetron HCl (Zofran Inj) 4 mg IVP Q6H [facility] Last Admin: 01/19/18 13:49 Dose: 4 mg Oxycodone HCl (Oxycodone Immediate Release Tab) 10 mg PO Q6H PRN PRN Reason: Pain, moderate (4-7) Last Admin: 01/15/18 09:05 Dose: 10 mg Pantoprazole Sodium (Protonix Ec Tab) 40 mg PO Q12 [facility] Last Admin: 01/19/18 09:58 Dose: 40 mg Sevelamer HCl (Renagel) 1,600 mg PO AC [facility] Last Admin: 01/19/18 12:30 Dose: 1,600 mg Tiotropium [place] (Spiriva) 18 mcg IH DAILY [facility] Last Admin: 01/19/18 09:58 Dose: 18 mcg - Labs Labs: 01/19/18 03:00 01/19/18 03:00 PT 15.2 SECONDS (9.4-12.5) H 01/19/18 10:00 INR 1.31 (0.93-1.08) H 01/19/18 10:00 APTT 59.6 Seconds (25.1-36.5) H 01/19/18 10:00 Assessment and Plan - Assessment and Plan (Free Text) Plan: Pt seen and examined. I have reviewed the note of the center medical director and agree with it. I have discussed the assessment and plan with the resident. I have reviewed the patient's labs and medications. He is improving. TSH was ordered. He will need to be placed on PO Cardizem. The Urine out put is good due to osmotic diuresis from the high urea. His Cr has improved. Spoke to the pt 's to give update on the diagnosis and plan of care. A fib is new and will need control. Cardilogy consulted. Echo has been done. He is Allopurinol for his hyperuricemia and tumor lysis syndrome. Will D/C Renagel as his Phosp is improving. Eating well. No pain.
[2018-01-19] MEDS: Heparin25000 units/250ml 1/2NS 25,000 UNITS/250 ML BAG IV PRN ×2 (06:06→23:32)
[2018-01-19] MEDS: diltiaZEM IVPB 100mg in NS 100 ML IV PRN (07:12)
[2018-01-19] MEDS: Budesonide 0.5 mg/2 ml Inhal Susp UD IH SCH ×2 (07:31→20:44)
[2018-01-19] MEDS: Arformoterol 15 mcg/2 ml Inh Sol IH SCH ×2 (07:31→20:44)
--- NOTE | 2018-01-19 08:02 | PN ---
DATE: 01/19/2018(640am-730am) PULMONARY NOTE SUBJECTIVE: The patient appears comfortable this morning. He is not short of breath at rest. OBJECTIVE: VITAL SIGNS: Temperature is 98.1, pulse is 123, respirations 17, blood pressure 104/59. Oxygen saturation on nasal cannula is 94%. HEENT: Normocephalic, atraumatic. No JVD. CARDIOVASCULAR: Positive S1, S2. No S3 gallop. LUNGS: Decreased breath sounds at the bases. No rhonchi. No wheezing. EXTREMITIES: No clubbing, cyanosis or edema. Calves are nontender to palpation. GI: Abdomen is soft, less tender and nondistended. Bowel sounds are positive. SKIN: No acute rash. NEUROLOGIC: Exam limited at the present time. PERTINENT LABORATORY DATA: CBC: White count 11.7K, hemoglobin 11.8, hematocrit 32.8, platelets of 118,000. Metabolic profile: Potassium 5.2, chloride 110, carbon dioxide 18, BUN 121, creatinine 2.2, glucose 134, uric acid 16.8, calcium 7.7, phosphorus 6.3, total bilirubin 3.3, direct bilirubin 7.2, GGT 358, AST 522, alkaline phosphatase 376. Rest of the metabolic profile is within normal limits. IMPRESSION: 1. Advanced metastatic small cell cancer of the lung. 2. Chronic obstructive pulmonary disease. 3. Mild anemia. 4. Renal insufficiency. 5. Increased liver function enzymes. PLAN: The patient appears comfortable this morning. He is not short of breath at rest, and feels better I did discuss the case with the night nurse at length. The nurse stated that the patient had a good night. On physical exam, there is no significant bronchospasm noted. In addition, the alveolar-arterial gradient is less. I will continue with the current nebulizer treatments and inhaled steroids for now. Inputs by GI, Cardiology and Oncology are also noted. The clinical status of the patient does appear improved - compared to last week. However, again, unfortunately, the overall status/prognosis for this patient does remain poor. I will discuss the above with the entire ICU team in the next few moments. I will discuss the above the attending physician later this morning. Lucio Ho MD MTDAnt
--- NOTE | 2018-01-19 08:57 | CP.PCM.PN ---
Subjective - Date & Time of Evaluation Date of Evaluation: 01/19/18 Time of Evaluation: 07:00 - Subjective Subjective: GI Progress Note for Dr. Yolanda Freitas, PGY-3 IM Patient seen and examined at bedside. No acute events overnight. Still on cardizem drip and low-dose heparin for afib, remains in afib but rate appears better controlled (110's-120's on monitor, was 150's during exam yesterday). Receiving breathing tx at time of exam. Objective - Vital Signs/Intake and Output Vital Signs (last 24 hours): Temp Pulse Resp BP Pulse Ox 98.1 F 123 H 17 104/59 L 94 L 01/19/18 00:00 01/19/18 06:00 01/19/18 04:06 01/19/18 04:00 01/18/18 22:30 Intake and Output: 01/19/18 01/19/18 06:59 18:59 Intake Total 1455 Output Total 1000 Balance 455 - Medications Medications: Current Medications Allopurinol (Zyloprim) 100 mg PO DAILY [facility] Arformoterol Tartrate (Brovana) 15 mcg IH [id number] [facility] Last Admin: 01/19/18 07:31 Dose: 15 mcg Budesonide (Pulmicort Respules) 0.5 mg IH [id number] [facility] Last Admin: 01/19/18 07:31 Dose: 0.5 mg Furosemide (Lasix) 60 mg IVP ONCE ONE Stop: 01/19/18 10:01 Guaifenesin/Codeine Phosphate (Robitussin W/Codeine) 5 ml PO Q6H PRN PRN Reason: Cough and congestion Last Admin: 01/18/18 12:47 Dose: 5 ml Hydromorphone HCl (Dilaudid) 1 mg IVP Q4H PRN PRN Reason: Pain, severe (8-10) Last Admin: 01/17/18 10:19 Dose: 1 mg diltiaZEM IVPB 100mg in NS (Cardizem 100mg In Ns) 100 mls @ 5 mls/hr IV .Q20H PRN; Protocol; 5 MG/HR PRN Reason: TITRATE PER MD ORDER Last Admin: 01/19/18 07:12 Dose: 15 mg/hr, 15 mls/hr Heparin Sodium/Sodium Chloride (Heparin 80627 Units/250ml 1/2 Normal Saline) 25 ,000 units in 250 mls @ 14.261 mls/hr IV .[id number] PRN; Protocol; 12 UNITS/KG/HR PRN Reason: ADJUST RATE PER PROTOCOL Last Admin: 01/19/18 06:06 Dose: 14 units/kg/hr, 16.638 mls/hr Montelukast Sodium (Singulair) 10 mg PO HS [facility] Last Admin: 01/18/18 21:52 Dose: Not Given Ondansetron HCl (Zofran Inj) 4 mg IVP Q6H [facility] Last Admin: 01/19/18 07:17 Dose: 4 mg Oxycodone HCl (Oxycodone Immediate Release Tab) 10 mg PO Q6H PRN PRN Reason: Pain, moderate (4-7) Last Admin: 01/15/18 09:05 Dose: 10 mg Pantoprazole Sodium (Protonix Ec Tab) 40 mg PO Q12 [facility] Last Admin: 01/18/18 21:53 Dose: Not Given Sevelamer HCl (Renagel) 1,600 mg PO AC [facility] Last Admin: 01/19/18 08:11 Dose: 1,600 mg Tiotropium [place] (Spiriva) 18 mcg IH DAILY [facility] Last Admin: 01/18/18 09:56 Dose: 18 mcg - Labs Labs: 01/19/18 03:00 01/19/18 03:00 PT 15.1 SECONDS (9.4-12.5) H 01/18/18 03:25 INR 1.32 (0.93-1.08) H 01/18/18 03:25 APTT 72.5 Seconds (25.1-36.5) H 01/19/18 03:00 - Additional Findings Additional findings: - Constitutional Appears: No acute distress, Ill-appearing (but improved compared to prior exam) , receiving breathing tx at time of exam - Head Exam Head Exam: ATRAUMATIC, NORMAL INSPECTION, NORMOCEPHALIC - Eye Exam Eye Exam: Mild scleral icterus appreciated. absent: Conjunctival injection Pupil Exam: absent: Fixed, Irregular - ENT Exam ENT Exam: Mucous Membranes Moist. - Neck Exam Neck exam: Positive for: Normal Inspection - Respiratory Exam Respiratory Exam: Clear to Auscultation Bilateral, NORMAL BREATHING PATTERN. absent: Accessory Muscle Use, Chest Wall Tenderness, Decreased Breath Sounds, Rales, Rhonchi, Wheezes - Cardiovascular Exam Cardiovascular Exam: Tachycardic (HR 110's-120's on bedside monitor), Irregular rate and rhythm (Afib), +S1, +S2. absent: Bradycardia, JVD, +S4 - GI/Abdominal Exam GI & Abdominal Exam: Unchanged to mildly improved distension, Firm to palpation , mild-moderate tenderness to palpation at RUQ, distant-sounding bowel sounds, unable to palpate discrete loops of bowel due to distension/firmness of abdomen - Extremities Exam Extremities exam: Positive for: +1 pedal edema from ankles to mid-eaton. Negative for: calf tenderness, tenderness - Neurological Exam awake and alert, following all commands appropriately, moving all extremities spontaneously - Psychiatric Exam Psychiatric exam: Normal Affect, Normal Mood - Skin Skin Exam: Dry, Intact, Normal Color, Warm, Mild gross jaundice Assessment and Plan - Assessment and Plan (Free Text) Assessment: This is a 62 yo M with PMH of HTN, hypercholesterolemia, COPD, and asthma (not tobacco user) who presented to [facility] with complaint of cough productive for clear sputum for 3 weeks. GI was consulted due to incidentally discovered elevated transaminases, concerning for transaminitis. However, his abdominal ultrasound and CT scans are concerning for liver and possible lung metastases (possibly lung primary). 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 Improving LFTs after acutely elevating x2 days, likely due to Budd Chiari-like effect from tumor compression of hepatic vasculature. 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, pending immunohistochemical analysis -AFP wnl, CA 19-9 elevated at 325, CEA elevated at 20.6 -AST 358, ALT 522, Alk Phos 376, Tbili 7.2, Cr 2.2, BUN 121, LDH (from 01/18) [id number]) [id number] Improved LFTs and renal function on carboplatin and etoposide, likely decreased tumor size resolving Budd Chiari-like effect No plan for dialysis as per Nephro/Primary, elevated BUN more likely tumor lysis-like phenomenon in setting of improving creatinine Continue PRN pain control and anti-emetics AFib management as per Cardio/Primary team due to increased bleeding risk from liver dysfunction, recommend low dose heparin instead of regular weight-based regimen for AC Trend LFTs and Coags daily Avoid hepatotoxic drugs as feasible Will continue to monitor closely Patient seen, reviewed, and discussed with attending, Dr. Guerrero
[2018-01-19] MEDS: Pantoprazole 40 mg EC Tab PO SCH ×2 (09:58→21:31)
[2018-01-19] MEDS: Tiotropium 18 mcg Cap For Inhalation IH SCH (09:58)
[2018-01-19] MEDS: Digoxin 500 mcg/2ml (0.5 mg/2ml) Inj IV SCH (10:00)
[2018-01-19 10:36] LABS: INR 1.31 (0.93-1.08); PARTIAL THROMBOPLASTIN TIME 59.6 Seconds (25.1-36.5); PROTHROMBIN TIME 15.2 SECONDS (9.4-12.5)
--- NOTE | 2018-01-19 10:46 | CP.PCM.PN ---
Subjective - Date & Time of Evaluation Date of Evaluation: 01/19/18 Time of Evaluation: 10:20 - Subjective Subjective: Dave Miranda DO, PGY-2: Hematology and Oncology Progress Note for Dr. Cash Patient was seen and examined in 129-4. He was resting comfortably, out of bed in chair. and daughter were also present during the encounter. Patient denies any chest pain, rash, fever, chills, or night sweats. His reports his appetite is still subdued. His urine output is stable. We discussed his labs and his was provided with a CBC and CMP reflecting the past two-three days. He reports no pain at the site of the Granix injection nor pain around the liver.. Otherwise, chart review indicates no untoward events overnight. Objective - Vital Signs/Intake and Output Vital Signs (last 24 hours): Temp Pulse Resp BP Pulse Ox 98.1 F 109 H 17 102/56 L 94 L 01/19/18 00:00 01/19/18 09:59 01/19/18 04:06 01/19/18 09:59 01/18/18 22:30 Intake and Output: 01/19/18 01/19/18 06:59 18:59 Intake Total 1455 Output Total 1000 Balance 455 - Medications Medications: Current Medications Allopurinol (Zyloprim) 100 mg PO DAILY [facility] Last Admin: 01/19/18 09:59 Dose: 100 mg Arformoterol Tartrate (Brovana) 15 mcg IH [id number] [facility] Last Admin: 01/19/18 07:31 Dose: 15 mcg Budesonide (Pulmicort Respules) 0.5 mg IH [id number] [facility] Last Admin: 01/19/18 07:31 Dose: 0.5 mg Digoxin (Lanoxin) 0.25 mg IV DAILY [facility] Last Admin: 01/19/18 10:00 Dose: 0.25 mg Diltiazem HCl (Cardizem) 30 mg PO Q6H [facility] Last Admin: 01/19/18 09:59 Dose: 30 mg Guaifenesin/Codeine Phosphate (Robitussin W/Codeine) 5 ml PO Q6H PRN PRN Reason: Cough and congestion Last Admin: 01/18/18 12:47 Dose: 5 ml Hydromorphone HCl (Dilaudid) 1 mg IVP Q4H PRN PRN Reason: Pain, severe (8-10) Last Admin: 01/17/18 10:19 Dose: 1 mg diltiaZEM IVPB 100mg in NS (Cardizem 100mg In Ns) 100 mls @ 5 mls/hr IV .Q20H PRN; Protocol; 5 MG/HR PRN Reason: TITRATE PER MD ORDER Last Admin: 01/19/18 07:12 Dose: 15 mg/hr, 15 mls/hr Heparin Sodium/Sodium Chloride (Heparin 74810 Units/250ml 1/2 Normal Saline) 25 ,000 units in 250 mls @ 14.261 mls/hr IV .[id number] PRN; Protocol; 12 UNITS/KG/HR PRN Reason: ADJUST RATE PER PROTOCOL Last Admin: 01/19/18 06:06 Dose: 14 units/kg/hr, 16.638 mls/hr Montelukast Sodium (Singulair) 10 mg PO HS [facility] Last Admin: 01/18/18 21:52 Dose: Not Given Ondansetron HCl (Zofran Inj) 4 mg IVP Q6H [facility] Last Admin: 01/19/18 07:17 Dose: 4 mg Oxycodone HCl (Oxycodone Immediate Release Tab) 10 mg PO Q6H PRN PRN Reason: Pain, moderate (4-7) Last Admin: 01/15/18 09:05 Dose: 10 mg Pantoprazole Sodium (Protonix Ec Tab) 40 mg PO Q12 [facility] Last Admin: 01/19/18 09:58 Dose: 40 mg Sevelamer HCl (Renagel) 1,600 mg PO AC [facility] Last Admin: 01/19/18 08:11 Dose: 1,600 mg Tiotropium [place] (Spiriva) 18 mcg IH DAILY [facility] Last Admin: 01/19/18 09:58 Dose: 18 mcg - Labs Labs: 01/19/18 03:00 01/19/18 03:00 PT 15.2 SECONDS (9.4-12.5) H 01/19/18 10:00 INR 1.31 (0.93-1.08) H 01/19/18 10:00 APTT 59.6 Seconds (25.1-36.5) H 01/19/18 10:00 - Constitutional Appears: Well, Non-toxic - Head Exam Head Exam: ATRAUMATIC, NORMOCEPHALIC - Eye Exam Eye Exam: EOMI, Normal appearance - ENT Exam ENT Exam: Mucous Membranes Moist - Neck Exam Neck Exam: Normal Inspection - Respiratory Exam Respiratory Exam: Clear to Ausculation Bilateral, NORMAL BREATHING PATTERN. absent: Accessory Muscle Use - Cardiovascular Exam Cardiovascular Exam: Tachycardia, +S1, +S2 - GI/Abdominal Exam GI & Abdominal Exam: Soft, Normal Bowel Sounds - Extremities Exam Extremities Exam: Normal Inspection. absent: Calf Tenderness - Neurological Exam Neurological Exam: Alert, Awake, Oriented x3 - Psychiatric Exam Psychiatric exam: Normal Affect, Normal Mood - Skin Skin Exam: Dry, Intact, Normal Color, Warm Assessment and Plan - Assessment and Plan (Free Text) Assessment: 62 year old male with 3 weeks of cough that did not respond to oral antibiotics , steroids, or Tussinex. He presented to [facility] given that he failed outpatient treatment for a bronchitis. Upon admission he was found to have elevated liver functions tests which prompted an abdominal ultrasound that showed liver lesions consistent with metastatic disease. Subsequent, CT of the chest, abdomen , and pelvis with PO and IV contrast showed right pulmonary mass, mediastinal and hilar adenopathy, and metastatic lesions in the liver. 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 During the patient's hospital course he developed RUQ pain in addition to his cough with a concurrent rise his in LFTS and serum Creatinine. This phenomena was thought to be due to the tumor burden in the liver compressing the hepatic veins and causing hepatic congestion and subsequent capsular distention leading to the pain with a Budd-Chairi life effect. Initially, it was thought the patient may benefit from transfer to a tertiary care center; however, after a lengthy discussion with two different oncologist, it was decided to treat the patient in [facility] in the ICU with carboplatinum and etoposide , with dosing based on his creatinine clearance and Body Surface Area. He underwent placement of a port-a-cath and was subsequently transferred to the ICU and has completed 3 doses of the carboplatinum and etoposide with Granix starting today. Patient went into atrial fibrillation which the ICU team and cardioogy are managing with Diltiazem and diltiazem drip. An transthoracic echocardiogram was ordered for new-onset atrial fibrillation that showed a normal size left ventricle, normal EF of 52%, normal LV segmental wall motion, probable bicuspid aortic valve, mild to moderate aortic root enlargement, mild aortic regurgitation, mild pulmonary hypertension, and a trace loculated anterior pericardial effusion. Today, his uric acid is 16.8, serum K is 5.2 ( plasma K was 5.0 yesterday), phosphorus 6.3, serum Ca 7.7, Mg 3.3, T. bili 7.2. LDH from yesterday was 10, 233. His LFTs and Creatinine have come down. 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 We will continue with allopurinol at its current dosage and recommend some level of diureses. We will discuss the electrolyte abnormalities with the primary team and nephrology. The patient is POLST: DNR/DNI. We will treat aggressively with the primary team and the other consultants. Case was reviewed and discussed with the attending physician, Dr. Cash
--- NOTE | 2018-01-19 11:49 | CP.CCUPN ---
<Zaid Jean - Last Filed: 01/19/18 14:18> CCU Subjective - Physician Review Subjective (Free Text): Zaid Jean, PGY1 Critical Care Progress Note for Dr. De Luna Patient was examined at bedside this morning, out of bed to chair. Patient said that he feels better. However, overall prognosis is still very poor. Patient is still on heparin gtt for new onset afib. Had 2 soft bowel movements overnight. At the moment, patient denies chest pain, shortness of breath, abdominal pain, nausea, vomiting, and diarrhea. However, patient still has an ongoing cough. No overnight changes. A Full 12 point ROS was conducted and unremarkable except as stated above. CCU Objective - Vital Signs / Intake & Output Vital Signs (Last 4 hours): Vital Signs Pulse BP 01/19/18 09:59 109 H 102/56 L Intake and Output (Last 8hrs): Intake & Output 01/18/18 01/19/18 01/19/18 22:59 06:59 14:59 Intake Total 1712 1329 Output Total 1740 1000 Balance -28 329 Weight 122.498 kg Intake: IV 472 849 Cardizem 155 Heparin 540 Right Subclavian 236 Oral 1240 480 Output: Urine 1740 1000 Urine, Voided 1740 1000 Other: # Bowel Movements 1 0 - Physical Exam Head: Positive for: Atraumatic, Normocephalic Pupils: Positive for: PERRL Extroacular Muscles: Positive for: EOMI Conjunctiva: Positive for: Normal Mouth: Positive for: Moist Mucous Membranes Neck: Positive for: Normal Range of Motion Respiratory/Chest: Positive for: Clear to Auscultation, Good Air Exchange. Negative for: Respiratory Distress, Accessory Muscle Use, Wheezes, Decreased Breath Sounds, Rales, Retracting, Rhonchi, Tender to Palpation Cardiovascular: Positive for: Regular Rate and Rhythm, Normal S1, S2, Other ( chemoport and temporary dialysis catheter (double lumen) noted on chest wall). Negative for: Murmurs Abdomen: Positive for: Distention (Less distended than prior examination), Normal Bowel Sounds, Mass/Organomegaly. Negative for: Tenderness, Peritoneal Signs, Rebound, Guarding Back: Positive for: Normal Inspection Upper Extremity: Positive for: Normal Inspection, NORMAL PULSES. Negative for: Cyanosis, Edema Lower Extremity: Positive for: Normal Inspection, NORMAL PULSES, Swelling (mild swelling bilaterally, but no pitting edema). Negative for: Edema, Cyanosis Neurological: Positive for: GCS=15, Speech Normal Skin: Positive for: Warm, Dry, Normal Color. Negative for: Rashes, Diaphoretic Psychiatric: Positive for: Alert, Oriented x 3, Normal Insight, Normal Concentration - Medications Active Medications: Active Medications Generic Name Dose Route Start Last Admin Trade Name Freq PRN Reason Stop Dose Admin Allopurinol 100 mg 01/19/18 10:00 01/19/18 09:59 Zyloprim PO 100 mg DAILY PACHECO Administration Arformoterol Tartrate 15 mcg 01/11/18 20:00 01/19/18 07:31 Brovana IH 15 mcg [id number] PACHECO Administration Budesonide 0.5 mg 01/11/18 20:00 01/19/18 07:31 Pulmicort Respules IH 0.5 mg [id number] PACHECO Administration Digoxin 0.25 mg 01/19/18 10:00 01/19/18 10:00 Lanoxin IV 0.25 mg DAILY PACHECO Administration Diltiazem HCl 30 mg 01/19/18 09:15 01/19/18 09:59 Cardizem PO 30 mg Q6H PACHECO Administration Guaifenesin/Codeine Phosphate 5 ml 01/11/18 13:57 01/18/18 12:47 Robitussin W/Codeine PO 5 ml Q6H PRN Administration Cough and congestion Hydromorphone HCl 1 mg 01/15/18 11:39 01/17/18 10:19 Dilaudid IVP 1 mg Q4H PRN Administration Pain, severe (8-10) diltiaZEM IVPB 100mg in NS 100 mls @ 5 mls/hr 01/18/18 08:21 01/19/18 07:12 Cardizem 100mg In Ns IV 15 mg/hr .Q20H PRN 15 mls/hr TITRATE PER MD ORDER Administration Protocol 5 MG/HR Heparin Sodium/Sodium Chloride 25,000 units in 250 mls @ 14.261 mls/hr 10:30 01/19/18 06:06 Heparin 92170 Units/250ml 1/2 Normal Saline IV 14 units/kg/hr .[id number] PRN 16.638 mls/hr ADJUST RATE PER PROTOCOL Administration Protocol 12 UNITS/KG/HR Montelukast Sodium 10 mg 01/11/18 22:00 01/18/18 21:52 Singulair PO Not Given HS PACHECO Ondansetron HCl 4 mg 01/16/18 19:45 01/19/18 07:17 Zofran Inj IVP 4 mg Q6H PACHECO Administration Oxycodone HCl 10 mg 01/14/18 07:58 01/15/18 09:05 Oxycodone Immediate Release Tab PO 10 mg Q6H PRN Administration Pain, moderate (4-7) Pantoprazole Sodium 40 mg 01/12/18 22:00 01/19/18 09:58 Protonix Ec Tab PO 40 mg Q12 PACHECO Administration Sevelamer HCl 1,600 mg 01/16/18 16:30 01/19/18 08:11 Renagel PO 1,600 mg AC PACHECO Administration Tiotropium [place] 18 mcg 01/12/18 10:00 01/19/18 09:58 Spiriva IH 18 mcg DAILY PACHECO Administration - Patient Studies Lab Studies: Lab Studies 01/19/18 01/19/18 01/19/18 Range/Units 10:00 10:00 10:00 WBC (4.5-11.0) 10^3/ul RBC (3.5-6.1) 10^6/uL Hgb (14.0-18.0) g/dL Hct (42.0-52.0) % MCV (80.0-105.0) fl MCH (25.0-35.0) pg MCHC (31.0-37.0) g/dl RDW (11.5-14.5) % Plt Count (120.0-450.0) 10^3/uL MPV (7.0-11.0) fl Gran % (50.0-68.0) % Lymph % (Auto) (22.0-35.0) % [place] % (Auto) (1.0-6.0) % Eos % (Auto) (1.5-5.0) % Baso % (Auto) (0.0-3.0) % Gran # (1.4-6.5) Lymph # (Auto) (1.2-3.4) [place] # (Auto) (0.1-0.6) Eos # (Auto) (0.0-0.7) Baso # (Auto) (0.0-2.0) K/mm3 PT 15.2 H (9.4-12.5) SECONDS INR 1.31 H (0.93-1.08) APTT 59.6 H (25.1-36.5) Seconds pO2 (30-55) mm/Hg VBG pH (7.32-7.43) VBG pCO2 (40-60) VBG HCO3 (21-28) mmol/l VBG Total CO2 (22-28) mmol.L VBG O2 Sat (Calc) (40-65) % VBG Base Excess (0.0-2.0) mmol/L VBG Potassium (3.6-5.2) mmol/L Sodium (132-148) mmol/L Chloride (98-107) mmol/L Glucose (75-110) mg/dl Lactate (0.7-2.1) mmol/L FiO2 % Potassium (3.6-5.0) mmol/L Carbon Dioxide (21-33) mmol/L Anion Gap (10-20) BUN (7-21) mg/dL Creatinine (0.8-1.5) mg/dl Est GFR ( Amer) Est GFR (Non-Af Amer) Random Glucose (70-110) mg/dL Uric Acid (3.5-8.5) mg/dL Calcium (8.4-10.5) mg/dL Phosphorus (2.5-4.5) mg/dL Magnesium (1.7-2.2) mg/dL Total Bilirubin (0.2-1.3) mg/dL AST (17-59) U/L ALT (7-56) U/L Alkaline Phosphatase (38-126) U/L Lactate Dehydrogenase (333-699) U/L Troponin I < 0.01 ng/mL Total Protein (5.8-8.3) g/dL Albumin (3.0-4.8) g/dL Globulin gm/dL Albumin/Globulin Ratio (1.1-1.8) TSH 3rd Generation 0.07 L (0.46-4.68) mIU/mL Venous Blood Potassium (3.6-5.2) mmol/L 07/24/18 07/24/18 07/24/18 Range/Units 03:00 03:00 03:00 WBC 11.7 H (4.5-11.0) 10^3/ul RBC 4.17 (3.5-6.1) 10^6/uL Hgb 11.8 L (14.0-18.0) g/dL Hct 32.8 L (42.0-52.0) % MCV 78.7 L (80.0-105.0) fl MCH 28.3 (25.0-35.0) pg MCHC 36.0 (31.0-37.0) g/dl RDW 16.0 H (11.5-14.5) % Plt Count 118 L (120.0-450.0) 10^3/uL MPV 9.9 (7.0-11.0) fl Gran % 98.0 H (50.0-68.0) % Lymph % (Auto) 1.5 L (22.0-35.0) % [place] % (Auto) 0.3 L (1.0-6.0) % Eos % (Auto) 0.0 L (1.5-5.0) % Baso % (Auto) 0.2 (0.0-3.0) % Gran # 11.47 H (1.4-6.5) Lymph # (Auto) 0.2 L (1.2-3.4) [place] # (Auto) 0.0 L (0.1-0.6) Eos # (Auto) 0.0 (0.0-0.7) Baso # (Auto) 0.02 (0.0-2.0) K/mm3 PT (9.4-12.5) SECONDS INR (0.93-1.08) APTT 72.5 H (25.1-36.5) Seconds pO2 (30-55) mm/Hg VBG pH (7.32-7.43) VBG pCO2 (40-60) VBG HCO3 (21-28) mmol/l VBG Total CO2 (22-28) mmol.L VBG O2 Sat (Calc) (40-65) % VBG Base Excess (0.0-2.0) mmol/L VBG Potassium (3.6-5.2) mmol/L Sodium 140 (132-148) mmol/L Chloride 110 H (98-107) mmol/L Glucose (75-110) mg/dl Lactate (0.7-2.1) mmol/L FiO2 % Potassium 5.2 H (3.6-5.0) mmol/L Carbon Dioxide 18 L (21-33) mmol/L Anion Gap 17 (10-20) BUN 121 H* (7-21) mg/dL Creatinine 2.2 H (0.8-1.5) mg/dl Est GFR ( Amer) 37 Est GFR (Non-Af Amer) 31 Random Glucose 134 H (70-110) mg/dL Uric Acid 16.8 H (3.5-8.5) mg/dL Calcium 7.7 L (8.4-10.5) mg/dL Phosphorus 6.3 H (2.5-4.5) mg/dL Magnesium 3.3 H (1.7-2.2) mg/dL Total Bilirubin 7.2 H (0.2-1.3) mg/dL AST 358 H D (17-59) U/L ALT 522 H (7-56) U/L Alkaline Phosphatase 376 H (38-126) U/L Lactate Dehydrogenase (333-699) U/L Troponin I ng/mL Total Protein 5.4 L (5.8-8.3) g/dL Albumin 2.6 L (3.0-4.8) g/dL Globulin 2.8 gm/dL Albumin/Globulin Ratio 0.9 L (1.1-1.8) TSH 3rd Generation (0.46-4.68) mIU/mL Venous Blood Potassium (3.6-5.2) mmol/L 01/18/18 01/18/18 01/18/18 Range/Units 18:53 16:15 16:15 WBC (4.5-11.0) 10^3/ul RBC (3.5-6.1) 10^6/uL Hgb (14.0-18.0) g/dL Hct (42.0-52.0) % MCV (80.0-105.0) fl MCH (25.0-35.0) pg MCHC (31.0-37.0) g/dl RDW (11.5-14.5) % Plt Count (120.0-450.0) 10^3/uL MPV (7.0-11.0) fl Gran % (50.0-68.0) % Lymph % (Auto) (22.0-35.0) % [place] % (Auto) (1.0-6.0) % Eos % (Auto) (1.5-5.0) % Baso % (Auto) (0.0-3.0) % Gran # (1.4-6.5) Lymph # (Auto) (1.2-3.4) [place] # (Auto) (0.1-0.6) Eos # (Auto) (0.0-0.7) Baso # (Auto) (0.0-2.0) K/mm3 PT (9.4-12.5) SECONDS INR (0.93-1.08) APTT 48.5 H (25.1-36.5) Seconds pO2 55 (30-55) mm/Hg VBG pH 7.26 L (7.32-7.43) VBG pCO2 34.0 L (40-60) VBG HCO3 15.3 L (21-28) mmol/l VBG Total CO2 16.3 L (22-28) mmol.L VBG O2 Sat (Calc) 88.4 H (40-65) % VBG Base Excess -10.8 L (0.0-2.0) mmol/L VBG Potassium 4.9 (3.6-5.2) mmol/L Sodium 135.0 (132-148) mmol/L Chloride 108.0 H (98-107) mmol/L Glucose 246 H (75-110) mg/dl Lactate 4.1 H* (0.7-2.1) mmol/L FiO2 21.0 % Potassium 5.0 (3.6-5.0) mmol/L Carbon Dioxide (21-33) mmol/L Anion Gap (10-20) BUN (7-21) mg/dL Creatinine (0.8-1.5) mg/dl Est GFR ( Amer) Est GFR (Non-Af Amer) Random Glucose (70-110) mg/dL Uric Acid 16.4 H (3.5-8.5) mg/dL Calcium (8.4-10.5) mg/dL Phosphorus (2.5-4.5) mg/dL Magnesium (1.7-2.2) mg/dL Total Bilirubin (0.2-1.3) mg/dL AST (17-59) U/L ALT (7-56) U/L Alkaline Phosphatase (38-126) U/L Lactate Dehydrogenase 49534 H (333-699) U/L Troponin I ng/mL Total Protein (5.8-8.3) g/dL Albumin (3.0-4.8) g/dL Globulin gm/dL Albumin/Globulin Ratio (1.1-1.8) TSH 3rd Generation (0.46-4.68) mIU/mL Venous Blood Potassium 4.9 (3.6-5.2) mmol/L Laboratory Results - last 24 hr 01/18/18 01/18/18 01/18/18 16:15 16:15 18:53 WBC RBC Hgb Hct MCV MCH MCHC RDW Plt Count MPV Gran % Lymph % (Auto) [place] % (Auto) Eos % (Auto) Baso % (Auto) Gran # Lymph # (Auto) [place] # (Auto) Eos # (Auto) Baso # (Auto) PT INR APTT 48.5 H pO2 55 VBG pH 7.26 L VBG pCO2 34.0 L VBG HCO3 15.3 L VBG Total CO2 16.3 L VBG O2 Sat (Calc) 88.4 H VBG Base Excess -10.8 L VBG Potassium 4.9 Sodium 135.0 Chloride 108.0 H Glucose 246 H Lactate 4.1 H* FiO2 21.0 Potassium 5.0 Carbon Dioxide Anion Gap BUN Creatinine Est GFR ( Amer) Est GFR (Non-Af Amer) Random Glucose Uric Acid 16.4 H Calcium Phosphorus Magnesium Total Bilirubin AST ALT Alkaline Phosphatase Lactate Dehydrogenase 07687 H Troponin I Total Protein Albumin Globulin Albumin/Globulin Ratio TSH 3rd Generation Venous Blood Potassium 4.9 01/19/18 01/19/18 01/19/18 03:00 03:00 03:00 WBC 11.7 H RBC 4.17 Hgb 11.8 L Hct 32.8 L MCV 78.7 L MCH 28.3 MCHC 36.0 RDW 16.0 H Plt Count 118 L MPV 9.9 Gran % 98.0 H Lymph % (Auto) 1.5 L [place] % (Auto) 0.3 L Eos % (Auto) 0.0 L Baso % (Auto) 0.2 Gran # 11.47 H Lymph # (Auto) 0.2 L [place] # (Auto) 0.0 L Eos # (Auto) 0.0 Baso # (Auto) 0.02 PT INR APTT 72.5 H pO2 VBG pH VBG pCO2 VBG HCO3 VBG Total CO2 VBG O2 Sat (Calc) VBG Base Excess VBG Potassium Sodium 140 Chloride 110 H Glucose Lactate FiO2 Potassium 5.2 H Carbon Dioxide 18 L Anion Gap 17 BUN 121 H* Creatinine 2.2 H Est GFR ( Amer) 37 Est GFR (Non-Af Amer) 31 Random Glucose 134 H Uric Acid 16.8 H Calcium 7.7 L Phosphorus 6.3 H Magnesium 3.3 H Total Bilirubin 7.2 H AST 358 H D ALT 522 H Alkaline Phosphatase 376 H Lactate Dehydrogenase Troponin I Total Protein 5.4 L Albumin 2.6 L Globulin 2.8 Albumin/Globulin Ratio 0.9 L TSH 3rd Generation Venous Blood Potassium 01/19/18 01/19/18 01/19/18 10:00 10:00 10:00 WBC RBC Hgb Hct MCV MCH MCHC RDW Plt Count MPV Gran % Lymph % (Auto) [place] % (Auto) Eos % (Auto) Baso % (Auto) Gran # Lymph # (Auto) [place] # (Auto) Eos # (Auto) Baso # (Auto) PT 15.2 H INR 1.31 H APTT 59.6 H pO2 VBG pH VBG pCO2 VBG HCO3 VBG Total CO2 VBG O2 Sat (Calc) VBG Base Excess VBG Potassium Sodium Chloride Glucose Lactate FiO2 Potassium Carbon Dioxide Anion Gap BUN Creatinine Est GFR ( Amer) Est GFR (Non-Af Amer) Random Glucose Uric Acid Calcium Phosphorus Magnesium Total Bilirubin AST ALT Alkaline Phosphatase Lactate Dehydrogenase Troponin I < 0.01 Total Protein Albumin Globulin Albumin/Globulin Ratio TSH 3rd Generation 0.07 L Venous Blood Potassium EKG/Cardiology Studies: Cardiology / EKG Studies 01/20/18 06:00 ELECTROCARDIOGRAM Routine Comment: Reason For Exam: AF PRE OP:: N Does Patient Have a Pacemaker?: No Review of Systems - Review of Systems All systems: reviewed and no additional remarkable complaints except (as per HPI.) Critical Care Progress Note - Prophylaxis GI Prophylaxis GI: PPI - Prophylaxis DVT Prophylaxis DVT: SCDs - Nutrition Nutrition: Nutrition Category Date Time Status Renal Diet [DIET] Diets 01/16/18 Breakfast Ordered Assessment/Plan - Assessment and Plan (Free Text) Assessment: Patient is a 62 y/o M with PMHx of newly diagnosed diffuse liver and lung metastatic disease, HTN, HLD, COPD, and asthma (non-smoker) [place] [facility] [place] productive of clear sputum for several weeks. CT scan was concerning for diffuse metastatic disease with extensive liver mets and multiple pulmonary nodules with hilar and mediastinal adenopathy, consistent with lung metastatic disease. During hospital course, patient has worsening transaminitis with worsening renal function, likely hepatorenal syndrome. Patient is being followed by GI, heme/onc, IR, ID, pulm, and cardiology. Overall , patient prognosis is very poor. ICU was consulted for care of the patient. Patient was started on chemotherapy via port and has a temporary dialysis catheter in place. Patient also had new onset afib and was started on heparin gtt for anticoagulation. Plan: Neuro: - Maintain normothermia Pulm: - Maintain SaO2 > 92% - Pulm consulted, f/u recs - Chest CT: extensive liver mets and multiple pulmonary nodules and hilar and mediastinal adenopathy consistent with lung metastatic disease Cardio: - EKG (01/18): new onset afib with RVR. - Echo (01/18): EF 52.6%. LV normal. Mild LVH. Mild-moderate enlarged aortic root. Mild AR. Mild Pulmonary Hypertension. - continue to manage afib with heparin gtt - Cardio consulted, f/u recs - Maintain MAP > 65 GI: - GI consulted, f/u recs - Abdomen/Pelvis CT: diffuse metastatic disease. No evidence of hemorrhage. - Renal diet - GI ppx Renal: - Hepatorenal syndrome: BUN/Cr 121/2.2 (downtrending); ALT/AST 358/522 ( downtrending) - f/u K, Phos, uric acid, BUN levels and maintain strict I&O - Patient has temporary dialysis catheter in place - patient is making good urinary output - PMD (Dr. 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 Code status DNR/DNI. Patient is currently being monitored in the ICU. Case was reviewed and discussed with Attending Physician Dr. De Luna. <Josse De Luna - Last Filed: 01/19/18 14:40> CCU Objective - Vital Signs / Intake & Output Intake and Output (Last 8hrs): Intake & Output 01/18/18 01/19/18 01/19/18 22:59 06:59 14:59 Intake Total 1712 1329 0 Output Total 1740 1000 Balance -28 329 0 Weight 270 lb 1 oz 270 lb Intake: IV 472 849 0 Cardizem 155 Heparin 540 Right Subclavian 236 Oral 1240 480 Output: Urine 1740 1000 Urine, Voided 1740 1000 Other: # Bowel Movements 1 0 - Medications Active Medications: Active Medications Generic Name Dose Route Start Last Admin Trade Name Freq PRN Reason Stop Dose Admin Allopurinol 100 mg 01/19/18 10:00 01/19/18 09:59 Zyloprim PO 100 mg DAILY PACHECO Administration Arformoterol Tartrate 15 mcg 01/11/18 20:00 01/19/18 07:31 Brovana IH 15 mcg [id number] PACHECO Administration Budesonide 0.5 mg 01/11/18 20:00 01/19/18 07:31 Pulmicort Respules IH 0.5 mg [id number] PACHECO Administration Digoxin 0.25 mg 01/19/18 10:00 01/19/18 10:00 Lanoxin IV 0.25 mg DAILY PACHECO Administration Diltiazem HCl 30 mg 01/19/18 09:15 01/19/18 09:59 Cardizem PO 30 mg Q6H PACHECO Administration Guaifenesin/Codeine Phosphate 5 ml 01/11/18 13:57 01/18/18 12:47 Robitussin W/Codeine PO 5 ml Q6H PRN Administration Cough and congestion Hydromorphone HCl 1 mg 01/15/18 11:39 01/17/18 10:19 Dilaudid IVP 1 mg Q4H PRN Administration Pain, severe (8-10) diltiaZEM IVPB 100mg in NS 100 mls @ 5 mls/hr 01/18/18 08:21 01/19/18 12:21 Cardizem 100mg In Ns IV 5 mg/hr .Q20H PRN 5 mls/hr TITRATE PER MD ORDER Titration Protocol 5 MG/HR Heparin Sodium/Sodium Chloride 25,000 units in 250 mls @ 14.261 mls/hr 10:30 01/19/18 06:06 Heparin 52154 Units/250ml 1/2 Normal Saline IV 14 units/kg/hr .[id number] PRN 16.638 mls/hr ADJUST RATE PER PROTOCOL Administration Protocol 12 UNITS/KG/HR Montelukast Sodium 10 mg 01/11/18 22:00 01/18/18 21:52 Singulair PO Not Given HS PACHECO Ondansetron HCl 4 mg 01/16/18 19:45 01/19/18 13:49 Zofran Inj IVP 4 mg Q6H PACHECO Administration Oxycodone HCl 10 mg 01/14/18 07:58 01/15/18 09:05 Oxycodone Immediate Release Tab PO 10 mg Q6H PRN Administration Pain, moderate (4-7) Pantoprazole Sodium 40 mg 01/12/18 22:00 01/19/18 09:58 Protonix Ec Tab PO 40 mg Q12 PACHECO Administration Sevelamer HCl 1,600 mg 01/16/18 16:30 01/19/18 12:30 Renagel PO 1,600 mg AC PACHECO Administration Tiotropium [place] 18 mcg 01/12/18 10:00 01/19/18 09:58 Spiriva IH 18 mcg DAILY PACHECO Administration - Patient Studies Lab Studies: Lab Studies 01/19/18 01/19/18 01/19/18 Range/Units 10:00 10:00 10:00 WBC (4.5-11.0) 10^3/ul RBC (3.5-6.1) 10^6/uL Hgb (14.0-18.0) g/dL Hct (42.0-52.0) % MCV (80.0-105.0) fl MCH (25.0-35.0) pg MCHC (31.0-37.0) g/dl RDW (11.5-14.5) % Plt Count (120.0-450.0) 10^3/uL MPV (7.0-11.0) fl Gran % (50.0-68.0) % Lymph % (Auto) (22.0-35.0) % [place] % (Auto) (1.0-6.0) % Eos % (Auto) (1.5-5.0) % Baso % (Auto) (0.0-3.0) % Gran # (1.4-6.5) Lymph # (Auto) (1.2-3.4) [place] # (Auto) (0.1-0.6) Eos # (Auto) (0.0-0.7) Baso # (Auto) (0.0-2.0) K/mm3 PT 15.2 H (9.4-12.5) SECONDS INR 1.31 H (0.93-1.08) APTT 59.6 H (25.1-36.5) Seconds pO2 (30-55) mm/Hg VBG pH (7.32-7.43) VBG pCO2 (40-60) VBG HCO3 (21-28) mmol/l VBG Total CO2 (22-28) mmol.L VBG O2 Sat (Calc) (40-65) % VBG Base Excess (0.0-2.0) mmol/L VBG Potassium (3.6-5.2) mmol/L Sodium (132-148) mmol/L Chloride (98-107) mmol/L Glucose (75-110) mg/dl Lactate (0.7-2.1) mmol/L FiO2 % Potassium (3.6-5.0) mmol/L Carbon Dioxide (21-33) mmol/L Anion Gap (10-20) BUN (7-21) mg/dL Creatinine (0.8-1.5) mg/dl Est GFR ( Amer) Est GFR (Non-Af Amer) Random Glucose (70-110) mg/dL Uric Acid (3.5-8.5) mg/dL Calcium (8.4-10.5) mg/dL Phosphorus (2.5-4.5) mg/dL Magnesium (1.7-2.2) mg/dL Total Bilirubin (0.2-1.3) mg/dL AST (17-59) U/L ALT (7-56) U/L Alkaline Phosphatase (38-126) U/L Lactate Dehydrogenase (333-699) U/L Troponin I < 0.01 ng/mL Total Protein (5.8-8.3) g/dL Albumin (3.0-4.8) g/dL Globulin gm/dL Albumin/Globulin Ratio (1.1-1.8) TSH 3rd Generation 0.07 L (0.46-4.68) mIU/mL Venous Blood Potassium (3.6-5.2) mmol/L 01/19/18 01/19/18 01/19/18 Range/Units 03:00 03:00 03:00 WBC 11.7 H (4.5-11.0) 10^3/ul RBC 4.17 (3.5-6.1) 10^6/uL Hgb 11.8 L (14.0-18.0) g/dL Hct 32.8 L (42.0-52.0) % MCV 78.7 L (80.0-105.0) fl MCH 28.3 (25.0-35.0) pg MCHC 36.0 (31.0-37.0) g/dl RDW 16.0 H (11.5-14.5) % Plt Count 118 L (120.0-450.0) 10^3/uL MPV 9.9 (7.0-11.0) fl Gran % 98.0 H (50.0-68.0) % Lymph % (Auto) 1.5 L (22.0-35.0) % [place] % (Auto) 0.3 L (1.0-6.0) % Eos % (Auto) 0.0 L (1.5-5.0) % Baso % (Auto) 0.2 (0.0-3.0) % Gran # 11.47 H (1.4-6.5) Lymph # (Auto) 0.2 L (1.2-3.4) [place] # (Auto) 0.0 L (0.1-0.6) Eos # (Auto) 0.0 (0.0-0.7) Baso # (Auto) 0.02 (0.0-2.0) K/mm3 PT (9.4-12.5) SECONDS INR (0.93-1.08) APTT 72.5 H (25.1-36.5) Seconds pO2 (30-55) mm/Hg VBG pH (7.32-7.43) VBG pCO2 (40-60) VBG HCO3 (21-28) mmol/l VBG Total CO2 (22-28) mmol.L VBG O2 Sat (Calc) (40-65) % VBG Base Excess (0.0-2.0) mmol/L VBG Potassium (3.6-5.2) mmol/L Sodium 140 (132-148) mmol/L Chloride 110 H (98-107) mmol/L Glucose (75-110) mg/dl Lactate (0.7-2.1) mmol/L FiO2 % Potassium 5.2 H (3.6-5.0) mmol/L Carbon Dioxide 18 L (21-33) mmol/L Anion Gap 17 (10-20) BUN 121 H* (7-21) mg/dL Creatinine 2.2 H (0.8-1.5) mg/dl Est GFR ( Amer) 37 Est GFR (Non-Af Amer) 31 Random Glucose 134 H (70-110) mg/dL Uric Acid 16.8 H (3.5-8.5) mg/dL Calcium 7.7 L (8.4-10.5) mg/dL Phosphorus 6.3 H (2.5-4.5) mg/dL Magnesium 3.3 H (1.7-2.2) mg/dL Total Bilirubin 7.2 H (0.2-1.3) mg/dL AST 358 H D (17-59) U/L ALT 522 H (7-56) U/L Alkaline Phosphatase 376 H (38-126) U/L Lactate Dehydrogenase (333-699) U/L Troponin I ng/mL Total Protein 5.4 L (5.8-8.3) g/dL Albumin 2.6 L (3.0-4.8) g/dL Globulin 2.8 gm/dL Albumin/Globulin Ratio 0.9 L (1.1-1.8) TSH 3rd Generation (0.46-4.68) mIU/mL Venous Blood Potassium (3.6-5.2) mmol/L 01/18/18 01/18/18 01/18/18 Range/Units 18:53 16:15 16:15 WBC (4.5-11.0) 10^3/ul RBC (3.5-6.1) 10^6/uL Hgb (14.0-18.0) g/dL Hct (42.0-52.0) % MCV (80.0-105.0) fl MCH (25.0-35.0) pg MCHC (31.0-37.0) g/dl RDW (11.5-14.5) % Plt Count (120.0-450.0) 10^3/uL MPV (7.0-11.0) fl Gran % (50.0-68.0) % Lymph % (Auto) (22.0-35.0) % [place] % (Auto) (1.0-6.0) % Eos % (Auto) (1.5-5.0) % Baso % (Auto) (0.0-3.0) % Gran # (1.4-6.5) Lymph # (Auto) (1.2-3.4) [place] # (Auto) (0.1-0.6) Eos # (Auto) (0.0-0.7) Baso # (Auto) (0.0-2.0) K/mm3 PT (9.4-12.5) SECONDS INR (0.93-1.08) APTT 48.5 H (25.1-36.5) Seconds pO2 55 (30-55) mm/Hg VBG pH 7.26 L (7.32-7.43) VBG pCO2 34.0 L (40-60) VBG HCO3 15.3 L (21-28) mmol/l VBG Total CO2 16.3 L (22-28) mmol.L VBG O2 Sat (Calc) 88.4 H (40-65) % VBG Base Excess -10.8 L (0.0-2.0) mmol/L VBG Potassium 4.9 (3.6-5.2) mmol/L Sodium 135.0 (132-148) mmol/L Chloride 108.0 H (98-107) mmol/L Glucose 246 H (75-110) mg/dl Lactate 4.1 H* (0.7-2.1) mmol/L FiO2 21.0 % Potassium 5.0 (3.6-5.0) mmol/L Carbon Dioxide (21-33) mmol/L Anion Gap (10-20) BUN (7-21) mg/dL Creatinine (0.8-1.5) mg/dl Est GFR ( Amer) Est GFR (Non-Af Amer) Random Glucose (70-110) mg/dL Uric Acid 16.4 H (3.5-8.5) mg/dL Calcium (8.4-10.5) mg/dL Phosphorus (2.5-4.5) mg/dL Magnesium (1.7-2.2) mg/dL Total Bilirubin (0.2-1.3) mg/dL AST (17-59) U/L ALT (7-56) U/L Alkaline Phosphatase (38-126) U/L Lactate Dehydrogenase 02170 H (333-699) U/L Troponin I ng/mL Total Protein (5.8-8.3) g/dL Albumin (3.0-4.8) g/dL Globulin gm/dL Albumin/Globulin Ratio (1.1-1.8) TSH 3rd Generation (0.46-4.68) mIU/mL Venous Blood Potassium 4.9 (3.6-5.2) mmol/L Laboratory Results - last 24 hr 01/18/18 01/18/18 01/18/18 16:15 16:15 18:53 WBC RBC Hgb Hct MCV MCH MCHC RDW Plt Count MPV Gran % Lymph % (Auto) [place] % (Auto) Eos % (Auto) Baso % (Auto) Gran # Lymph # (Auto) [place] # (Auto) Eos # (Auto) Baso # (Auto) PT INR APTT 48.5 H pO2 55 VBG pH 7.26 L VBG pCO2 34.0 L VBG HCO3 15.3 L VBG Total CO2 16.3 L VBG O2 Sat (Calc) 88.4 H VBG Base Excess -10.8 L VBG Potassium 4.9 Sodium 135.0 Chloride 108.0 H Glucose 246 H Lactate 4.1 H* FiO2 21.0 Potassium 5.0 Carbon Dioxide Anion Gap BUN Creatinine Est GFR ( Amer) Est GFR (Non-Af Amer) Random Glucose Uric Acid 16.4 H Calcium Phosphorus Magnesium Total Bilirubin AST ALT Alkaline Phosphatase Lactate Dehydrogenase 24336 H Troponin I Total Protein Albumin Globulin Albumin/Globulin Ratio TSH 3rd Generation Venous Blood Potassium 4.9 01/19/18 01/19/18 01/19/18 03:00 03:00 03:00 WBC 11.7 H RBC 4.17 Hgb 11.8 L Hct 32.8 L MCV 78.7 L MCH 28.3 MCHC 36.0 RDW 16.0 H Plt Count 118 L MPV 9.9 Gran % 98.0 H Lymph % (Auto) 1.5 L [place] % (Auto) 0.3 L Eos % (Auto) 0.0 L Baso % (Auto) 0.2 Gran # 11.47 H Lymph # (Auto) 0.2 L [place] # (Auto) 0.0 L Eos # (Auto) 0.0 Baso # (Auto) 0.02 PT INR APTT 72.5 H pO2 VBG pH VBG pCO2 VBG HCO3 VBG Total CO2 VBG O2 Sat (Calc) VBG Base Excess VBG Potassium Sodium 140 Chloride 110 H Glucose Lactate FiO2 Potassium 5.2 H Carbon Dioxide 18 L Anion Gap 17 BUN 121 H* Creatinine 2.2 H Est GFR ( Amer) 37 Est GFR (Non-Af Amer) 31 Random Glucose 134 H Uric Acid 16.8 H Calcium 7.7 L Phosphorus 6.3 H Magnesium 3.3 H Total Bilirubin 7.2 H AST 358 H D ALT 522 H Alkaline Phosphatase 376 H Lactate Dehydrogenase Troponin I Total Protein 5.4 L Albumin 2.6 L Globulin 2.8 Albumin/Globulin Ratio 0.9 L TSH 3rd Generation Venous Blood Potassium 01/19/18 01/19/18 01/19/18 10:00 10:00 10:00 WBC RBC Hgb Hct MCV M[facility] RDW Plt Count MPV Gran % Lymph % (Auto) [place] % (Auto) Eos % (Auto) Baso % (Auto) Gran # Lymph # (Auto) [place] # (Auto) Eos # (Auto) Baso # (Auto) PT 15.2 H INR 1.31 H APTT 59.6 H pO2 VBG pH VBG pCO2 VBG HCO3 VBG Total CO2 VBG O2 Sat (Calc) VBG Base Excess VBG Potassium Sodium Chloride Glucose Lactate FiO2 Potassium Carbon Dioxide Anion Gap BUN Creatinine Est GFR ( Amer) Est GFR (Non-Af Amer) Random Glucose Uric Acid Calcium Phosphorus Magnesium Total Bilirubin AST ALT Alkaline Phosphatase Lactate Dehydrogenase Troponin I < 0.01 Total Protein Albumin Globulin Albumin/Globulin Ratio TSH 3rd Generation 0.07 L Venous Blood Potassium EKG/Cardiology Studies: Cardiology / EKG Studies 01/20/18 06:00 ELECTROCARDIOGRAM Routine Comment: Reason For Exam: AF PRE OP:: N Does Patient Have a Pacemaker?: No Critical Care Progress Note - Nutrition Nutrition: Nutrition Category Date Time Status Renal Diet [DIET] Diets 01/16/18 Breakfast Ordered Attending/Attestation - Attestation I have personally seen and examined this patient.: Yes I have fully participated in the care of the patient.: Yes I have reviewed all pertinent clinical information: Yes Notes (Text): 01/19/18 14:39 The patient was seen and examined at the bedside. Patient care was discussed with resident Medical records, lab studies, and imaging were reviewed and management issues were discussed and formulated. Agree with above treatment plans as outlined in 's note with addition of the following: Metastatic Smal Cell CA \ Liver and Lung nodules \ COPD \ FRAN \ Elevated LFT \ Afib with RVR -hemodynamic monitoring to maintain MAP>65 -pt developed new Afib with RVR; continue cardizem drip; cardiology team f\u -o2 supplementation to maintain Spo2 >90 Pao2>60; comfortable on NC -continue nebs, pulmonary team f\u -continue to f\u cultures and fever curve; ID team following -f\u Bun\Cr and U\o; renal team f\u -PO diet and aspiration precautions -f\u serial LFT; GI team f\u -IR team f\u -chemotherapy as per Heme\Onc team -continue heparin and monitor PTT and for bleed -DVT \ PUD prophylaxis -DNR\DNI as per his request CCM time 25min
--- NOTE | 2018-01-19 20:27 | CON ---
DATE: 01/19/2018 INDICATION: Atrial fibrillation. HISTORY OF PRESENT ILLNESS: This is a 62-year-old man known to me, admitted on 01/11 with persistent cough and shortness of breath, found to have elevated liver function tests and abnormal imaging studies of the liver suggesting metastatic cancer and a liver biopsy suggesting small cell neuroendocrine carcinoma. He also has multiple pulmonary nodules and extensive adenopathy in the hilum and mediastinum. He is being evaluated by Oncology. He has received a course of chemotherapy. He is in the Intensive Care Unit with abnormal liver functions and worsening renal function and developed atrial fibrillation yesterday. He was given metoprolol and IV Cardizem and the rate is currently controlled at about 100 beats per minute. He does not have symptoms from atrial fibrillation. He is weak, he continues to have cough, and he is edematous with a 30-pound weight gain recently. PAST MEDICAL HISTORY: Notable for hypertension, asthma, COPD, although he is a patient who has never smoked, hyperlipidemia, fatty liver, hepatic cysts. He underwent a cardiac evaluation about a year ago prior to shoulder surgery. Apparently an echocardiogram and nuclear stress test were unremarkable at that time. There is no chest pain, palpitations, or history of syncope. CURRENT MEDICATIONS: As follows: Ativan, Brovana, Cardizem drip, Dilaudid, Granix, heparin drip, digoxin, Lasix, metoprolol IV, oxycodone, carboplatin, Protonix, budesonide, Renagel, Spiriva, etoposide, Zofran, and allopurinol. ALLERGIES: THERE ARE NO KNOWN MEDICATION ALLERGIES. SOCIAL HISTORY: He lives at home, he is ambulatory. He never smoked. He denies alcohol use. FAMILY HISTORY: Notable for lymphoma. REVIEW OF SYSTEMS: Ten-point review of systems is otherwise unremarkable except as noted above. PHYSICAL EXAMINATION: GENERAL: He is a well-developed male sitting in his chair in the ICU, in no acute distress. VITAL SIGNS: Notable for atrial fibrillation at 100 to 110 beats per minute, sometimes as high as 123 beats per minute; blood pressure 104/59; respirations 14 to 17; O2 sat 94%on nasal cannula. HEENT: Reveals no neck vein distention, thyromegaly, carotid bruits, mucous membranes moist, conjunctivae pink. NECK: Supple. LUNGS: Lung lim, scattered rhonchi. HEART: Revealed an irregular rhythm with normal first and second heart sounds. PMI not palpable. ABDOMEN: Obese. EXTREMITIES: Revealed 3+ edema. NEUROLOGICAL: Awake, alert. PSYCHIATRIC: Normal as to mood and affect. SKIN: Warm and dry. No rash or cellulitis. LABORATORY AND IMAGING: EKG yesterday demonstrated atrial fibrillation, rapid ventricular response, right bundle-branch block, no acute changes. Lower extremity venous Doppler exam on 01/17 revealed no evidence of DVT. Head CT on 01/14 revealed no acute intracranial abnormality, see full report. CT scans of the abdomen and pelvis and abdominal ultrasounds are noted. 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 Lab results today include hemoglobin of 11.8, hematocrit 32.8, white count 11,700, platelet count 118,000. His PTT is 72, on heparin drip. Electrolytes are notable for a potassium of 5.2 with a creatinine of 2.2, BUN of 121. Uric acid is 16.8. LFTs are abnormal. At this time, he is on a heparin and a Cardizem drip. TSH has been ordered. I will add p.o. Cardizem in an attempt to wean him from the Cardizem drip. He received 1 dose of digoxin yesterday. I will continue digoxin today. His echocardiogram revealed normal left ventricular function with mild left ventricular hypertrophy, mild aortic insufficiency, probable bicuspid aortic valve, mild pulmonary hypertension. I will check a troponin level for completeness. I will follow along with you. I will make additional recommendations based on his clinical course. Chronic anticoagulation should be considered. His JEANINE score is low. The risk might be too high given ongoing chemo. Will defer to Dr. Cash. I have discussed this case with his at the bedside. Bryan Abraham MD JESSENIA
[2018-01-19] MEDS: guaiFENesin-Codeine 100-10mg/5ml Syrup (5 ml) UD PO PRN (21:33)
--- NOTE | 2018-01-20 05:13 | CP.PCM.PN ---
<Zina Field - Last Filed: 01/20/18 10:49> Subjective - Date & Time of Evaluation Date of Evaluation: 01/20/18 Time of Evaluation: 07:00 - Subjective Subjective: Medicine Progress Note for Lisandro Mckinney PGY3 Patient seen and examined at bedside. There were no acute overnight events as per nursing staff. Patient reports having some fullness in his abdomen which causes some back pain. He states he would like to take a shower and be out of the ICU because it is hard to sleep at night. He denies chest pain, shortness of breath, nausea/vomiting/diarrhea, fever/chills, numbness/tingling, dysuria/ hematuria. Objective - Vital Signs/Intake and Output Vital Signs (last 24 hours): Temp Pulse Resp BP Pulse Ox 97.8 F 77 18 141/88 95 01/20/18 00:00 01/20/18 03:36 01/19/18 20:30 01/20/18 03:36 01/19/18 20:30 Intake and Output: 01/19/18 01/20/18 18:59 06:59 Intake Total 1025 250 Output Total 1350 Balance -325 250 - Medications Medications: Current Medications Allopurinol (Zyloprim) 100 mg PO DAILY [facility] Last Admin: 01/19/18 09:59 Dose: 100 mg Arformoterol Tartrate (Brovana) 15 mcg IH [id number] [facility] Last Admin: 01/19/18 20:44 Dose: 15 mcg Budesonide (Pulmicort Respules) 0.5 mg IH [id number] [facility] Last Admin: 01/19/18 20:44 Dose: 0.5 mg Digoxin (Lanoxin) 0.25 mg IV DAILY [facility] Last Admin: 01/19/18 10:00 Dose: 0.25 mg Diltiazem HCl (Cardizem) 30 mg PO Q6H [facility] Last Admin: 01/20/18 03:36 Dose: 30 mg Guaifenesin/Codeine Phosphate (Robitussin W/Codeine) 5 ml PO Q6H PRN PRN Reason: Cough and congestion Last Admin: 01/19/18 21:33 Dose: 5 ml Hydromorphone HCl (Dilaudid) 1 mg IVP Q4H PRN PRN Reason: Pain, severe (8-10) Last Admin: 01/17/18 10:19 Dose: 1 mg diltiaZEM IVPB 100mg in NS (Cardizem 100mg In Ns) 100 mls @ 5 mls/hr IV .Q20H PRN; Protocol; 5 MG/HR PRN Reason: TITRATE PER MD ORDER Last Titration: 01/19/18 13:59 Dose: 0 mg/hr, 0 mls/hr Heparin Sodium/Sodium Chloride (Heparin 58001 Units/250ml 1/2 Normal Saline) 25 ,000 units in 250 mls @ 14.261 mls/hr IV .[id number] PRN; Protocol; 12 UNITS/KG/HR PRN Reason: ADJUST RATE PER PROTOCOL Last Admin: 01/19/18 23:32 Dose: 14 units/kg/hr, 16.638 mls/hr Montelukast Sodium (Singulair) 10 mg PO HS [facility] Last Admin: 01/19/18 21:31 Dose: 10 mg Ondansetron HCl (Zofran Inj) 4 mg IVP Q6H [facility] Last Admin: 01/20/18 01:34 Dose: Not Given Oxycodone HCl (Oxycodone Immediate Release Tab) 10 mg PO Q6H PRN PRN Reason: Pain, moderate (4-7) Last Admin: 01/15/18 09:05 Dose: 10 mg Pantoprazole Sodium (Protonix Ec Tab) 40 mg PO Q12 [facility] Last Admin: 01/19/18 21:31 Dose: 40 mg Tiotropium Universal (Spiriva) 18 mcg IH DAILY [facility] Last Admin: 01/19/18 09:58 Dose: 18 mcg - Labs Labs: 01/19/18 03:00 01/19/18 03:00 PT 15.2 SECONDS (9.4-12.5) H 01/19/18 10:00 INR 1.31 (0.93-1.08) H 01/19/18 10:00 APTT 59.6 Seconds (25.1-36.5) H 01/19/18 10:00 - Constitutional Appears: No Acute Distress - Head Exam Head Exam: ATRAUMATIC, NORMAL INSPECTION, NORMOCEPHALIC - Eye Exam Eye Exam: Normal appearance, PERRL, Scleral icterus Pupil Exam: NORMAL ACCOMODATION, PERRL - ENT Exam ENT Exam: Mucous Membranes Moist - Respiratory Exam Respiratory Exam: Clear to Ausculation Bilateral, NORMAL BREATHING PATTERN. absent: Rales, Rhonchi, Wheezes - Cardiovascular Exam Cardiovascular Exam: Irregular Rhythm, +S1, +S2. absent: Gallop, Rubs, Murmur - GI/Abdominal Exam GI & Abdominal Exam: Distended, Soft, Normal Bowel Sounds, Organomegaly. absent : Tenderness, Rebound - Extremities Exam Extremities Exam: Pedal Edema. absent: Calf Tenderness - Neurological Exam Neurological Exam: Alert, Awake, CN II-XII Intact, Oriented x3 - Psychiatric Exam Psychiatric exam: Normal Affect, Normal Mood - Skin Skin Exam: Dry, Warm Assessment and Plan - Assessment and Plan (Free Text) Assessment: This is a 62yo male with past medical history of HTN, dyslipidemia, asthma who is admitted for 1. Acute Liver failure (improving) - secondary to liver metastasis s/p palliative chemotherapy with etopiside and carboplatin x 3 - INR increasing, LFTs trending down 2. FRAN (improving) - Secondary to hepatorenal syndrome - HD catheter in place - No need for HD at this time 3. Tumor Lysis Syndome (improving) - Secondary to chemotherapy - phos decreasing, BUN elevated- works as diuretic- Urine output increasing - on Allopurinol 4. A.fib (new onset) - Echo EF 52%. Biscupid AV valve. Normal LV function - Was on anticoagulation- discontinued - CHADS score 1- no need for anticoagulation. 5. Chronic bronchitis 6. HTN 7. Dyslipidemia 8. Hx of asthma Plan: Labs and imaging reviewed. WBC increased secondary to granix. Patient weaned off of Cardizem drip. Now on PO cardizem and digoxin. Stop heparin drip. Now on ASA and Heparin SC for DVT prophylaxis. Oncology recommendations appreciated. LFTs improving. Kidney function improving. Urine output is being monitoring. Pain is controlled. Patient is stable and being transferred out of ICU. Pulm and GI recs appreciated. Allopurinol for hyperurecemia. Patient encouraged to get out of bed to chair and to walk. Discussed case at length with family. Case seen, discussed and reviewed with Dr. Rubalcava. Lisandro Field PGY3 <Mack Rubalcava - Last Filed: 01/20/18 15:40> Objective - Vital Signs/Intake and Output Vital Signs (last 24 hours): Temp Pulse Resp BP Pulse Ox 97.8 F 80 20 152/80 H 94 L 01/20/18 08:00 01/20/18 14:57 01/20/18 08:00 01/20/18 08:00 01/20/18 08:00 Intake and Output: 01/20/18 01/20/18 06:59 18:59 Intake Total 1149 330 Output Total 1190 250 Balance -41 80 - Medications Medications: Current Medications Allopurinol (Zyloprim) 100 mg PO DAILY [facility] Last Admin: 01/20/18 09:43 Dose: 100 mg Arformoterol Tartrate (Brovana) 15 mcg IH [id number] [facility] Last Admin: 01/20/18 07:15 Dose: Not Given Aspirin (Aspirin Chewable) 81 mg PO DAILY [facility] Last Admin: 01/20/18 11:55 Dose: 81 mg Budesonide (Pulmicort Respules) 0.5 mg IH [id number] [facility] Last Admin: 01/20/18 07:15 Dose: Not Given Digoxin (Digoxin) 0.125 mg PO 1400 [facility] Last Admin: 01/20/18 14:29 Dose: Not Given Diltiazem HCl (Cardizem) 30 mg PO Q6H [facility] Last Admin: 01/20/18 14:57 Dose: 30 mg Guaifenesin/Codeine Phosphate (Robitussin W/Codeine) 5 ml PO Q6H PRN PRN Reason: Cough and congestion Last Admin: 01/19/18 21:33 Dose: 5 ml Heparin Sodium (Porcine) (Heparin) 5,000 units SC Q12 [facility] PRN Reason: Protocol Hydromorphone HCl (Dilaudid) 1 mg IVP Q4H PRN PRN Reason: Pain, severe (8-10) Last Admin: 01/17/18 10:19 Dose: 1 mg Montelukast Sodium (Singulair) 10 mg PO HS [facility] Last Admin: 01/19/18 21:31 Dose: 10 mg Ondansetron HCl (Zofran Inj) 4 mg IVP Q6H [facility] Last Admin: 01/20/18 15:00 Dose: Not Given Oxycodone HCl (Oxycodone Immediate Release Tab) 10 mg PO Q6H PRN PRN Reason: Pain, moderate (4-7) Last Admin: 01/15/18 09:05 Dose: 10 mg Pantoprazole Sodium (Protonix Ec Tab) 40 mg PO Q12 [facility] Last Admin: 01/20/18 09:43 Dose: 40 mg Tiotropium Universal (Spiriva) 18 mcg IH DAILY [facility] Last Admin: 01/20/18 09:44 Dose: 18 mcg - Labs Labs: 01/20/18 06:15 01/20/18 06:15 PT 15.2 SECONDS (9.4-12.5) H 01/20/18 06:15 INR 1.31 (0.93-1.08) H 01/20/18 06:15 APTT 60.1 Seconds (25.1-36.5) H 01/20/18 06:15 Assessment and Plan - Assessment and Plan (Free Text) Plan: Pt seen and examined. Agree with the note of the medical administrator. Labs and medications have been reviewed. Pt is doing well. Eating well. LE is improving. transfer to med/surg. Pt is off cardizem and is not in sinus rhythm. He is doing well and improving. I spoke to Dr Maciel about the case. FRAN is improved. He is diuresing well. High WCC is due to Granix.
[2018-01-20 06:29] LABS: HEMOGLOBIN 10.9 g/dL (14.0-18.0); MEAN CELL VOLUME 78.3 fl (80.0-105.0); MEAN CORPUSCULAR HEMOGLOBIN 27.5 pg (25.0-35.0); MEAN CORPUSCULAR HGB CONC 35.2 g/dl (31.0-37.0); MEAN PLATELET VOLUME 9.7 fl (7.0-11.0); RBC 3.96 10^6/uL (3.5-6.1); RED CELL DISTRIBUTION WIDTH 16.1 % (11.5-14.5)
[2018-01-20 06:36] LABS: WHITE BLOOD COUNT 19.5 10^3/ul (4.5-11.0)
[2018-01-20 06:53] LABS: INR 1.31 (0.93-1.08); PARTIAL THROMBOPLASTIN TIME 60.1 Seconds (25.1-36.5); PROTHROMBIN TIME 15.2 SECONDS (9.4-12.5)
[2018-01-20 07:09] LABS: ALB/GLOB RATIO 0.9 (1.1-1.8); ALBUMIN 2.4 g/dL (3.0-4.8); CALCIUM 7.5 mg/dL (8.4-10.5); URIC ACID 13.4 mg/dL (3.5-8.5)
[2018-01-20] MEDS: Arformoterol 15 mcg/2 ml Inh Sol IH SCH ×2 (07:15→20:05)
[2018-01-20] MEDS: Budesonide 0.5 mg/2 ml Inhal Susp UD IH SCH ×2 (07:15→20:05)
--- NOTE | 2018-01-20 07:41 | PN ---
DATE: 01/20/2018(630am-720am) PULMONARY NOTE SUBJECTIVE: The patient appears comfortable this morning. He is not short of breath at rest. PHYSICAL EXAMINATION: VITAL SIGNS: Temperature is 97.8, pulse 82, respirations 18, blood pressure 141/88. Oxygen saturation on nasal cannula is 95%. HEENT: Normocephalic, atraumatic. No JVD. CARDIOVASCULAR: Positive S1, S2. No S3 gallop. LUNGS: Decreased breath sounds at the bases. No rhonchi. No wheezing. EXTREMITIES: No clubbing, cyanosis or edema. Calves are nontender to palpation. GI: Abdomen is soft, mildly tender to palpation (right side), and nondistended. Bowel sounds are positive. SKIN: No acute rash. NEUROLOGIC: Exam limited at the present time. IMPRESSION: 1. Advanced metastatic small cell cancer of the lung. 2. Chronic obstructive pulmonary disease. 3. Mild anemia. 4. Renal insufficiency. 5. Increased liver function enzymes. Liver metastasis. PLAN: The patient appears comfortable this morning. He is not short of breath at rest. He does state to feeling much better overall. I did discuss the case with the night nurse at length. The night nurse stated the patient had a very good night. On physical exam, there is no significant bronchospasm noted. In addition, there is no significant alveolar-arterial gradient. I will continue the current nebulizer treatments and inhaled steroids for now. Inputs by Cardiology and Oncology are noted. Repeat a.m. labs are pending. Clinical status of the patient is certainly improved - compared to last week. However, again, unfortunately, the overall status/prognosis for this patient appears very guarded/poor. I will discuss the above with the entire ICU team in the next few moments. I will also discuss the above with the attending physician. Lucio Ho MD MTDD
[2018-01-20] MEDS: Digoxin 500 mcg/2ml (0.5 mg/2ml) Inj IV SCH (09:39)
[2018-01-20] MEDS: Pantoprazole 40 mg EC Tab PO SCH ×2 (09:43→21:06)
[2018-01-20] MEDS: Tiotropium 18 mcg Cap For Inhalation IH SCH (09:44)
--- NOTE | 2018-01-20 10:31 | CP.PCM.PN ---
Subjective - Date & Time of Evaluation Date of Evaluation: 01/20/18 Time of Evaluation: 07:00 - Subjective Subjective: Dave Miranda DO, PGY-2: Hematology and Oncology Progress Note for Dr. Cash Patient was seen and examined at bedside. Patient reports he is feeling better, though his appetite is still off. at bedside asked if he should still be on heparin. Otherwise, chart review indicates no adverse events overnight. Objective - Vital Signs/Intake and Output Vital Signs (last 24 hours): Temp Pulse Resp BP Pulse Ox 97.8 F 85 20 152/80 H 94 L 01/20/18 08:00 01/20/18 09:44 01/20/18 08:00 01/20/18 08:00 01/20/18 08:00 Intake and Output: 01/20/18 01/20/18 06:59 18:59 Intake Total 1149 80 Output Total 1190 Balance -41 80 - Medications Medications: Current Medications Allopurinol (Zyloprim) 100 mg PO DAILY [facility] Last Admin: 01/20/18 09:43 Dose: 100 mg Arformoterol Tartrate (Brovana) 15 mcg IH [id number] [facility] Last Admin: 01/20/18 07:15 Dose: Not Given Budesonide (Pulmicort Respules) 0.5 mg IH [id number] [facility] Last Admin: 01/20/18 07:15 Dose: Not Given Digoxin (Lanoxin) 0.25 mg IV DAILY [facility] Last Admin: 01/20/18 09:39 Dose: 0.25 mg Diltiazem HCl (Cardizem) 30 mg PO Q6H [facility] Last Admin: 01/20/18 09:44 Dose: 30 mg Guaifenesin/Codeine Phosphate (Robitussin W/Codeine) 5 ml PO Q6H PRN PRN Reason: Cough and congestion Last Admin: 01/19/18 21:33 Dose: 5 ml Hydromorphone HCl (Dilaudid) 1 mg IVP Q4H PRN PRN Reason: Pain, severe (8-10) Last Admin: 01/17/18 10:19 Dose: 1 mg Heparin Sodium/Sodium Chloride (Heparin 90234 Units/250ml 1/2 Normal Saline) 25 ,000 units in 250 mls @ 14.261 mls/hr IV .[id number] PRN; Protocol; 12 UNITS/KG/HR PRN Reason: ADJUST RATE PER PROTOCOL Last Titration: 01/20/18 08:30 Dose: 0 units/kg/hr, 0 mls/hr Montelukast Sodium (Singulair) 10 mg PO HS [facility] Last Admin: 01/19/18 21:31 Dose: 10 mg Ondansetron HCl (Zofran Inj) 4 mg IVP Q6H [facility] Last Admin: 01/20/18 01:34 Dose: Not Given Oxycodone HCl (Oxycodone Immediate Release Tab) 10 mg PO Q6H PRN PRN Reason: Pain, moderate (4-7) Last Admin: 01/15/18 09:05 Dose: 10 mg Pantoprazole Sodium (Protonix Ec Tab) 40 mg PO Q12 [facility] Last Admin: 01/20/18 09:43 Dose: 40 mg Tiotropium [place] (Spiriva) 18 mcg IH DAILY [facility] Last Admin: 01/20/18 09:44 Dose: 18 mcg - Labs Labs: 01/20/18 06:15 01/20/18 06:15 PT 15.2 SECONDS (9.4-12.5) H 01/20/18 06:15 INR 1.31 (0.93-1.08) H 01/20/18 06:15 APTT 60.1 Seconds (25.1-36.5) H 01/20/18 06:15 - Constitutional Appears: Non-toxic, No Acute Distress - Head Exam Head Exam: ATRAUMATIC, NORMOCEPHALIC - Eye Exam Eye Exam: EOMI, Normal appearance - ENT Exam ENT Exam: Mucous Membranes Moist, Normal Oropharynx - Neck Exam Neck Exam: Normal Inspection - Respiratory Exam Respiratory Exam: Wheezes, NORMAL BREATHING PATTERN. absent: Accessory Muscle Use - Cardiovascular Exam Cardiovascular Exam: RRR, +S1, +S2 - GI/Abdominal Exam GI & Abdominal Exam: absent: Tenderness Additional comments: liver palpated 6 cm below right subcostal margin - Extremities Exam Extremities Exam: Normal Inspection. absent: Calf Tenderness - Neurological Exam Neurological Exam: Alert, Awake, Oriented x3 - Psychiatric Exam Psychiatric exam: Normal Affect, Normal Mood - Skin Skin Exam: Dry, Intact, Normal Color, Warm Assessment and Plan - Assessment and Plan (Free Text) Assessment: 62 year old male with 3 weeks of cough that did not respond to oral antibiotics , steroids, or Tussinex. [place] [facility] [place] that he failed outpatient treatment for a bronchitis. Upon admission he was found to have elevated liver functions tests which prompted an abdominal ultrasound that showed liver lesions consistent with metastatic disease. Subsequent, CT of the chest, abdomen , and pelvis with PO and IV contrast showed right pulmonary mass, mediastinal and hilar adenopathy, and metastatic lesions in the liver. 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 During the patient's hospital course he developed RUQ pain in addition to his cough with a concurrent rise his in LFTS and serum Creatinine. This phenomena was thought to be due to the tumor burden in the liver compressing the hepatic veins and causing hepatic congestion and subsequent capsular distention leading to the pain with a Budd-Chairi life effect. Initially, it was thought the patient may benefit from transfer to a tertiary care center; however, after a lengthy discussion with two different oncologist, it was decided to treat the [place] [facility] [place] with carboplatinum and etoposide , with dosing based on his creatinine clearance and Body Surface Area. He underwent placement of a port-a-cath and was subsequently transferred to the ICU and has completed 3 doses of the carboplatinum and etoposide with Granix being given every 24 hours, for a total of seven doses. Patient went into atrial fibrillation which the ICU team and cardioogy are managing with Diltiazem and diltiazem drip. An transthoracic echocardiogram was ordered for new-onset atrial fibrillation that showed a normal size left ventricle, normal EF of 52%, normal LV segmental wall motion, probable bicuspid aortic valve, mild to moderate aortic root enlargement, mild aortic regurgitation, mild pulmonary hypertension, and a trace loculated anterior pericardial effusion. Today, his Creatinine is 1.6, BUN of 104, uric acid is 13.4, serum K is 5.3, phosphorus 4.8, serum Ca 7.5, Mg 3.0, T. bili 5.9, AST 261, ALT 380, Alk Phos 316. For his atrial fibrillation, he has been converted to PO Diltiazem and is off the heparin drip. 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 His platelets have gradually fallen, and are 86 today. He has no active signs of bleeding or mucosal/gingival injury. We ordered HIT antibodies and HIT assay to err on the safe side. His white count is elevated secondary to Granix. We will continue it and if there is any suspicion for infection, a procalcitonin should be ordered. We will continue with allopurinol at its current dosage. The patient is POLST: DNR/DNI. We will treat aggressively with the primary team and the other consultants. Case was reviewed and discussed with the attending physician, Dr. Cash
--- NOTE | 2018-01-20 10:43 | CP.PCM.PN ---
Subjective - Date & Time of Evaluation Date of Evaluation: 01/20/18 Time of Evaluation: 07:00 - Subjective Subjective: GI Progress Note for Dr. Yolanda Freitas, PGY-3 IM Patient seen and examined at bedside. No acute events overnight. Remains in afib but rate appears better controlled (70's-80s). Shaving at time of exam. No acute complaints. Objective - Vital Signs/Intake and Output Vital Signs (last 24 hours): Temp Pulse Resp BP Pulse Ox 97.8 F 85 20 152/80 H 94 L 01/20/18 08:00 01/20/18 09:44 01/20/18 08:00 01/20/18 08:00 01/20/18 08:00 Intake and Output: 01/20/18 01/20/18 06:59 18:59 Intake Total 1149 80 Output Total 1190 Balance -41 80 - Medications Medications: Current Medications Allopurinol (Zyloprim) 100 mg PO DAILY [facility] Last Admin: 01/20/18 09:43 Dose: 100 mg Arformoterol Tartrate (Brovana) 15 mcg IH [id number] [facility] Last Admin: 01/20/18 07:15 Dose: Not Given Budesonide (Pulmicort Respules) 0.5 mg IH [id number] [facility] Last Admin: 01/20/18 07:15 Dose: Not Given Digoxin (Lanoxin) 0.25 mg IV DAILY [facility] Last Admin: 01/20/18 09:39 Dose: 0.25 mg Diltiazem HCl (Cardizem) 30 mg PO Q6H [facility] Last Admin: 01/20/18 09:44 Dose: 30 mg Guaifenesin/Codeine Phosphate (Robitussin W/Codeine) 5 ml PO Q6H PRN PRN Reason: Cough and congestion Last Admin: 01/19/18 21:33 Dose: 5 ml Hydromorphone HCl (Dilaudid) 1 mg IVP Q4H PRN PRN Reason: Pain, severe (8-10) Last Admin: 01/17/18 10:19 Dose: 1 mg Heparin Sodium/Sodium Chloride (Heparin 50075 Units/250ml 1/2 Normal Saline) 25 ,000 units in 250 mls @ 14.261 mls/hr IV .[id number] PRN; Protocol; 12 UNITS/KG/HR PRN Reason: ADJUST RATE PER PROTOCOL Last Titration: 01/20/18 08:30 Dose: 0 units/kg/hr, 0 mls/hr Montelukast Sodium (Singulair) 10 mg PO HS [facility] Last Admin: 01/19/18 21:31 Dose: 10 mg Ondansetron HCl (Zofran Inj) 4 mg IVP Q6H [facility] Last Admin: 01/20/18 01:34 Dose: Not Given Oxycodone HCl (Oxycodone Immediate Release Tab) 10 mg PO Q6H PRN PRN Reason: Pain, moderate (4-7) Last Admin: 01/15/18 09:05 Dose: 10 mg Pantoprazole Sodium (Protonix Ec Tab) 40 mg PO Q12 [facility] Last Admin: 01/20/18 09:43 Dose: 40 mg Tiotropium [place] (Spiriva) 18 mcg IH DAILY [facility] Last Admin: 01/20/18 09:44 Dose: 18 mcg - Labs Labs: 01/20/18 06:15 01/20/18 06:15 PT 15.2 SECONDS (9.4-12.5) H 01/20/18 06:15 INR 1.31 (0.93-1.08) H 01/20/18 06:15 APTT 60.1 Seconds (25.1-36.5) H 01/20/18 06:15 - Additional Findings Additional findings: - Constitutional Appears: No acute distress, Not acutely ill, Shaving at time of exam with no acute issues - Head Exam Head Exam: ATRAUMATIC, NORMAL INSPECTION, NORMOCEPHALIC - Eye Exam Eye Exam: Mild scleral icterus appreciated. absent: Conjunctival injection Pupil Exam: absent: Fixed, Irregular - ENT Exam ENT Exam: Mucous Membranes Moist. - Neck Exam Neck exam: Positive for: Normal Inspection - Respiratory Exam Respiratory Exam: Clear to Auscultation Bilateral, NORMAL BREATHING PATTERN. absent: Accessory Muscle Use, Chest Wall Tenderness, Decreased Breath Sounds, Rales, Rhonchi, Wheezes - Cardiovascular Exam Cardiovascular Exam: Irregular rate and rhythm (Afib), +S1, +S2. absent: Tachycardia, Bradycardia, JVD, +S4 - GI/Abdominal Exam GI & Abdominal Exam: Improved distension, Soft to Firm to palpation, no tenderness to palpation at RUQ, normal bowel sounds - Extremities Exam Extremities exam: Positive for: trace to +1 pedal edema from ankles to mid-eaton (improving). Negative for: calf tenderness, tenderness - Neurological Exam awake and alert, following all commands appropriately, moving all extremities spontaneously - Psychiatric Exam Psychiatric exam: Normal Affect, Normal Mood - Skin Skin Exam: Dry, Intact, Normal Color, Warm, Mild gross jaundice Assessment and Plan - Assessment and Plan (Free Text) Assessment: This is a 62 yo M with PMH of HTN, hypercholesterolemia, COPD, and asthma (not tobacco user) who presented to [facility] with complaint of cough productive for clear sputum for 3 weeks. GI was consulted due to incidentally discovered elevated transaminases, concerning for transaminitis. Found to have multiple hepatic mets, s/p biopsy with path suggestive for small cell neuroendocrine ca (pending immunohistochemical studies). Improving LFTs and renal function after acutely elevating x2 days, likely due to Budd Chiari-like effect from tumor compression of hepatic vasculature. 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, pending immunohistochemical analysis -AFP wnl, CA 19-9 elevated at 325, CEA elevated at 20.6 -AST 261, ALT 380, Alk Phos 316, Tbili 5.9, Cr 1.6, BUN 104, LDH (from 01/18) [id number] Improving LFTs and renal function on carboplatin and etoposide, likely decreased tumor size resolving Budd Chiari-like effect No plan for dialysis as per Nephro/Primary, elevated BUN more likely tumor lysis-like phenomenon in setting of improving creatinine TBili and Uric acid also improving now, overall improvement in function Continue PRN pain control and anti-emetics AFib management as per Cardio/Primary team due to increased bleeding risk from liver dysfunction, recommend low dose heparin instead of regular weight-based regimen for AC Chemo regimen as per Heme-onc Trend LFTs and Coags daily Avoid hepatotoxic drugs as feasible Will continue to monitor closely Dispo: To obtain second opinion at [facility] after discharge, continue follow up with GI, Heme-onc, and Primary Patient seen, reviewed, and discussed with attending, Dr. Guerrero
--- NOTE | 2018-01-20 12:33 | PN ---
DATE: 01/20/2018 SUBJECTIVE: The patient is seen sitting in a chair in the CCU. He feels fair at this time. His appetite remains poor. He is back in sinus rhythm. CURRENT MEDICATIONS: Include aspirin, Brovana, Cardizem 30 mg every 6 hours, Dilaudid p.r.n., subcutaneous heparin, digoxin 0.25 mg daily, oxycodone p.r.n., Protonix, Pulmicort inhaler, Singulair, Spiriva, and allopurinol. His IV diltiazem has been discontinued. OBJECTIVE: GENERAL: He is an overweight middle-aged man. VITAL SIGNS: His blood pressure is 150/80 with pulse of 86 and sinus, respirations are 14. He is afebrile. HEENT: No JVD. CHEST: Few scattered rhonchi. HEART: PMI normal position. No pathological gallops noted. ABDOMEN: Soft, protuberant with normoactive bowel sounds. EXTREMITIES: Reveal 1+ to 2+ anasarca. DIAGNOSTIC DATA: Potassium 5.3. BUN and creatinine are 104 and 1.6. White count 19.5, hemoglobin and hematocrit 10.9 and 31 with a platelet count of 86,000. Bilirubin is 5.9. AST and ALT 261 and 380. The thyroid panel was normal. IMPRESSION: 1. Paroxysmal atrial fibrillation, currently in sinus rhythm. His JEANINE score is relatively low at 1 and chronic anticoagulation does not appear necessary at the present time especially in the setting of his metastatic cancer which may increase his risk of internal bleeding. 2. 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 3. Severe renal insufficiency. 4. Probable bicuspid aortic valve with mild aortic insufficiency. RECOMMENDATIONS: Aspirin and diltiazem will be continued for now. Digoxin will be converted to oral administration and if he has no evidence of recurrence of atrial fibrillation, this can be discontinued in the near future. Transfer to telemetry is reasonable and discharge home relatively soon would be appropriate if possible. We will continue to follow and make further recommendations as appropriate. Rome Lee MD
[2018-01-20] MEDS: Digoxin 125 mcg (0.125 mg) Tab PO SCH (14:29)
--- NOTE | 2018-01-20 18:40 | CARD ---
APPROVED REPORT Date of service: 01/20/2018 EKG Measurement Heart [id number] <Conclusion> Sinus rhythm with premature atrial complexes Right bundle branch block Abnormal ECG
--- NOTE | 2018-01-20 23:32 | PN ---
DATE: 01/19/2018 SUBJECTIVE: Patient was seen yesterday in the ICU. His present. Overall, improving. PHYSICAL EXAMINATION: VITAL SIGNS: Temperature is 97, blood pressure 150/80, respiratory rate 18. HEENT: Unremarkable. NECK: Supple. LUNGS: Have decreased breath sounds. HEART: Normal S1 and S2. ABDOMEN: Soft, nontender. LABORATORY DATA: Reviewed. ASSESSMENT AND PLAN: A 62-year-old male who was seen early yesterday morning with hypertension, high cholesterol and asthma, never smoker, who was admitted and found to have hepatic metastases, but biopsy showed small cell neuroendocrine with lung as probable source, status post chemotherapy. Currently off of antibiotics. Patient is at very high risk of developing nosocomial infections. Victor Manuel Rocha MD
[2018-01-21] MEDS: Arformoterol 15 mcg/2 ml Inh Sol IH SCH ×2 (07:31→20:13)
[2018-01-21] MEDS: Budesonide 0.5 mg/2 ml Inhal Susp UD IH SCH ×2 (07:31→20:13)
--- NOTE | 2018-01-21 08:10 | PN ---
DATE: 01/21/2018 PULMONARY NOTE SUBJECTIVE: The patient appears comfortable this morning. He is not short of breath at rest. PHYSICAL EXAMINATION VITAL SIGNS: Temperature is 98.9, pulse is 77, respirations 18, blood pressure 129/60. Oxygen saturation on room air is 94%. HEENT: Normocephalic, atraumatic. No JVD. CARDIOVASCULAR: Positive S1, S2. No S3 gallop. LUNGS: Decreased breath sounds at the bases. Minimal rhonchi. No wheezing. EXTREMITIES: No clubbing, cyanosis or edema. Calves are nontender to palpation. GI: Abdomen is soft. Less tender to palpation (right side), and nondistended. Bowel sounds are positive. SKIN: No acute rash. NEUROLOGIC: Limited at the present time. IMPRESSION: 1. Advanced metastatic small-cell cancer of the lung. 2. Chronic obstructive pulmonary disease. 3. Mild anemia. 4. Renal insufficiency. 5. Increased liver function enzymes. Liver metastasis. PLAN: The patient appears comfortable this morning. He is not short of breath at rest. He does state to feeling much better overall. On physical exam, there is only minimal bronchospasm noted. In addition, the alveolar-arterial gradient is less. The patient has been refusing some of his nebulizer treatments. I did ask him to try again this morning. I will also discuss the issue with the respiratory therapist. Inputs by Infectious Disease, Cardiology, and Oncology are noted. The patient is now on the Oncology floor, and out of the ICU. Again, he does state to feeling much better. His clinical status has significantly improved - compared to the initial presentation. However, again, the future status/prognosis for this patient does remain very guarded/poor. I will discuss the above with the attending physician. Lucio Ho MD MTDD
--- NOTE | 2018-01-21 08:12 | PN ---
DATE: 01/20/2018 SUBJECTIVE: The patient was seen early this morning in the ICU. No fevers, no chills. No nausea. PHYSICAL EXAMINATION: VITAL SIGNS: On exam, temperature is 98, blood pressure is 120/70, respiratory rate 16. HEENT: Unremarkable. NECK: Supple. LUNGS: Have decreased breath sounds. HEART: Normal S1, S2. ABDOMEN: Soft. LABORATORY DATA: Reviewed. ASSESSMENT AND PLAN: A 62-year-old with advanced metastatic small cell cancer of lung with metastases to the liver and asthma, hypertension and status post chemotherapy. Currently off of antibiotics. The patient is at risk for developing nosocomial infections. Victor Manuel Rocha MD
--- NOTE | 2018-01-21 08:22 | CP.PCM.PN ---
<Zina Field - Last Filed: 01/21/18 09:36> Subjective - Date & Time of Evaluation Date of Evaluation: 01/21/18 Time of Evaluation: 07:00 - Subjective Subjective: Medicine Progress Note for Lisandro Mckinney PGY3 Patient seen and examined at bedside. There were no acute overnight events as per nursing staff. Patient is resting in bed. He reports he slept well overnight. He states he has some pain and fullness in his abdomen that radiates to his back. He denies nausea/vomiting/diarrhea, chest pain, shortness of breath , fever/chills, numbness/tingling, dysuria or hematuria. Objective - Vital Signs/Intake and Output Vital Signs (last 24 hours): Temp Pulse Resp BP Pulse Ox 98.9 F 77 20 129/60 94 L 01/20/18 16:45 01/20/18 21:06 01/20/18 16:45 01/20/18 21:06 01/20/18 16:45 Intake and Output: 01/21/18 01/21/18 06:59 18:59 Intake Total 240 Output Total 1320 Balance -1080 - Medications Medications: Current Medications Allopurinol (Zyloprim) 100 mg PO DAILY [facility] Last Admin: 01/20/18 09:43 Dose: 100 mg Arformoterol Tartrate (Brovana) 15 mcg IH [id number] [facility] Last Admin: 01/21/18 07:31 Dose: 15 mcg Aspirin (Aspirin Chewable) 81 mg PO DAILY [facility] Last Admin: 01/20/18 11:55 Dose: 81 mg Budesonide (Pulmicort Respules) 0.5 mg IH [id number] [facility] Last Admin: 01/21/18 07:31 Dose: 0.5 mg Digoxin (Digoxin) 0.125 mg PO 1400 [facility] Last Admin: 01/20/18 14:29 Dose: Not Given Diltiazem HCl (Cardizem) 30 mg PO Q6H [facility] Last Admin: 01/20/18 21:06 Dose: 30 mg Guaifenesin/Codeine Phosphate (Robitussin W/Codeine) 5 ml PO Q6H PRN PRN Reason: Cough and congestion Last Admin: 01/19/18 21:33 Dose: 5 ml Heparin Sodium (Porcine) (Heparin) 5,000 units SC Q12 [facility] PRN Reason: Protocol Last Admin: 01/20/18 21:08 Dose: 5,000 units Hydromorphone HCl (Dilaudid) 1 mg IVP Q4H PRN PRN Reason: Pain, severe (8-10) Last Admin: 01/17/18 10:19 Dose: 1 mg Montelukast Sodium (Singulair) 10 mg PO HS [facility] Last Admin: 01/20/18 21:06 Dose: 10 mg Ondansetron HCl (Zofran Inj) 4 mg IVP Q6H [facility] Last Admin: 01/20/18 19:55 Dose: Not Given Pantoprazole Sodium (Protonix Ec Tab) 40 mg PO Q12 [facility] Last Admin: 01/20/18 21:06 Dose: 40 mg Tiotropium [place] (Spiriva) 18 mcg IH DAILY [facility] Last Admin: 01/20/18 09:44 Dose: 18 mcg - Labs Labs: 01/20/18 06:15 01/20/18 06:15 PT 15.2 SECONDS (9.4-12.5) H 01/20/18 06:15 INR 1.31 (0.93-1.08) H 01/20/18 06:15 APTT 60.1 Seconds (25.1-36.5) H 01/20/18 06:15 - Constitutional Appears: No Acute Distress, Chronically Ill - Head Exam Head Exam: ATRAUMATIC, NORMAL INSPECTION, NORMOCEPHALIC - Eye Exam Eye Exam: Normal appearance, PERRL, Scleral icterus Pupil Exam: NORMAL ACCOMODATION - ENT Exam ENT Exam: Mucous Membranes Moist - Respiratory Exam Respiratory Exam: Clear to Ausculation Bilateral, NORMAL BREATHING PATTERN. absent: Rales, Rhonchi, Wheezes - Cardiovascular Exam Cardiovascular Exam: REGULAR RHYTHM, +S1, +S2. absent: Gallop, Rubs, Murmur - GI/Abdominal Exam GI & Abdominal Exam: Distended, Soft, Normal Bowel Sounds, Organomegaly ( hepatomegaly ). absent: Guarding, Rigid, Tenderness, Rebound - Extremities Exam Extremities Exam: Pedal Edema. absent: Calf Tenderness - Neurological Exam Neurological Exam: Alert, Awake, CN II-XII Intact, Oriented x3 - Psychiatric Exam Psychiatric exam: Normal Affect, Normal Mood - Skin Skin Exam: Dry, Warm Additional comments: cool temperature in lower extremities Assessment and Plan - Assessment and Plan (Free Text) Assessment: This is a 62yo male with past medical history of HTN, dyslipidemia, asthma who is admitted for 1. Thrombocytopenia - can be multifactorial- from medications heparin v. chemo - work up pending 2. Leukocytosis - patient on Granix 3. Acute Liver failure (improving) - secondary to liver metastasis s/p palliative chemotherapy with etopiside and carboplatin x 3 - INR increasing, LFTs trending down 4. FRAN (improving) - Secondary to hepatorenal syndrome - HD catheter in place - No need for HD at this time 5. Tumor Lysis Syndome (improving) - Secondary to chemotherapy - BUN elevated- works as diuretic- Urine output increasing - on Allopurinol 6. A.fib (new onset) - Echo EF 52% Normal LV function- probable bicuspid valve - Was on anticoagulation- discontinued - CHADS 1- no need for anticoagulation. 7. Chronic bronchitis - controlled 8. HTN- controlled 9. Dyslipidemia- controlled 10. Asthma- controlled Plan: Labs and imaging reviewed. Thrombocytopenia is multifactorial. Heparin D/c for now. Heme/onc on consult. Recommendations appreciated. Patient is on PO Cardizem and Digoxin. Patient started on ASA. Discussed case with cardiology. Continue Allopurinol. Pain is controlled. Patient is tolerating diet. He is encouraged to ambulate. No need for HD. Patient will need his dialysis catheter removed. Discussed case at length with family. Case seen, discussed and reviewed with Dr. Rubalcava. Lisandro Field PGY3 <Mack Rubalcava S - Last Filed: 01/21/18 22:57> Objective - Vital Signs/Intake and Output Vital Signs (last 24 hours): Temp Pulse Resp BP Pulse Ox 96.4 F L 84 20 146/67 98 01/21/18 16:40 01/21/18 19:30 01/21/18 16:40 01/21/18 19:30 01/21/18 16:40 Intake and Output: 01/21/18 01/22/18 18:59 06:59 Intake Total 1800 Output Total 800 Balance 1000 - Medications Medications: Current Medications Allopurinol (Zyloprim) 100 mg PO DAILY [facility] Last Admin: 01/21/18 10:15 Dose: 100 mg Arformoterol Tartrate (Brovana) 15 mcg IH [id number] [facility] Last Admin: 01/21/18 20:13 Dose: 15 mcg Aspirin (Aspirin Chewable) 81 mg PO DAILY [facility] Last Admin: 01/21/18 10:15 Dose: 81 mg Budesonide (Pulmicort Respules) 0.5 mg IH [id number] [facility] Last Admin: 01/21/18 20:13 Dose: 0.5 mg Digoxin (Digoxin) 0.125 mg PO 1400 [facility] Last Admin: 01/21/18 14:32 Dose: 0.125 mg Diltiazem HCl (Cardizem) 30 mg PO Q6H [facility] Last Admin: 01/21/18 22:19 Dose: Not Given Guaifenesin/Codeine Phosphate (Robitussin W/Codeine) 5 ml PO Q6H PRN PRN Reason: Cough and congestion Last Admin: 01/19/18 21:33 Dose: 5 ml Hydromorphone HCl (Dilaudid) 1 mg IVP Q4H PRN PRN Reason: Pain, severe (8-10) Last Admin: 01/17/18 10:19 Dose: 1 mg Montelukast Sodium (Singulair) 10 mg PO HS [facility] Last Admin: 01/21/18 22:19 Dose: 10 mg Ondansetron HCl (Zofran Inj) 4 mg IVP Q6H [facility] Last Admin: 01/21/18 22:19 Dose: Not Given Pantoprazole Sodium (Protonix Ec Tab) 40 mg PO Q12 [facility] Last Admin: 01/21/18 22:19 Dose: 40 mg Tiotropium [place] (Spiriva) 18 mcg IH DAILY [facility] Last Admin: 01/21/18 10:16 Dose: 18 mcg - Labs Labs: 01/21/18 08:44 01/21/18 08:44 PT 15.8 SECONDS (9.4-12.5) H 01/21/18 08:44 INR 1.37 (0.93-1.08) H 01/21/18 08:44 APTT 27.4 Seconds (25.1-36.5) 01/21/18 08:44 Assessment and Plan - Assessment and Plan (Free Text) Plan: Pt seen and examined. I have reviewed the note of the ophthalmic medical technician and agree with it. I have discussed the assessment and plan with the resident. I have reviewed the patient's labs and medications. Pt has improved. FRAN is improved. No HD indicated, so I have his catheter removed. Spoke to at the bedside to update her. Will plan to discharge pt after HD is removed and see if pt can ambulate. Eating well.
--- NOTE | 2018-01-21 08:56 | CP.PCM.PN ---
Subjective - Date & Time of Evaluation Date of Evaluation: 01/21/18 Time of Evaluation: 07:00 - Subjective Subjective: Stable on 3R. He feels better. No CP, SOB, palpitations. V/S noted. PE: Lungs: few rhonchi Cor.: reg., S1S2 Abd.: soft Ext.: + edema Neuro.: alert I/O= [id number] Labs 01/20 noted. Today's labs pending. BC X2 NG at 5 days. Urine C+S: NG ECG 01/20: RSR, APC, RBBB, STTW changes Objective - Vital Signs/Intake and Output Vital Signs (last 24 hours): Temp Pulse Resp BP Pulse Ox 97.7 F 82 19 137/68 96 01/21/18 08:34 01/21/18 08:34 01/21/18 08:34 01/21/18 08:34 01/21/18 08:34 Intake and Output: 01/21/18 01/21/18 06:59 18:59 Intake Total 240 Output Total 1320 Balance -1080 - Medications Medications: Current Medications Allopurinol (Zyloprim) 100 mg PO DAILY [facility] Last Admin: 01/20/18 09:43 Dose: 100 mg Arformoterol Tartrate (Brovana) 15 mcg IH [id number] [facility] Last Admin: 01/21/18 07:31 Dose: 15 mcg Aspirin (Aspirin Chewable) 81 mg PO DAILY [facility] Last Admin: 01/20/18 11:55 Dose: 81 mg Budesonide (Pulmicort Respules) 0.5 mg IH [id number] [facility] Last Admin: 01/21/18 07:31 Dose: 0.5 mg Digoxin (Digoxin) 0.125 mg PO 1400 [facility] Last Admin: 01/20/18 14:29 Dose: Not Given Diltiazem HCl (Cardizem) 30 mg PO Q6H [facility] Last Admin: 01/20/18 21:06 Dose: 30 mg Guaifenesin/Codeine Phosphate (Robitussin W/Codeine) 5 ml PO Q6H PRN PRN Reason: Cough and congestion Last Admin: 01/19/18 21:33 Dose: 5 ml Hydromorphone HCl (Dilaudid) 1 mg IVP Q4H PRN PRN Reason: Pain, severe (8-10) Last Admin: 01/17/18 10:19 Dose: 1 mg Montelukast Sodium (Singulair) 10 mg PO HS [facility] Last Admin: 01/20/18 21:06 Dose: 10 mg Ondansetron HCl (Zofran Inj) 4 mg IVP Q6H [facility] Last Admin: 01/20/18 19:55 Dose: Not Given Pantoprazole Sodium (Protonix Ec Tab) 40 mg PO Q12 [facility] Last Admin: 01/20/18 21:06 Dose: 40 mg Tiotropium [place] (Spiriva) 18 mcg IH DAILY [facility] Last Admin: 01/20/18 09:44 Dose: 18 mcg - Labs Labs: 01/20/18 06:15 01/20/18 06:15 PT 15.2 SECONDS (9.4-12.5) H 01/20/18 06:15 INR 1.31 (0.93-1.08) H 01/20/18 06:15 APTT 60.1 Seconds (25.1-36.5) H 01/20/18 06:15 Assessment and Plan - Assessment and Plan (Free Text) Assessment: Advanced metastatic small cell lung cancer with hilar, mediastinal and liver mets. Ongoing chemotherapy PAF RBBB COPD/Never Smoked Echo: Nl LV, LVH, bicuspid AV, Mild AI CKD Anemia/Thrombocytopenia Plan: AM labs pending. As per Onc, Pulm, ID and GI Continue PO cardizem and Digoxin. Will switch Cradizem to daily dose tomorrow. Check dig. level in AM OOB as geraldine A/C to be considered but might be too risky for low JEANINE score and ongoing chemo with thrombocytopenia. Will defer to Dr. Cash.
[2018-01-21 08:57] LABS: BASO # 0.01 K/mm3 (0.0-2.0); BASO % 0.2 % (0.0-3.0); GRAN # 6.35 (1.4-6.5); GRAN % 95.7 % (50.0-68.0); LYMPH # 0.3 (1.2-3.4); LYMPH % 3.9 % (22.0-35.0); MEAN CELL VOLUME 79.4 fl (80.0-105.0); MEAN CORPUSCULAR HGB CONC 35.3 g/dl (31.0-37.0); MEAN PLATELET VOLUME 10.2 fl (7.0-11.0); MONO % 0.2 % (1.0-6.0); PLATELET COUNT 63 10^3/uL (120.0-450.0); RBC 3.93 10^6/uL (3.5-6.1); RED CELL DISTRIBUTION WIDTH 16.2 % (11.5-14.5); WHITE BLOOD COUNT 6.6 10^3/ul (4.5-11.0)
[2018-01-21 09:06] LABS: INR 1.37 (0.93-1.08); PARTIAL THROMBOPLASTIN TIME 27.4 Seconds (25.1-36.5); PROTHROMBIN TIME 15.8 SECONDS (9.4-12.5)
[2018-01-21 09:07] LABS: ALB/GLOB RATIO 0.9 (1.1-1.8); ALBUMIN 2.5 g/dL (3.0-4.8); ALT/SGPT 311 U/L (7-56); AST/SGOT 225 U/L (17-59); BLOOD UREA NITROGEN 65 mg/dL (7-21); CALCIUM 7.9 mg/dL (8.4-10.5); GFR AFRICAN-AMERICAN > 60; GFR NON-AFRICAN AMERICAN > 60
--- NOTE | 2018-01-21 09:55 | CP.PCM.PN ---
<Johnny Freitas - Last Filed: 01/21/18 09:51> Subjective - Date & Time of Evaluation Date of Evaluation: 01/21/18 Time of Evaluation: 07:40 - Subjective Subjective: GI Progress Note for Dr. Yolanda Freitas, PGY-3 IM Patient seen and examined at bedside, now out of the ICU. No acute events overnight. Remains in rate controlled afib. No acute complaints. Objective - Vital Signs/Intake and Output Vital Signs (last 24 hours): Temp Pulse Resp BP Pulse Ox 97.7 F 82 19 137/68 96 01/21/18 08:34 01/21/18 08:34 01/21/18 08:34 01/21/18 08:34 01/21/18 08:34 Intake and Output: 01/21/18 01/21/18 06:59 18:59 Intake Total 240 Output Total 1320 Balance -1080 - Medications Medications: Current Medications Allopurinol (Zyloprim) 100 mg PO DAILY [facility] Last Admin: 01/20/18 09:43 Dose: 100 mg Arformoterol Tartrate (Brovana) 15 mcg IH [id number] [facility] Last Admin: 01/21/18 07:31 Dose: 15 mcg Aspirin (Aspirin Chewable) 81 mg PO DAILY [facility] Last Admin: 01/20/18 11:55 Dose: 81 mg Budesonide (Pulmicort Respules) 0.5 mg IH [id number] [facility] Last Admin: 01/21/18 07:31 Dose: 0.5 mg Digoxin (Digoxin) 0.125 mg PO 1400 [facility] Last Admin: 01/20/18 14:29 Dose: Not Given Diltiazem HCl (Cardizem) 30 mg PO Q6H [facility] Last Admin: 01/20/18 21:06 Dose: 30 mg Guaifenesin/Codeine Phosphate (Robitussin W/Codeine) 5 ml PO Q6H PRN PRN Reason: Cough and congestion Last Admin: 01/19/18 21:33 Dose: 5 ml Hydromorphone HCl (Dilaudid) 1 mg IVP Q4H PRN PRN Reason: Pain, severe (8-10) Last Admin: 01/17/18 10:19 Dose: 1 mg Montelukast Sodium (Singulair) 10 mg PO [facility] Last Admin: 01/20/18 21:06 Dose: 10 mg Ondansetron HCl (Zofran Inj) 4 mg IVP Q6H [facility] Last Admin: 01/20/18 19:55 Dose: Not Given Pantoprazole Sodium (Protonix Ec Tab) 40 mg PO Q12 [facility] Last Admin: 01/20/18 21:06 Dose: 40 mg Tiotropium [place] (Spiriva) 18 mcg IH DAILY [facility] Last Admin: 01/20/18 09:44 Dose: 18 mcg - Labs Labs: 01/21/18 08:44 01/21/18 08:44 PT 15.8 SECONDS (9.4-12.5) H 01/21/18 08:44 INR 1.37 (0.93-1.08) H 01/21/18 08:44 APTT 27.4 Seconds (25.1-36.5) 01/21/18 08:44 - Additional Findings Additional findings: - Constitutional Appears: No acute distress, Not acutely ill - Head Exam Head Exam: ATRAUMATIC, NORMAL INSPECTION, NORMOCEPHALIC - Eye Exam Eye Exam: Mild scleral icterus appreciated. absent: Conjunctival injection Pupil Exam: absent: Fixed, Irregular - ENT Exam ENT Exam: Mucous Membranes Moist. - Respiratory Exam Respiratory Exam: Normal breathing pattern, no acute tachypnea or cyanosis - Cardiovascular Exam Cardiovascular Exam: Irregular rate and rhythm (Afib), +S1, +S2. absent: Tachycardia, Bradycardia, JVD, +S4 - GI/Abdominal Exam GI & Abdominal Exam: Improved distension, Soft to Firm to palpation, no tenderness to palpation at RUQ, normal bowel sounds - Extremities Exam Extremities exam: Positive for: trace to +1 pedal edema from ankles to mid-eaton (improving). Negative for: calf tenderness, tenderness - Neurological Exam awake and alert, following all commands appropriately, moving all extremities spontaneously - Psychiatric Exam Psychiatric exam: Normal Affect, Normal Mood - Skin Skin Exam: Dry, Intact, Mild gross jaundice Assessment and Plan - Assessment and Plan (Free Text) Assessment: This is a 62 yo M with PMH of HTN, hypercholesterolemia, COPD, and asthma (not tobacco user) who presented to [facility] with complaint of cough productive for clear sputum for 3 weeks. GI was consulted due to incidentally discovered elevated transaminases, concerning for transaminitis. 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 Continues to have improving LFTs and renal function after initiation of chemo regimen, likely due to shrinkage of tumors causing Budd Chiari-like effect (from compression of hepatic vasculature). 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, pending immunohistochemical analysis -AFP wnl, CA 19-9 elevated at 325, CEA elevated at 20.6 -AST 261, ALT 380, Alk Phos 316, Tbili 5.9, Cr 1.6, BUN 104, LDH (from 01/18) [id number] Improving LFTs and renal function on carboplatin and etoposide, likely decreased tumor size resolving Budd Chiari-like effect No plan for HD as per Nephro/Primary, elevated BUN more likely tumor lysis- like phenomenon, improving Cr and BUN now Continue PRN pain control and anti-emetics AFib management as per Cardio/Primary team Now off anticoagulation as per primary team due to low CHADs score and risk of bleeding from liver disease Chemo regimen as per Heme-onc Trend LFTs and Coags daily Avoid hepatotoxic drugs as feasible Will continue to monitor closely Dispo: To obtain second opinion at [facility] after discharge, continue follow up with GI, Heme-onc, and Primary on discharge Patient seen, reviewed, and discussed with attending, Dr. Guerrero <Louis Guerrero V - Last Filed: 01/21/18 23:46> Objective - Vital Signs/Intake and Output Vital Signs (last 24 hours): Temp Pulse Resp BP Pulse Ox 96.4 F L 84 20 146/67 98 01/21/18 16:40 01/21/18 19:30 01/21/18 16:40 01/21/18 19:30 01/21/18 16:40 Intake and Output: 01/21/18 01/22/18 18:59 06:59 Intake Total 1800 Output Total 800 Balance 1000 - Medications Medications: Current Medications Allopurinol (Zyloprim) 100 mg PO DAILY [facility] Last Admin: 01/21/18 10:15 Dose: 100 mg Arformoterol Tartrate (Brovana) 15 mcg IH [id number] [facility] Last Admin: 01/21/18 20:13 Dose: 15 mcg Aspirin (Aspirin Chewable) 81 mg PO DAILY [facility] Last Admin: 01/21/18 10:15 Dose: 81 mg Budesonide (Pulmicort Respules) 0.5 mg IH [id number] [facility] Last Admin: 01/21/18 20:13 Dose: 0.5 mg Digoxin (Digoxin) 0.125 mg PO 1400 [facility] Last Admin: 01/21/18 14:32 Dose: 0.125 mg Diltiazem HCl (Cardizem) 30 mg PO Q6H [facility] Last Admin: 01/21/18 22:19 Dose: Not Given Guaifenesin/Codeine Phosphate (Robitussin W/Codeine) 5 ml PO Q6H PRN PRN Reason: Cough and congestion Last Admin: 01/19/18 21:33 Dose: 5 ml Hydromorphone HCl (Dilaudid) 1 mg IVP Q4H PRN PRN Reason: Pain, severe (8-10) Last Admin: 01/17/18 10:19 Dose: 1 mg Montelukast Sodium (Singulair) 10 mg PO HS [facility] Last Admin: 01/21/18 22:19 Dose: 10 mg Ondansetron HCl (Zofran Inj) 4 mg IVP Q6H [facility] Last Admin: 01/21/18 22:19 Dose: Not Given Pantoprazole Sodium (Protonix Ec Tab) 40 mg PO Q12 [facility] Last Admin: 01/21/18 22:19 Dose: 40 mg Tiotropium [place] (Spiriva) 18 mcg IH DAILY [facility] Last Admin: 01/21/18 10:16 Dose: 18 mcg - Labs Labs: 01/21/18 08:44 01/21/18 08:44 PT 15.8 SECONDS (9.4-12.5) H 01/21/18 08:44 INR 1.37 (0.93-1.08) H 01/21/18 08:44 APTT 27.4 Seconds (25.1-36.5) 01/21/18 08:44 Attending/Attestation - Attestation I have personally seen and examined this patient.: Yes I have fully participated in the care of the patient.: Yes I have reviewed all pertinent clinical information, including history, physical exam and plan: Yes
[2018-01-21] MEDS: Pantoprazole 40 mg EC Tab PO SCH ×2 (10:15→22:19)
[2018-01-21] MEDS: Tiotropium 18 mcg Cap For Inhalation IH SCH (10:16)
[2018-01-21 10:38] LABS: LYMPHOCYTE 5 % (22.0-35.0); MONOCYTE 1 % (1.0-6.0); NEUTROPHIL 94 % (50.0-70.0); PLATELET ESTIMATE LOW (NORMAL)
--- NOTE | 2018-01-21 11:23 | CP.PCM.PN ---
Subjective - Date & Time of Evaluation Date of Evaluation: 01/21/18 Time of Evaluation: 10:30 - Subjective Subjective: Samuel Scheafer DO, IM Resident PGY-1 Hematology/Oncology Progress Note for Dr. Cash Patient was seen and examined at bedside this AM. No acute events overnight. He states he is feeling better and is ready to go home. His states that the primary team believes he will be ready to go home tomorrow. She is agreeable to seeing how his labs are tomorrow and then making a decision. She states she will be able to give him the granix shots at home if he's ready to go home tomorrow. Objective - Vital Signs/Intake and Output Vital Signs (last 24 hours): Temp Pulse Resp BP Pulse Ox 97.7 F 82 19 137/68 96 01/21/18 08:34 01/21/18 10:23 01/21/18 08:34 01/21/18 10:23 01/21/18 08:34 Intake and Output: 01/21/18 01/21/18 06:59 18:59 Intake Total 240 Output Total 1320 Balance -1080 - Medications Medications: Current Medications Allopurinol (Zyloprim) 100 mg PO DAILY [facility] Last Admin: 01/21/18 10:15 Dose: 100 mg Arformoterol Tartrate (Brovana) 15 mcg IH [id number] [facility] Last Admin: 01/21/18 07:31 Dose: 15 mcg Aspirin (Aspirin Chewable) 81 mg PO DAILY [facility] Last Admin: 01/21/18 10:15 Dose: 81 mg Budesonide (Pulmicort Respules) 0.5 mg IH [id number] [facility] Last Admin: 01/21/18 07:31 Dose: 0.5 mg Digoxin (Digoxin) 0.125 mg PO 1400 [facility] Last Admin: 01/20/18 14:29 Dose: Not Given Diltiazem HCl (Cardizem) 30 mg PO Q6H [facility] Last Admin: 01/21/18 10:23 Dose: 30 mg Guaifenesin/Codeine Phosphate (Robitussin W/Codeine) 5 ml PO Q6H PRN PRN Reason: Cough and congestion Last Admin: 01/19/18 21:33 Dose: 5 ml Hydromorphone HCl (Dilaudid) 1 mg IVP Q4H PRN PRN Reason: Pain, severe (8-10) Last Admin: 01/17/18 10:19 Dose: 1 mg Montelukast Sodium (Singulair) 10 mg PO HS [facility] Last Admin: 01/20/18 21:06 Dose: 10 mg Ondansetron HCl (Zofran Inj) 4 mg IVP Q6H [facility] Last Admin: 01/21/18 08:00 Dose: Not Given Pantoprazole Sodium (Protonix Ec Tab) 40 mg PO Q12 [facility] Last Admin: 01/21/18 10:15 Dose: 40 mg Tiotropium [place] (Spiriva) 18 mcg IH DAILY [facility] Last Admin: 01/21/18 10:16 Dose: 18 mcg - Labs Labs: 01/21/18 08:44 01/21/18 08:44 PT 15.8 SECONDS (9.4-12.5) H 01/21/18 08:44 INR 1.37 (0.93-1.08) H 01/21/18 08:44 APTT 27.4 Seconds (25.1-36.5) 01/21/18 08:44 - Constitutional Appears: Non-toxic, No Acute Distress - Head Exam Head Exam: ATRAUMATIC, NORMOCEPHALIC - Eye Exam Eye Exam: Normal appearance, PERRL - ENT Exam ENT Exam: Mucous Membranes Moist - Neck Exam Neck Exam: Full ROM - Respiratory Exam Respiratory Exam: Clear to Ausculation Bilateral, NORMAL BREATHING PATTERN. absent: Rales, Rhonchi, Wheezes - Cardiovascular Exam Cardiovascular Exam: REGULAR RHYTHM, RRR, +S1, +S2. absent: Gallop, Rubs, Murmur - GI/Abdominal Exam GI & Abdominal Exam: Distended. absent: Guarding, Rebound - Extremities Exam Extremities Exam: Full ROM. absent: Calf Tenderness, Pedal Edema - Neurological Exam Neurological Exam: Alert, Awake, Oriented x3 - Psychiatric Exam Psychiatric exam: Normal Affect, Normal Mood - Skin Skin Exam: Dry, Intact, Normal Color, Warm Assessment and Plan - Assessment and Plan (Free Text) Assessment: This is a 62 yo M with PMH of HTN, hypercholesterolemia, COPD, and asthma who presented to [facility] initially with productive cough x 3 weeks. 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 During the patient's hospital course he developed RUQ pain in addition to his cough with rising AST, ALT, and Cr. This was likely secondary to worsening tumor burden in the liver compressing the hepatic veins leading to the pain and a Budd-Chiari like syndrome. Initially, it was thought the patient may benefit from transfer to a tertiary care center; however, after a lengthy discussion with two different oncologist, it was decided to treat the patient in [facility] in the ICU with carboplatinum and etoposide, with dosing based on his creatinine clearance and Body Surface Area. He underwent placement of a port-a-cath and was subsequently transferred to the ICU and has completed 3 doses of the carboplatinum and etoposide with Granix being given every 24 hours , for a total of seven doses. Patient went into atrial fibrillation which the ICU team and cardioogy are managing with Diltiazem and diltiazem drip. After improvement with carboplatin and etoposide, he was transferred to oncology floor. Plan: His platelet counts are continuing to down trend. HIT panel is pending. Likely multifactorial from carboplatin, etoposide treatment and/or hepatic dysfunction. He shows no signs of active bleeding, and we will continue to monitor. His WBC have decreased dramatically from yesterday. To prevent his counts from dropping further, we will extend his granix treatment to 10 days. Per the MAR, he has only received two doses of granix thus far. He will continue the injections at home when discharged. Case and plan were reviewed and discussed in detail with my attending physician Dr. Shreya Schaefer DO IM Resident PGY-1
[2018-01-21] MEDS ORDERED: Lidocaine 1% Inj (20ml) IJ STA (11:26)
--- NOTE | 2018-01-21 12:21 | CP.PCM.CON ---
History of Present Illness - History of Present Illness History of Present Illness: General Surgery consult for Dr. Zayas Consulted for: hemodialysis catheter removal Patient is a 62M who is admitted for dyspnea and was found to have cancer of the lung with tumors in the liver suspicious for metastasis. The liver masses were biopsied and were positive for small cell neuroendocrine cancer of the lung. Patient developed an FRAN and a tunneled hemodialysis catheter was inserted in the RIJ on 01/15/[address] Madison. Patient's renal function improved and he was determined to not need hemodialysis so general surgery was consulted to remove the hemodialysis catheter. Patient denies any fevers, chills , chest pain, or any other symptoms. PMH: HTN, dyslipidemia, asthma, fatty liver, liver cyst PSH: R ankle surgery, L rotator cuff Allergies: NKDA Social history: Denies tobacco, EtOH, drug use Family history: Father: from possible lymphoma age 49 Review of Systems - Review of Systems All systems: reviewed and no additional remarkable complaints except (as per HPI ) Past Patient History - Infectious Disease Hx of Infectious Diseases: None - Tetanus Immunizations Tetanus Immunization: Unknown - Past Medical History & Family History Past Medical History?: Yes Pertinent Family History: Father of possible lymphoma - Past Social History Smoking Status: Never Smoked Alcohol: None Drugs: Denies Home Situation {Lives}: With Family - CARDIAC Hx Hypertension: Yes Hx Pacemaker: No - PULMONARY Hx Asthma: Yes - NEUROLOGICAL Hx Paralysis: No - HEENT Hx HEENT Problems: Yes (eyeglasses) - RENAL Hx Chronic Kidney Disease: No - ENDOCRINE/METABOLIC Hx Endocrine Disorders: No - HEMATOLOGICAL/ONCOLOGICAL Hx Blood Transfusions: No - INTEGUMENTARY Hx Dermatological Problems: Yes Other/Comment: healed surgical scar inner right foot from tendon repair to straighten foot sx 2010 - MUSCULOSKELETAL/RHEUMATOLOGICAL Hx Musculoskeletal Disorders: No - GASTROINTESTINAL Hx Gastrointestinal Disorders: Yes (fatty liver "yrs ago") Hx Gastroesophageal Reflux: Yes Other/Comment: hemorrhoids, gastritis, gastric polyps, polypectomy and bx - GENITOURINARY/GYNECOLOGICAL Hx Genitourinary Disorders: Yes (vasectomy) - PSYCHIATRIC Hx Emotional Abuse: No Hx Physical Abuse: No Hx Substance Use: No - SURGICAL HISTORY Hx Orthopedic Surgery: Yes - ANESTHESIA Hx Anesthesia Reactions: No Hx Malignant Hyperthermia: No Meds Home Medications: Home Medication List Medication Instructions Recorded Confirmed Type Arformoterol [Brovana] 15 mcg IH [id number] neb 01/15/18 Rx Budesonide [Pulmicort Respules] 0.5 mg IH [id number] neb 01/15/18 Rx Docusate [Colace] 100 mg PO DAILY cap 01/15/18 Rx Lidocaine 5% [Lidoderm] 1 ea TD DAILY patch 01/15/18 Rx Losartan [Cozaar] 50 mg PO DAILY tab 01/15/18 Rx Montelukast [Singulair] 10 mg PO HS tab 01/15/18 Rx Morphine 2 mg IVP Q4H PRN ml 01/15/18 Rx Ondansetron [Zofran Inj] 4 mg IVP Q6H PRN vial 01/15/18 Rx Polyethylene Glycol 3350 [Miralax] 17 gm PO BID packet 01/15/18 Rx Tiotropium [Spiriva] 18 mcg IH DAILY cap 01/15/18 Rx guaiFENesin/Codeine [Robitussin 5 ml PO Q6H PRN udc 01/15/18 Rx w/Codeine] oxyCODONE [oxyCODONE Immediate 10 mg PO Q6H PRN tab 01/15/18 Rx Release Tab] Allergies/Adverse Reactions: Allergies Allergy/AdvReac Type Severity Reaction Status Date / Time No Known Allergies Allergy Verified 03/18/13 08:09 - Medications Medications: Current Medications Allopurinol (Zyloprim) 100 mg PO DAILY [facility] Last Admin: 01/21/18 10:15 Dose: 100 mg Arformoterol Tartrate (Brovana) 15 mcg IH [id number] [facility] Last Admin: 01/21/18 07:31 Dose: 15 mcg Aspirin (Aspirin Chewable) 81 mg PO DAILY [facility] Last Admin: 01/21/18 10:15 Dose: 81 mg Budesonide (Pulmicort Respules) 0.5 mg IH [id number] [facility] Last Admin: 01/21/18 07:31 Dose: 0.5 mg Digoxin (Digoxin) 0.125 mg PO 1400 [facility] Last Admin: 01/20/18 14:29 Dose: Not Given Diltiazem HCl (Cardizem) 30 mg PO Q6H [facility] Last Admin: 01/21/18 10:23 Dose: 30 mg Guaifenesin/Codeine Phosphate (Robitussin W/Codeine) 5 ml PO Q6H PRN PRN Reason: Cough and congestion Last Admin: 01/19/18 21:33 Dose: 5 ml Hydromorphone HCl (Dilaudid) 1 mg IVP Q4H PRN PRN Reason: Pain, severe (8-10) Last Admin: 01/17/18 10:19 Dose: 1 mg Montelukast Sodium (Singulair) 10 mg PO HS [facility] Last Admin: 01/20/18 21:06 Dose: 10 mg Ondansetron HCl (Zofran Inj) 4 mg IVP Q6H [facility] Last Admin: 01/21/18 08:00 Dose: Not Given Pantoprazole Sodium (Protonix Ec Tab) 40 mg PO Q12 [facility] Last Admin: 01/21/18 10:15 Dose: 40 mg Tiotropium [place] (Spiriva) 18 mcg IH DAILY [facility] Last Admin: 01/21/18 10:16 Dose: 18 mcg Physical Exam - Constitutional Appears: Well, Non-toxic, No Acute Distress - Head Exam Head Exam: ATRAUMATIC, NORMOCEPHALIC - Eye Exam Eye Exam: Normal appearance. absent: Conjunctival injection, Scleral icterus - ENT Exam ENT Exam: Mucous Membranes Moist, Normal Oropharynx - Respiratory Exam Respiratory Exam: NORMAL BREATHING PATTERN. absent: Accessory Muscle Use, Respiratory Distress Additional comments: hemodialysis catheter inserted subcutaneously 6cm below the clavical on the right along the mid clavicular line - Cardiovascular Exam Cardiovascular Exam: RRR - GI/Abdominal Exam GI & Abdominal Exam: Soft. absent: Distended - Neurological Exam Neurological exam: Alert, Oriented x3 - Psychiatric Exam Psychiatric exam: Normal Affect, Normal Mood - Skin Skin Exam: Dry, Intact, Normal Color, Warm Results - Vital Signs Recent Vital Signs: Last Vital Signs Temp 97.7 F 01/21/18 08:34 Pulse 82 01/21/18 10:23 Resp 19 01/21/18 08:34 BP 137/68 01/21/18 10:23 Pulse Ox 96 01/21/18 08:34 - Labs Result Diagrams: 01/21/18 08:44 01/21/18 08:44 Labs: Laboratory Results - last 24 hr 01/21/18 01/21/18 01/21/18 08:44 08:44 08:44 WBC 6.6 D RBC 3.93 Hgb 11.0 L Hct 31.2 L MCV 79.4 L MCH 28.0 MCHC 35.3 RDW 16.2 H Plt Count 63 L MPV 10.2 Gran % 95.7 H Lymph % (Auto) 3.9 L [place] % (Auto) 0.2 L Eos % (Auto) 0.0 L Baso % (Auto) 0.2 Gran # 6.35 Lymph # (Auto) 0.3 L [place] # (Auto) 0.0 L Eos # (Auto) 0.0 Baso # (Auto) 0.01 Neutrophils % (Manual) 94 H Lymphocytes % (Manual) 5 L Monocytes % (Manual) 1 Platelet Evaluation Low PT 15.8 H INR 1.37 H APTT 27.4 Sodium 141 Potassium 5.2 H Chloride 110 H Carbon Dioxide 23 Anion Gap 13 BUN 65 H Creatinine 0.9 Est GFR ( Amer) > 60 Est GFR (Non-Af Amer) > 60 Random Glucose 119 H Calcium 7.9 L Total Bilirubin 7.5 H AST 225 H ALT 311 H Alkaline Phosphatase 292 H Total Protein 5.1 L Albumin 2.5 L Globulin 2.6 Albumin/Globulin Ratio 0.9 L Assessment & Plan - Assessment and Plan (Free Text) Assessment: 62M with 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 Zayas, who agrees with above Halima Servin, PGY2
--- NOTE | 2018-01-21 12:36 | CP.PCM.PN ---
Subjective - Date & Time of Evaluation Date of Evaluation: 01/21/18 Time of Evaluation: 10:20 - Subjective Subjective: Patient feels weak and tired, no fevers, no diarrhea. Objective - Vital Signs/Intake and Output Vital Signs (last 24 hours): Temp Pulse Resp BP Pulse Ox 97.7 F 82 19 137/68 96 01/21/18 08:34 01/21/18 08:34 01/21/18 08:34 01/21/18 08:34 01/21/18 08:34 Intake and Output: 01/21/18 01/21/18 06:59 18:59 Intake Total 240 Output Total 1320 Balance -1080 - Medications Medications: Current Medications Allopurinol (Zyloprim) 100 mg PO DAILY [facility] Last Admin: 01/20/18 09:43 Dose: 100 mg Arformoterol Tartrate (Brovana) 15 mcg IH [id number] [facility] Last Admin: 01/21/18 07:31 Dose: 15 mcg Aspirin (Aspirin Chewable) 81 mg PO DAILY [facility] Last Admin: 01/20/18 11:55 Dose: 81 mg Budesonide (Pulmicort Respules) 0.5 mg IH [id number] [facility] Last Admin: 01/21/18 07:31 Dose: 0.5 mg Digoxin (Digoxin) 0.125 mg PO 1400 [facility] Last Admin: 01/20/18 14:29 Dose: Not Given Diltiazem HCl (Cardizem) 30 mg PO Q6H [facility] Last Admin: 01/20/18 21:06 Dose: 30 mg Guaifenesin/Codeine Phosphate (Robitussin W/Codeine) 5 ml PO Q6H PRN PRN Reason: Cough and congestion Last Admin: 01/19/18 21:33 Dose: 5 ml Hydromorphone HCl (Dilaudid) 1 mg IVP Q4H PRN PRN Reason: Pain, severe (8-10) Last Admin: 01/17/18 10:19 Dose: 1 mg Montelukast Sodium (Singulair) 10 mg PO HS [facility] Last Admin: 01/20/18 21:06 Dose: 10 mg Ondansetron HCl (Zofran Inj) 4 mg IVP Q6H [facility] Last Admin: 01/20/18 19:55 Dose: Not Given Pantoprazole Sodium (Protonix Ec Tab) 40 mg PO Q12 [facility] Last Admin: 01/20/18 21:06 Dose: 40 mg Tiotropium [place] (Spiriva) 18 mcg IH DAILY [facility] Last Admin: 01/20/18 09:44 Dose: 18 mcg - Labs Labs: 01/21/18 08:44 01/21/18 08:44 PT 15.8 SECONDS (9.4-12.5) H 01/21/18 08:44 INR 1.37 (0.93-1.08) H 01/21/18 08:44 APTT 27.4 Seconds (25.1-36.5) 01/21/18 08:44 - Constitutional Appears: Chronically Ill - Head Exam Head Exam: NORMAL INSPECTION - Respiratory Exam Respiratory Exam: Decreased Breath Sounds - Cardiovascular Exam Cardiovascular Exam: +S1, +S2 - GI/Abdominal Exam GI & Abdominal Exam: Soft. absent: Tenderness Assessment and Plan - Assessment and Plan (Free Text) Plan: Assessment S/P leukocytosis probably due to metastatic small cell lung CA with liver mets S /P CT-guided liver biopsy new onset atrial fibrillation HTN dyslipidemia asthma fatty liver disease S/P right ankle surgery S/P left rotator cuff surgery Plan continue to monitor off antibiotics since he is at risk for hospital-acquired infections follow up further plans of Cardiology, Heme/Onc
--- NOTE | 2018-01-21 13:05 | PCM.SURG1 ---
Surgeon's Initial Post Op Note - Surgeon's Notes Surgeon: Lindsay Mcmanus, PGY4 Bulb Sorter: Halima Servin, PGY2; Kodak Milian PGY1, Jasiel Interiano OMS3 Type of Anesthesia: None Pre-Operative Diagnosis: resolving acute kidney injury Operative Findings: intact tunneled hemodialysis catheter removed in its entirety, minimal bleeding, hemostasis obtained by pressure dressings Post-Operative Diagnosis: same Operation Performed: removal of tunneled hemodialysis cathter of the Right Internal Jugular vein Specimen/Specimens Removed: hemodialysis catheter--not sent to lab Estimated Blood Loss: EBL {In ML}: 2 Post-Op Condition: Fair Date of Surgery/Procedure: 01/21/18 Time of Surgery/Procedure: 12:00
[2018-01-21] MEDS: Digoxin 125 mcg (0.125 mg) Tab PO SCH (14:32)
[2018-01-21 16:41] VITALS: RESP 20
--- NOTE | 2018-01-22 05:00 | CP.PCM.PN ---
Objective - Vital Signs/Intake and Output Vital Signs (last 24 hours): Temp Pulse Resp BP Pulse Ox 96.4 F L 84 20 146/67 98 01/21/18 16:40 01/21/18 19:30 01/21/18 16:40 01/21/18 19:30 01/21/18 16:40 Intake and Output: 01/21/18 01/22/18 18:59 06:59 Intake Total 1800 Output Total 800 Balance 1000 - Medications Medications: Current Medications Allopurinol (Zyloprim) 100 mg PO DAILY [facility] Last Admin: 01/21/18 10:15 Dose: 100 mg Arformoterol Tartrate (Brovana) 15 mcg IH [id number] [facility] Last Admin: 01/21/18 20:13 Dose: 15 mcg Aspirin (Aspirin Chewable) 81 mg PO DAILY [facility] Last Admin: 01/21/18 10:15 Dose: 81 mg Budesonide (Pulmicort Respules) 0.5 mg IH [id number] [facility] Last Admin: 01/21/18 20:13 Dose: 0.5 mg Digoxin (Digoxin) 0.125 mg PO 1400 [facility] Last Admin: 01/21/18 14:32 Dose: 0.125 mg Diltiazem HCl (Cardizem) 30 mg PO Q6H [facility] Last Admin: 01/21/18 22:19 Dose: Not Given Guaifenesin/Codeine Phosphate (Robitussin W/Codeine) 5 ml PO Q6H PRN PRN Reason: Cough and congestion Last Admin: 01/19/18 21:33 Dose: 5 ml Hydromorphone HCl (Dilaudid) 1 mg IVP Q4H PRN PRN Reason: Pain, severe (8-10) Last Admin: 01/17/18 10:19 Dose: 1 mg Montelukast Sodium (Singulair) 10 mg PO HS [facility] Last Admin: 01/21/18 22:19 Dose: 10 mg Ondansetron HCl (Zofran Inj) 4 mg IVP Q6H [facility] Last Admin: 01/21/18 22:19 Dose: Not Given Pantoprazole Sodium (Protonix Ec Tab) 40 mg PO Q12 [facility] Last Admin: 01/21/18 22:19 Dose: 40 mg Tiotropium [place] (Spiriva) 18 mcg IH DAILY [facility] Last Admin: 01/21/18 10:16 Dose: 18 mcg - Labs Labs: 01/21/18 08:44 01/21/18 08:44 PT 15.8 SECONDS (9.4-12.5) H 01/21/18 08:44 INR 1.37 (0.93-1.08) H 01/21/18 08:44 APTT 27.4 Seconds (25.1-36.5) 01/21/18 08:44
[2018-01-22 05:55] VITALS: BP 156/91; PULSE 93
[2018-01-22 06:25] LABS: GRAN # 0.96 (1.4-6.5); GRAN % 65.3 % (50.0-68.0); LYMPH # 0.5 (1.2-3.4); LYMPH % 33.3 % (22.0-35.0); MEAN CELL VOLUME 79.2 fl (80.0-105.0); MEAN CORPUSCULAR HEMOGLOBIN 27.3 pg (25.0-35.0); MEAN CORPUSCULAR HGB CONC 34.5 g/dl (31.0-37.0); MEAN PLATELET VOLUME 10.8 fl (7.0-11.0); MONO % 1.4 % (1.0-6.0); RBC 3.66 10^6/uL (3.5-6.1); RED CELL DISTRIBUTION WIDTH 16.1 % (11.5-14.5)
[2018-01-22 06:30] LABS: WHITE BLOOD COUNT 1.5 10^3/ul (4.5-11.0)
[2018-01-22 06:31] LABS: INR 1.37 (0.93-1.08); PARTIAL THROMBOPLASTIN TIME 28.6 Seconds (25.1-36.5); PROTHROMBIN TIME 15.9 SECONDS (9.4-12.5)
[2018-01-22 06:43] LABS: ALB/GLOB RATIO 0.9 (1.1-1.8); ALBUMIN 2.4 g/dL (3.0-4.8); ALT/SGPT 265 U/L (7-56); AST/SGOT 188 U/L (17-59); BLOOD UREA NITROGEN 43 mg/dL (7-21); CALCIUM 7.8 mg/dL (8.4-10.5); GFR AFRICAN-AMERICAN > 60; GFR NON-AFRICAN AMERICAN > 60
[2018-01-22] MEDS: Arformoterol 15 mcg/2 ml Inh Sol IH SCH (07:24)
[2018-01-22] MEDS: Budesonide 0.5 mg/2 ml Inhal Susp UD IH SCH (07:24)
--- NOTE | 2018-01-22 07:50 | CP.PCM.PN ---
Subjective - Date & Time of Evaluation Date of Evaluation: 01/22/18 Time of Evaluation: 07:40 - Subjective Subjective: Dave Miranda PGY-2: Hematology and Oncology Progress Note Patient was seen and examined at bedside. Patient reports no fever, chills, nausea, vomiting, or diarrhea. We discussed his current WBC count. Otherwise, chart review indicates no adverse events overnight. His ANC is 960. He denies any fever. Objective - Vital Signs/Intake and Output Vital Signs (last 24 hours): Temp Pulse Resp BP Pulse Ox 96.4 F L 93 H 20 156/91 H 98 01/21/18 16:40 01/22/18 05:47 01/21/18 16:40 01/22/18 05:47 01/21/18 16:40 Intake and Output: 01/22/18 01/22/18 06:59 18:59 Intake Total 1800 Output Total 1200 Balance 600 - Medications Medications: Current Medications Allopurinol (Zyloprim) 100 mg PO DAILY [facility] Last Admin: 01/21/18 10:15 Dose: 100 mg Arformoterol Tartrate (Brovana) 15 mcg IH [id number] [facility] Last Admin: 01/22/18 07:24 Dose: 15 mcg Aspirin (Aspirin Chewable) 81 mg PO DAILY [facility] Last Admin: 01/21/18 10:15 Dose: 81 mg Budesonide (Pulmicort Respules) 0.5 mg IH [id number] [facility] Last Admin: 01/22/18 07:24 Dose: 0.5 mg Digoxin (Digoxin) 0.125 mg PO 1400 [facility] Last Admin: 01/21/18 14:32 Dose: 0.125 mg Diltiazem HCl (Cardizem) 30 mg PO Q6H [facility] Last Admin: 01/22/18 06:22 Dose: Not Given Guaifenesin/Codeine Phosphate (Robitussin W/Codeine) 5 ml PO Q6H PRN PRN Reason: Cough and congestion Last Admin: 01/19/18 21:33 Dose: 5 ml Hydromorphone HCl (Dilaudid) 1 mg IVP Q4H PRN PRN Reason: Pain, severe (8-10) Last Admin: 01/17/18 10:19 Dose: 1 mg Montelukast Sodium (Singulair) 10 mg PO [facility] Last Admin: 01/21/18 22:19 Dose: 10 mg Ondansetron HCl (Zofran Inj) 4 mg IVP Q6H [facility] Last Admin: 01/22/18 06:21 Dose: Not Given Pantoprazole Sodium (Protonix Ec Tab) 40 mg PO Q12 [facility] Last Admin: 01/21/18 22:19 Dose: 40 mg Tiotropium [place] (Spiriva) 18 mcg IH DAILY [facility] Last Admin: 01/21/18 10:16 Dose: 18 mcg - Labs Labs: 01/22/18 05:50 01/22/18 05:50 PT 15.9 SECONDS (9.4-12.5) H 01/22/18 05:50 INR 1.37 (0.93-1.08) H 01/22/18 05:50 APTT 28.6 Seconds (25.1-36.5) 01/22/18 05:50 - Constitutional Appears: Well, Non-toxic - Head Exam Head Exam: ATRAUMATIC, NORMOCEPHALIC - Eye Exam Eye Exam: EOMI, Normal appearance - ENT Exam ENT Exam: Mucous Membranes Moist - Neck Exam Neck Exam: Normal Inspection - Respiratory Exam Respiratory Exam: Clear to Ausculation Bilateral, NORMAL BREATHING PATTERN. absent: Accessory Muscle Use - Cardiovascular Exam Cardiovascular Exam: RRR, +S1, +S2 - GI/Abdominal Exam GI & Abdominal Exam: Soft, Normal Bowel Sounds. absent: Tenderness, Rebound - Extremities Exam Extremities Exam: Normal Inspection. absent: Calf Tenderness - Neurological Exam Neurological Exam: Alert, Awake, Oriented x3 - Psychiatric Exam Psychiatric exam: Normal Affect, Normal Mood - Skin Skin Exam: Dry, Intact, Normal Color, Warm Assessment and Plan - Assessment and Plan (Free Text) Assessment: 62 year old male with 3 weeks of cough that did not respond to oral antibiotics , steroids, or Tussinex. He presented to [facility] given that he failed outpatient treatment for a bronchitis. Upon admission he was found to have elevated liver functions tests which prompted an abdominal ultrasound that showed liver lesions consistent with metastatic disease. Subsequent, CT of the chest, abdomen , and pelvis with PO and IV contrast showed right pulmonary mass, mediastinal and hilar adenopathy, and metastatic lesions in the liver. 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 During the patient's hospital course he developed RUQ pain in addition to his cough with a concurrent rise his in LFTS and serum Creatinine. This phenomena was thought to be due to the tumor burden in the liver compressing the hepatic veins and causing hepatic congestion and subsequent capsular distention leading to the pain with a Budd-Chairi life effect. Initially, it was thought the patient may benefit from transfer to a tertiary care center; however, after a lengthy discussion with two different oncologist, it was decided to treat the patient in [facility] in the ICU with carboplatinum and etoposide , with dosing based on his creatinine clearance and Body Surface Area. He underwent placement of a port-a-cath and was subsequently transferred to the ICU and has completed 3 doses of the carboplatinum and etoposide with Granix being given every 24 hours, for a total of seven doses (this was changed to 10 days). Patient went into atrial fibrillation which the ICU team and cardiology are managing with Diltiazem and diltiazem drip. An transthoracic echocardiogram was ordered for new-onset atrial fibrillation that showed a normal size left ventricle, normal EF of 52%, normal LV segmental wall motion, probable bicuspid aortic valve, mild to moderate aortic root enlargement, mild aortic regurgitation, mild pulmonary hypertension, and a trace loculated anterior pericardial effusion. Today, his Creatinine is 0.8, BUN of 43, uric acid is 5.7 , serum K is 5.2, Mg 2.1, serum Ca 7.8, T. bili 6.9, AST 188, ALT 265, Alk Phos 287. For his atrial fibrillation, he has been converted to PO Diltiazem and is off the heparin drip. His platelets have gradually fallen, with the CBC showing 50 with the manual count being 74. He has no active signs of bleeding or mucosal /gingival injury. We ordered HIT antibodies and HIT assay which are still pending. His white count has fallen from 19,600 on 01/20 to 6,600 (01/21) to 1, 500 today with an Absolute Neutrophil Count of 960. Granix 480 mcg SC has been every 24 hours since the completion of his chemotherapy. We will continue the Granix at its current dosage for a total of ten days. Three vials of refrigerated Granix from Dr. Cash's office were provided to the patient. He and his were instructed to give the medication at 5:00 AM every day. Allopurinol will be continued as 100 mg PO daily. We also discussed the patient' s drop in WBC with Infectious Disease. The patient was provided with two tablets of Levofloxacin 750 mg and told to take 1 tablet for any temperature greater than 100.4 and to report immediately to the Emergency Room. The was also instructed in regards to the patient's discharge and provided with all of the patient requested labs, imaging, and pathology reports. We will follow up with the patient as an outpatient. As always, thank you for allowing us to participate in the care of this patient. Case was reviewed and discussed with the attending physician, Dr. Cash
--- NOTE | 2018-01-22 08:08 | CP.PCM.PN ---
Subjective - Date & Time of Evaluation Date of Evaluation: 01/22/18 Time of Evaluation: 07:00 - Subjective Subjective: Stable on 3R. He feels better. No CP, SOB, palpitations. V/S noted. PE: Lungs: few rhonchi Cor.: reg., S1S2 Abd.: soft Ext.: + edema Neuro.: alert I/O= 1800/1200 Labs noted. WBC= 1500, H/H=/, PL Ct = 50,000, K+ 5.2, Cr.= 0.8, Dig.= 0.6 BC X2 NG at 5 days. Urine C+S: NG ECG 01/20: RSR, APC, RBBB, STTW changes Objective - Vital Signs/Intake and Output Vital Signs (last 24 hours): Temp Pulse Resp BP Pulse Ox 96.4 F L 93 H 20 156/91 H 98 01/21/18 16:40 01/22/18 05:47 01/21/18 16:40 01/22/18 05:47 01/21/18 16:40 Intake and Output: 01/22/18 01/22/18 06:59 18:59 Intake Total 1800 Output Total 1200 Balance 600 - Medications Medications: Current Medications Allopurinol (Zyloprim) 100 mg PO DAILY [facility] Last Admin: 01/21/18 10:15 Dose: 100 mg Arformoterol Tartrate (Brovana) 15 mcg IH [id number] [facility] Last Admin: 01/22/18 07:24 Dose: 15 mcg Aspirin (Aspirin Chewable) 81 mg PO DAILY [facility] Last Admin: 01/21/18 10:15 Dose: 81 mg Budesonide (Pulmicort Respules) 0.5 mg IH [id number] [facility] Last Admin: 01/22/18 07:24 Dose: 0.5 mg Digoxin (Digoxin) 0.125 mg PO 1400 [facility] Last Admin: 01/21/18 14:32 Dose: 0.125 mg Diltiazem HCl (Cardizem Cd) 180 mg PO DAILY [facility] Guaifenesin/Codeine Phosphate (Robitussin W/Codeine) 5 ml PO Q6H PRN PRN Reason: Cough and congestion Last Admin: 01/19/18 21:33 Dose: 5 ml Hydromorphone HCl (Dilaudid) 1 mg IVP Q4H PRN PRN Reason: Pain, severe (8-10) Last Admin: 01/17/18 10:19 Dose: 1 mg Montelukast Sodium (Singulair) 10 mg PO HS [facility] Last Admin: 01/21/18 22:19 Dose: 10 mg Ondansetron HCl (Zofran Inj) 4 mg IVP Q6H [facility] Last Admin: 01/22/18 06:21 Dose: Not Given Pantoprazole Sodium (Protonix Ec Tab) 40 mg PO Q12 [facility] Last Admin: 01/21/18 22:19 Dose: 40 mg Tiotropium [place] (Spiriva) 18 mcg IH DAILY [facility] Last Admin: 01/21/18 10:16 Dose: 18 mcg - Labs Labs: 01/22/18 05:50 01/22/18 05:50 PT 15.9 SECONDS (9.4-12.5) H 01/22/18 05:50 INR 1.37 (0.93-1.08) H 01/22/18 05:50 APTT 28.6 Seconds (25.1-36.5) 01/22/18 05:50 Assessment and Plan - Assessment and Plan (Free Text) Assessment: Advanced metastatic small cell lung cancer with hilar, mediastinal and liver mets. Ongoing chemotherapy PAF > RSR RBBB COPD/Never Smoked Echo: Nl LV, LVH, bicuspid AV, Mild AI CKD Anemia/Thrombocytopenia/Leukopenia Plan: As per Onc, Pulm, ID and GI Change PO cardizem to ER 180/day. Continue Digoxin. OOB as geraldine A/C to be considered but might be too risky for low JEANINE score and ongoing chemo with thrombocytopenia. Will defer to Dr. Cash. D/C planning. Cardiology F/U in 2 weeks. May D/C digoxin at that time.
[2018-01-22] MEDS: Tiotropium 18 mcg Cap For Inhalation IH SCH (09:22)
[2018-01-22] MEDS: Pantoprazole 40 mg EC Tab PO SCH (09:22)
--- NOTE | 2018-01-22 09:42 | CP.PCM.DIS ---
Provider - Provider Date of Admission: 01/11/18 11:36 Attending physician: Mack Rubalcava MD Primary care physician: Vince Churchill MD Consults: GI: Yolanda Oncology: Shreya NORBERTO: Los ID: Bogkristi [facility] Card[facility]: Rosa Pulm: Daniel Time Spent in preparation of Discharge (in minutes): 55 Hospital Course - Lab Results Lab Results: Micro Results 01/15/18 18:00 Naris MRSA Culture (Admit) - Final MRSA NOT DETECTED 01/13/18 15:15 Urine,Clean Catch Urine Culture - Final No Growth (<1,000 CFU/ML) Most Recent Lab Values WBC 1.5 10^3/ul (4.5-11.0) L* D 01/22/18 05:50 RBC 3.66 10^6/uL (3.5-6.1) 01/22/18 05:50 Hgb 10.0 g/dL (14.0-18.0) L 01/22/18 05:50 Hct 29.0 % (42.0-52.0) L 01/22/18 05:50 MCV 79.2 fl (80.0-105.0) L 01/22/18 05:50 MCH 27.3 pg (25.0-35.0) 01/22/18 05:50 MCHC 34.5 g/dl (31.0-37.0) 01/22/18 05:50 RDW 16.1 % (11.5-14.5) H 01/22/18 05:50 Plt Count 50 10^3/uL (120.0-450.0) L 01/22/18 05:50 Manual Plt Count 74 K/mm3 (120-450) L 01/22/18 07:30 MPV 10.8 fl (7.0-11.0) 01/22/18 05:50 Gran % 65.3 % (50.0-68.0) 01/22/18 05:50 Lymph % (Auto) 33.3 % (22.0-35.0) 01/22/18 05:50 Wolfe % (Auto) 1.4 % (1.0-6.0) 01/22/18 05:50 Eos % (Auto) 0.0 % (1.5-5.0) L 01/22/18 05:50 Baso % (Auto) 0.0 % (0.0-3.0) 01/22/18 05:50 Gran # 0.96 (1.4-6.5) L 01/22/18 05:50 Lymph # (Auto) 0.5 (1.2-3.4) L 01/22/18 05:50 Wolfe # (Auto) 0.0 (0.1-0.6) L 01/22/18 05:50 Eos # (Auto) 0.0 (0.0-0.7) 01/22/18 05:50 Baso # (Auto) 0.00 K/mm3 (0.0-2.0) 01/22/18 05:50 Neutrophils % (Manual) 94 % (50.0-70.0) H 01/21/18 08:44 Band Neutrophils % 2 % (0-2) 01/17/18 06:45 Lymphocytes % (Manual) 5 % (22.0-35.0) L 01/21/18 08:44 Atypical Lymphs % 2 % (0.0-0.0) H 01/12/18 07:10 Monocytes % (Manual) 1 % (1.0-6.0) 01/21/18 08:44 Platelet Evaluation Low (NORMAL) 01/21/18 08:44 PT 15.9 SECONDS (9.4-12.5) H 01/22/18 05:50 INR 1.37 (0.93-1.08) H 01/22/18 05:50 APTT 28.6 Seconds (25.1-36.5) 01/22/18 05:50 pO2 55 mm/Hg (30-55) 01/18/18 16:15 VBG pH 7.26 (7.32-7.43) L 01/18/18 16:15 VBG pCO2 34.0 (40-60) L 01/18/18 16:15 VBG HCO3 15.3 mmol/l (21-28) L 01/18/18 16:15 VBG Total CO2 16.3 mmol.L (22-28) L 01/18/18 16:15 VBG O2 Sat (Calc) 88.4 % (40-65) H 01/18/18 16:15 VBG Base Excess -10.8 mmol/L (0.0-2.0) L 01/18/18 16:15 VBG Potassium 4.9 mmol/L (3.6-5.2) 01/18/18 16:15 Sodium 135.0 mmol/L (132-148) 01/18/18 16:15 Chloride 108.0 mmol/L (98-107) H 01/18/18 16:15 Glucose 246 mg/dl (75-110) H 01/18/18 16:15 Lactate 4.1 mmol/L (0.7-2.1) H* 01/18/18 16:15 FiO2 21.0 % 01/18/18 16:15 Sodium 139 mmol/L (132-148) 01/22/18 05:50 Potassium 5.2 mmol/L (3.6-5.0) H 01/22/18 05:50 Chloride 109 mmol/L (98-107) H 01/22/18 05:50 Carbon Dioxide 25 mmol/L (21-33) 01/22/18 05:50 Anion Gap 10 (10-20) 01/22/18 05:50 BUN 43 mg/dL (7-21) H 01/22/18 05:50 Creatinine 0.8 mg/dl (0.8-1.5) 01/22/18 05:50 Est GFR ( Amer) > 60 01/22/18 05:50 Est GFR (Non-Af Amer) > 60 01/22/18 05:50 Random Glucose 89 mg/dL (70-110) 01/22/18 05:50 Uric Acid 5.7 mg/dL (3.5-8.5) 01/22/18 07:30 Calcium 7.8 mg/dL (8.4-10.5) L 01/22/18 05:50 Phosphorus 4.8 mg/dL (2.5-4.5) H 01/20/18 06:15 Magnesium 3.0 mg/dL (1.7-2.2) H 01/20/18 06:15 Total Bilirubin 6.9 mg/dL (0.2-1.3) H 01/22/18 05:50 Direct Bilirubin 2.1 mg/dL (0.0-0.4) H 01/11/18 10:15 GGT 1146 U/L (8-78) H 01/18/18 03:25 AST 188 U/L (17-59) H 01/22/18 05:50 ALT 265 U/L (7-56) H 01/22/18 05:50 Alkaline Phosphatase 287 U/L (38-126) H 01/22/18 05:50 Lactate Dehydrogenase 31197 U/L (333-699) H 01/18/18 16:15 LD Isoenzymes 2483 U/L (120-250) H 01/13/18 07:00 Fraction LD 1 6 % (19-38) L 01/13/18 07:00 Fraction LD 2 20 % (30-43) L 01/13/18 07:00 Fraction LD 3 25 % (16-26) 01/13/18 07:00 Fraction LD 4 24 % (3-12) H 01/13/18 07:00 Fraction LD 5 26 % (3-14) H 01/13/18 07:00 Total Creatine Kinase 796 U/L (35-230) H 01/11/18 10:15 CK-MB (CK-2) 2.7 ng/mL (0.0-3.6) 01/11/18 10:15 CK-MB (CK-2) % Cancelled 01/11/18 10:15 Troponin I < 0.01 ng/mL 01/19/18 10:00 NT-Pro-B Natriuret Pep 322 pg/mL (0-450) 01/11/18 10:15 Total Protein 5.0 g/dL (5.8-8.3) L 01/22/18 05:50 Total Protein (PEP) 5.2 g/dL (6.1-8.1) L 01/13/18 07:00 Albumin 2.4 g/dL (3.0-4.8) L 01/22/18 05:50 Albumin (PEP) 3.1 g/dL (3.8-4.8) L 01/13/18 07:00 Globulin 2.7 gm/dL 01/22/18 05:50 Albumin/Globulin Ratio 0.9 (1.1-1.8) L 01/22/18 05:50 Sqbda-8-Bvbunlnqu 0.3 g/dL (0.2-0.3) 01/13/18 07:00 Yltxo-3-Kpcxkxfsz 0.9 g/dL (0.5-0.9) 01/13/18 07:00 Yvsx-0-Qfeflycd 0.3 g/dL (0.4-0.6) L 01/13/18 07:00 Qphc-1-Imdphiaw 0.2 g/dL (0.2-0.5) 01/13/18 07:00 Gamma Globulins 0.3 g/dL (0.8-1.7) L 01/13/18 07:00 Abnorm Protein Band 1 TEST NOT PERFORMED 01/13/18 07:00 Abnorm Protein Band 2 TEST NOT PERFORMED 01/13/18 07:00 Abnorm Protein Band 3 TEST NOT PERFORMED 01/13/18 07:00 Yrajx-9-Meqiajwglvh 225 mg/dL (83-199) H 01/11/18 13:55 Amylase 70 U/L (35-125) 01/14/18 07:56 Lipase 130 U/L (23-300) 01/14/18 07:56 Alpha Fetoprotein 2.5 ng/mL (0.0-7.5) 01/12/18 06:45 Carcinoembryonic Ag 20.6 ng/mL (0.0-3.0) H 01/12/18 06:45 CA 19-9 Antigen 385 U/mL (0-37) H 01/12/18 06:45 Procalcitonin 0.57 NG/ML (0.19-0.49) H 01/12/18 07:30 Free T4 1.09 ng/dL (0.78-2.19) 01/20/18 06:15 TSH 3rd Generation 0.07 mIU/mL (0.46-4.68) L 01/19/18 10:00 Venous Blood Potassium 4.9 mmol/L (3.6-5.2) 01/18/18 16:15 Urine Color Dark yellow (YELLOW) 01/13/18 15:15 Urine Appearance Slight-cloudy (CLEAR) 01/13/18 15:15 Urine pH 6.0 (4.7-8.0) 01/13/18 15:15 Ur Specific [place] 1.015 (1.005-1.035) 01/13/18 15:15 Urine Protein 30 mg/dL (<30 mg/dL) H 01/13/18 15:15 Urine Glucose (UA) Negative mg/dL (NEGATIVE) 01/13/18 15:15 Urine Ketones Negative mg/dL (NEGATIVE) 01/13/18 15:15 Urine Blood Trace-lysed (NEGATIVE) H 01/13/18 15:15 Urine Nitrate Negative (NEGATIVE) 01/13/18 15:15 Urine Bilirubin Small (NEGATIVE) H 01/13/18 15:15 Urine Urobilinogen 0.2 E.U./dL (<1 E.U./dL) 01/13/18 15:15 Ur Leukocyte Esterase Trace Mary Kate/uL (NEGATIVE) H 01/13/18 15:15 Urine RBC 0 - 2 /hpf (0-2) 01/13/18 15:15 Urine WBC 0 - 2 /hpf (0-6) 01/13/18 15:15 Ur Epithelial Cells None /hpf (0-5) 01/13/18 15:15 Urine Bacteria Trace (NEG) 01/13/18 15:15 Digoxin 0.6 ng/mL (0.8-2.0) L 01/22/18 05:50 Salicylates < 1 mg/dL (2.0-20.0) L 01/11/18 10:15 Acetaminophen < 10.0 ug/ml (10.0-20.0) L 01/11/18 10:15 GNOSALO & SPEP Interp See note 01/13/18 07:00 Serum Immunofixation Not detected 01/13/18 07:00 CLARE Screen Negative (Negative) 01/11/18 13:55 CLARE Titer TEST NOT PERFORMED 01/11/18 13:55 CLARE Titer 2 TEST NOT PERFORMED 01/11/18 13:55 CLARE Pattern TEST NOT PERFORMED 01/11/18 13:55 CLARE Pattern 2 TEST NOT PERFORMED 01/11/18 13:55 Anti-Mitochondrial Ab Negative (Negative) 01/11/18 13:55 Anti-Smooth Muscle Ab Negative (Negative) 01/11/18 13:55 Liver/Kid Microsomes Ab <=20.0 U (<=20.0) 01/11/18 13:55 Hepatitis A IgM Ab Negative (NEGATIVE) 01/11/18 10:15 Hep Bs Antigen Negative (NEGATIVE) 01/11/18 10:15 Hep B Core IgM Ab Negative (NEGATIVE) 01/11/18 10:15 Hepatitis C Antibody Negative (NEGATIVE) 01/11/18 10:15 HIV 1&2 Ag/Ab, 4th Gen Nonreactive (Nonreactive) 01/13/18 07:00 - Hospital Course Hospital Course: This is a 62yo male with past medical history of HTN, dyslipidemia, asthma who is admitted for shortness of breath thought to be secondary to acute on chronic bronchitis that failed outpatient steroids and antibiotic therapy. CT of chest showed suspected lung ca with hilar adenopathy. ID was consulted and did not recommend to place patient on antibiotics at this time and believe the cough and leukocytosis is due to acute inflammation from cancer. He was placed on nebulizer treatment and cough suppressants. Patient was found to have transaminitis. Labs and imaging were reviewed. Patient's transaminitis found to be secondary to liver metastasis. He is s/p liver biopsy. Preliminary pathology showed high grade metastasis suspicious for neuroendocrine tumor- final pathology is pending. Patient then went into acute liver failure as well as acute kidney injury most likely secondary to hepatorenal syndrome. He was transferred to ICU for further monitoring. Patient was suspected to need dialysis. A HD catheter was placed as well as a chemoport. He was started on chemotherapy. He received 3 rounds of Carboplatin and Etopiside. He briefly went into tumor lysis syndrome which improved with Allopurinol. During this time patient also went into paroxysmal a.fib. He was placed on Cardizem drip. Echo was done and reviewed and EF was normal. Cardiology was following adn patient transitioned to Po Cardizem. His LFTs and Kidney function improved. Patient did not need HD. His HD catheter was removed. Patient also found to have thrombocytopenia which could have been secondary to chemotherapy. He also received Granix as per Oncology. Patient has improved. He is tolerating diet and ambulating. He will be discharged home with ASA, Cardizem CD, Digoxin as per cardiology. He will follow up with Dr. Cash and Dr Churchill as outpatient. He would also like to get a second opinion at [facility] as well. Discussed discharge plan in detail with patient and his family. During his stay , patient signed a POLST and is DNR/DNI. - Date & Time of H&P Date of H&P: 01/11/18 Time of H&P: 08:00 Discharge Exam - Head Exam Head Exam: ATRAUMATIC, NORMOCEPHALIC - Eye Exam Eye Exam: Normal appearance, PERRL, Scleral icterus Pupil Exam: NORMAL ACCOMODATION - ENT Exam ENT Exam: Mucous Membranes Moist - Neck Exam Neck exam: Full Rom, Normal Inspection - Respiratory Exam Respiratory Exam: Clear to PA & Lateral, NORMAL BREATHING PATTERN, UNREMARKABLE. absent: Rhonchi, Wheezes - Cardiovascular Exam Cardiovascular Exam: REGULAR RHYTHM, +S1, +S2. absent: Gallop, Rubs, Systolic Murmur - GI/Abdominal Exam GI & Abdominal Exam: Distended, Normal Bowel Sounds, Organomegaly (hepatomegaly ), Soft. absent: Guarding, Rebound, Rigid, Tenderness - Extremities Exam Extremities exam: normal capillary refill, pedal edema, pedal pulses present - Neurological Exam Neurological exam: Alert, CN II-XII Intact, Normal Gait, Oriented x3 - Psychiatric Exam Psychiatric exam: Normal Affect, Normal Mood - Skin Skin Exam: Dry, Intact, Warm Additional comments: jaundice Discharge Plan - Follow Up Plan Condition: FAIR Disposition: OTHER INSTITUTION Instructions: Pneumonia, Adult (DC), Sepsis, Adult (DC), Neutropenia (DC), Leukocytosis (DC) Additional Instructions: 1. Follow up with Dr. Cash in 1-2 weeks 2. Follow up with Dr. Lee 3. Follow up with Dr. Churchill in 1-2 weeks. Referrals: Vince Churchill MD [Primary Care Provider] -
[2018-01-22] MEDS ORDERED: diltiaZEM 180 mg/24 Hours CD Cap PO SCH (10:00)
--- NOTE | 2018-01-22 10:04 | PN ---
DATE: 01/22/2018 PULMONARY NOTE SUBJECTIVE: The patient appears comfortable this morning. He is not short of breath at rest. PHYSICAL EXAMINATION: VITAL SIGNS: Temperature is 96.4, pulse is 93, respirations 18, blood pressure 156/91. Oxygen saturation on room air is 98%. HEENT: Normocephalic, atraumatic. No JVD. CARDIOVASCULAR: Positive S1, S2. No S3 gallop. LUNGS: Improved breath sounds at the bases. No rhonchi. No wheezing. EXTREMITIES: No clubbing, cyanosis or edema. Calves are nontender to palpation. GI: Abdomen is soft, nontender and nondistended. Bowel sounds are positive. SKIN: No acute rash. NEUROLOGIC: Limited at the present time. IMPRESSION: 1. Advanced metastatic small cell cancer of the lung. 2. Chronic obstructive pulmonary disease. 3. Mild anemia. 4. Renal insufficiency. 5. Increased liver function enzymes. Liver metastasis. PLAN: The patient appears comfortable this morning. He is not short of breath at rest. He does state to feeling much, much better overall. On physical exam, his lungs are now clear. In addition, the oxygen saturation on room air is now 98%. I will continue with the current nebulizer treatments and inhaled steroids for now. The patient is now allowing all respiratory treatments to be done. I certainly agree with his decision. Inputs by Cardiology, Oncology and Infectious Disease are noted. Repeat a.m. labs are pending. Clinical status of the patient is significantly improved - compared to the initial presentation. However, again, unfortunately, the overall status/prognosis for this patient remains very guarded/poor. I will discuss the above with the attending physician. Lucio Ho MD JESSENIA
--- NOTE | 2018-01-22 10:19 | CP.PCM.PN ---
Subjective - Date & Time of Evaluation Date of Evaluation: 01/22/18 Time of Evaluation: 07:10 - Subjective Subjective: GI Progress Note for Dr. Yolanda Freitas, PGY-3 IM Patient seen and examined at bedside. No acute events overnight. Remains in rate controlled afib. No acute complaints. Pending discharge home today. Objective - Vital Signs/Intake and Output Vital Signs (last 24 hours): Temp Pulse Resp BP Pulse Ox 96.4 F L 93 H 20 156/91 H 98 01/21/18 16:40 01/22/18 09:22 01/21/18 16:40 01/22/18 09:22 01/21/18 16:40 Intake and Output: 01/22/18 01/22/18 06:59 18:59 Intake Total 1800 Output Total 1200 Balance 600 - Medications Medications: Current Medications Allopurinol (Zyloprim) 100 mg PO DAILY [facility] Last Admin: 01/22/18 09:22 Dose: 100 mg Arformoterol Tartrate (Brovana) 15 mcg IH [id number] [facility] Last Admin: 01/22/18 07:24 Dose: 15 mcg Aspirin (Aspirin Chewable) 81 mg PO DAILY [facility] Last Admin: 01/22/18 09:22 Dose: 81 mg Budesonide (Pulmicort Respules) 0.5 mg IH [id number] [facility] Last Admin: 01/22/18 07:24 Dose: 0.5 mg Digoxin (Digoxin) 0.125 mg PO 1400 [facility] Last Admin: 01/21/18 14:32 Dose: 0.125 mg Diltiazem HCl (Cardizem Cd) 180 mg PO DAILY [facility] Last Admin: 01/22/18 09:22 Dose: 180 mg Guaifenesin/Codeine Phosphate (Robitussin W/Codeine) 5 ml PO Q6H PRN PRN Reason: Cough and congestion Last Admin: 01/19/18 21:33 Dose: 5 ml Hydromorphone HCl (Dilaudid) 1 mg IVP Q4H PRN PRN Reason: Pain, severe (8-10) Last Admin: 01/17/18 10:19 Dose: 1 mg Montelukast Sodium (Singulair) 10 mg PO HS [facility] Last Admin: 01/21/18 22:19 Dose: 10 mg Ondansetron HCl (Zofran Inj) 4 mg IVP Q6H [facility] Last Admin: 01/22/18 08:40 Dose: Not Given Pantoprazole Sodium (Protonix Ec Tab) 40 mg PO Q12 [facility] Last Admin: 01/22/18 09:22 Dose: 40 mg Tiotropium [place] (Spiriva) 18 mcg IH DAILY [facility] Last Admin: 01/22/18 09:22 Dose: 18 mcg - Labs Labs: 01/22/18 05:50 01/22/18 05:50 PT 15.9 SECONDS (9.4-12.5) H 01/22/18 05:50 INR 1.37 (0.93-1.08) H 01/22/18 05:50 APTT 28.6 Seconds (25.1-36.5) 01/22/18 05:50 - Additional Findings Additional findings: - Constitutional Appears: No acute distress, Not acutely ill - Head Exam Head Exam: ATRAUMATIC, NORMAL INSPECTION, NORMOCEPHALIC - Eye Exam Eye Exam: Mild scleral icterus appreciated. absent: Conjunctival injection Pupil Exam: absent: Fixed, Irregular - ENT Exam ENT Exam: Mucous Membranes Moist. - Respiratory Exam Respiratory Exam: Normal breathing pattern, no acute tachypnea or cyanosis, no wheezing/rales/ronchi - Cardiovascular Exam Cardiovascular Exam: Irregular rate and rhythm (Afib), +S1, +S2. absent: Tachycardia, Bradycardia, JVD, +S4 - GI/Abdominal Exam GI & Abdominal Exam: Improved distension, Soft to palpation, no tenderness to palpation at RUQ, normal bowel sounds - Extremities Exam Extremities exam: Positive for: trace pedal edema from ankles to mid-eaton ( improving). Negative for: calf tenderness, tenderness - Neurological Exam awake and alert, following all commands appropriately, moving all extremities spontaneously - Psychiatric Exam Psychiatric exam: Normal Affect, Normal Mood - Skin Skin Exam: Dry, Intact, Mild gross jaundice Assessment and Plan - Assessment and Plan (Free Text) Assessment: This is a 62 yo M with PMH of HTN, hypercholesterolemia, COPD, and asthma (not tobacco user) who presented to [facility] [place] with complaint of cough productive for clear sputum for 3 weeks. GI was consulted due to incidentally discovered elevated transaminases, concerning for transaminitis. 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 Continues to have improving LFTs and renal function after initiation of chemo regimen, likely due to shrinkage of tumors causing Budd Chiari-like effect (from compression of hepatic vasculature). Pending discharge to home as per primary team. 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, pending immunohistochemical analysis -AFP wnl, CA 19-9 elevated at 325, CEA elevated at 20.6 -AST 261, ALT 380, Alk Phos 316, Tbili 5.9, Cr 1.6, BUN 104, LDH (from 01/18) [id number] Improving LFTs and renal function on carboplatin and etoposide, likely decreased tumor size resolving Budd Chiari-like effect AFib management as per Cardio/Primary team Now off anticoagulation as per primary team due to low CHADs score and risk of bleeding from liver disease Chemo regimen as per Heme-onc Trend LFTs and Coags daily Avoid hepatotoxic drugs as feasible Dispo: Pending d/c today; To obtain second opinion at [facility] after discharge continue follow up with GI, Heme-onc, and Primary on discharge Patient seen, reviewed, and discussed with attending, Dr. Guerrero
[2018-01-22 10:52] VITALS: TEMP 98; O2SAT 100
[2018-01-22] MEDS: Digoxin 125 mcg (0.125 mg) Tab PO SCH (13:19)
[2018-01-22 13:35] VITALS: PULSE 86
[2018-01-22] MEDS ORDERED: Mupirocin 2% Ointment 15 GM TUBE TOP SCH (13:45)
--- NOTE | 2018-01-22 15:19 | CP.PCM.PN ---
Subjective - Date & Time of Evaluation Date of Evaluation: 01/22/18 Time of Evaluation: 12:15 - Subjective Subjective: No fevers, feels a little stronger, no diarrhea, no nausea. Objective - Vital Signs/Intake and Output Vital Signs (last 24 hours): Temp Pulse Resp BP Pulse Ox 98.0 F 93 H 20 156/91 H 100 01/22/18 06:00 01/22/18 09:22 01/22/18 06:00 01/22/18 09:22 01/22/18 06:00 Intake and Output: 01/22/18 01/22/18 06:59 18:59 Intake Total 1800 Output Total 1200 Balance 600 - Medications Medications: Current Medications Allopurinol (Zyloprim) 100 mg PO DAILY [facility] Last Admin: 01/22/18 09:22 Dose: 100 mg Arformoterol Tartrate (Brovana) 15 mcg IH [id number] [facility] Last Admin: 01/22/18 07:24 Dose: 15 mcg Aspirin (Aspirin Chewable) 81 mg PO DAILY [facility] Last Admin: 01/22/18 09:22 Dose: 81 mg Budesonide (Pulmicort Respules) 0.5 mg IH [id number] [facility] Last Admin: 01/22/18 07:24 Dose: 0.5 mg Digoxin (Digoxin) 0.125 mg PO 1400 [facility] Last Admin: 01/21/18 14:32 Dose: 0.125 mg Diltiazem HCl (Cardizem Cd) 180 mg PO DAILY [facility] Last Admin: 01/22/18 09:22 Dose: 180 mg Guaifenesin/Codeine Phosphate (Robitussin W/Codeine) 5 ml PO Q6H PRN PRN Reason: Cough and congestion Last Admin: 01/19/18 21:33 Dose: 5 ml Hydromorphone HCl (Dilaudid) 1 mg IVP Q4H PRN PRN Reason: Pain, severe (8-10) Last Admin: 01/17/18 10:19 Dose: 1 mg Montelukast Sodium (Singulair) 10 mg PO HS [facility] Last Admin: 01/21/18 22:19 Dose: 10 mg Ondansetron HCl (Zofran Inj) 4 mg IVP Q6H [facility] Last Admin: 01/22/18 08:40 Dose: Not Given Pantoprazole Sodium (Protonix Ec Tab) 40 mg PO Q12 [facility] Last Admin: 01/22/18 09:22 Dose: 40 mg Tiotropium [place] (Spiriva) 18 mcg IH DAILY [facility] Last Admin: 01/22/18 09:22 Dose: 18 mcg - Labs Labs: 01/22/18 05:50 01/22/18 05:50 PT 15.9 SECONDS (9.4-12.5) H 01/22/18 05:50 INR 1.37 (0.93-1.08) H 01/22/18 05:50 APTT 28.6 Seconds (25.1-36.5) 01/22/18 05:50 - Constitutional Appears: Chronically Ill - Head Exam Head Exam: NORMAL INSPECTION - Respiratory Exam Respiratory Exam: Decreased Breath Sounds Additional comments: right anterior chest wall port in place - Cardiovascular Exam Cardiovascular Exam: +S1, +S2 - GI/Abdominal Exam GI & Abdominal Exam: Soft. 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 Cash's team, since he has neutropenia, he should be prescribed Levaquin and advised to take it if he develops fever and should go to the ER if that happens - currently patient is afebrile - explained to patient and and they both understand
== END 2018-01-22 16:35 | disposition home or self-care (01) | DRG 180 ==
LOC: ED 09:45 → ERH 11:36 → 5RSO 12:44 → CCU 01-15 17:14 → 3RSO 01-20 12:10
PROVIDERS: ADMIT Internal Medicine Nephrology; ATTEND Internal Medicine Nephrology
PROC: 0FB23ZX Excision of Left Lobe Liver, Percutaneous Approach, Diagnostic (ICD-10-PCS; principal; 2018-01-12 13:00)
PROC: 0JH63XZ Insertion of Tunneled Vascular Access Device into Chest Subcutaneous Tissue and Fascia, Percutaneous Approach (ICD-10-PCS; 2018-01-15)
PROC: 02H633Z Insertion of Infusion Device into Right Atrium, Percutaneous Approach (ICD-10-PCS; 2018-01-15)
PROC: B543ZZA Ultrasonography of Right Jugular Veins, Guidance (ICD-10-PCS; 2018-01-15)
PROC: 02HV33Z Insertion of Infusion Device into Superior Vena Cava, Percutaneous Approach (ICD-10-PCS; 2018-01-15)
PROC: B546ZZA Ultrasonography of Right Subclavian Vein, Guidance (ICD-10-PCS; 2018-01-15)
PROC: 3E04305 Introduction of Other Antineoplastic into Central Vein, Percutaneous Approach (ICD-10-PCS; 2018-01-16)
PROC: 05PY33Z Removal of Infusion Device from Upper Vein, Percutaneous Approach (ICD-10-PCS; 2018-01-21)
DX: C34.00 Malignant neoplasm of unspecified main bronchus (principal); K76.7 Hepatorenal syndrome; K72.00 Acute and subacute hepatic failure without coma; E88.3 Tumor lysis syndrome; J96.91 Respiratory failure, unspecified with hypoxia; I82.0 Budd-Chiari syndrome; C78.7 Secondary malignant neoplasm of liver and intrahepatic bile duct; N17.9 Acute kidney failure, unspecified; J45.901 Unspecified asthma with (acute) exacerbation; C7B.8 Other secondary neuroendocrine tumors; J44.0 Chronic obstructive pulmonary disease with (acute) lower respiratory infection; T45.1X5A Adverse effect of antineoplastic and immunosuppressive drugs, initial encounter; I12.9 Hypertensive chronic kidney disease with stage 1 through stage 4 chronic kidney disease, or unspecified chronic kidney disease; N18.9 Chronic kidney disease, unspecified; K76.0 Fatty (change of) liver, not elsewhere classified; E87.5 Hyperkalemia; J43.9 Emphysema, unspecified; I27.20 Pulmonary hypertension, unspecified; E78.5 Hyperlipidemia, unspecified; E78.00 Pure hypercholesterolemia, unspecified; Z66 Do not resuscitate; K21.9 Gastro-esophageal reflux disease without esophagitis; E83.41 Hypermagnesemia; J20.9 Acute bronchitis, unspecified; E83.39 Other disorders of phosphorus metabolism; K59.00 Constipation, unspecified; I48.0 Paroxysmal atrial fibrillation; I45.10 Unspecified right bundle-branch block; D64.9 Anemia, unspecified; D69.6 Thrombocytopenia, unspecified; Z82.49 Family history of ischemic heart disease and other diseases of the circulatory system; Z80.7 Family history of other malignant neoplasms of lymphoid, hematopoietic and related tissues

== ENCOUNTER 2018-07-06 13:40 | Outpatient (CLI) | payer BC, OTHER | END 2018-07-06 13:41 | disposition home or self-care (01) | LOC: LAB 13:40 ==

== ENCOUNTER 2018-07-13 15:02 | Outpatient (CLI) | payer BC, OTHER | END 2018-07-13 15:03 | disposition home or self-care (01) | LOC: LAB 15:02 | DX: D64.9 Anemia, unspecified (principal); E78.5 Hyperlipidemia, unspecified; E83.40 Disorders of magnesium metabolism, unspecified; M81.0 Age-related osteoporosis without current pathological fracture ==

== ENCOUNTER 2018-07-13 15:08 | Observation (INO) | payer BC, OTHER ==
[2018-07-13 15:19] VITALS: BMI 35.2
--- NOTE | 2018-07-13 15:21 | ED PDOC ---
Arrival/HPI - General Chief Complaint: Palpitations Time Seen by Provider: 07/13/18 15:09 Historian: Patient - History of Present Illness Narrative History of Present Illness (Text): 07/13/18 15:20 A 63 year old male, whose past medical history includes hypertension, hyperlipidemia, COPD, Atrial Fibrillation on Cardizem(no anticoagulants given), CA (on chemo), presents to the emergency department complaining of Atrial fibrillation and generalized weakness for the past few days. Patient reports last round of chemo last week and had began feeling weak. He was seen today by Dr. Cash, and during visit it was noticed his heart rate was 122BPM in RVR. Patient was immediately instructed to go to the ER for further evaluation. Of note, patient had a previous history of Atrial Fibrillation where he received Cardizem, and was started on Digoxin. Patient denies any chest pain, palpitations, shortness of breath, or any other complaints at this time. PMD: Dr. Churchill Sr. Operations Manager: Dr. Teague Oncologist: Dr. Cash Past Medical History - Provider Review Nursing Documentation Reviewed: Yes - Infectious Disease Hx of Infectious Diseases: None - Tetanus Immunization Tetanus Immunization: Unknown - Cardiac Hx Hypertension: Yes Hx Pacemaker: No - Pulmonary Hx Asthma: Yes - Neurological Hx Paralysis: No - HEENT Hx HEENT Disorder: Yes (eyeglasses) - Renal Hx Renal Disorder: No - Endocrine/Metabolic Hx Endocrine Disorders: No - Hematological/Oncological Hx Blood Transfusions: No - Integumentary Hx Dermatological Disorder: Yes Other/Comment: healed surgical scar inner right foot from tendon repair to straighten foot sx 2010 - Musculoskeletal/Rheumatological Hx Musculoskeletal Disorders: No - Gastrointestinal Hx Gastrointestinal Disorders: Yes (fatty liver "yrs ago") Hx Gastroesophageal Reflux: Yes Other/Comment: hemorrhoids, gastritis, gastric polyps, polypectomy and bx - Genitourinary/Gynecological Hx Genitourinary Disorders: Yes (vasectomy) - Psychiatric Hx Emotional Abuse: No Hx Physical Abuse: No Hx Substance Use: No - Surgical History Hx Orthopedic Surgery: Yes - Anesthesia Hx Anesthesia Reactions: No Hx Malignant Hyperthermia: No - Suicidal Assessment Feels Threatened In Home Enviroment: No Family/Social History - Physician Review Nursing Documentation Reviewed: Yes Family/Social History: No Known Family HX Smoking Status: Never Smoked Hx Alcohol Use: No Hx Substance Use: No Allergies/Home Meds Allergies/Adverse Reactions: Allergies No Known Allergies Allergy (Verified 03/18/13 08:09) Home Medications: Home Meds Medication Instructions Recorded Confirmed Diltiazem Sr 180 mg PO DAILY 07/07/18 07/13/18 Hydrocodone/Chlorpheniramine 5 ml PO Q12H PRN 07/07/18 07/13/18 [Tussionex] Lidocaine Viscous 5 ml PO QID PRN 07/07/18 07/13/18 Omeprazole 20 mg PO BID 07/07/18 07/13/18 Sucralfate [Carafate Oral Susp] 10 ml PO ACHS 07/07/18 07/13/18 metOLazone [Zaroxolyn] 2.5 mg PO MWF 07/07/18 07/13/18 oxyCODONE [oxyCODONE Immediate 5 mg PO Q4H PRN 07/07/18 07/13/18 Release Tab] Pyridoxine [Vitamin B6] 1 tab PO DAILY 07/13/18 07/13/18 Review of Systems - Physician Review All systems were reviewed & negative as marked: Yes - Review of Systems Constitutional: Other (generalized weakness) Respiratory: absent: SOB Cardiovascular: absent: Chest Pain, Palpitations Physical Exam Vital Signs Reviewed: Yes Temperature: Afebrile Blood Pressure: Normal Pulse: Tachycardic Respiratory Rate: Normal Appearance: Positive for: Well-Appearing, Non-Toxic, Comfortable Pain Distress: None Mental Status: Positive for: Alert and Oriented X 3 - Systems Exam Head: Present: Atraumatic, Normocephalic Pupils: Present: PERRL Extroacular Muscles: Present: EOMI Conjunctiva: Present: Normal Mouth: Present: Moist Mucous Membranes Neck: Present: Normal Range of Motion Respiratory/Chest: Present: Clear to Auscultation, Good Air Exchange, Other (palpable port to left upper chest area). No: Respiratory Distress, Accessory Muscle Use, Tachypneic Cardiovascular: Present: Irregular Rhythm, Tachycardic Abdomen: Present: Distention. No: Tenderness, Peritoneal Signs Back: Present: Normal Inspection Upper Extremity: Present: Normal Inspection. No: Cyanosis, Edema Lower Extremity: Present: Normal Inspection. No: Edema Neurological: Present: GCS=15, CN II-XII Intact, Speech Normal Skin: Present: Warm, Dry, Normal Color. No: Rashes Psychiatric: Present: Alert, Oriented x 3, Normal Insight, Normal Concentration Medical Decision Making ED Course and Treatment: 07/13/18 15:22 Impression: 63 year old male with Atrial Fibrillation and generalized weakness. Plan: -- EKG -- Chest X-ray -- Labs -- Urinalysis -- Blood Culture -- Cardizem -- Reassess and disposition Prior Visits: Notes and results from previous visits were reviewed. Patient was last seen here in the emergency department on 01/11/2018 for mild clear productive cough. Patient was admitted for sepsis, pneumonia, and leukocytosis. Progress Notes: 07/13/18 16:08 Patient noted to be persistently in sinus tachycardia to low 100s with evidence of p waves. Cardizem held for now. Spoke to Dr. Panchal(covering for Dr. Churchill) who accepts patient onto his service. He requests Dr. Wagner(oncology) & Dr. Kwok(cardiology) as consult. 07/13/18 18:[address] Kwok who agrees with plan of management and will see the patient. Dr. Adenike Kelly at the bedside requesting gentle fluids, CT a/p with IV contrast and direct bilirubin. 07/13/18 18:41 At the request of the oncologist, analgesic and anxiolytic standing orders placed. He will follow up with these and the remainder of the order. - Lab Interpretations Lab Results: 07/13/18 15:15 07/13/18 15:15 Lab Results 07/13/18 15:15: Sodium 133, Potassium 3.5 L, Chloride 96 L, Carbon Dioxide 27, Anion Gap 14, BUN 36 H, Creatinine 1.1, Est GFR ( Amer) > 60, Est GFR (N on-Af Amer) > 60, Random Glucose 159 H, Calcium 9.1, Magnesium 1.8, Total Bilirubin 7.2 H, AST 548 H, ALT 190 H, Alkaline Phosphatase 1431 H, NT-Pro-B Natriuret Pep 530 H, Total Protein 6.3, Albumin 3.2, Globulin 3.1, Albumin/Globulin Ratio 1.0 L 07/13/18 15:15: PT 13.7 H, INR 1.20, APTT 30.6 07/13/18 15:15: WBC 39.1 H*, RBC 4.24, Hgb 12.3 L, Hct 37.0 L, MCV 87.3, MCH 29.0, MCHC 33.2, RDW 17.7 H, Plt Count 139, MPV 10.1, Eos % (Auto) 0.1 L, Baso % (Auto) 0.8, Eos # (Auto) 0.0, Baso # (Auto) 0.33 I have reviewed the lab results: Yes - Scribe Statement The provider has reviewed the documentation as recorded by the Сергей Ferrara Provider Scribe Attestation: All medical record entries made by the Сергей were at my direction and person ally dictated by me. I have reviewed the chart and agree that the record accurately reflects my personal performance of the history, physical exam, medical decision making, and the department course for this patient. I have also personally directed, reviewed, and agree with the discharge instructions and disposition. Disposition/Present on Arrival - Present on Arrival History of DVT/PE: No History of Uncontrolled Diabetes: No Urinary Catheter: No History Surgical Site Infection Following: None - Disposition
[2018-07-13 15:33] LABS: BASO % 0.8 % (0.0-3.0); EOS % 0.1 % (1.5-5.0); HEMOGLOBIN 12.3 g/dL (14.0-18.0); MEAN CELL VOLUME 87.3 fl (80.0-105.0); MEAN CORPUSCULAR HGB CONC 33.2 g/dl (31.0-37.0); MEAN PLATELET VOLUME 10.1 fl (7.0-11.0); PLATELET COUNT 139 10^3/uL (120.0-450.0); RBC 4.24 10^6/uL (3.5-6.1); RED CELL DISTRIBUTION WIDTH 17.7 % (11.5-14.5)
[2018-07-13 15:35] LABS: WHITE BLOOD COUNT 39.1 10^3/uL (4.5-11.0)
--- NOTE | 2018-07-13 15:38 | RAD ---
Date of service: 07/13/2018 HISTORY: atrial fibrillation COMPARISON: 01/11/2018. FINDINGS: Left subclavian line terminates at the cavoatrial junction. LUNGS: The lungs are well inflated. There is confluent airspace disease in the right lower lobe. The left lung is clear. PLEURA: Small right pleural effusion. No left pleural effusion or pneumothorax. CARDIOVASCULAR: The heart is normal in size. No aortic atherosclerotic calcifications present. OSSEOUS STRUCTURES: Within normal limits for the patient's age. VISUALIZED UPPER ABDOMEN: Normal. OTHER FINDINGS: None. IMPRESSION: Confluent airspace disease in the right lower lobe may represent subsegmental atelectasis/pneumonia. Small right pleural effusion. Follow-up after medical management is recommended to ensure complete resolution.
[2018-07-13 15:44] LABS: INR 1.2; PARTIAL THROMBOPLASTIN TIME 30.6 Seconds (25.1-36.5); PROTHROMBIN TIME 13.7 SECONDS (9.4-12.5)
[2018-07-13 15:54] LABS: B-TYPE NATRIURETIC PEPTIDE 530 pg/mL (0-450)
[2018-07-13 16:06] LABS: ALBUMIN 3.2 g/dL (3.0-4.8); ALT/SGPT 190 U/L (7-56); AST/SGOT 548 U/L (17-59); BLOOD UREA NITROGEN 36 mg/dL (7-21); CALCIUM 9.1 mg/dL (8.4-10.5); GFR NON-AFRICAN AMERICAN > 60
[2018-07-13] MEDS ORDERED: Potassium Chloride 40 mEq/30 ml LIQ UD PO STA (16:17)
[2018-07-13 17:03] LABS: URINE BILIRUBIN LARGE (NEGATIVE); URINE BLOOD NEGATIVE (NEGATIVE); URINE GLUCOSE (UA) 100 mg/dL (NEGATIVE); URINE LEUKOCYTE ESTERASE NEGATIVE Leu/uL (NEGATIVE); URINE PROTEIN 30 mg/dL (<30 mg/dL)
[2018-07-13 17:04] LABS: URINE APPEARANCE CLOUDY (CLEAR); URINE COLOR LIGHT BROWN (YELLOW)
[2018-07-13 17:30] LABS: URINE AMORPHOUS SEDIMENT FEW /hpf; URINE BACTERIA LARGE /hpf; URINE EPITHELIAL CELLS 0 - 2 /hpf (0-5)
[2018-07-13] MEDS ORDERED: oxyCODONE 5 mg Immediate Release Tab PO PRN (18:38)
[2018-07-13] MEDS: Sodium Chloride 0.9% 500 ML IV SCH (18:53)
[2018-07-13] MEDS: oxyCODONE 5 mg Immediate Release Tab PO PRN (21:19)
[2018-07-14 00:15] VITALS: O2SAT 98
[2018-07-14] MEDS: Sodium Chloride 0.9% 500 ML IV SCH (02:30)
--- NOTE | 2018-07-14 05:44 | CP.PCM.HP ---
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 Patient was at Dr. Cash's office and started to feel weak and have palpitations. He was noted to have a HR of 122bpm. Patient was thus sent to the ER immediately. Patient denied any chest pain, diaphoresis, or numbness/tingling/pain down his left arm or up his jaw. He did admit to some generalized abdominal discomfort. Patient was seen and examined with his at bedside this AM. Overnight patient reported he was able to sleep well and felt a little better. On ROS he denied any fever, chills, headache, dizziness, cough, nausea, vomiting, bowel/bladder complaints, pain/in his legs bilaterally. PMHx: metastatic neuroendocrin ca, paroxysmal Afib, HTN, dyslipidemia, asthma, fatty liver, liver cyst PSurgHx: R ankle surgery, L rotator cuff Meds: pls see chart All: NKDA SocHx: Denies EtOH, drug or tobacco use. 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 Lives with family. Independent in all ADLs FamHx: Father: from possible lymphoma age 49 PMD: Dr. Churchill Cardiology Coordinator: Dr. Teague Oncologist: Dr. Cash Present on Admission - Present on Admission Any Indicators Present on Admission: No Review of Systems - Review of Systems All systems: reviewed and no additional remarkable complaints except Review of Systems: as per HPI Past Patient History - Infectious Disease Hx of Infectious Diseases: None - Tetanus Immunizations Tetanus Immunization: Unknown - Past Medical History & Family History Past Medical History?: Yes - Past Social History Smoking Status: Never Smoked - CARDIAC Hx Cardiac Disorders: Yes Hx Angina: No Hx Cardia Arrhythmia: Yes (a fib) Hx Circulatory Problems: No Hx Congestive Heart Failure: No Hx Heart Murmur: No Hx Heart Transplant: No Hx Hypercholesterolemia: Yes Hx Hypertension: Yes Hx Internal Defibrillator: No Hx Mitral Valve Prolapse: No Hx Pacemaker: No Hx Peripheral Edema: No Hx Peripheral Vascular Disease: No - PULMONARY Hx Respiratory Disorders: Yes Hx Asthma: Yes Hx Bronchitis: Yes Hx Chronic Obstructive Pulmonary Disease (COPD): Yes Hx Emphysema: No Hx Pneumonia: No Hx Respiratory Aspiration: No Hx Respiratory Tract Infection: No Hx Sleep Apnea: No Hx Tuberculosis: No - NEUROLOGICAL Hx Neurological Disorder: No Hx Alzheimer's Disease: No HX Cerebrovascular Accident: No Hx Dementia: No Hx Dizziness: No Hx Meningitis: No Hx Migraine: No Hx Parkinson's Disease: No Hx Seizures: No Hx Transient Ischemic Attacks (TIA): No - HEENT Hx HEENT Problems: No Hx Blind: No Hx Cataracts: No Hx Deafness: No Hx Difficulty Chewing: No Hx Epistaxis: No Hx Glaucoma: No Hx Macular Degeneration: No - RENAL Hx Chronic Kidney Disease: No Hx Dialysis: No Hx Kidney Stones: No Hx Neurogenic Bladder: No Hx Pyelonephritis: No Hx Renal (Kidney) Cancer: No Hx Renal Failure: No - ENDOCRINE/METABOLIC Hx Endocrine Disorders: No Hx Adrenal Cancer: No Hx Diabetes Insipidus: No Hx Diabetes Mellitus Type 1: No Hx Diabetes Mellitus Type 2: No Hx Hyperthyroidism: No Hx Hypothyroidism: No Hx Systemic Lupus Erythematosus: No - HEMATOLOGICAL/ONCOLOGICAL Hx Blood Disorders: Yes Hx AIDS: No Hx Anemia: No Hx Cancer: Yes (lung Ca) Hx Chemotherapy: Yes Hx Cirrhosis: No Hx Hemophilia: No Hx Hepatitis A: No Hx Hepatitis B: No Hx Hepatitis C: No Hx Human Immunodeficiency Virus (HIV): No Hx Metastesis: No Hx Shingles: No Hx Sickle Cell Disease: No Hx Unexplained Bleeding: No - INTEGUMENTARY Hx Dermatological Problems: No Hx Basil Cell: No Hx Eczema: No Hx Melanoma: No Hx Psoriasis: No Hx Squamous Cell: No - MUSCULOSKELETAL/RHEUMATOLOGICAL Hx Musculoskeletal Disorders: Yes Hx Arthritis: No Hx Back Pain: Yes Hx Degenerative Joint Disease: No Hx Falls: No Hx Fractures: No Hx Gout: No Hx Herniated Disk: No Hx Myasthenia Gravis: No Hx Osteoarthritis: No Hx Osteomyelitis: No Hx Osteoporosis: No Hx Rhabdomyolysis: No Hx Spinal Stenosis: No Hx Unsteady Gait: Yes - GASTROINTESTINAL Hx Gastrointestinal Disorders: Yes Hx Colostomy: No Hx Crohn's Disease: No Hx Diverticulitis: No Hx Gall Bladder Disease: No Hx Gastroesophageal Reflux: Yes Hx Ileostomy: No Hx Liver Failure: No Hx Pancreatitis: No HX Swallowing Problems: No Hx Ulcer: No - GENITOURINARY/GYNECOLOGICAL Hx Genitourinary Disorders: No Hx Hematuria: No Hx Incontinence: No Hx Prostate Problems: No Hx Sexually Transmitted Disorders: No Hx Urinary Tract Infection: No - PSYCHIATRIC Hx Psychophysiologic Disorder: No Hx Anxiety: No Hx Bipolar Disorder: No Hx Depression: No Hx Emotional Abuse: No Hx Hallucinations: No Hx Panic Symptoms: No Hx Paranoia: No Hx Post Traumatic Stress Disorder: No Hx Psychosis: No Hx Physical Abuse: No Hx Schizophrenia: No Hx Sexual Abuse: No Hx Substance Use: No - SURGICAL HISTORY Hx Surgeries: Yes Hx Amputation: No Hx Appendectomy: No Hx Cardiac Catheterization: No Hx Cholecystectomy: No Hx Coronary Stent: No Hx Gastric Bypass Surgery: No Hx Hysterectomy: No Hx Joint Replacement: No Hx Kidney Transplant: No Hx Liver Transplant: No Hx Mastectomy: No Hx Musculoskeletal Surgery: No Hx Open Heart Surgery: No Hx Orthopedic Surgery: No Hx Splenectomy: No Hx Valve Replacement: No - ANESTHESIA Hx Anesthesia Reactions: No Hx Malignant Hyperthermia: No Meds Home Medications: Home Medication List Medication Instructions Recorded Confirmed Type RX: Allopurinol [Zyloprim] 100 mg PO DAILY #30 tab 07/14/18 Rx RX: Digoxin [Lanoxin] 0.25 mg PO 1400 #30 tab 07/14/18 Rx RX: Pyridoxine [Vitamin B6] 1 tab PO DAILY #30 tab 07/14/18 Rx RX: diltiaZEM CD [Cardizem CD] 180 mg PO DAILY #30 cap 07/14/18 Rx RX: metOLazone [Zaroxolyn] 2.5 mg PO MWF #12 tab 07/14/18 Rx Allergies/Adverse Reactions: Allergies Allergy/AdvReac Type Severity Reaction Status Date / Time No Known Allergies Allergy Verified 03/18/13 08:09 Physical Exam - Constitutional Appears: Non-toxic, No Acute Distress - Head Exam Head Exam: ATRAUMATIC, NORMAL INSPECTION, NORMOCEPHALIC - Eye Exam Eye Exam: EOMI, Normal appearance. absent: Conjunctival injection, Scleral icterus - ENT Exam ENT Exam: Mucous Membranes Moist - Respiratory Exam Respiratory Exam: Rhonchi (b/l scattered), NORMAL BREATHING PATTERN. absent: Accessory Muscle Use, Rales, Wheezes, Respiratory Distress - Cardiovascular Exam Cardiovascular Exam: Tachycardia, +S1, +S2, Systolic Murmur - GI/Abdominal Exam GI & Abdominal Exam: Soft, Tenderness (mild to palpation R sided). absent: Firm, Guarding, Rigid - Extremities Exam Extremities exam: Positive for: pedal edema, pedal pulses present. Negative for: tenderness - Neurological Exam Neurological exam: Alert, CN II-XII Intact, Oriented x3 - Psychiatric Exam Psychiatric exam: Normal Affect, Normal Mood - Skin Skin Exam: Dry, Intact, Normal Color, Warm Results - Vital Signs Recent Vital Signs: Last Vital Signs Temp 98 F 07/14/18 00:01 Pulse 120 H 07/14/18 02:00 Resp 20 07/14/18 00:01 BP 148/76 07/14/18 00:01 Pulse Ox 98 07/14/18 00:01 - Labs Result Diagrams: 07/14/18 07:00 07/14/18 07:00 Labs: Laboratory Results - last 24 hr 07/13/18 07/13/18 07/13/18 15:12 15:15 15:15 WBC 39.1 H* RBC 4.24 Hgb 12.3 L Hct 37.0 L MCV 87.3 MCH 29.0 MCHC 33.2 RDW 17.7 H Plt Count 139 MPV 10.1 Eos % (Auto) 0.1 L Baso % (Auto) 0.8 Eos # (Auto) 0.0 Baso # (Auto) TEST NOT PERFORMED PT 13.7 H INR 1.20 APTT 30.6 Sodium Potassium Chloride Carbon Dioxide Anion Gap BUN Creatinine Est GFR ( Amer) Est GFR (Non-Af Amer) POC Glucose (mg/dL) 169 H Random Glucose Calcium Magnesium Total Bilirubin Direct Bilirubin AST ALT Alkaline Phosphatase NT-Pro-B Natriuret Pep Total Protein Albumin Globulin Albumin/Globulin Ratio Urine Color Urine Appearance Urine pH Ur Specific [place] Urine Protein Urine Glucose (UA) Urine Ketones Urine Blood Urine Nitrate Urine Bilirubin Urine Urobilinogen Ur Leukocyte Esterase Urine RBC Urine WBC Ur Epithelial Cells Amorphous Sediment Urine Bacteria Urine Other 07/13/18 07/13/18 07/13/18 15:15 16:30 18:30 WBC RBC Hgb Hct MCV MCH MCHC RDW Plt Count MPV Eos % (Auto) Baso % (Auto) Eos # (Auto) Baso # (Auto) PT INR APTT Sodium 133 Potassium 3.5 L Chloride 96 L Carbon Dioxide 27 Anion Gap 14 BUN 36 H Creatinine 1.1 Est GFR ( Amer) > 60 Est GFR (Non-Af Amer) > 60 POC Glucose (mg/dL) Random Glucose 159 H Calcium 9.1 Magnesium 1.8 Total Bilirubin 7.2 H Direct Bilirubin 6.3 H AST 548 H ALT 190 H Alkaline Phosphatase 1431 H NT-Pro-B Natriuret Pep 530 H Total Protein 6.3 Albumin 3.2 Globulin 3.1 Albumin/Globulin Ratio 1.0 L Urine Color Light brown Urine Appearance Cloudy Urine pH 6.0 Ur Specific [place] 1.025 Urine Protein 30 H Urine Glucose (UA) 100 H Urine Ketones Trace H Urine Blood Negative Urine Nitrate Negative Urine Bilirubin Large H Urine Urobilinogen 4.0 H Ur Leukocyte Esterase Negative Urine RBC 1 - 3 H Urine WBC 2 - 5 Ur Epithelial Cells 0 - 2 Amorphous Sediment Few Urine Bacteria Large Urine Other Uyeast Assessment & Plan - Assessment and Plan (Free Text) Assessment: 1. Paroxysmal Afib with RVR 2. Neuroendocrine ca Stage IV on chemo 3. Elevated LFTs 4. Leukocytosis 5. HTN 6. HLD 7. Asthma 8. Fatty liver Plan: Patient's vitals, bloodwork, and imaging reviewed. Cardiology was consulted for paroxysmal Afib. Patient was continued on home cardizem and additionally loaded with Digoxin which is to be continued upon discharge. Patient is not a candidate for oral anticoagulation at this time. In light of elevated LFTs a CT Abd/pelvis was done which showed that there was a slight decrease in number of mets in the liver however the overall size of the liver was unchanged and there was no evidence of biliary obstruction. Blood cultures x 2 prelim negative. Patient continued on home medications and on a HHD. Will continue to monitor closely at this time. Discussed with Dr. Gini Harden PGY3 <Mack Rubalcava S - Last Filed: 07/15/18 21:55> Results - Vital Signs Recent Vital Signs: Last Vital Signs Temp 97.9 F 07/14/18 18:00 Pulse 109 H 07/14/18 18:00 Resp 20 07/14/18 18:00 BP 142/87 07/14/18 18:00 Pulse Ox 98 07/14/18 06:00 - Labs Result Diagrams: 07/14/18 07:00 07/14/18 07:00 Assessment & Plan - Assessment and Plan (Free Text) Plan: This is a late entry. Pt seen and examined by me. I have reviewed the note of the medical surgery nurse and I agree with it. I have discussed the assessment and plan with the resident. I have reviewed the medications and the last labs. Pt with A fib. He was given Cardizem in the ER. He had been taken off his Dig and will be restarted. He is being followed by Dr Maciel, I spoke to him to place him on consult. The CT of the abd was reviewed. BCx are negative. I spoke to the at the bedside to give an update. I spoke to Dr Teague about the case. Pt will be discharged home.
[2018-07-14 07:17] LABS: HEMOGLOBIN 10.8 g/dL (14.0-18.0); MEAN CELL VOLUME 86.2 fl (80.0-105.0); MEAN CORPUSCULAR HEMOGLOBIN 28.7 pg (25.0-35.0); MEAN CORPUSCULAR HGB CONC 33.3 g/dl (31.0-37.0); MEAN PLATELET VOLUME 10.3 fl (7.0-11.0); RBC 3.76 10^6/uL (3.5-6.1); RED CELL DISTRIBUTION WIDTH 17.9 % (11.5-14.5)
[2018-07-14 07:26] LABS: ALBUMIN 2.8 g/dL (3.0-4.8); ALT/SGPT 165 U/L (7-56); AST/SGOT 441 U/L (17-59); BLOOD UREA NITROGEN 33 mg/dL (7-21); CALCIUM 8.6 mg/dL (8.4-10.5); GFR NON-AFRICAN AMERICAN > 60
[2018-07-14] MEDS ORDERED: Digoxin 500 mcg/2ml (0.5 mg/2ml) Inj IV ONE (07:51)
--- NOTE | 2018-07-14 09:32 | CARD ---
APPROVED REPORT Date of service: 07/13/2018 EKG Measurement Heart [id number] <Conclusion> Sinus tachycardia with premature atrial complexes Right bundle branch block Inferior infarct, age undetermined Abnormal ECG
[2018-07-14] MEDS ORDERED: diltiaZEM 180 mg/24 Hours CD Cap PO SCH (10:00)
--- NOTE | 2018-07-14 10:45 | CON ---
DATE: 07/14/2018 REQUESTING PHYSICIAN: Dr. Rubalcava. REASON FOR CONSULTATION: Atrial fibrillation. HISTORY OF PRESENT ILLNESS: This is a 63-year-old man, known to me from prior admissions with a history of metastatic neuroendocrine carcinoma, who had paroxysmal atrial fibrillation. He has been undergoing chemotherapy and presents to the emergency room yesterday with generalized weakness and dyspnea. He was found to be in atrial fibrillation with rapid ventricular response. In the emergency room, his electrocardiogram showed evidence of sinus tachycardia, and he was admitted for observation. He has been started on some IV fluids. He remained in sinus rhythm for most of the evening, had a short run of atrial fibrillation early this morning. He feels fair. He has had a difficult time tolerating his chemotherapy. PAST MEDICAL HISTORY: His past history is notable for the problems mentioned above. He also has a history of gastritis, gastric polyps, and prior foot surgery. MEDICATIONS: His medications at home include diltiazem 180 mg daily, omeprazole 20 mg b.i.d., Carafate, Zaroxolyn 2.5 mg three times a week, and oxycodone p.r.n. ALLERGIES: NONE. SOCIAL HISTORY: Does not smoke or drink. He is and lives with his family. FAMILY HISTORY: Unremarkable for premature heart disease. REVIEW OF SYSTEMS: A 10-point review of systems is notable mainly for the problems mentioned above. PHYSICAL EXAMINATION: GENERAL: He is a chronically ill-appearing, middle-aged man. VITAL SIGNS: Blood pressure is 122/60 with a pulse of 110 and sinus, respirations are 16. He is afebrile. HEENT: Facial plethora is noted. NECK: No JVD. CHEST: Bilateral scattered rhonchi. HEART: PMI displaced laterally with regular but tachycardic rhythm. Systolic murmur is present at the left sternal border. ABDOMEN: Soft and nontender. Normoactive bowel sounds. EXTREMITIES: 1+ edema. DIAGNOSTIC DATA: Potassium 4, BUN and creatinine are 33 and 1. White count 31,000, hemoglobin and hematocrit are 10.8 and 32.4 with a platelet count of 122,000. AST and ALT are 441 and 165 respectively with an alkaline phosphatase of 1182. Albumin is 2.8. Electrocardiogram reveals sinus tachycardia with supraventricular premature beats, right bundle-branch block pattern, but an inferior myocardial infarction pattern cannot be excluded. Of note, a prior stress test had been normal. Chest x-ray reveals normal cardiac silhouette with right lower lobe atelectasis. IMPRESSION: 1. Apparent paroxysmal atrial fibrillation, stable at present. 2. Stage IV neuroendocrine carcinoma, undergoing chemotherapy. 3. Rest of the problems are as noted. RECOMMENDATIONS: Oral diltiazem will be continued for now. Digoxin will be added as well for heart rate control in the event of recurrence of atrial fibrillation. Given his fairly short episodes and other issues, I would avoid anticoagulation at this time. From a cardiac standpoint, he appears stable for discharge home and outpatient followup can be arranged. Thank you for this consultation. We will be happy to see as needed. Rome Lee MD MTDD
[2018-07-14] MEDS: oxyCODONE 5 mg Immediate Release Tab PO PRN (10:49)
--- NOTE | 2018-07-14 12:32 | CT ---
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 This CT exam was performed using one or more of the following dose reduction techniques: Automated exposure control, adjustment of the mA and/or kV according to patient size, and/or use of iterative reconstruction technique. FINDINGS: LOWER THORAX: Unremarkable. LIVER: There is a decrease in the number and size of metastatic lesions throughout the liver. There are still a significant number of lesions. The amount of tumor has probably decreased 20 or 30 percent. The overall size of the liver is unchanged. GALLBLADDER AND BILE DUCTS: Contracted. There is no biliary dilatation PANCREAS: Unremarkable. No gross lesion or ductal dilatation. SPLEEN: Unremarkable. ADRENALS: Unremarkable. No mass. KIDNEYS AND URETERS: Unremarkable. No hydronephrosis. No solid mass. VASCULATURE: Unremarkable. No aortic aneurysm. No aortic atherosclerotic calcification or mural plaque present. BOWEL: Unremarkable. No obstruction. No gross mural thickening. APPENDIX: Normal appendix. PERITONEUM: There is a small amount of ascites which is a new finding. LYMPH NODES: Mildly enlarged retroperitoneal lymph nodes are again seen and are unchanged. BLADDER: Unremarkable. REPRODUCTIVE: Unremarkable. BONES: No acute fracture. OTHER FINDINGS: Findings were discussed with Dr. Cash at 12:30 p.m. 07/14/2018 IMPRESSION: Slight decrease in the number of metastatic lesions in the liver. The overall size of the liver has not changed. There is no evidence of biliary obstruction. Mild ascites which is a new finding
[2018-07-14 13:53] VITALS: PULSE 106
[2018-07-14] MEDS ORDERED: Digoxin 250 mcg (0.25 mg) Tab PO SCH (14:00)
--- NOTE | 2018-07-14 14:39 | CP.PCM.DIS ---
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 07/13/18 21:18 Nursing Referral for Palliative Care Routine Comment: Physician Instructions: Reason For Exam: palliative care score 7, lung CA possible mets Time Spent in preparation of Discharge (in minutes): 45 Hospital Course - Lab Results Lab Results: Most Recent Lab Values WBC 31.0 10^3/uL (4.5-11.0) H* D 07/14/18 07:00 RBC 3.76 10^6/uL (3.5-6.1) 07/14/18 07:00 Hgb 10.8 g/dL (14.0-18.0) L 07/14/18 07:00 Hct 32.4 % (42.0-52.0) L 07/14/18 07:00 MCV 86.2 fl (80.0-105.0) 07/14/18 07:00 MCH 28.7 pg (25.0-35.0) 07/14/18 07:00 MCHC 33.3 g/dl (31.0-37.0) 07/14/18 07:00 RDW 17.9 % (11.5-14.5) H 07/14/18 07:00 Plt Count 122 10^3/uL (120.0-450.0) 07/14/18 07:00 MPV 10.3 fl (7.0-11.0) 07/14/18 07:00 Eos % (Auto) 0.1 % (1.5-5.0) L 07/13/18 15:15 Baso % (Auto) 0.8 % (0.0-3.0) 07/13/18 15:15 Eos # (Auto) 0.0 (0.0-0.7) 07/13/18 15:15 Baso # (Auto) TEST NOT PERFORMED 07/13/18 15:15 PT 13.7 SECONDS (9.4-12.5) H 07/13/18 15:15 INR 1.20 07/13/18 15:15 APTT 30.6 Seconds (25.1-36.5) 07/13/18 15:15 Sodium 134 mmol/L (132-148) 07/14/18 07:00 Potassium 4.0 mmol/L (3.6-5.0) 07/14/18 07:00 Chloride 98 mmol/L (98-107) 07/14/18 07:00 Carbon Dioxide 31 mmol/L (21-33) 07/14/18 07:00 Anion Gap 9 (10-20) L 07/14/18 07:00 BUN 33 mg/dL (7-21) H 07/14/18 07:00 Creatinine 1.0 mg/dl (0.8-1.5) 07/14/18 07:00 Est GFR ( Amer) > 60 07/14/18 07:00 Est GFR (Non-Af Amer) > 60 07/14/18 07:00 POC Glucose (mg/dL) 169 mg/dL (65-110) H 07/13/18 15:12 Random Glucose 98 mg/dL (70-110) 07/14/18 07:00 Calcium 8.6 mg/dL (8.4-10.5) 07/14/18 07:00 Magnesium 1.8 mg/dL (1.7-2.2) 07/13/18 15:15 Total Bilirubin 6.8 mg/dL (0.2-1.3) H 07/14/18 07:00 Direct Bilirubin 6.3 mg/dL (0.0-0.4) H 07/13/18 18:30 AST 441 U/L (17-59) H 07/14/18 07:00 ALT 165 U/L (7-56) H 07/14/18 07:00 Alkaline Phosphatase 1182 U/L (38-126) H 07/14/18 07:00 NT-Pro-B Natriuret Pep 530 pg/mL (0-450) H 07/13/18 15:15 Total Protein 5.5 g/dL (5.8-8.3) L 07/14/18 07:00 Albumin 2.8 g/dL (3.0-4.8) L 07/14/18 07:00 Globulin 2.7 gm/dL 07/14/18 07:00 Albumin/Globulin Ratio 1.0 (1.1-1.8) L 07/14/18 07:00 Urine Color Light brown (YELLOW) 07/13/18 16:30 Urine Appearance Cloudy (CLEAR) 07/13/18 16:30 Urine pH 6.0 (4.7-8.0) 07/13/18 16:30 Ur Specific [place] 1.025 (1.005-1.035) 07/13/18 16:30 Urine Protein 30 mg/dL (<30 mg/dL) H 07/13/18 16:30 Urine Glucose (UA) 100 mg/dL (NEGATIVE) H 07/13/18 16:30 Urine Ketones Trace mg/dL (NEGATIVE) H 07/13/18 16:30 Urine Blood Negative (NEGATIVE) 07/13/18 16:30 Urine Nitrate Negative (NEGATIVE) 07/13/18 16:30 Urine Bilirubin Large (NEGATIVE) H 07/13/18 16:30 Urine Urobilinogen 4.0 E.U./dL (<1 E.U./dL) H 07/13/18 16:30 Ur Leukocyte Esterase Negative Mary Kate/uL (NEGATIVE) 07/13/18 16:30 Urine RBC 1 - 3 /hpf (0-2) H 07/13/18 16:30 Urine WBC 2 - 5 /hpf (0-6) 07/13/18 16:30 Ur Epithelial Cells 0 - 2 /hpf (0-5) 07/13/18 16:30 Amorphous Sediment Few /hpf (NONE) 07/13/18 16:30 Urine Bacteria Large /hpf (NONE) 07/13/18 16:30 Urine Other Uyeast /hpf 07/13/18 16:30 - Hospital Course Hospital Course: Upon Admission 63yo male PMHx 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 Patient was at Dr. Cash's office and started to feel weak and have palpitations. He was noted to have a HR of 122bpm. Patient was thus sent to the ER immediately. Patient denied any chest pain, diaphoresis, or numbness/tingling/pain down his left arm or up his jaw. He did admit to some generalized abdominal discomfort. Hospital Course Patient was admitted to telemetry for paroxysmal Afib. Cardiology was consulted and patient was continued on home cardizem. He was additionally loaded with Digoxin. His HR improved overnight and he converted to sinus rhythm with a short run of Afib early the next morning. Patient was not deemed a candidate for oral anticoagulation at this time. In light of elevated LFTs a CT Abd/pelvis was done which showed that there was a slight decrease in number of mets in the liver however the overall size of the liver was unchanged and there was no evidence of biliary obstruction. Blood cultures x 2 prelim negative. Patient was continued on home medications and on a HHD. He clinically improved and was deemed medically optimized for discharge home with outpatient follow up. Discharge Instructions "You are being discharged from [facility]. Please resume your home medications as prescribed by your primary care doctor. You are also being started on a new medication upon discharge. Please take the following as prescribed: -Digoxin 0.25 mg 1 tab by mouth daily Disp#30 Please follow up with your PMD Dr. Churchill within 7 days of discharge. Please also follow up with clothing busheler Dr. Teague within 10 days of discharge. Please also follow up with oncologist Dr. Cash within 10 days of discharge. If symptoms return please visit your nearest Emergency Room." Instructions discussed in detail with patient and who vocalized understanding and agreement. Please note this is a discharge summary. For full hospital course please refer to EMR. Discharge Exam - Head Exam Head Exam: ATRAUMATIC, NORMAL INSPECTION, NORMOCEPHALIC - Eye Exam Eye Exam: EOMI, Normal appearance. absent: Conjunctival injection, Scleral icterus - ENT Exam ENT Exam: Mucous Membranes Moist - Respiratory Exam Respiratory Exam: Rhonchi, NORMAL BREATHING PATTERN. absent: Accessory Muscle Use, Respiratory Distress - Cardiovascular Exam Cardiovascular Exam: Tachycardia, +S1, +S2 - GI/Abdominal Exam GI & Abdominal Exam: Normal Bowel Sounds, Soft, Tenderness (mild). absent: Firm, Guarding, Rigid - Extremities Exam Extremities exam: pedal edema, pedal pulses present - Neurological Exam Neurological exam: Alert, CN II-XII Intact, Oriented x3 - Psychiatric Exam Psychiatric exam: Normal Affect, Normal Mood - Skin Skin Exam: Dry, Intact, Normal Color, Warm Discharge Plan - Discharge Medications Prescriptions: RX: diltiaZEM CD [Cardizem CD] 180 mg PO DAILY #30 cap RX: Digoxin [Lanoxin] 0.25 mg PO 1400 #30 tab RX: Pyridoxine [Vitamin B6] 1 tab PO DAILY #30 tab RX: metOLazone [Zaroxolyn] 2.5 mg PO MWF #12 tab RX: Allopurinol [Zyloprim] 100 mg PO DAILY #30 tab - Follow Up Plan Condition: FAIR Disposition: HOME/ ROUTINE Instructions: Pleural Effusion, Leukocytosis (DC) Additional Instructions: You are being discharged from [facility]. Please resume your home medications as prescribed by your primary care doctor. You are also being started on a new medication upon discharge. Please take the following as prescribed: -Digoxin 0.25 mg 1 tab by mouth daily Disp#30 Please follow up with your PMD Dr. Churchill within 7 days of discharge. Please also follow up with clothing busheler Dr. Teague within 10 days of discharge. Please also follow up with oncologist Dr. Cash within 10 days of discharge. If symptoms return please visit your nearest Emergency Room. 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 07/13/18 21:18 Nursing Referral for Palliative Care Routine Comment: Physician Instructions: Reason For Exam: palliative care score 7, lung CA possible mets Hospital Course - Lab Results Lab Results: Micro Results 07/13/18 17:30 Blood-Thru Central Line Blood Culture - Preliminary NO GROWTH AFTER 48 HOURS 07/13/18 15:15 Blood-Thru Central Line Blood Culture - Preliminary NO GROWTH AFTER 48 HOURS Most Recent Lab Values WBC 31.0 10^3/uL (4.5-11.0) H* D 07/14/18 07:00 RBC 3.76 10^6/uL (3.5-6.1) 07/14/18 07:00 Hgb 10.8 g/dL (14.0-18.0) L 07/14/18 07:00 Hct 32.4 % (42.0-52.0) L 07/14/18 07:00 MCV 86.2 fl (80.0-105.0) 07/14/18 07:00 MCH 28.7 pg (25.0-35.0) 07/14/18 07:00 MCHC 33.3 g/dl (31.0-37.0) 07/14/18 07:00 RDW 17.9 % (11.5-14.5) H 07/14/18 07:00 Plt Count 122 10^3/uL (120.0-450.0) 07/14/18 07:00 MPV 10.3 fl (7.0-11.0) 07/14/18 07:00 Eos % (Auto) 0.1 % (1.5-5.0) L 07/13/18 15:15 Baso % (Auto) 0.8 % (0.0-3.0) 07/13/18 15:15 Eos # (Auto) 0.0 (0.0-0.7) 07/13/18 15:15 Baso # (Auto) TEST NOT PERFORMED 07/13/18 15:15 PT 13.7 SECONDS (9.4-12.5) H 07/13/18 15:15 INR 1.20 07/13/18 15:15 APTT 30.6 Seconds (25.1-36.5) 07/13/18 15:15 Sodium 134 mmol/L (132-148) 07/14/18 07:00 Potassium 4.0 mmol/L (3.6-5.0) 07/14/18 07:00 Chloride 98 mmol/L (98-107) 07/14/18 07:00 Carbon Dioxide 31 mmol/L (21-33) 07/14/18 07:00 Anion Gap 9 (10-20) L 07/14/18 07:00 BUN 33 mg/dL (7-21) H 07/14/18 07:00 Creatinine 1.0 mg/dl (0.8-1.5) 07/14/18 07:00 Est GFR ( Amer) > 60 07/14/18 07:00 Est GFR (Non-Af Amer) > 60 07/14/18 07:00 POC Glucose (mg/dL) 169 mg/dL (65-110) H 07/13/18 15:12 Random Glucose 98 mg/dL (70-110) 07/14/18 07:00 Calcium 8.6 mg/dL (8.4-10.5) 07/14/18 07:00 Magnesium 1.8 mg/dL (1.7-2.2) 07/13/18 15:15 Total Bilirubin 6.8 mg/dL (0.2-1.3) H 07/14/18 07:00 Direct Bilirubin 6.3 mg/dL (0.0-0.4) H 07/13/18 18:30 AST 441 U/L (17-59) H 07/14/18 07:00 ALT 165 U/L (7-56) H 07/14/18 07:00 Alkaline Phosphatase 1182 U/L (38-126) H 07/14/18 07:00 NT-Pro-B Natriuret Pep 530 pg/mL (0-450) H 07/13/18 15:15 Total Protein 5.5 g/dL (5.8-8.3) L 07/14/18 07:00 Albumin 2.8 g/dL (3.0-4.8) L 07/14/18 07:00 Globulin 2.7 gm/dL 07/14/18 07:00 Albumin/Globulin Ratio 1.0 (1.1-1.8) L 07/14/18 07:00 Urine Color Light brown (YELLOW) 07/13/18 16:30 Urine Appearance Cloudy (CLEAR) 07/13/18 16:30 Urine pH 6.0 (4.7-8.0) 07/13/18 16:30 Ur Specific [place] 1.025 (1.005-1.035) 07/13/18 16:30 Urine Protein 30 mg/dL (<30 mg/dL) H 07/13/18 16:30 Urine Glucose (UA) 100 mg/dL (NEGATIVE) H 07/13/18 16:30 Urine Ketones Trace mg/dL (NEGATIVE) H 07/13/18 16:30 Urine Blood Negative (NEGATIVE) 07/13/18 16:30 Urine Nitrate Negative (NEGATIVE) 07/13/18 16:30 Urine Bilirubin Large (NEGATIVE) H 07/13/18 16:30 Urine Urobilinogen 4.0 E.U./dL (<1 E.U./dL) H 07/13/18 16:30 Ur Leukocyte Esterase Negative Mary Kate/uL (NEGATIVE) 07/13/18 16:30 Urine RBC 1 - 3 /hpf (0-2) H 07/13/18 16:30 Urine WBC 2 - 5 /hpf (0-6) 07/13/18 16:30 Ur Epithelial Cells 0 - 2 /hpf (0-5) 07/13/18 16:30 Amorphous Sediment Few /hpf (NONE) 07/13/18 16:30 Urine Bacteria Large /hpf (NONE) 07/13/18 16:30 Urine Other Uyeast /hpf 07/13/18 16:30 - Hospital Course Hospital Course: Pt seen and examined by me. I have reviewed the note of the director biomedical engineering and I agree with it. I have discussed the assessment and plan with the resident. I have reviewed the medications and the last labs.
[2018-07-14 18:45] VITALS: BP 142/87; PULSE 109; RESP 20; TEMP 97.9
== END 2018-07-14 20:00 | disposition home or self-care (01) ==
LOC: ED 15:08 → INTOOBSV 16:12 → ERH 16:12 → 2RNO 20:51
PROVIDERS: ADMIT Internal Medicine Nephrology; ATTEND Internal Medicine Nephrology
DX: I48.0 Paroxysmal atrial fibrillation (principal); C7A.8 Other malignant neuroendocrine tumors; C78.7 Secondary malignant neoplasm of liver and intrahepatic bile duct; D72.829 Elevated white blood cell count, unspecified; E78.00 Pure hypercholesterolemia, unspecified; E78.5 Hyperlipidemia, unspecified; I10 Essential (primary) hypertension; J44.9 Chronic obstructive pulmonary disease, unspecified; K21.9 Gastro-esophageal reflux disease without esophagitis; Z79.899 Other long term (current) drug therapy; Z85.118 Personal history of other malignant neoplasm of bronchus and lung
CPT/HCPCS: 36415; 71045; 74177; 80053; 81001; 82248; 82948; 83735; 83880; 85025; 85027; 85610; 85730; 87040; 93005; 99285; G0378; J1160; J3480; J7040; Q9967

== ENCOUNTER 2018-07-21 12:00 | Outpatient (CLI) | payer BC | END 2018-07-21 12:01 | disposition home or self-care (01) | LOC: OPLAB 12:00 ==